=== PATIENT | female | born 1955 | race Caucasian/White ===

== ENCOUNTER 2018-12-05 06:28 | Emergency (ER) | payer OTHER, SELFPAY ==
[2018-12-05 06:34] VITALS: BP 168/97; PULSE 80; RESP 16; TEMP 36.7; O2SAT 98; BMI 29.2
--- NOTE | 2018-12-05 06:48 | ED_ITS ---
HPI - Back Pain/Injury <Andrew Patel DO - Last Filed: 12/05/18 18:06> General Chief Complaint: Urogenital-Female Stated Complaint: Thinks kidney stone back pain since yesterday Time Seen by Provider: 12/05/18 06:34 Source: patient Mode of arrival: Ambulatory Limitations: no limitations History of Present Illness HPI Narrative: 63-year-old female here for evaluation of bilateral upper and lower back pain. Patient states the symptoms started yesterday. She did heat and ice and some topical creams yesterday without much improvement. States that this morning she woke up much worse. States she has had some blood in her stool recently. This is not new. She has had GI bleeds in the past. She also stated that she was not concerned about this because she took some ibuprofen recently. Denies any blood in her urine. She has never had a kidney stone before. She thinks that may be what is going on today. No fevers. Related Data Previous Rx's Medication Instructions Recorded ketorolac 10 mg PO TID PRN #15 tab 12/05/18 Allergies Allergy/AdvReac Type Severity Reaction Status Date / Time ciprofloxacin [From Cipro] AdvReac Diarrhea Verified 12/05/18 06:52 Review of Systems <Andrew Patel DO - Last Filed: 12/05/18 18:06> Constitutional Constitutional: Denies fever(s) Cardiovascular Cardiovascular: Denies chest pain and Denies dyspnea Respiratory Respiratory: Denies dyspnea Gastrointestinal Gastrointestinal: Reports abdominal pain, Denies diarrhea, Denies loose stools, Reports nausea and Denies vomiting Comments: Blood in stool Musculoskeletal Musculoskeletal: Reports back pain, Denies myalgias and Denies arthralgias Integumentary/Breasts Skin/Breast: Denies lesions and Denies rash Hematologic/Lymphatic Hematologic/Lymphatic: Denies easy bleeding and Denies easy bruising PFSH <Andrew Patel DO - Last Filed: 12/05/18 18:06> Medical History Cervical cancer (Inactive ~1977) 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 Grandmother History of heart disease Grandfather Cancer Grandmother Stroke Social History Smoking Status: Never smoker Family History (Updated 11/07/18 @ 21:14 by Jamilah Oropeza) Father History of heart disease Hypertension Hyperlipidemia Mother Cancer Grandfather No problems noted. Grandmother History of heart disease Grandfather Cancer Grandmother Stroke Social History Smoking Status: Never smoker Exam <DO Khoa Atkins Last Filed: 12/05/18 18:06> Initial Vital Signs Initial Vital Signs: Vital Signs Temperature 98.0 F 12/05/18 06:34 Pulse Rate 80 12/05/18 06:34 Respiratory Rate 16 12/05/18 06:34 Blood Pressure 168/97 H 12/05/18 06:34 Pulse Oximetry 98 12/05/18 06:34 Const General: cooperative Orientation: alert and awake Resp Effort & Inspection: normal respiratory effort Auscultation: clear to auscultation bilaterally Cardio Rate: regular rate Rhythm: regular rhythm GI Inspection: non-distended Palpation: soft Back/Spine/Pelvis Cervical Spine: No cervical spinal tenderness Thoracic/Lumbar Spine: paraspinal tenderness, thoracic spinal tenderness and lumbar spinal tenderness Skin Lesions: no lesions Rashes: no rashes Neuro General: alert and awake Cognition: normal cognition Speech: speech normal Extrem General: normal to inspection and capillary refill normal Psych Appearance: grossly normal and well kempt <DO Khoa Stephenson Last Filed: 12/05/18 18:51> Initial Vital Signs Initial Vital Signs: Vital Signs Temperature 98.0 F 12/05/18 06:34 Pulse Rate 80 12/05/18 06:34 Respiratory Rate 16 12/05/18 06:34 Blood Pressure 168/97 H 12/05/18 06:34 Pulse Oximetry 98 12/05/18 06:34 Course <DO Khoa Atkins Last Filed: 12/05/18 18:06> Orders Ordered: Discontinued Medications Hydromorphone HCl (Dilaudid) 1 mg IV NOW ONE Stop: 12/05/18 06:48 Last Admin: 12/05/18 07:22 Dose: 1 mg Documented by: ALANNA Ketorolac Tromethamine (Toradol) 30 mg IV NOW ONE Stop: 12/05/18 06:48 Last Admin: 12/05/18 07:22 Dose: 30 mg Documented by: ALANNA Vital Signs Vital signs: Vital Signs - 8 hr 12/05/18 06:34 Temperature 98.0 F Pulse Rate 80 Respiratory Rate 16 Blood Pressure 168/97 H Pulse Oximetry 98 <Mk Humphreys DO - Last Filed: 12/05/18 18:51> Course Course Narrative: Patient received in sign-out from Dr. Patel. I performed an independent history and physical exam. Given patient's multitude of symptoms including back pain with some change in bowel habits CT with IV contrast has been ordered. She is feeling better after above-stated therapies Orders Ordered: Discontinued Medications Hydromorphone HCl (Dilaudid) 1 mg IV NOW ONE Stop: 12/05/18 06:48 Last Admin: 12/05/18 07:22 Dose: 1 mg Documented by: ALANNA Ketorolac Tromethamine (Toradol) 30 mg IV NOW ONE Stop: 12/05/18 06:48 Last Admin: 12/05/18 07:22 Dose: 30 mg Documented by: ALANNA Vital Signs Vital signs: Vital Signs - 8 hr 12/05/18 06:34 Temperature 98.0 F Pulse Rate 80 Respiratory Rate 16 Blood Pressure 168/97 H Pulse Oximetry 98 MDM - Back Pain/Injury <Andrew Patel DO - Last Filed: 12/05/18 18:06> Lab Data Result diagrams: 12/05/18 07:10 12/05/18 07:10 Labs: Lab Results 12/05/18 12/05/18 12/05/18 Range/Units 06:35 07:10 07:10 WBC 7.3 (4.5-11.0) X10^3/uL RBC 4.71 (4.0-5.2) X10^6/uL Hgb 14.4 (12.0-16.0) g/dL Hct 42.7 (36-46) % MCV 90.6 (80-100) fL MCH 30.6 (26-34) PG MCHC 33.8 (30-36) % RDW 13.5 (11.6-14.8) % Plt Count 291 (150-400) X10^3/uL Neut % (Auto) 64.8 (50-75) % Lymph % (Auto) 26.5 (25-40) % [place] % (Auto) 7.1 (3-14) % Eos % (Auto) 1.4 L (2-4) % Baso % (Auto) 0.2 (0-2) % Neut # (Auto) 4700 (4753-1515) /uL Lymph # (Auto) 1900 (3164-3192) /uL [place] # (Auto) 500 (0-900) /uL Eos # (Auto) 100 (0-450) /uL Baso # (Auto) 0 (0-100) /uL Sodium 143 (137-145) mmol/L Potassium 4.2 (3.4-5.1) mmol/L Chloride 102 (98-107) mmol/L Carbon Dioxide 30 (22-32) mmol/L BUN 15 (7-17) mg/dL Creatinine 0.60 (0.52-1.04) mg/dL Estimated GFR > 60.0 (>60) mL/min BUN/Creatinine Ratio 25.0 H (6-22) Glucose 106 (80-110) mg/dL Calcium 9.3 (8.4-10.2) mg/dL Total Bilirubin 0.7 (0.2-1.3) mg/dL AST 27 (14-36) IU/L ALT 27 (9-52) IU/L Alkaline Phosphatase 65 (38-126) U/L Total Protein 7.7 (6.3-8.2) g/dL Albumin 4.6 (3.5-5.0) g/dL Globulin 3.1 (1.7-4.1) g/dL Albumin/Globulin Ratio 1.5 (1.0-2.8) Lipase 87 (23-300) U/L Urine RBC 5-10/hpf H (0-5/HPF) Urine WBC 0-1/hpf (0-5/HPF) Urine Bacteria Occasional (0-1) (None) Ur Culture Indicated? Cult not indicated Urine Dip Bedside Urine Glucose Negative Bedside Urine Bilirubin - Negative Bedside Urine Ketone - Negative Urine Specific [place] 1.010 Bedside Urine Occult Blood + Bedside Urine pH 7.5 Bedside Urine Protein +/- 15 Bedside Urine Urobilinogen - Negative Bedside Urine Nitrite - Negative Bedside Urine Leukocytes - Negative Esterase MDM Narrative Medical decision making narrative: Patient with reproducible bilateral upper and lower back pain. This is not consistent with kidney stones. Has some abdominal tenderness however patient states this is not new. Will check labs and urine. Will provide pain control. Care turned over to day provider change of shift to follow up on labs and further disposition. <Mk Humphreys, DO - Last Filed: 12/05/18 18:51> Lab Data Labs: Lab Results 12/05/18 12/05/18 12/05/18 Range/Units 06:35 07:10 07:10 WBC 7.3 (4.5-11.0) X10^3/uL RBC 4.71 (4.0-5.2) X10^6/uL Hgb 14.4 (12.0-16.0) g/dL Hct 42.7 (36-46) % MCV 90.6 (80-100) fL MCH 30.6 (26-34) PG MCHC 33.8 (30-36) % RDW 13.5 (11.6-14.8) % Plt Count 291 (150-400) X10^3/uL Neut % (Auto) 64.8 (50-75) % Lymph % (Auto) 26.5 (25-40) % [place] % (Auto) 7.1 (3-14) % Eos % (Auto) 1.4 L (2-4) % Baso % (Auto) 0.2 (0-2) % Neut # (Auto) 4700 (8560-6383) /uL Lymph # (Auto) 1900 (3228-3046) /uL [place] # (Auto) 500 (0-900) /uL Eos # (Auto) 100 (0-450) /uL Baso # (Auto) 0 (0-100) /uL Sodium 143 (137-145) mmol/L Potassium 4.2 (3.4-5.1) mmol/L Chloride 102 (98-107) mmol/L Carbon Dioxide 30 (22-32) mmol/L BUN 15 (7-17) mg/dL Creatinine 0.60 (0.52-1.04) mg/dL Estimated GFR > 60.0 (>60) mL/min BUN/Creatinine Ratio 25.0 H (6-22) Glucose 106 (80-110) mg/dL Calcium 9.3 (8.4-10.2) mg/dL Total Bilirubin 0.7 (0.2-1.3) mg/dL AST 27 (14-36) IU/L ALT 27 (9-52) IU/L Alkaline Phosphatase 65 (38-126) U/L Total Protein 7.7 (6.3-8.2) g/dL Albumin 4.6 (3.5-5.0) g/dL Globulin 3.1 (1.7-4.1) g/dL Albumin/Globulin Ratio 1.5 (1.0-2.8) Lipase 87 (23-300) U/L Urine RBC 5-10/hpf H (0-5/HPF) Urine WBC 0-1/hpf (0-5/HPF) Urine Bacteria Occasional (0-1) (None) Ur Culture Indicated? Cult not indicated Urine Dip Bedside Urine Glucose Negative Bedside Urine Bilirubin - Negative Bedside Urine Ketone - Negative Urine Specific [place] 1.010 Bedside Urine Occult Blood + Bedside Urine pH 7.5 Bedside Urine Protein +/- 15 Bedside Urine Urobilinogen - Negative Bedside Urine Nitrite - Negative Bedside Urine Leukocytes - Negative Esterase Imaging Data CT scan - abdomen: Radiologist's impression: [address] [address] [address] Scan Report Signed Patient: Vane Olsen LMR#: [id number] : 4Acct:[id number] Age/Sex: 63 / FDate of Service: 12/05/18 Loc: ED Accession Number: [id number] Procedure: CT abdomen pelvis w con Ordering Provider: Mk Humphreys D.O. PROCEDURE: CT ABDOMEN PELVIS W CON INDICATIONS: severe left abdomen pain TECHNIQUE: After the administration of intravenous contrast, 5 mm thick sections acquired from the diaphragm to the symphysis. 5 mm coronal and sagittal reformats were acquired. For radiation dose reduction, the following was used: automated exposure control, adjustment of mA and/or kV according to patient size. COMPARISON: None. FINDINGS: Image quality: Excellent. ABDOMEN: Lung bases: There is minimal dependent atelectasis bilaterally. Heart size is normal. Solid organs: Evaluation of the liver demonstrates no focal hepatic lesions. The gallbladder appears within normal limits without calcified gallstones. Biliary system is non-dilated. There is mild dilatation of the pancreatic duct which measures up to approximately 4-5 mm. No peripancreatic fat stranding or fluid collections. There is mild soft tissue fullness in the ampulla. Otherwise no discrete pancreatic mass identified. The spleen is normal in size. No adrenal nodules. Kidneys demonstrate no hydronephrosis. There are bilateral renal cysts as well a smaller low-density foci which are too small to characterize but likely represent cysts. There is also a small exophytic lesion in the right kidney measuring up to 8 x 6 mm on series 3 image 40 which may represent a small hyperdense cyst or solid mass. Peritoneum and bowel: Bowel loops demonstrate normal wall thickness and caliber. No pericecal inflammatory changes to suggest appendicitis. There are bowel sutures in the sigmoid colon compatible with prior partial colectomy. No free fluid or air. Nodes and vessels: No retroperitoneal or mesenteric adenopathy by size criteria. Aorta and inferior vena cava are normal in size. Miscellaneous: No ventral hernias. PELVIS: Genitourinary: Bladder wall thickness is normal. The uterus is surgically absent. Miscellaneous: No inguinal hernias or adenopathy. There is a partially visualized fat density mass within the anterior compartment of the proximal right thigh along the rectus femoris muscle. Bones: No suspicious bony lesions. No vertebral body compression fractures. IMPRESSION: 1. Mild diffuse pancreatic duct dilatation with soft tissue fullness in the region of the ampulla. No biliary ductal dilatation. The findings may represent ampullary stenosis or a possible ampullary or pancreatic mass. The differential also includes a main duct IPMN. Recommend correlation clinically and with laboratory values. Further evaluation may be obtained with a pancreatic protocol MRI. 2. No CT evidence of acute pancreatitis. 3. Small lateral exophytic hyperdense cyst or solid mass demonstrated in the right kidney. Initial further evaluation may be obtained with ultrasound or on pancreatic MRI if performed. 4. Partially visualized fat density mass likely representing a lipoma within the anterior compartment of the proximal right thigh. Dictated by: Mark Urbina M.D. on 12/05/2018 at 8:39 Approved by: Mark Urbina M.D. on 12/05/2018 at 8:56 MDM Narrative Medical decision making narrative: Multiple etiologies for patient's symptoms considered including: [Musculoskeletal back pain versus kidney stone versus pyelonephritis versus other] Patient's symptoms improved or duration of stay with above-stated therapies. Findings and discharge diagnosis discussed with patient/family followed by verbalization of understanding Return precautions discussed with patient/family whom verbalize understanding. Discharge Plan Departure Patient Disposition: Home Clinical Impression: Acute flank pain Discharge Date/Time: 12/05/18 10:07 Instructions: DI for Flank Pain Activity Restrictions/Additional Instructions: *You have been diagnosed with [acute flank pain. It is unclear exactly what the cause is though it may have been a missed kidney stone, or musculoskeletal. ] *What to do: *Take medications as directed: Your presription has been sent to the [facility] in [place] at your request *Follow up with your primary care provider in 2-3 days, call for an appointment. Let them know you were seen in the Emergency Department and that we ask that you be seen in follow up. The CT today noted an abnormal appearance of a duct near your pancreas, this is almost surely unrelated to today's visit, but it will need to be followed up as an outpatient. I discussed this with radiology and they suggested a specific type of MRI as an outpatient. *Return to ER if you should have any new, worsening or concerning symptoms Prescriptions: New ketorolac 10 mg tablet 10 mg PO TID PRN (Reason: pain) Qty: 15 RF: 0 Referrals: Marleny Sosa MD [Physician] -
[2018-12-05 07:18] LABS: Bacteria Urine Occasional (0-1); Culture Indicated Urine Cult Not Indicated; RBC Urine 5-10/HPF (0-5/HPF); WBC Urine 0-1/HPF (0-5/HPF)
[2018-12-05] MEDS: HYDROMORPHONE 1 MG INJ IV (07:22)
[2018-12-05] MEDS: KETOROLAC 60 MG/2 ML VIAL 30 MG IV (07:22)
[2018-12-05 07:37] LABS: Add Manual Diff / Slide Review NO; Basophils Absolute Auto 0 /uL (0-100); Basophils Percent Auto 0.2 % (0-2); Eosinophils Absolute Auto 100 /uL (0-450); Eosinophils Percent Auto 1.4 % (2-4); Hematocrit 42.7 % (36-46); Hemoglobin 14.4 g/dL (12.0-16.0); Lymphocytes Absolute Auto 1900 /uL (1100-4500); Lymphocytes Percent Auto 26.5 % (25-40); Mean Corpuscular HGB Conc 33.8 % (30-36); Mean Corpuscular Hemoglobin 30.6 PG (26-34); Mean Corpuscular Volume 90.6 fL (80-100); Monocytes Absolute Auto 500 /uL (0-900); Monocytes Percent Auto 7.1 % (3-14); Neutrophils Absolute Auto 4700 /uL (1500-7000); Neutrophils Percent Auto 64.8 % (50-75); Platelet Count 291 X10^3/uL (150-400); Red Blood Cell Count 4.71 X10^6/uL (4.0-5.2); Red Cell Distribution Width 13.5 % (11.6-14.8); White Blood Cell Count 7.3 X10^3/uL (4.5-11.0)
[2018-12-05 07:42] LABS: Alanine Aminotransferase 27 IU/L (9-52); Albumin 4.6 g/dL (3.5-5.0); Albumin Globulin Ratio 1.5 (1.0-2.8); Alkaline Phosphatase 65 U/L (38-126); Aspartate Aminotransferase 27 IU/L (14-36); Bilirubin Total 0.7 mg/dL (0.2-1.3); Blood Urea Nitrogen 15 mg/dL (7-17); Calcium 9.3 mg/dL (8.4-10.2); Carbon Dioxide 30 mmol/L (22-32); Chloride 102 mmol/L (98-107); Estimated Glomerular Filt Rate > 60.0 mL/min (>60); Globulin 3.1 g/dL (1.7-4.1); Glucose 106 mg/dL (80-110); HEMOLYSIS < 15 (0-50); Lipase 87 U/L (23-300); Potassium 4.2 mmol/L (3.4-5.1); Sodium 143 mmol/L (137-145); Total Protein 7.7 g/dL (6.3-8.2)
--- NOTE | 2018-12-05 08:35 | DI.CT.S_ITS ---
PROCEDURE: CT ABDOMEN PELVIS W CON INDICATIONS: severe left abdomen pain TECHNIQUE: After the administration of intravenous contrast, 5 mm thick sections acquired from the diaphragm to the symphysis. 5 mm coronal and sagittal reformats were acquired. For radiation dose reduction, the following was used: automated exposure control, adjustment of mA and/or kV according to patient size. COMPARISON: None. FINDINGS: Image quality: Excellent. ABDOMEN: Lung bases: There is minimal dependent atelectasis bilaterally. Heart size is normal. Solid organs: Evaluation of the liver demonstrates no focal hepatic lesions. The gallbladder appears within normal limits without calcified gallstones. Biliary system is non-dilated. There is mild dilatation of the pancreatic duct which measures up to approximately 4-5 mm. No peripancreatic fat stranding or fluid collections. There is mild soft tissue fullness in the ampulla. Otherwise no discrete pancreatic mass identified. The spleen is normal in size. No adrenal nodules. Kidneys demonstrate no hydronephrosis. There are bilateral renal cysts as well a smaller low-density foci which are too small to characterize but likely represent cysts. There is also a small exophytic lesion in the right kidney measuring up to 8 x 6 mm on series 3 image 40 which may represent a small hyperdense cyst or solid mass. Peritoneum and bowel: Bowel loops demonstrate normal wall thickness and caliber. No pericecal inflammatory changes to suggest appendicitis. There are bowel sutures in the sigmoid colon compatible with prior partial colectomy. No free fluid or air. Nodes and vessels: No retroperitoneal or mesenteric adenopathy by size criteria. Aorta and inferior vena cava are normal in size. Miscellaneous: No ventral hernias. PELVIS: Genitourinary: Bladder wall thickness is normal. The uterus is surgically absent. Miscellaneous: No inguinal hernias or adenopathy. There is a partially visualized fat density mass within the anterior compartment of the proximal right thigh along the rectus femoris muscle. Bones: No suspicious bony lesions. No vertebral body compression fractures. IMPRESSION: 1. Mild diffuse pancreatic duct dilatation with soft tissue fullness in the region of the ampulla. No biliary ductal dilatation. The findings may represent ampullary stenosis or a possible ampullary or pancreatic mass. The differential also includes a main duct IPMN. Recommend correlation clinically and with laboratory values. Further evaluation may be obtained with a pancreatic protocol MRI. 2. No CT evidence of acute pancreatitis. 3. Small lateral exophytic hyperdense cyst or solid mass demonstrated in the right kidney. Initial further evaluation may be obtained with ultrasound or on pancreatic MRI if performed. 4. Partially visualized fat density mass likely representing a lipoma within the anterior compartment of the proximal right thigh. Dictated by: Mark Urbina M.D. on 12/05/2018 at 8:39 Approved by: Mark Urbina M.D. on 12/05/2018 at 8:56
== END 2018-12-05 10:07 | disposition home or self-care (01) ==
PROVIDERS: Emergency Medicine; Emergency Provider Emergency Medicine
DX: R10.9 Unspecified abdominal pain (principal); R11.0 Nausea
CPT/HCPCS: 36415; 74177; 80053; 81003; 81015; 83690; 85025; 96374; 96375; 99283; 99284; J1170; J1885; Q9967

== ENCOUNTER → 2018-12-25 09:03 | Outpatient (CLI) | payer OTHER, SELFPAY ==
[2018-12-25 10:07] LABS: Cholesterol 191 mg/dL (140-199); HDL Cholesterol 52 mg/dL (40-60); LDL Cholesterol Calculated 107 mg/dL (<100); Triglycerides 158 mg/dL (35-150)
[2018-12-25 10:23] LABS: Free T3, Triiodothyronine Free 3.04 pg/mL (2.77-5.27); Free T4, Direct Thyroxine 0.99 ng/dL (0.78-2.19)
[2018-12-25 10:36] LABS: Thyroid Stimulating Hormone 0.78 uIU/mL (0.47-4.68)
== END ==
PROVIDERS: PCP Nurse Practitioner; Visit Provider Nurse Practitioner
DX: Z13.6 Encounter for screening for cardiovascular disorders (principal); R53.83 Other fatigue; R63.4 Abnormal weight loss; Z87.19 Personal history of other diseases of the digestive system
CPT/HCPCS: 36415; 80061; 84439; 84443; 84481

== ENCOUNTER → 2018-12-27 11:33 | Outpatient (CLI) | payer OTHER, SELFPAY ==
[2018-12-27 15:18] LABS: Bacteria Urine None Seen; RBC Urine None Seen (0-5/HPF); WBC Urine None Seen (0-5/HPF)
[2018-12-27 15:21] LABS: Appearance Urine UA CLEAR; Bilirubin Urine UA NEGATIVE (NEGATIVE); Color Urine UA YELLOW; Glucose Urine UA NEGATIVE (Negative); Ketones Urine UA NEGATIVE (NEGATIVE); Leukocyte Esterase Urine UA NEGATIVE (NEGATIVE); Nitrite Urine UA NEGATIVE (Negative); Occult Blood Urine UA TRACE-LYSED (Negative); Protein Urine UA NEGATIVE (Negative); Specific Gravity Urine UA <=1.005 (1.000-1.035); Urobilinogen Urine UA 0.2 E.U./dL (0.2)
[2018-12-27 15:48] LABS: Culture Indicated Urine Cult Not Indicated; Urine Comments Microscopic Normal
== END ==
PROVIDERS: PCP Nurse Practitioner; Visit Provider Nurse Practitioner
DX: R31.9 Hematuria, unspecified (principal)
CPT/HCPCS: 81001

== ENCOUNTER → 2018-12-28 11:05 | Outpatient (CLI) | payer OTHER, SELFPAY ==
--- NOTE | 2018-12-28 11:06 | DI.MRI.S_ITS ---
PROCEDURE: MR ABDOMEN WO/W CON INDICATIONS: pancreatic duct dilation with soft tissue fullness TECHNIQUE: Coronal HASTE, axial 2D FLASH in- and [id number]; axial breath-hold T2 FSE with fat saturation from the hepatic dome to the iliac crests. Oblique coronal thin-slice and radial thick slab HASTE through the biliary system. Dynamic axial VIBE during administration of contrast. Post-contrast coronal VIBE or 2D FLASH with fat saturation from the hepatic dome to the iliac crests. Optional diffusion weighted imaging and ADC may be performed. COMPARISON: [facility], CT, CT ABDOMEN PELVIS W CON, 12/05/2018, 8:25. FINDINGS: Image quality: Excellent. Pancreas and biliary system: The pancreatic duct are is mildly dilated measuring 5.5 mm but is smooth throughout its course. There is prominent sidebranch draining the pancreatic uncinate process. No filling defects in the pancreatic duct. No other unusual sidebranch dilatations the pancreatic duct tapers normally to the ampulla which appears normal without enhancing mass or pancreatic head mass. Normal signal throughout the pancreas. No unusual enhancement. The intrahepatic biliary system is nondilated. The extrahepatic common duct is also normal caliber at 6 mm and tapers in the pancreatic head. Solid organs: Liver is normal in size and enhancement. Gallbladder appears normal without stones.. Spleen is normal in size and enhancement. No adrenal nodules. Kidneys are normal in size and enhancement, without hydronephrosis. Multiple cortical cysts present in each kidney. No enhancing solid masses. The previously mentioned 8mm hyperdense right renal lesion is T1 hyperintense and T2 hypointense without appreciable enhancement, consistent with a chronic hemorrhagic cyst. Nodes and vessels: No retroperitoneal or mesenteric adenopathy by size criteria. Aorta and inferior vena cava are normal in size. Bowel and peritoneum: Unenhanced bowel loops are normal in caliber throughout. No free fluid. Lung bases: No basal pleural effusions. Heart size is normal. Bones and soft tissues: No ventral hernias. Bone marrow is normal in overall signal. IMPRESSION: 1. Mild, smooth pancreatic ductal dilatation diffusely without visible/enhancing obstruction. This may be sequela of chronic pancreatitis or evidence of ampullary stenosis. There could possibly be an occult obstructing lesion at the ampulla. Correlate clinically with lab values. ERCP is recommended if there is persistent abnormality. 2. 8mm partially exophytic right renal hemorrhagic cyst. Dictated by: Ankita Rmaos M.D. on 12/28/2018 at 15:03 Approved by: Ankita Ramos M.D. on 12/28/2018 at 15:24
== END ==
PROVIDERS: PCP Nurse Practitioner; Visit Provider Nurse Practitioner
DX: K86.89 Other specified diseases of pancreas (principal); N28.1 Cyst of kidney, acquired; N28.89 Other specified disorders of kidney and ureter; R53.83 Other fatigue; R63.4 Abnormal weight loss; Z13.6 Encounter for screening for cardiovascular disorders; Z87.19 Personal history of other diseases of the digestive system
CPT/HCPCS: 74183; A9579

== ENCOUNTER → 2019-02-12 10:01 | Outpatient (CLI) | payer OTHER, SELFPAY ==
[2019-02-12 10:49] LABS: Hematocrit 41.9 % (36-46); Hemoglobin 14.3 g/dL (12.0-16.0); Mean Corpuscular HGB Conc 34.2 % (30-36); Mean Corpuscular Hemoglobin 31.1 PG (26-34); Mean Corpuscular Volume 91.1 fL (80-100); Platelet Count 293 X10^3/uL (150-400); Red Cell Distribution Width 13.4 % (11.6-14.8); White Blood Cell Count 8.4 X10^3/uL (4.5-11.0)
[2019-02-12 11:13] LABS: BUN Creatinine Ratio 21.3 (6-22); Blood Urea Nitrogen 17 mg/dL (7-17); Calcium 9.3 mg/dL (8.4-10.2); Carbon Dioxide 31 mmol/L (22-32); Chloride 99 mmol/L (98-107); Estimated Glomerular Filt Rate > 60.0 mL/min (>60); Glucose 81 mg/dL (80-110); HEMOLYSIS < 15 (0-50); Potassium 4.7 mmol/L (3.4-5.1); Sodium 140 mmol/L (137-145)
[2019-02-12 11:23] LABS: Creatinine Urine Random 106.4 mg/dL; Protein (Total) Urine Random 12 mg/dL (0-12); Protein Creatinine Ratio Urine 0.11 GRAM/24H
== END ==
PROVIDERS: Family Provider Nurse Practitioner; PCP Nurse Practitioner; Visit Provider Student in an Organized Health Care Education/Training Program
DX: N05.9 Unspecified nephritic syndrome with unspecified morphologic changes (principal); D63.1 Anemia in chronic kidney disease; D70.9 Neutropenia, unspecified; R80.9 Proteinuria, unspecified
CPT/HCPCS: 36415; 80048; 82570; 84156; 85027

== ENCOUNTER → 2019-03-26 13:50 | Outpatient (CLI) | payer OTHER, SELFPAY ==
[2019-03-26 15:50] LABS: Blood Urea Nitrogen 12 mg/dL (7-17); Carbon Dioxide 29 mmol/L (22-32); Chloride 101 mmol/L (98-107); Estimated Glomerular Filt Rate > 60.0 mL/min (>60); Glucose 78 mg/dL (80-110); HEMOLYSIS < 15 (0-50); Sodium 139 mmol/L (137-145)
== END ==
PROVIDERS: Family Provider Nurse Practitioner; PCP Nurse Practitioner; Visit Provider Student in an Organized Health Care Education/Training Program
DX: N05.9 Unspecified nephritic syndrome with unspecified morphologic changes (principal)
CPT/HCPCS: 36415; 80048

== ENCOUNTER → 2019-04-16 07:51 | Outpatient (CLI) | payer OTHER, SELFPAY ==
[2019-04-16 08:31] LABS: Cholesterol 196 mg/dL (140-199); HDL Cholesterol 55 mg/dL (40-60); LDL Cholesterol Calculated 113 mg/dL (<100); Triglycerides 138 mg/dL (35-150)
[2019-04-16 09:24] LABS: Hep C Virus Ab w/Reflex Quant NEGATIVE s/c (NEGATIVE)
== END ==
PROVIDERS: Family Provider Nurse Practitioner; PCP Nurse Practitioner; Referring Provider Nurse Practitioner; Visit Provider Nurse Practitioner
DX: Z11.59 Encounter for screening for other viral diseases (principal); E78.00 Pure hypercholesterolemia, unspecified; E78.2 Mixed hyperlipidemia; Z91.89 Other specified personal risk factors, not elsewhere classified
CPT/HCPCS: 36415; 80061; 86803

== ENCOUNTER 2019-07-18 10:08 | Emergency (ER) | payer OTHER, SELFPAY ==
--- NOTE | 2019-07-18 10:27 | ED.GENADULT ---
HPI - General Adult General Chief complaint: Extremity Problem,Nontraumatic Stated complaint: left leg behind knee pain/swelling/warm x2 days Time Seen by Provider: 07/18/19 10:12 Source: patient Mode of arrival: Ambulatory Limitations: no limitations History of Present Illness HPI narrative: Patient is a 64-year-old female here for evaluation of pain behind her left knee. She has also noticed some swelling in her left knee and warmth for the past couple days. No specific trauma. No chest pain or shortness of breath. Is able to ambulate. Has never had a blood clot before. No swelling in the left foot. Has not tried anything for symptoms prior to arrival. Related Data Home Medications Medication Instructions Recorded Confirmed losartan 100 mg tablet 100 mg PO DAILY 07/11/19 07/11/19 Previous Rx's Medication Instructions Recorded trazodone 100 mg tablet See Rx Instructions PO BEDTIME 02/22/19 #180 tab amlodipine 10 mg tablet 10 mg PO DAILY #90 tab 02/26/19 promethazine 25 mg tablet 25 mg PO Q6H PRN #120 tab MDD 4 04/24/19 tabs max daily rosuvastatin 20 mg tablet 20 mg PO DAILY #90 tab 04/24/19 voltaren 10% gel See Rx Instructions .ROUTE 04/24/19 .COMPLEX #30 gram baclofen 10 mg tablet 10 mg PO QID PRN #360 tab 07/05/19 pantoprazole 40 mg tablet,delayed 40 mg PO BID #180 tab 07/05/19 release losartan 50 mg tablet 50 mg PO DAILY #90 tab 07/11/19 venlafaxine 150 mg 150 mg PO BEDTIME #90 cap 07/11/19 capsule,extended release 24 hr lisinopril 20 mg tablet 20 mg PO BID #60 tab 07/16/19 Allergies Allergy/AdvReac Type Severity Reaction Status Date / Time amoxicillin Allergy Mild Verified 07/11/19 09:52 azithromycin [From Zithromax] Allergy Mild Verified 07/11/19 09:52 buspirone [From BuSpar] Allergy Mild dysphoria Verified 07/11/19 09:52 ceftriaxone Allergy Mild Verified 07/11/19 09:52 clarithromycin [From Biaxin] Allergy Mild Verified 07/11/19 09:52 clindamycin Allergy Mild Verified 07/11/19 09:52 doxycycline Allergy Mild Verified 07/11/19 09:52 gemfibrozil Allergy Mild Verified 07/11/19 09:52 hydrocodone [From Vicodin] Allergy Mild Verified 07/11/19 09:52 levofloxacin [From Levaquin] Allergy Mild Verified 07/11/19 09:52 memantine [From Namenda] Allergy Mild confusion Verified 07/11/19 09:52 pregabalin [From Lyrica] Allergy Mild Dizziness Verified 07/11/19 09:52 nitrofurantoin AdvReac Mild Hives on Verified 07/11/19 09:52 chest/ shoulders ciprofloxacin [From Cipro] AdvReac Diarrhea Verified 07/11/19 09:52 Review of Systems Constitutional Constitutional: Denies fever(s) Cardiovascular Cardiovascular: Denies chest pain and Denies dyspnea Respiratory Respiratory: Denies dyspnea Gastrointestinal Gastrointestinal: Denies abdominal pain Musculoskeletal Comments: Left knee swelling and pain Integumentary/Breasts Skin/Breast: Denies lesions and Denies rash Neurologic Neurologic: Denies behavioral changes Psychiatric Psychiatric: Denies behavioral changes Allergic/Immunologic Allergic/Immunologic: Denies urticaria Patient History Medical History Abnormal chest x-ray (Inactive ~2011) Abnormal Pap smear of cervix (Resolved ~1974) Allergic rash present on examination (Acute) Cannabis dependence, daily use (Acute) Cervical cancer (Inactive ~1977) Chronic pain of both shoulders (Acute) Colon polyps (Inactive ~2002) 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) Depression (Chronic ~1988) Foot pain (Inactive ~2017) Fractures (Resolved) Hemorrhoid (Inactive ~1979) History of chronic constipation (Acute) Hyperlipidemia LDL goal <100 (Acute) Liver disease (Inactive ~1972) Measles (Resolved) Mumps (Resolved) Nausea & vomiting (Acute) Painful menstrual periods (Resolved) Ruptured tympanic membrane (Resolved ~1974) Scoliosis (Inactive ~1963) Skin cancer (Inactive ~2014) Surgical History Anesthesia (Resolved) Carpal tunnel syndrome (Resolved ~1987) Cataracts, bilateral (Resolved ~2013) History of hysterectomy (Resolved ~1981) Social History Smoking Status: Former smoker Smoking Status: Former smoker (quit 02/16/17 smoked 47 years ) alcohol intake frequency: 0-2 drinks per day Substance Use Type: marijuana Exam Initial Vital Signs Initial Vital Signs: Vital Signs Temperature 97.1 F L 07/18/19 10:29 Pulse Rate 69 07/18/19 10:29 Respiratory Rate 18 07/18/19 10:29 Blood Pressure 178/84 H 07/18/19 10:29 Pulse Oximetry 97 07/18/19 10:29 Const General: cooperative and comfortable Resp Effort & Inspection: normal respiratory effort Cardio Pulses: dorsalis pedis present on the left Skin Lesions: lesions noted Rashes: rash noted Neuro General: alert, awake and oriented x3 Extrem General: capillary refill normal Other: Full range of motion left knee. Left ankle left hip unremarkable. Patient does have a swelling on the lateral aspect posterior of the left knee. Soft to the touch. Free movable. Separate from the hamstring tendon. Exam is consistent with a Sevilla cyst. Course Vital Signs Vital signs: Vital Signs - 8 hr 07/18/19 10:29 07/18/19 10:34 Temperature 97.1 F L Pulse Rate 69 Pulse Rate [Left Posterior Tibial] 70 Respiratory Rate 18 Blood Pressure 178/84 H Pulse Oximetry 97 Medical Decision Making MDM Narrative Medical decision making narrative: Low suspicion for fracture, low suspicion for DVT. Low suspicion for ligamentous injury. Low suspicion for muscular injury. Physical exam is consistent with a Sevilla cyst. She is tender over this area. We did discuss Sevilla cyst. Discussed conservative treatment at home. Discussed return precautions follow up instructions. She expressed understanding and agreement. Discharge Plan Departure Patient Disposition: Home Clinical Impression: Sevilla's cyst of knee Qualifiers: Laterality: left Qualified Code(s): M71.22 - Synovial cyst of popliteal space [Sevilla], left knee Discharge Date/Time: 07/18/19 10:38 Instructions: DI for Sevilla's Cyst Activity Restrictions/Additional Instructions: Recommend you contact your primary provider for a follow-up. Return to the emergency department for any new or worsening symptoms Prescriptions: No Action trazodone 100 mg tablet See Rx Instructions PO BEDTIME Qty: 180 RF: 3 amlodipine 10 mg tablet 10 mg PO DAILY Qty: 90 RF: 3 pantoprazole 40 mg tablet,delayed release (DR/EC) 40 mg PO BID Qty: 180 RF: 3 baclofen 10 mg tablet 10 mg PO QID PRN (Reason: pain) Qty: 360 RF: 3 lisinopril 20 mg tablet 20 mg PO BID Qty: 60 RF: 3 promethazine 25 mg tablet 25 mg PO Q6H MDD 4 tabs max daily PRN (Reason: nausea and vomiting) Qty: 120 RF: 1 rosuvastatin 20 mg tablet 20 mg PO DAILY Qty: 90 RF: 3 voltaren 10% gel See Rx Instructions .ROUTE .COMPLEX Qty: 30 RF: 2 losartan 100 mg tablet 100 mg PO DAILY RF: 0 venlafaxine 150 mg capsule,extended release 24hr 150 mg PO BEDTIME Qty: 90 RF: 3 losartan 50 mg tablet 50 mg PO DAILY Qty: 90 RF: 3 Referrals: Annette Marx ARNP [Primary Care Provider] -
[2019-07-18 10:29] VITALS: BP 178/84; PULSE 69; RESP 18; TEMP 36.2; O2SAT 97
[2019-07-18 10:34] VITALS: PULSE 70
== END 2019-07-18 10:38 | disposition home or self-care (01) ==
PROVIDERS: Emergency Provider Emergency Medicine; Family Provider Nurse Practitioner; PCP Nurse Practitioner
DX: M71.22 Synovial cyst of popliteal space [Baker], left knee (principal)
CPT/HCPCS: 99281

== ENCOUNTER → 2020-02-08 13:26 | Outpatient (CLI) | payer OTHER, SELFPAY ==
--- NOTE | 2020-02-08 13:28 | DI.MG.S_ITS ---
BILATERAL DIGITAL DIAGNOSTIC MAMMOGRAM 3D/2D: 02/08/2020 CLINICAL: Lump in the Left breast. Comparison is made to exam dated: 01/30/2016 mammogram - [facility]. The tissue of both breasts is heterogeneously dense. This may lower the sensitivity of mammography. No significant masses, calcifications, or other findings are seen in either breast. IMPRESSION: INCOMPLETE: NEEDS ADDITIONAL IMAGING EVALUATION There is no abnormality seen in the left breast to correspond with the palpable abnormality in the lower inner quadrant, however, ultrasound is recommended. This exam was interpreted at Station ID: [id number]. NOTE: For mammograms, a report in lay terms will be sent to the patient. Approximately 15% of breast malignancies will not be visualized mammographically. In the management of a palpable breast mass, a negative mammogram must not discourage biopsy of a clinically suspicious lesion. Electronically Signed By: Mark kraus/sonny:02/08/2020 14:09:25 ACR BI-RADS Category 0: Incomplete 3340F
--- NOTE | 2020-02-08 13:28 | DI.US.S_ITS ---
LIMITED ULTRASOUND OF LEFT BREAST: 02/08/2020 CLINICAL: Palpable left breast lump x 1 month. Comparison is made to exams dated: 02/08/2020 mammogram - [facility] and 01/30/2016 mammogram - [facility]. Real-time ultrasound of the left breast 7 o'clock region was performed on the area of interest. No discrete cystic or solid mass lesion identified in the area of palpable abnormality. IMPRESSION: NEGATIVE There is no sonographic evidence of malignancy. There is no abnormality seen in the left breast to correspond with the palpable abnormality at 7 o'clock, however, clinical followup is recommended. A 1 year screening mammogram is recommended. This exam was interpreted at Station ID: [id number]. Electronically Signed By: Mark kraus/:02/08/2020 14:39:02 letter sent: Clinical Evaluation Ultrasound BI-RADS: 1 Negative
== END ==
PROVIDERS: Family Provider Nurse Practitioner; PCP Nurse Practitioner; Referring Provider Nurse Practitioner; Visit Provider Nurse Practitioner
DX: R92.8 Other abnormal and inconclusive findings on diagnostic imaging of breast (principal); N63.24 Unspecified lump in the left breast, lower inner quadrant
CPT/HCPCS: 76642; 77066; G0279

== ENCOUNTER → 2020-03-25 08:01 | Outpatient (CLI) | payer OTHER, SELFPAY ==
--- NOTE | 2020-03-25 08:02 | DI.US.S_ITS ---
PROCEDURE: US ABDOMEN COMPLETE INDICATIONS: PAIN TECHNIQUE: Real-time scanning was performed of the abdominal and retroperitoneal organs, with image documentation. COMPARISON: [facility], CT, CT ABDOMEN PELVIS W CON, 12/05/2018, 8:25. FINDINGS: Liver: Liver is normal in size and homogeneous in echotexture. The main portal vein is patent, with a diameter of 1.3 cm. Gallbladder: No findings of gallstones or sludge are seen. The gallbladder wall is not thickened, measuring 3 mm or less. No specific pericholecystic fluid is seen. The sonographic Anna sign is negative. Biliary ducts: Intrahepatic bile ducts are non-dilated. Extrahepatic bile duct caliber measures 5 mm. Normal is 6-7 mm or less in diameter, or 10 mm or less post-cholecystectomy. Pancreas: Visualized portions of the pancreas are sonographically normal. The biliary duct measures up to 3.6 mm, which is minimally dilated. Spleen: Spleen is normal in size and homogeneous in echotexture. Kidneys: Kidneys are normal in size and echotexture. Right kidney measures 10.2 cm long; left kidney measures 10.9 cm long. No hydronephrosis or nephrolithiasis. No solid masses. The renal cortex measures within normal limits for thickness. Multiple simple appearing cortical cysts are seen, with the largest seen on the left superiorly measuring up 0.1 cm. Aorta: Visualized aorta is normal in caliber at less than 3 cm. Iliacs: Proximal common iliac arteries are normal in caliber at less than 2.5 cm. IVC: Intrahepatic inferior vena cava is patent. Miscellaneous: No free abdominal fluid. IMPRESSION: The gallbladder demonstrates a normal sonographic appearance. No biliary dilatation is seen. Mild prominence of biliary duct can be seen. Renal cyst incidentally noted. Dictated by: Ayo Stevens M.D. on 03/25/2020 at 8:16 Approved by: Ayo Stevens M.D. on 03/25/2020 at 8:18
[2020-03-25 10:07] LABS: Add Manual Diff / Slide Review NO; Basophils Absolute Auto 0 /uL (0-100); Basophils Percent Auto 0.3 % (0-2); Eosinophils Absolute Auto 0 /uL (0-450); Eosinophils Percent Auto 0.5 % (2-4); Hematocrit 42.7 % (36-46); Hemoglobin 13.8 g/dL (12.0-16.0); Lymphocytes Absolute Auto 2000 /uL (1100-4500); Lymphocytes Percent Auto 21.4 % (25-40); Mean Corpuscular HGB Conc 32.4 % (30-36); Mean Corpuscular Hemoglobin 29.8 PG (26-34); Mean Corpuscular Volume 92.2 fL (80-100); Monocytes Absolute Auto 600 /uL (0-900); Monocytes Percent Auto 6.1 % (3-14); Neutrophils Absolute Auto 6600 /uL (1500-7000); Neutrophils Percent Auto 71.7 % (50-75); Platelet Count 317 X10^3/uL (150-400); Red Blood Cell Count 4.64 X10^6/uL (4.0-5.2); Red Cell Distribution Width 13.5 % (11.6-14.8); White Blood Cell Count 9.2 X10^3/uL (4.5-11.0)
[2020-03-25 10:16] LABS: Alanine Aminotransferase 16 IU/L (<35); Albumin 4.3 g/dL (3.5-5.0); Albumin Globulin Ratio 1.4 (1.0-2.8); Alkaline Phosphatase 68 U/L (38-126); Aspartate Aminotransferase 23 IU/L (14-36); BUN Creatinine Ratio 18.3 (6-22); Bilirubin Total 0.3 mg/dL (0.2-1.3); Blood Urea Nitrogen 13 mg/dL (7-17); Calcium 9.1 mg/dL (8.4-10.2); Carbon Dioxide 36 mmol/L (22-32); Chloride 102 mmol/L (98-107); Cholesterol 191 mg/dL (140-199); Estimated Glomerular Filt Rate > 60.0 mL/min (>60); Glucose 87 mg/dL (80-110); HDL Cholesterol 69 mg/dL (40-60); HEMOLYSIS < 15 (0-50); LDL Cholesterol Calculated 96 mg/dL (<100); Potassium 4.7 mmol/L (3.4-5.1); Sodium 141 mmol/L (137-145); Total Protein 7.3 g/dL (6.3-8.2); Triglycerides 132 mg/dL (35-150)
[2020-03-25 10:24] LABS: Free T3, Triiodothyronine Free 2.87 pg/mL (2.77-5.27); Free T4, Direct Thyroxine 0.98 ng/dL (0.78-2.19)
[2020-03-25 10:37] LABS: Thyroid Stimulating Hormone 0.858 uIU/mL (0.47-4.68)
== END ==
PROVIDERS: Family Provider Nurse Practitioner; PCP Nurse Practitioner; Referring Provider Nurse Practitioner; Visit Provider Nurse Practitioner
DX: R10.9 Unspecified abdominal pain (principal); N28.1 Cyst of kidney, acquired; M54.9 Dorsalgia, unspecified; E78.5 Hyperlipidemia, unspecified; R11.2 Nausea with vomiting, unspecified; D64.9 Anemia, unspecified; F32.9 Major depressive disorder, single episode, unspecified; F41.9 Anxiety disorder, unspecified; I10 Essential (primary) hypertension; R53.82 Chronic fatigue, unspecified; R63.4 Abnormal weight loss; Z79.899 Other long term (current) drug therapy
CPT/HCPCS: 36415; 76700; 80053; 80061; 84439; 84443; 84481; 85025

== ENCOUNTER → 2020-05-08 15:43 | Outpatient (CLI) | payer MEDICARE, SELFPAY ==
[2020-05-08] MEDS: COVID-19 VACC, Ad26(JANSSEN)/PF 0.5 ML IM (16:00)
== END ==
PROVIDERS: Family Provider Nurse Practitioner; PCP Nurse Practitioner; Visit Provider Internal Medicine
DX: Z23 Encounter for immunization (principal)
CPT/HCPCS: 0031A; 91303

== ENCOUNTER → 2020-05-22 08:35 | Outpatient (CLI) | payer OTHER, SELFPAY ==
--- NOTE | 2020-05-22 08:38 | DI.MG.S_ITS ---
UNILATERAL LEFT DIGITAL DIAGNOSTIC MAMMOGRAM 3D/2D: 05/22/2020 CLINICAL: Left breast pain and lump. Comparison is made to exams dated: 02/08/2020 mammogram, 02/08/2020 ultrasound - [facility], and 01/30/2016 mammogram - [facility]. The tissue of left breast is heterogeneously dense. This may lower the sensitivity of mammography. No significant masses, calcifications, or other findings are seen in the breast. IMPRESSION: INCOMPLETE: NEEDS ADDITIONAL IMAGING EVALUATION No mammographic evidence of malignancy. A targeted ultrasound of the left breast site of pain is recommended and will immediately follow. This exam was interpreted at Station ID: [id number]. NOTE: For mammograms, a report in lay terms will be sent to the patient. Approximately 15% of breast malignancies will not be visualized mammographically. In the management of a palpable breast mass, a negative mammogram must not discourage biopsy of a clinically suspicious lesion. Electronically Signed By: Omer Gtz M.D. slc/:05/22/2020 09:30:56 ACR BI-RADS Category 0: Incomplete [id number]
--- NOTE | 2020-05-22 08:38 | DI.US.S_ITS ---
LIMITED ULTRASOUND OF LEFT BREAST AND AXILLA: 05/22/2020 CLINICAL: Focal left breast and axilla pain. Comparison is made to exams dated: 05/22/2020 mammogram, 02/08/2020 ultrasound, 02/08/2020 mammogram - [facility], and 01/30/2016 mammogram - [facility]. Color flow and real-time ultrasound of the left breast axilla were performed. Ramirez scale images of the real-time examination were reviewed. No significant abnormalities were seen sonographically in the left breast or the left axilla. IMPRESSION: NEGATIVE There is no sonographic evidence of malignancy in the region of pain. Return to annual mammogram screening schedule is recommended. Due around January 2021. Exam findings were conveyed to the patient. Patient is advised to monitor for significant change. Clinical follow-up as needed. This exam was interpreted at Station ID: [id number]. Electronically Signed By: Omer Gtz M.D. slc/:05/22/2020 10:14:23 letter sent: Normal Exam Ultrasound BI-RADS: 1 Negative
--- NOTE | 2020-05-22 08:38 | DI.US.S_ITS ---
PROCEDURE: US EXTREMITY NONVASC LOWER RT INDICATIONS: EVALUATING GROWING LIPOMA RIGHT UPPER THIGH TECHNIQUE: Real-time scanning was performed of the right upper thigh, with image documentation. COMPARISON: None. FINDINGS: In the area of palpable abnormality, presumed large lipoma is seen measuring 10.8 by 6.5 x 6.0 cm. This abuts the proximal superficial femoral vein and artery, and demonstrates mass effect, all of the vessels appear patent. IMPRESSION: Large heterogeneous mildly echogenic mass in the area of palpable abnormality. Findings suggest may reflect lipoma although technically nonspecific. Recommend further evaluation with contrast enhanced MRI , given clinical history of progressive growth to assess malignant potential (such as liposarcoma). Dictated by: Edy Drake M.D. on 05/22/2020 at 16:17 Approved by: Edy Drake M.D. on 05/22/2020 at 16:20
== END ==
PROVIDERS: Family Provider Nurse Practitioner; PCP Nurse Practitioner; Referring Provider Nurse Practitioner; Visit Provider Nurse Practitioner
DX: R92.8 Other abnormal and inconclusive findings on diagnostic imaging of breast (principal); N63.20 Unspecified lump in the left breast, unspecified quadrant; N64.4 Mastodynia; D17.9 Benign lipomatous neoplasm, unspecified
CPT/HCPCS: 76642; 76882; 77065; G0279

== ENCOUNTER → 2020-05-22 08:39 | Outpatient (CLI) | payer OTHER, SELFPAY ==
[2020-05-22 08:44] LABS: Bacteria Urine None Seen; WBC Urine None Seen (0-5/HPF)
[2020-05-22 09:05] LABS: Hematocrit 40.1 % (36-46); Hemoglobin 13.6 g/dL (12.0-16.0)
[2020-05-22 09:12] LABS: Appearance Urine UA CLEAR; Bilirubin Urine UA NEGATIVE (NEGATIVE); Color Urine UA YELLOW; Glucose Urine UA NEGATIVE (Negative); Ketones Urine UA NEGATIVE (NEGATIVE); Leukocyte Esterase Urine UA NEGATIVE (NEGATIVE); Nitrite Urine UA NEGATIVE (Negative); Occult Blood Urine UA 1+ (Negative); Protein Urine UA NEGATIVE (Negative); Specific Gravity Urine UA <=1.005 (1.000-1.035); Urobilinogen Urine UA 0.2 E.U./dL (0.2)
[2020-05-22 09:22] LABS: BUN Creatinine Ratio 17.1 (6-22); Blood Urea Nitrogen 13 mg/dL (7-17); Calcium 9.4 mg/dL (8.4-10.2); Carbon Dioxide 27 mmol/L (22-32); Chloride 102 mmol/L (98-107); Estimated Glomerular Filt Rate > 60.0 mL/min (>60); Glucose 88 mg/dL (80-110); HEMOLYSIS < 15 (0-50); Potassium 4.4 mmol/L (3.4-5.1); Sodium 137 mmol/L (137-145)
[2020-05-22 09:30] LABS: pH Urine UA 6.5 (4.5-8.0)
[2020-05-22 09:31] LABS: Culture Indicated Urine Cult Not Indicated; RBC Urine 0-1/HPF (0-5/HPF); Squamous Epithelial Cell Urine 0-1 /HPF (0-5/HPF)
== END ==
PROVIDERS: Family Provider Nurse Practitioner; PCP Nurse Practitioner; Referring Provider Student in an Organized Health Care Education/Training Program; Visit Provider Student in an Organized Health Care Education/Training Program
DX: N05.9 Unspecified nephritic syndrome with unspecified morphologic changes (principal); N30.00 Acute cystitis without hematuria; D64.9 Anemia, unspecified
CPT/HCPCS: 36415; 80048; 81001; 85014; 85018

== ENCOUNTER → 2020-05-30 15:41 | Outpatient (CLI) | payer OTHER, SELFPAY ==
--- NOTE | 2020-05-30 | DI.MRI.S_ITS ---
PROCEDURE: MR SHOULDER LT WO CON INDICATIONS: Impingement syndrome of left shoulder TECHNIQUE: Noncontrast oblique coronal T2 fast spin echo with fat saturation, oblique sagittal T1 spin echo and T2 fast spin echo with fat saturation, axial T1 spin echo and T2 fast spin echo with fat saturation through the shoulder. COMPARISON: None. FINDINGS: Image quality: Excellent. Rotator cuff: Mild T2 signal elevation diffusely throughout the supraspinatus and infraspinatus tendons at the humeral insertion site extending the musculotendinous junction, indicating tendinopathy. 5 mm low T2 intensity focus within the posterior infraspinatus tendon at the humeral insertion site. Superimposed low-grade partial-thickness intrasubstance tearing of the mid supraspinatus tendon at the humeral insertion site extending to the musculotendinous junction. Superimposed low-grade partial-thickness articular surface tearing of the posterior infraspinatus tendon at the humeral insertion site extending to the mid and anterior musculotendinous junction with associated intramuscular fluid anteriorly. Subscapularis and teres minor tendons are intact. Bones and bursae: No bone marrow contusions or fractures. Moderate acromioclavicular joint degeneration. The acromion demonstrates conventional anatomy, without an os acromiale. No pathologic subacromial-subdeltoid or subcoracoid bursal fluid is present. Capsule and soft tissues: Labrum grossly unremarkable on noncontrast imaging The long head of the biceps tendon demonstrates normal location and high-grade tearing rotator interval appears normal, without fibrosis. The coracohumeral ligament is normal in thickness. IMPRESSION: 1. Supraspinatus and infraspinatus tendinopathy with superimposed partial thickness tears. 2. Calcific tendinitis of the infraspinatus tendon. 3. No full-thickness rotator cuff tear. 4. Acromioclavicular joint osteoarthritis. 5. High-grade biceps tendon tear. Dictated by: Sushma Quintanilla M.D. on 05/30/2020 at 16:41 Approved by: Sushma Quintanilla M.D. on 05/30/2020 at 16:44
== END ==
PROVIDERS: Family Provider Nurse Practitioner; PCP Nurse Practitioner; Referring Provider Physical Medicine & Rehabilitation; Visit Provider Physical Medicine & Rehabilitation
DX: M75.42 Impingement syndrome of left shoulder (principal); M19.011 Primary osteoarthritis, right shoulder
CPT/HCPCS: 73221

== ENCOUNTER → 2020-06-11 08:01 | Outpatient (CLI) | payer OTHER, SELFPAY ==
--- NOTE | 2020-06-11 08:02 | DI.MRI.S_ITS ---
PROCEDURE: MR FEMUR RT WO/W CON INDICATIONS: mass increasing in size TECHNIQUE: Noncontrast coronal T1 spin echo and STIR, sagittal T1 spin echo with fat saturation and STIR, axial T1 spin echo and T2 fast spin echo with fat saturation. After the administration of contrast, axial/sagittal/coronal T1 spin echo with fat saturation through the right femur. COMPARISON: None. FINDINGS: Image quality: Excellent. Bones: The visualized bone marrow demonstrates normal signal on all sequences. The overlying cortex appears intact. No abnormal intraosseous enhancement. Soft tissues: There is a large intramuscular lipoma present in the pole right ileo psoas muscle in the groin and proximal thigh. It originates at the level of the right femoral head, anterior to the femoral head. Its signal characteristics parallel of those of fat. There is no enhancement with gadolinium. It measures 13.1 x 5.4 x 6.3 cm. No findings suspicious for malignancy. The scanned muscles demonstrate normal overall bulk and internal signal. Subcutaneous tissues appear normal as well. No abnormal soft tissue enhancement. 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 Dictated by: Brody Yin M.D. on 06/11/2020 at 9:42 Approved by: Brody Yin M.D. on 06/11/2020 at 9:46
== END ==
PROVIDERS: Family Provider Nurse Practitioner; PCP Nurse Practitioner; Referring Provider Nurse Practitioner; Visit Provider Nurse Practitioner
DX: R22.41 Localized swelling, mass and lump, right lower limb (principal); D17.23 Benign lipomatous neoplasm of skin and subcutaneous tissue of right leg
CPT/HCPCS: 73720

== ENCOUNTER → 2020-06-27 12:10 | Outpatient (CLI) | payer OTHER, SELFPAY ==
[2020-06-27 13:06] LABS: BUN Creatinine Ratio 21.4 (6-22); Blood Urea Nitrogen 18 mg/dL (7-17); Calcium 8.6 mg/dL (8.4-10.2); Carbon Dioxide 26 mmol/L (22-32); Chloride 106 mmol/L (98-107); Estimated Glomerular Filt Rate > 60.0 mL/min (>60); Glucose 136 mg/dL (80-110); HEMOLYSIS < 15 (0-50); Potassium 4.1 mmol/L (3.4-5.1); Sodium 137 mmol/L (137-145)
== END ==
PROVIDERS: Family Provider Nurse Practitioner; PCP Nurse Practitioner; Referring Provider Student in an Organized Health Care Education/Training Program; Visit Provider Student in an Organized Health Care Education/Training Program
DX: N05.9 Unspecified nephritic syndrome with unspecified morphologic changes (principal)
CPT/HCPCS: 80048

== ENCOUNTER → 2020-07-05 09:00 | Outpatient (CLI) | payer OTHER, SELFPAY ==
[2020-07-05 09:33] LABS: Bacteria Urine None Seen
[2020-07-05 10:44] LABS: Appearance Urine UA CLEAR; Bilirubin Urine UA NEGATIVE (NEGATIVE); Color Urine UA ORANGE; Glucose Urine UA NEGATIVE (Negative); Ketones Urine UA NEGATIVE (NEGATIVE); Leukocyte Esterase Urine UA NEGATIVE (NEGATIVE); Nitrite Urine UA NEGATIVE (Negative); Occult Blood Urine UA TRACE-INTACT (Negative); Protein Urine UA 1+ (Negative); Urobilinogen Urine UA 0.2 E.U./dL (0.2)
[2020-07-05 11:29] LABS: Culture Indicated Urine Cult Not Indicated; RBC Urine 1-5/HPF (0-5/HPF); WBC Urine 0-1/HPF (0-5/HPF)
== END ==
PROVIDERS: Family Provider Nurse Practitioner; PCP Nurse Practitioner; Referring Provider Student in an Organized Health Care Education/Training Program; Visit Provider Student in an Organized Health Care Education/Training Program
DX: N30.00 Acute cystitis without hematuria (principal)
CPT/HCPCS: 81001

== ENCOUNTER → 2020-08-04 09:07 | Outpatient (CLI) | payer OTHER, SELFPAY ==
--- NOTE | 2020-08-04 09:08 | DI.MRI.S_ITS ---
PROCEDURE: MR ABDOMEN WO/W CON INDICATIONS: pancreatic mass TECHNIQUE: Coronal HASTE, axial 2D FLASH in- and [id number]; axial breath-hold T2 FSE. Dynamic axial VIBE during the administration of contrast; post-contrast coronal VIBE or 2D FLASH with fat saturation from the hepatic dome to the iliac crests. Optional diffusion weighted imaging and ADC may be performed. COMPARISON: [facility], CT, CT ABDOMEN PELVIS W CON, 12/05/2018, 8:25. [facility], MR, MR ABDOMEN WO/W CON, 12/28/2018, 11:22. FINDINGS: Image quality: There is mild motion artifact. Lung bases: No basal pleural effusions. Heart size is normal. Solid organs: No hepatic mass or suspicious enhancement. Gallbladder appears within normal limits without gallstones. No biliary ductal dilatation. There is mild diffuse pancreatic duct dilatation, measuring up to approximately 5 mm which appears unchanged from the prior study. No discrete pancreatic mass identified. No filling defects within the pancreatic duct. No peripancreatic edema or fluid collections. The spleen is normal in size. No adrenal nodules. Kidneys demonstrate no hydronephrosis. Numerous bilateral renal cysts are redemonstrated. Nodes and vessels: No retroperitoneal or mesenteric adenopathy by size criteria. Aorta and inferior vena cava are normal in size. Bowel and peritoneum: Visualized bowel loops are normal in caliber. No free fluid. Bones and soft tissues: No ventral hernias. Bone marrow is normal in overall signal. IMPRESSION: 1. Diffuse mild dilatation of the pancreatic duct measuring up to 5 mm appears unchanged from the prior study. No discrete pancreatic mass or ductal filling defects are identified. The findings are again nonspecific but given relative stability over time likely reflect a mild stricture. Differential includes a main duct IPMN although this is considered less likely. 2. Multiple bilateral renal cysts redemonstrated. Dictated by: Mark Urbina M.D. on 08/04/2020 at 13:35 Approved by: Mark Urbina M.D. on 08/04/2020 at 13:54
== END ==
PROVIDERS: Family Provider Nurse Practitioner; PCP Nurse Practitioner; Referring Provider Nurse Practitioner; Visit Provider Nurse Practitioner
DX: K86.89 Other specified diseases of pancreas (principal)
CPT/HCPCS: 74183

== ENCOUNTER → 2020-08-22 08:54 | Outpatient (CLI) | payer OTHER, SELFPAY ==
--- NOTE | 2020-08-22 | DI.MRI.S_ITS ---
PROCEDURE: MR CERVICAL SPINE WO CON INDICATIONS: Cervicalgia Pain in thoracic spine TECHNIQUE: Noncontrast sagittal T1 spin echo and T2 fast spin echo, sagittal STIR, foraminal oblique sagittal T2 fast spin echo, and axial gradient echo or T2 fast spin echo through the cervical spine. COMPARISON: None. FINDINGS: Image quality: Degraded by patient motion artifact. Alignment and Curvature: There is normal bony alignment. Bone Marrow: Mild reactive endplate changes noted adjacent to the C4-C5 , C5-C6 and C6-C7 discs. Spinal Cord: Visualized spinal cord has normal size and signal. No cerebellar tonsillar herniation. Paraspinous Soft Tissues: No paravertebral masses. Prevertebral soft tissues are normal in thickness. C2-C3: Loss of disc signal. Moderate right and mild left facet hypertrophy. No central stenosis. No neural foraminal narrowing. No neural compression. C3-C4: Loss of disc signal. Minimal, diffuse disc bulge. Moderate right and mild left facet hypertrophy. Mild bilateral uncovertebral joint hypertrophy. No central stenosis. Moderate right mild left neural foraminal narrowing. No neural compression. C4-C5: Loss of disc signal and height. Moderate, diffuse disc bulge. Mild bilateral facet hypertrophy. Moderate bilateral uncovertebral joint hypertrophy. Moderate narrowing of the central canal. Severe bilateral neural foraminal narrowing with compression of the exiting C5 nerve roots. C5-C6: Loss of disc signal and height. Mild to moderate diffuse disc bulge. Mild bilateral facet hypertrophy. Moderate bilateral uncovertebral joint hypertrophy. Mild to moderate narrowing of the central canal. Severe bilateral neural foraminal narrowing with compression of the exiting C6 nerve roots. C6-C7: Loss of disc signal and height. Mild, diffuse disc bulge. Mild bilateral facet hypertrophy. Mild bilateral uncovertebral joint hypertrophy. Mild narrowing of the central canal. Mild bilateral neural foraminal narrowing. No neural compression. C7-T1: Normal appearance. IMPRESSION: 1. Multilevel degenerative disc disease. 2. Multilevel facet and uncovertebral arthropathy. 3. No severe central canal narrowing. 4. Severe bilateral C4-C5 and C5-C6 neural foraminal narrowing with compression of the exiting bilateral C5 and C6 nerve roots. Dictated by: Antonia Garsia MD, PhD on 08/22/2020 at 12:51 Approved by: Antonia Garsia MD, PhD on 08/22/2020 at 13:02
--- NOTE | 2020-08-22 | DI.MRI.S_ITS ---
PROCEDURE: MR THORACIC SPINE WO CON INDICATIONS: Cervicalgia Pain in thoracic spine TECHNIQUE: Noncontrast sagittal T1 spin echo and T2 fast spin echo, sagittal STIR through the thoracic and lumbar spines, with additional T2 fast spin echo images acquired through levels of compression fractures. COMPARISON: None. FINDINGS: Image quality: Degraded by patient motion artifact. Bones: No vertebral body compression fracture. Mild to moderate T7-T8, T8-T9, T9-T10 degenerative disc disease. Mild T10-T11 and T11-T12 degenerative disc changes. No central stenosis. No neural foraminal narrowing. No neural compression. Spinal cord: Visualized spinal cord is normal in size and signal. Conus medullaris is normal in location. Paraspinous soft tissues: No paravertebral masses. Bilateral renal cysts. IMPRESSION: 1. Multilevel degenerative disc disease. 2. No central stenosis. 3. No neural foraminal narrowing. 4. No neural compression. 5. No vertebral body compression fracture Dictated by: Antonia Garsia MD, PhD on 08/22/2020 at 13:48 Approved by: Antonia Garsia MD, PhD on 08/22/2020 at 14:38
== END ==
PROVIDERS: Family Provider Nurse Practitioner; PCP Nurse Practitioner; Referring Provider Orthopaedic Surgery Foot and Ankle Surgery; Visit Provider Orthopaedic Surgery Foot and Ankle Surgery
DX: M47.812 Spondylosis without myelopathy or radiculopathy, cervical region; M48.02 Spinal stenosis, cervical region; M50.321 Other cervical disc degeneration at C4-C5 level; M51.34 Other intervertebral disc degeneration, thoracic region; M54.5 Low back pain
CPT/HCPCS: 72141; 72146

== ENCOUNTER 2020-08-29 08:15 | Outpatient (RCR) | payer OTHER, SELFPAY ==
--- NOTE | 2020-07-21 16:57 | PT.OIE ---
Current Diagnoses Postural kyphosis, thoracic region (07/21/20) Muscle weakness (generalized) (07/21/20) Other shoulder lesions, right shoulder (07/21/20) Other shoulder lesions, left shoulder (07/21/20) Past Medical History (Last Updated 07/03/20 @ 13:59 by BUNNY Wagner) Abdominal pain Abnormal chest x-ray (~2011) Abnormal Pap smear of cervix (~1974) Allergic rash present on examination Anemia (~2016) Cannabis dependence, daily use Cat bite Cervical cancer (~1977) Change in bowel habit Chronic pain of both shoulders Colon polyps (~2002) Degenerative joint disease (DJD) of lumbar spine (~1963) Depression (~1988) Epigastric pain determined by examination Fatigue Fecal incontinence (~2017) Fibromyalgia (~1983) Foot pain (~2017) Fractures GI bleeding (~2018) Glaucoma (~2018) Granuloma annulare (~2014) Hemorrhoid (~1979) History of chronic constipation Hyperlipidemia LDL goal <100 Intermittent left-sided chest pain Kidney stones (~2018) Liver disease (~1972) Mass of right thigh Measles Migraines (~1982) Mumps Muscle spasm of back Nausea & vomiting Neoplasm of uncertain behavior Osteoarthritis (~2012) Osteoporosis (~2012) Painful menstrual periods Pancreatic mass Pancreatitis Partial blindness Right renal mass Ruptured tympanic membrane (~1974) Scoliosis (~1963) Shoulder pain (~1985) Skin cancer (~2014) Sleep apnea (~2015) Vaginitis Weight loss, non-intentional Past Surgical History (Last Reviewed 07/03/20 @ 13:51 by BUNNY Wagner) Anesthesia Carpal tunnel syndrome (~1987) Cataracts, bilateral (~2013) History of hysterectomy (~1981) Visit Care Team Role Provider Type BUNNY Wagner Family Provider Advanced Roofer Applicator Primary Care Provider Specialty: Family Practice Address: [address] [place] [address], [id number] Email: [email or web address] Bea Arriaga MD Attending Provider Physician Referring Provider Specialty: Orthopedic Surgery Address: [address] [place] [address], [id number] Email: [email or web address] Initial Evaluation PT-OP-A Visit Information Start: 07/15/20 18:24 Freq: Status: Active Protocol: Document 07/21/20 09:06 LRN (Rec: 07/21/20 10:29 LRN [id number]) Out-Patient Physical Therapy Visit Information Visit Information Visit Type Initial Evaluation Visit Start Time 09:06 Visit Stop Time 10:02 Total Visit Minutes 56 Visit Number 1 Evaluation Information Evaluation Date 07/21/20 Precautions Precautions 35 yrs opiate dependency, used marijuana to come off. Uses 5 vicodins for 3 months to come off shots. Skin CA, osteoporosis, High Blood pressure controlled, emphyzema, fibromyalgia, depression controlled by meds, heart murmur. PT-OP-B Current Condition Start: 07/15/20 18:24 Freq: Status: Active Protocol: Document 07/21/20 09:06 LRN (Rec: 07/21/20 10:29 LRN [id number]) Current Condition History of Current Condition Onset Date 02/28/2018 History of Current Condition Insidous onset. Getting coritsone injections every 3 months for the last 2 years. last one provided pain relief for 2 weeks. States she used her arms with daily activities and sleeping on arm. States an MRI done in [place] shows the same report as the L shoulder MRI performed at . Had surgery to correct overcalcification of bone in both shoulders 1 year apart at [facility] 1985 with pain relief for 20 years (2018). Can't take IBP due to stomach bleeds. 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 Prior Treatments and Tests Couple years ago with issues of the shoulders she felt it helped some and could get through the day with tolerable pain and could sleep with less pain. Future Testing and Treatments Planned MRI of neck and back within next couple weeks now that she was approved. Treatment Goals Patient/Caregiver Goals Pt reports goal is to see if exercise can help with the pain before surgery. Goal is to sleep better (sleep without rolling over 16x a night without pain) and less pain during the day. Can't sleep on back due to breathing difficulty. Prior Functional Status Baseline Function- ADL's Independent Baseline Function- Mobility Independent Current Functional Impairments (Reported) Functional Limitations- ADL's Pain first in morning after lying on it, or after heavy lifting (25#, bag of dog food) , vacuum cleaner laboratory equipment canister and if lifting arms shoulder height (stirring). Personal Factors Other Personal Factors That May Effect History of opiod dependency, Therapy/Recovery using 5 Vicodin every 3 months . PT-OP-C Subjective Start: 07/15/20 18:24 Freq: Status: Active Protocol: Document 07/21/20 09:06 LRN (Rec: 07/21/20 10:29 LRN [id number]) Patient Questionnaires Quick Dash- Upper Extremity Quick Dash UE Score 95.45 Quick Dash UE Impairment 80 to 99% Impaired (Score 80- 99) OP-PT Pain Assessment Location Mid back Pain Location Details Left Mid back and breast Intensity 8 Scale Used Numeric (0 - 10) Description Sharp Other Pain Alleviating Factors Changed med from Baclafin to methacarbonal Shoulders Pain Location Details Top of shoulders and lateral Deltoid Intensity 8 Scale Used Numeric (0 - 10) Description Aching,Sharp,With Movement Frequency Constant Variations/Patterns Variable intensity. Increases with use. Pain Aggravating Factors Position,Lifting PT-OP-E Functional Tests Start: 07/15/20 18:24 Freq: Status: Active Protocol: Document 07/21/20 09:06 LRN (Rec: 07/21/20 10:29 LRN [id number]) Functional Tests Apley's Scratch Test Action 1- Left Supraspinatus Action 1- Right Supraspinatus Action 2- Left C4 Action 2- Right Lateral neck Action 3- Left T11 Action 3- Right T10 PT-OP-H Neuro Start: 07/15/20 18:24 Freq: Status: Active Protocol: Document 07/21/20 09:06 LRN (Rec: 07/21/20 10:29 LRN [id number]) Sensation Evaluation Gross Sensation Gross Sensation WNL Comments Summary Comments Occasional tingling/numbing in hands. T9-L4 circular area: numbness in back, pt concerned related to Pancreatic CA. PT-OP-J Posture/Palpation/Skin Start: 07/15/20 18:24 Freq: Status: Active Protocol: Document 07/21/20 09:06 LRN (Rec: 07/21/20 10:29 LRN [id number]) Posture Evaluation Position Standing T-Spine Posture Increased Kyphosis Shoulder Posture (R) Rounded,(R) Forward Pelvis Posture Neutral Hip Posture (L) Neutral Knee Posture (L) Genu Valgus,(R) Genu Valgus Palpation Assessment Location Shoulders Palpation Location Bilateral shoulders Palpation Findings Tenderness Palpation Details L Anterior Scalenes, Supraspinatus, Infraspinatus R Supraspinatus, Lateral neck PT-OP-K Range of Motion Start: 07/15/20 18:24 Freq: Status: Active Protocol: Document 07/21/20 09:06 LRN (Rec: 07/21/20 10:29 LRN [id number]) Cervical Spine Range of Motion Cervical Spine Active Degrees Testing Position Sitting Flexion 35 Extension 25 Rotation Left 48 Rotation Right 58 Lateral Flexion Left 9 Lateral Flexion Right 25 Comments L rotation pain is down L shoulder. SB pain is in the neck on opposite side. Shoulder Goniometric Range of Motion Shoulder Right Passive Shoulder ROM WFL No Testing Position Supine Flexion 127 External Rotation at 90 degrees 78 Abduction Internal Rotation 63 Left Passive Shoulder ROM WFL No Testing Position Supine Flexion 115 External Rotation at 90 degrees 57 Abduction Internal Rotation 54 Right Active Shoulder ROM WFL No Testing Position Sitting Flexion 90 Extension 40 Abduction 95 Internal Rotation Behind Back (text) T12 Left Active Shoulder ROM WFL No Testing Position Sitting Flexion 95 Extension 40 Abduction 62 Internal Rotation Behind Back (text) T11 PT-OP-M Strength Start: 07/15/20 18:24 Freq: Status: Active Protocol: Document 07/21/20 09:06 LRN (Rec: 07/21/20 10:29 LRN [id number]) Cervical Spine Strength Cervical Spine Manual Muscle Testing Testing Position Sitting Comments Generally 3+/5, limited due to pain Shoulder Strength Shoulder Manual Muscle Testing Right Flexion 2+ Poor+ Extension 5 Normal Abduction (C5) 2+ Poor+ External Rotation 3+ Fair+ Internal Rotation 4 Good Comments Strength limited due to pain. Left Flexion 2+ Poor+ Extension 5 Normal Abduction (C5) 2+ Poor+ External Rotation 3+ Fair+ Internal Rotation 3+ Fair+ Comments Strength limited due to pain PT-OP-Q Treatments Start: 07/15/20 18:24 Freq: Status: Active Protocol: Document 07/21/20 09:06 LRN (Rec: 07/21/20 10:29 LRN [id number]) Self-Care/Home Management Treatment Education Other Education Discussed result of evaluation , goals, and plan of care. PT-OP-T Assessment and Plan Start: 07/15/20 18:24 Freq: Status: Active Protocol: Document 07/21/20 09:06 LRN (Rec: 07/21/20 10:29 LRN [id number]) Physical Therapy Assessment Rehab Potential Rehabilitation Potential Fair Evaluation Complexity Number of Personal Factors/Comorbidities 3 or More Number of Body Systems Impaired 4 or More Clinical Presentation at Evaluation Evolving Impairments Impairments Activity Tolerance,Pain, Posture,ROM,Soft Tissue Mobility,Strength Goals Three Impairment Decreased harsh shoulder strength (3+ to 4/5). Short Term Goal (STG) Pt will be independent on shoulder strengthening ex's for self care managment. STG Duration 08/22/20 Longterm Goal (LTG) Pt will demonstrate improved bilateral shoulder strength with pt able to do daily cooking activity of stirring with tolerable pain. LTG Duration 10/03/20 Two Impairment Pain rated 8/10 in bilateral shoulders and L mid back Short Term Goal (STG) Decrease pain with pt able to sleep better at night. STG Duration 08/22/20 Longterm Goal (LTG) Decrease pain to to improve functional tolerance with vacumming or showing improved function per UE Quick DASH ( initial is 95.45 disability score). LTG Duration 10/03/20 One Impairment Lacks appropriate self care HEP Short Term Goal (STG) Pt will be educated in self care pain management techniques (modailities) and nighttime positioning. STG Duration 08/15/20 Abrasive Worker Goal (LTG) Pt will be educated in proper body mechanics to minimize shoulder pain with activities and independent with self care HEP of strengthenining and mobility exercises to manage her bilateral shoulder pain. LTG Duration 10/03/20 Assessment Summary Assessment Pt presents with bilateral shoulder impingement symptoms with her left shoulder worse than the right today. Pt reports indicates the pain in her shoulders are variable and that sometimes her right side is worse than the left. She has much soft tissue dysfunction of her rotator cuff muscles, primarily as expected in her Supraspinatus (bilateral )and Infraspinatus (left). She is limited in ROM & strength in her shoulders due pain. Her pain was reproduced with shouler AROM & PROM movements, but also with cervical rotation. Further manual assessment of the cervical spine is needed at her next appointment to determine cervical involvement . She is planning on getting a cervical and back MRI with recent insurance approval, but an appointment has not yet been scheduled. The pt will benefit from skilled physical therapy for pt education on self care, and rehabilitation for bilateral impingement syndrome and progression onto a HEP for self care. Pt is limited in insurance limits; therefore the pt has agreed to therapy 2x/week for 3 weeks and 1x/week for 2 more weeks, for now. Physical Therapy Plan Frequency and Duration Frequency of Treatment 2x/Week Plan of Care Start Date 07/21/20 Plan of Care End Date 10/03/20 Therapeutic Interventions Therapeutic Interventions Home Exercise Program,Manual Therapy,Neuromuscular Re- education,Patient/Caregiver Education,Self-Care/Home Management,Soft Tissue Mobilization,Taping, Therapeutic Activities, Therapeutic Exercises Modalities Cold Pack/Ice Massage,Electric Stimulation,Hot Packs, Traction- Mechanical, Ultrasound Next Visit Focus/Plan Next Note Type Treatment Note Next Visit Plan Pt to schedule more PT visits for rehabilitation. Bilateral shoulder rehab for impingement due to RC partial tears and possible cervical involvement. Check cervical compression and traction and assess neck joint mobility. Progress for pain relief and HEP due to insurance limits.
--- NOTE | 2020-07-21 16:58 | PT.OPPOC ---
Physical, Occupational & Speech Therapy At [facility] Current Diagnoses Postural kyphosis, thoracic region (07/21/20) Muscle weakness (generalized) (07/21/20) Other shoulder lesions, right shoulder (07/21/20) Other shoulder lesions, left shoulder (07/21/20) Visit Care Team Role Provider Type BUNNY Wagner Family Provider Advanced Poll Watcher Primary Care Provider Specialty: Family Practice Address: [address] [place] [address], [id number] Email: [email or web address] Bea Arriaga MD Attending Provider Physician Referring Provider Specialty: Orthopedic Surgery Address: [address] [place] [address], [address] Email: [email or web address] Plan Of Care PT-OP-T Assessment and Plan Start: 07/15/20 18:24 Freq: Status: Active Protocol: Document 07/21/20 09:06 LRN (Rec: 07/21/20 10:29 LRN [id number]) Physical Therapy Assessment Rehab Potential Rehabilitation Potential Fair Evaluation Complexity Number of Personal Factors/Comorbidities 3 or More Number of Body Systems Impaired 4 or More Clinical Presentation at Evaluation Evolving Impairments Impairments Activity Tolerance,Pain, Posture,ROM,Soft Tissue Mobility,Strength Goals Three Impairment Decreased harsh shoulder strength (3+ to 4/5). Short Term Goal (STG) Pt will be independent on shoulder strengthening ex's for self care managment. STG Duration 08/22/20 Care Home Goal (LTG) Pt will demonstrate improved bilateral shoulder strength with pt able to do daily cooking activity of stirring with tolerable pain. LTG Duration 10/03/20 Two Impairment Pain rated 8/10 in bilateral shoulders and L mid back Short Term Goal (STG) Decrease pain with pt able to sleep better at night. STG Duration 08/22/20 Care Home Goal (LTG) Decrease pain to to improve functional tolerance with vacumming or showing improved function per UE Quick DASH ( initial is 95.45 disability score). LTG Duration 10/03/20 One Impairment Lacks appropriate self care HEP Short Term Goal (STG) Pt will be educated in self care pain management techniques (modailities) and nighttime positioning. STG Duration 08/15/20 Plaster Block Layer Goal (LTG) Pt will be educated in proper body mechanics to minimize shoulder pain with activities and independent with self care HEP of strengthenining and mobility exercises to manage her bilateral shoulder pain. LTG Duration 10/03/20 Assessment Summary Assessment Pt presents with bilateral shoulder impingement symptoms with her left shoulder worse than the right today. Pt reports indicates the pain in her shoulders are variable and that sometimes her right side is worse than the left. She has much soft tissue dysfunction of her rotator cuff muscles, primarily as expected in her Supraspinatus (bilateral )and Infraspinatus (left). She is limited in ROM & strength in her shoulders due pain. Her pain was reproduced with shouler AROM & PROM movements, but also with cervical rotation. Further manual assessment of the cervical spine is needed at her next appointment to determine cervical involvement . She is planning on getting a cervical and back MRI with recent insurance approval, but an appointment has not yet been scheduled. The pt will benefit from skilled physical therapy for pt education on self care, and rehabilitation for bilateral impingement syndrome and progression onto a HEP for self care. Pt is limited in insurance limits; therefore the pt has agreed to therapy 2x/week for 3 weeks and 1x/week for 2 more weeks, for now. Physical Therapy Plan Frequency and Duration Frequency of Treatment 2x/Week Plan of Care Start Date 07/21/20 Plan of Care End Date 10/03/20 Therapeutic Interventions Therapeutic Interventions Home Exercise Program,Manual Therapy,Neuromuscular Re- education,Patient/Caregiver Education,Self-Care/Home Management,Soft Tissue Mobilization,Taping, Therapeutic Activities, Therapeutic Exercises Modalities Cold Pack/Ice Massage,Electric Stimulation,Hot Packs, Traction- Mechanical, Ultrasound Next Visit Focus/Plan Next Note Type Treatment Note Next Visit Plan Pt to schedule more PT visits for rehabilitation. Bilateral shoulder rehab for impingement due to RC partial tears and possible cervical involvement. Check cervical compression and traction and assess neck joint mobility. Progress for pain relief and HEP due to insurance limits. Plan of Care Dates Plan of Care Start Date 07/21/20 Plan of Care End Date 10/03/20 Electronically Signed by: Gianna Grnaados, PT 07/21/20 0215 Please Sign and Return: I have reviewed this Plan of Care and certify that the skilled therapy services above are required to meet the patient?s needs. Physician Signature Date Printed Name and Credentials Clinical Instructor Signature Printed Name and Credentials
--- NOTE | 2020-08-04 17:13 | PT.OTN ---
Current Diagnoses Postural kyphosis, thoracic region (08/04/20) Muscle weakness (generalized) (08/04/20) Other shoulder lesions, right shoulder (08/04/20) Other shoulder lesions, left shoulder (08/04/20) Physical Therapy Treatment Note PT-OP-A Visit Information Start: 07/15/20 18:24 Freq: Status: Active Protocol: Document 08/04/20 08:17 LRN (Rec: 08/04/20 09:07 LRN [id number]) Out-Patient Physical Therapy Visit Information Visit Information Visit Type Treatment Note Visit Start Time 08:17 Visit Stop Time 08:55 Total Visit Minutes 38 Visit Number 2 Evaluation Information Evaluation Date 07/21/20 Precautions Precautions 35 yrs opiate dependency, used marijuana to come off. Uses 5 vicodins for 3 months to come off shots. Skin CA, osteoporosis, High Blood pressure controlled, emphyzema, fibromyalgia, depression controlled by meds, heart murmur. PT-OP-B Current Condition Start: 07/15/20 18:24 Freq: Status: Active Protocol: Document 07/21/20 09:06 LRN (Rec: 07/21/20 10:29 LRN [id number]) Current Condition History of Current Condition Onset Date 02/28/2018 History of Current Condition Insidous onset. Getting coritsone injections every 3 months for the last 2 years. last one provided pain relief for 2 weeks. States she used her arms with daily activities and sleeping on arm. States an MRI done in [place] shows the same report as the L shoulder MRI performed at . Had surgery to correct overcalcification of bone in both shoulders 1 year apart at [facility] 1985 with pain relief for 20 years (2018). Can't take IBP due to stomach bleeds. 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 Prior Treatments and Tests Couple years ago with issues of the shoulders she felt it helped some and could get through the day with tolerable pain and could sleep with less pain. Future Testing and Treatments Planned MRI of neck and back within next couple weeks now that she was approved. Treatment Goals Patient/Caregiver Goals Pt reports goal is to see if exercise can help with the pain before surgery. Goal is to sleep better (sleep without rolling over 16x a night without pain) and less pain during the day. Can't sleep on back due to breathing difficulty. Prior Functional Status Baseline Function- ADL's Independent Baseline Function- Mobility Independent Current Functional Impairments (Reported) Functional Limitations- ADL's Pain first in morning after lying on it, or after heavy lifting (25#, bag of dog food) , vacuum janitor cleaner canister and if lifting arms shoulder height (stirring). Personal Factors Other Personal Factors That May Effect History of opiod dependency, Therapy/Recovery using 5 Vicodin every 3 months . PT-OP-C Subjective Start: 07/15/20 18:24 Freq: Status: Active Protocol: Document 08/04/20 08:17 LRN (Rec: 08/04/20 09:07 LRN [id number]) OP-PT Subjective Patient Comments Patient Comments Shoulders have been worse. Cortisone shot in 2 days. PT-OP-E Functional Tests Start: 07/15/20 18:24 Freq: Status: Active Protocol: Document 07/21/20 09:06 LRN (Rec: 07/21/20 10:29 LRN [id number]) Functional Tests Apley's Scratch Test Action 1- Left Supraspinatus Action 1- Right Supraspinatus Action 2- Left C4 Action 2- Right Lateral neck Action 3- Left T11 Action 3- Right T10 PT-OP-H Neuro Start: 07/15/20 18:24 Freq: Status: Active Protocol: Document 07/21/20 09:06 LRN (Rec: 07/21/20 10:29 LRN [id number]) Sensation Evaluation Gross Sensation Gross Sensation WNL Comments Summary Comments Occasional tingling/numbing in hands. T9-L4 circular area: numbness in back, pt concerned related to Pancreatic CA. PT-OP-J Posture/Palpation/Skin Start: 07/15/20 18:24 Freq: Status: Active Protocol: Document 07/21/20 09:06 LRN (Rec: 07/21/20 10:29 LRN [id number]) Posture Evaluation Position Standing T-Spine Posture Increased Kyphosis Shoulder Posture (R) Rounded,(R) Forward Pelvis Posture Neutral Hip Posture (L) Neutral Knee Posture (L) Genu Valgus,(R) Genu Valgus Palpation Assessment Location Shoulders Palpation Location Bilateral shoulders Palpation Findings Tenderness Palpation Details L Anterior Scalenes, Supraspinatus, Infraspinatus R Supraspinatus, Lateral neck PT-OP-K Range of Motion Start: 07/15/20 18:24 Freq: Status: Active Protocol: Document 07/21/20 09:06 LRN (Rec: 07/21/20 10:29 LRN [id number]) Cervical Spine Range of Motion Cervical Spine Active Degrees Testing Position Sitting Flexion 35 Extension 25 Rotation Left 48 Rotation Right 58 Lateral Flexion Left 9 Lateral Flexion Right 25 Comments L rotation pain is down L shoulder. SB pain is in the neck on opposite side. Shoulder Goniometric Range of Motion Shoulder Right Passive Shoulder ROM WFL No Testing Position Supine Flexion 127 External Rotation at 90 degrees 78 Abduction Internal Rotation 63 Left Passive Shoulder ROM WFL No Testing Position Supine Flexion 115 External Rotation at 90 degrees 57 Abduction Internal Rotation 54 Right Active Shoulder ROM WFL No Testing Position Sitting Flexion 90 Extension 40 Abduction 95 Internal Rotation Behind Back (text) T12 Left Active Shoulder ROM WFL No Testing Position Sitting Flexion 95 Extension 40 Abduction 62 Internal Rotation Behind Back (text) T11 PT-OP-L Special Tests Start: 07/15/20 18:24 Freq: Status: Active Protocol: Document 08/04/20 08:17 LRN (Rec: 08/04/20 09:07 LRN [id number]) Special Tests Cervical Spine Special Tests Foraminal Compression Test Results Inc pain bilateral shoulders Comments + bilaterally Traction Test Results dec pain Comments + R PT-OP-M Strength Start: 07/15/20 18:24 Freq: Status: Active Protocol: Document 07/21/20 09:06 LRN (Rec: 07/21/20 10:29 LRN [id number]) Cervical Spine Strength Cervical Spine Manual Muscle Testing Testing Position Sitting Comments Generally 3+/5, limited due to pain Shoulder Strength Shoulder Manual Muscle Testing Right Flexion 2+ Poor+ Extension 5 Normal Abduction (C5) 2+ Poor+ External Rotation 3+ Fair+ Internal Rotation 4 Good Comments Strength limited due to pain. Left Flexion 2+ Poor+ Extension 5 Normal Abduction (C5) 2+ Poor+ External Rotation 3+ Fair+ Internal Rotation 3+ Fair+ Comments Strength limited due to pain PT-OP-Q Treatments Start: 07/15/20 18:24 Freq: Status: Active Protocol: Document 08/04/20 08:17 LRN (Rec: 08/04/20 09:07 LRN [id number]) Therapeutic Exercises Supine Exercises Shoulder ER/IR w/neck elongation Supine Exercise Name Neck elongation with shoulder ER/IR Side bilateral Reps/Minutes 5' Comments Much phys & v cuing needed Deep Cervical flexor ex Supine Exercise Name Deep C. flex/neck elongation training Reps/Minutes 3' Comments Phys & v. cuing needed Shoulder ER/IR Supine Exercise Name Active windshield wipe with manual C.tx Side bilateral Reps/Minutes 4' Manual Therapy Treatment Soft Tissue Mobilization Pec Minor Body Location Pec Minor Mobilization Type Myofascial Release,Strumming Intensity/Depth Superficial Body Position Supine Anterior scalenes Body Location Anterior Scalenes Mobilization Type Sustained Pressure,Trigger Point Release Intensity/Depth Superficial Body Position Supine UT Body Location Glenn UT Mobilization Type Sustained Pressure,Trigger Point Release Intensity/Depth Superficial Body Position Supine Comments 15' Self-Care/Home Management Treatment Education Patient Education Home Exercise Program Activities Self-Care/Home Management Activities I/S pt in HEP: Use of Theracane in UT's, PEc stretch on minimal towel roll, neck elongation and shoulder ER/IR painfree range w/neck elongation. PT-OP-T Assessment and Plan Start: 07/15/20 18:24 Freq: Status: Active Protocol: Document 08/04/20 08:17 LRN (Rec: 08/04/20 09:07 LRN [id number]) Physical Therapy Assessment Goals Three Impairment Decreased glenn shoulder strength (3+ to 4/5). Short Term Goal (STG) Pt will be independent on shoulder strengthening ex's for self care managment. (08/04/20: Initiated active shoulder IR/ER of windshield wipe exercise and scapular pinches with pec stretch with verbal I/S given). STG Duration 08/22/20 (08/04/20: Progressing ) Custodial Goal (LTG) Pt will demonstrate improved bilateral shoulder strength with pt able to do daily cooking activity of stirring with tolerable pain. LTG Duration 10/03/20 Two Impairment Pain rated 8/10 in bilateral shoulders and L mid back Short Term Goal (STG) Decrease pain with pt able to sleep better at night. STG Duration 08/22/20 Adjunct Psychology Instructor Goal (LTG) Decrease pain to to improve functional tolerance with vacumming or showing improved function per UE Quick DASH ( initial is 95.45 disability score). LTG Duration 10/03/20 One Impairment Lacks appropriate self care HEP Short Term Goal (STG) Pt will be educated in self care pain management techniques (modailities) and nighttime positioning. STG Duration 08/15/20 Custodial Goal (LTG) Pt will be educated in proper body mechanics to minimize shoulder pain with activities and independent with self care HEP of strengthenining and mobility exercises to manage her bilateral shoulder pain. LTG Duration 10/03/20 Progress Towards Goals Progress Towards Goals Progressing Toward Goals Progress Comments Progressed HEP. Pain decreased from 4/10 to start bilaterally to 2/10 on right, 1/10 on left after therapy. Assessment Summary Assessment Pt presents with bilateral shoulder impingement symptoms with her left shoulder worse than the right and signs of possible cervical involvment with increased shoulder pain with cervical compression and decreased pain (R>L) with traction. Pt showed good pain relief after STM & manual traction, even with active shoulder ER/IR in supine. She has soft tissue dysfunction of her rotator cuff muscles, primarily as expected in her Supraspinatus (bilateral ), Infraspinatus (left), and bilateral Pec minor & anterior middle/posterior scalenes. Physical Therapy Plan Frequency and Duration Frequency of Treatment 2x/Week Plan of Care Start Date 07/21/20 Plan of Care End Date 10/03/20 Next Visit Focus/Plan Next Note Type Treatment Note Next Visit Plan Caution on return from cortisone injectioni. Bilateral shoulder rehab for impingement due to RC partial tears and cervical involvement . Assess neck joint mobility. STM/TrP treatement to shoulders and scapular stabilization ex's. Progress for pain relief and HEP due to insurance limits.
--- NOTE | 2020-08-29 17:19 | PT.OTN ---
Current Diagnoses Postural kyphosis, thoracic region (08/29/20) Muscle weakness (generalized) (08/29/20) Other shoulder lesions, right shoulder (08/29/20) Other shoulder lesions, left shoulder (08/29/20) Physical Therapy Treatment Note PT-OP-A Visit Information Start: 07/15/20 18:24 Freq: Status: Active Protocol: Document 08/29/20 08:18 LRN (Rec: 08/29/20 09:02 LRN [id number]) Out-Patient Physical Therapy Visit Information Visit Information Visit Type Treatment Note Visit Start Time 08:18 Visit Stop Time 08:56 Total Visit Minutes 38 Visit Number 3 Evaluation Information Evaluation Date 07/21/20 Precautions Precautions New MRI 08/22/20 shows: Severe bilateral C4-C5 and C5-C6 neural foraminal narrowing with compression of the exiting bilateral C5 and C6 nerve roots and multi-level DDD. 35 yrs opiate dependency, used marijuana to come off. Uses 5 vicodins for 3 months to come off shots. Skin CA, osteoporosis, Hepatitis age 17, High Blood pressure controlled, emphyzema , fibromyalgia, depression controlled by meds, heart murmur. PT-OP-B Current Condition Start: 07/15/20 18:24 Freq: Status: Active Protocol: Document 07/21/20 09:06 LRN (Rec: 07/21/20 10:29 LRN [id number]) Current Condition History of Current Condition Onset Date 02/28/2018 History of Current Condition Insidous onset. Getting coritsone injections every 3 months for the last 2 years. last one provided pain relief for 2 weeks. States she used her arms with daily activities and sleeping on arm. States an MRI done in [place] shows the same report as the L shoulder MRI performed at . Had surgery to correct overcalcification of bone in both shoulders 1 year apart at [facility] 1985 with pain relief for 20 years (2018). Can't take IBP due to stomach bleeds. 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 Prior Treatments and Tests Couple years ago with issues of the shoulders she felt it helped some and could get through the day with tolerable pain and could sleep with less pain. Future Testing and Treatments Planned MRI of neck and back within next couple weeks now that she was approved. Treatment Goals Patient/Caregiver Goals Pt reports goal is to see if exercise can help with the pain before surgery. Goal is to sleep better (sleep without rolling over 16x a night without pain) and less pain during the day. Can't sleep on back due to breathing difficulty. Prior Functional Status Baseline Function- ADL's Independent Baseline Function- Mobility Independent Current Functional Impairments (Reported) Functional Limitations- ADL's Pain first in morning after lying on it, or after heavy lifting (25#, bag of dog food) , vacuum curtain cleaner canister and if lifting arms shoulder height (stirring). Personal Factors Other Personal Factors That May Effect History of opiod dependency, Therapy/Recovery using 5 Vicodin every 3 months . PT-OP-C Subjective Start: 07/15/20 18:24 Freq: Status: Active Protocol: Document 08/29/20 08:18 LRN (Rec: 08/29/20 09:02 LRN [id number]) OP-PT Subjective Patient Comments Patient Comments Per pt: 4 bulging discs in the neck, via MRI. 3 of 4 are severe, most C5-C6, then at C4 -C5 & C6-C7. Rest of back has DDD. Waiting for insurance approval for injection in the neck. Received cortisone injection in shoulders, except L one she is having shooting pain . More pain on L shoulder than R, although problem is bilateral. Lipoma surger in thigh is 09/23/20. PT-OP-E Functional Tests Start: 07/15/20 18:24 Freq: Status: Active Protocol: Document 07/21/20 09:06 LRN (Rec: 07/21/20 10:29 LRN [id number]) Functional Tests Apley's Scratch Test Action 1- Left Supraspinatus Action 1- Right Supraspinatus Action 2- Left C4 Action 2- Right Lateral neck Action 3- Left T11 Action 3- Right T10 PT-OP-H Neuro Start: 07/15/20 18:24 Freq: Status: Active Protocol: Document 07/21/20 09:06 LRN (Rec: 07/21/20 10:29 LRN [id number]) Sensation Evaluation Gross Sensation Gross Sensation WNL Comments Summary Comments Occasional tingling/numbing in hands. T9-L4 circular area: numbness in back, pt concerned related to Pancreatic CA. PT-OP-J Posture/Palpation/Skin Start: 07/15/20 18:24 Freq: Status: Active Protocol: Document 07/21/20 09:06 LRN (Rec: 07/21/20 10:29 LRN [id number]) Posture Evaluation Position Standing T-Spine Posture Increased Kyphosis Shoulder Posture (R) Rounded,(R) Forward Pelvis Posture Neutral Hip Posture (L) Neutral Knee Posture (L) Genu Valgus,(R) Genu Valgus Palpation Assessment Location Shoulders Palpation Location Bilateral shoulders Palpation Findings Tenderness Palpation Details L Anterior Scalenes, Supraspinatus, Infraspinatus R Supraspinatus, Lateral neck PT-OP-K Range of Motion Start: 07/15/20 18:24 Freq: Status: Active Protocol: Document 07/21/20 09:06 LRN (Rec: 07/21/20 10:29 LRN [id number]) Cervical Spine Range of Motion Cervical Spine Active Degrees Testing Position Sitting Flexion 35 Extension 25 Rotation Left 48 Rotation Right 58 Lateral Flexion Left 9 Lateral Flexion Right 25 Comments L rotation pain is down L shoulder. SB pain is in the neck on opposite side. Shoulder Goniometric Range of Motion Shoulder Right Passive Shoulder ROM WFL No Testing Position Supine Flexion 127 External Rotation at 90 degrees 78 Abduction Internal Rotation 63 Left Passive Shoulder ROM WFL No Testing Position Supine Flexion 115 External Rotation at 90 degrees 57 Abduction Internal Rotation 54 Right Active Shoulder ROM WFL No Testing Position Sitting Flexion 90 Extension 40 Abduction 95 Internal Rotation Behind Back (text) T12 Left Active Shoulder ROM WFL No Testing Position Sitting Flexion 95 Extension 40 Abduction 62 Internal Rotation Behind Back (text) T11 PT-OP-L Special Tests Start: 07/15/20 18:24 Freq: Status: Active Protocol: Document 08/04/20 08:17 LRN (Rec: 08/04/20 09:07 LRN [id number]) Special Tests Cervical Spine Special Tests Foraminal Compression Test Results Inc pain bilateral shoulders Comments + bilaterally Traction Test Results dec pain Comments + R PT-OP-M Strength Start: 07/15/20 18:24 Freq: Status: Active Protocol: Document 07/21/20 09:06 LRN (Rec: 07/21/20 10:29 LRN [id number]) Cervical Spine Strength Cervical Spine Manual Muscle Testing Testing Position Sitting Comments Generally 3+/5, limited due to pain Shoulder Strength Shoulder Manual Muscle Testing Right Flexion 2+ Poor+ Extension 5 Normal Abduction (C5) 2+ Poor+ External Rotation 3+ Fair+ Internal Rotation 4 Good Comments Strength limited due to pain. Left Flexion 2+ Poor+ Extension 5 Normal Abduction (C5) 2+ Poor+ External Rotation 3+ Fair+ Internal Rotation 3+ Fair+ Comments Strength limited due to pain PT-OP-Q Treatments Start: 07/15/20 18:24 Freq: Status: Active Protocol: Document 08/29/20 08:18 LRN (Rec: 08/29/20 09:02 LRN [id number]) Manual Therapy Treatment Soft Tissue Mobilization Anterior thoracic region Body Location Anterior thoracic Mobilization Type Myofascial Release,Sustained Pressure Intensity/Depth Superficial Body Position Supine Comments Treat for fascial restriction of flex, L& R SB, & L rot of anterior thoracic region, progressing through 3 positions of gradual (minimal) thoracic extension. Added active cervical rotation for neural input. Self-Care/Home Management Treatment Education Patient Education Joint Protection,Pain Management,Posture Other Education Educated and discussed extensively: proper posturing in sitting, lying (supine & sidelie), standing (also using wall). Proper posturing with activities of daily living and other daily activities. PT-OP-T Assessment and Plan Start: 07/15/20 18:24 Freq: Status: Active Protocol: Document 08/29/20 08:18 LRN (Rec: 08/29/20 09:02 LRN [id number]) Physical Therapy Assessment Goals Three Impairment Decreased harsh shoulder strength (3+ to 4/5). Short Term Goal (STG) Pt will be independent on shoulder strengthening ex's for self care managment. (08/04/20: Initiated active shoulder IR/ER of windshield wipe exercise and scapular pinches with pec stretch with verbal I/S given). STG Duration 08/22/20 (08/04/20: Progressing ) Product Tester Goal (LTG) Pt will demonstrate improved bilateral shoulder strength with pt able to do daily cooking activity of stirring with tolerable pain. LTG Duration 10/03/20 Two Impairment Pain rated 8/10 in bilateral shoulders and L mid back Short Term Goal (STG) Decrease pain with pt able to sleep better at night. STG Duration 08/22/20 Shelter Goal (LTG) Decrease pain to to improve functional tolerance with vacumming or showing improved function per UE Quick DASH ( initial is 95.45 disability score). LTG Duration 10/03/20 One Impairment Lacks appropriate self care HEP Short Term Goal (STG) Pt will be educated in self care pain management techniques (modailities) and nighttime positioning. STG Duration 08/15/20 Product Tester Goal (LTG) Pt will be educated in proper body mechanics to minimize shoulder pain with activities and independent with self care HEP of strengthening and mobility exercises to manage her bilateral shoulder pain. LTG Duration 10/03/20 Assessment Summary Assessment Pt attends today with reports of MRI showing Severe bilateral C4-C5 and C5-C6 neural foraminal narrowing with compression of the exiting bilateral C5 and C6 nerve roots and multi-level DDD; therefore cervical treatment needed with shoulder therapy. Pt needed much education for proper neck care following new MRI report. Pt very receptive to information . She responded positively to fascial mobilization with improved ease of head/neck mobility and no complaints of L neck/shoulder/arm pain Physical Therapy Plan Frequency and Duration Frequency of Treatment 2x/Week Plan of Care Start Date 07/21/20 Plan of Care End Date 10/03/20 Next Visit Focus/Plan Next Note Type Treatment Note Next Visit Plan Educate pt in proper body mechanics to minimize shoulder pain with activities. Caution on return from cortisone injection. Bilateral shoulder rehab for impingement due to RC partial tears and cervical disc bulging rehabilitation. Assess neck joint mobility. STM/TrP treatment to shoulders and scapular stabilization ex 's. Progress for HEP & pain relief due to insurance limits .
--- NOTE | 2020-11-11 08:14 | PT.OPDS ---
Current Diagnoses Postural kyphosis, thoracic region (08/29/20) Muscle weakness (generalized) (08/29/20) Other shoulder lesions, right shoulder (08/29/20) Other shoulder lesions, left shoulder (08/29/20) Visit Care Team Role Provider Type BUNNY Wagner Family Provider Advanced Solar Development Engineer Primary Care Provider Specialty: Family Practice Address: [address] [place] [address], [id number] Email: [email or web address] Bea Arriaga MD Attending Provider Physician Referring Provider Specialty: Orthopedic Surgery Address: [address] [place] [address], [id number] Email: [email or web address] Visit Number Visit Number 3 Discharge Summary PT-OP-B Current Condition Start: 07/15/20 18:24 Freq: Status: Active Protocol: Document 07/21/20 09:06 LRN (Rec: 07/21/20 10:29 LRN [id number]) Current Condition History of Current Condition Onset Date 02/28/2018 History of Current Condition Insidous onset. Getting coritsone injections every 3 months for the last 2 years. last one provided pain relief for 2 weeks. States she used her arms with daily activities and sleeping on arm. States an MRI done in [place] shows the same report as the L shoulder MRI performed at . Had surgery to correct overcalcification of bone in both shoulders 1 year apart at [facility] 1985 with pain relief for 20 years (2018). Can't take IBP due to stomach bleeds. 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 Prior Treatments and Tests Couple years ago with issues of the shoulders she felt it helped some and could get through the day with tolerable pain and could sleep with less pain. Future Testing and Treatments Planned MRI of neck and back within next couple weeks now that she was approved. Treatment Goals Patient/Caregiver Goals Pt reports goal is to see if exercise can help with the pain before surgery. Goal is to sleep better (sleep without rolling over 16x a night without pain) and less pain during the day. Can't sleep on back due to breathing difficulty. Prior Functional Status Baseline Function- ADL's Independent Baseline Function- Mobility Independent Current Functional Impairments (Reported) Functional Limitations- ADL's Pain first in morning after lying on it, or after heavy lifting (25#, bag of dog food) , vacuum block cleaner canister and if lifting arms shoulder height (stirring). Personal Factors Other Personal Factors That May Effect History of opiod dependency, Therapy/Recovery using 5 Vicodin every 3 months . PT-OP-C Subjective Start: 07/15/20 18:24 Freq: Status: Active Protocol: Document 08/29/20 08:18 LRN (Rec: 08/29/20 09:02 LRN [id number]) OP-PT Subjective Patient Comments Patient Comments Per pt: 4 bulging discs in the neck, via MRI. 3 of 4 are severe, most C5-C6, then at C4 -C5 & C6-C7. Rest of back has DDD. Waiting for insurance approval for injection in the neck. Received cortisone injection in shoulders, except L one she is having shooting pain . More pain on L shoulder than R, although problem is bilateral. Lipoma surger in thigh is 09/23/20. PT-OP-E Functional Tests Start: 07/15/20 18:24 Freq: Status: Active Protocol: Document 07/21/20 09:06 LRN (Rec: 07/21/20 10:29 LRN [id number]) Functional Tests Apley's Scratch Test Action 1- Left Supraspinatus Action 1- Right Supraspinatus Action 2- Left C4 Action 2- Right Lateral neck Action 3- Left T11 Action 3- Right T10 PT-OP-H Neuro Start: 07/15/20 18:24 Freq: Status: Active Protocol: Document 07/21/20 09:06 LRN (Rec: 07/21/20 10:29 LRN [id number]) Sensation Evaluation Gross Sensation Gross Sensation WNL Comments Summary Comments Occasional tingling/numbing in hands. T9-L4 circular area: numbness in back, pt concerned related to Pancreatic CA. PT-OP-J Posture/Palpation/Skin Start: 07/15/20 18:24 Freq: Status: Active Protocol: Document 07/21/20 09:06 LRN (Rec: 07/21/20 10:29 LRN [id number]) Posture Evaluation Position Standing T-Spine Posture Increased Kyphosis Shoulder Posture (R) Rounded,(R) Forward Pelvis Posture Neutral Hip Posture (L) Neutral Knee Posture (L) Genu Valgus,(R) Genu Valgus Palpation Assessment Location Shoulders Palpation Location Bilateral shoulders Palpation Findings Tenderness Palpation Details L Anterior Scalenes, Supraspinatus, Infraspinatus R Supraspinatus, Lateral neck PT-OP-K Range of Motion Start: 07/15/20 18:24 Freq: Status: Active Protocol: Document 07/21/20 09:06 LRN (Rec: 07/21/20 10:29 LRN [id number]) Cervical Spine Range of Motion Cervical Spine Active Degrees Testing Position Sitting Flexion 35 Extension 25 Rotation Left 48 Rotation Right 58 Lateral Flexion Left 9 Lateral Flexion Right 25 Comments L rotation pain is down L shoulder. SB pain is in the neck on opposite side. Shoulder Goniometric Range of Motion Shoulder Right Passive Shoulder ROM WFL No Testing Position Supine Flexion 127 External Rotation at 90 degrees 78 Abduction Internal Rotation 63 Left Passive Shoulder ROM WFL No Testing Position Supine Flexion 115 External Rotation at 90 degrees 57 Abduction Internal Rotation 54 Right Active Shoulder ROM WFL No Testing Position Sitting Flexion 90 Extension 40 Abduction 95 Internal Rotation Behind Back (text) T12 Left Active Shoulder ROM WFL No Testing Position Sitting Flexion 95 Extension 40 Abduction 62 Internal Rotation Behind Back (text) T11 PT-OP-L Special Tests Start: 07/15/20 18:24 Freq: Status: Active Protocol: Document 08/04/20 08:17 LRN (Rec: 08/04/20 09:07 LRN [id number]) Special Tests Cervical Spine Special Tests Foraminal Compression Test Results Inc pain bilateral shoulders Comments + bilaterally Traction Test Results dec pain Comments + R PT-OP-M Strength Start: 07/15/20 18:24 Freq: Status: Active Protocol: Document 07/21/20 09:06 LRN (Rec: 07/21/20 10:29 LRN [id number]) Cervical Spine Strength Cervical Spine Manual Muscle Testing Testing Position Sitting Comments Generally 3+/5, limited due to pain Shoulder Strength Shoulder Manual Muscle Testing Right Flexion 2+ Poor+ Extension 5 Normal Abduction (C5) 2+ Poor+ External Rotation 3+ Fair+ Internal Rotation 4 Good Comments Strength limited due to pain. Left Flexion 2+ Poor+ Extension 5 Normal Abduction (C5) 2+ Poor+ External Rotation 3+ Fair+ Internal Rotation 3+ Fair+ Comments Strength limited due to pain PT-OP-T Assessment and Plan Start: 07/15/20 18:24 Freq: Status: Active Protocol: Document 11/11/20 08:12 LRN (Rec: 11/11/20 08:14 LRN [id number]) Physical Therapy Assessment Goals Three Impairment Decreased harsh shoulder strength (3+ to 4/5). Short Term Goal (STG) Pt will be independent on shoulder strengthening ex's for self care managment. (08/04/20: Initiated active shoulder IR/ER of windshield wipe exercise and scapular pinches with pec stretch with verbal I/S given). STG Duration 08/22/20 (08/04/20: Progressing ) Extrusion Press Supervisor Goal (LTG) Pt will demonstrate improved bilateral shoulder strength with pt able to do daily cooking activity of stirring with tolerable pain. LTG Duration 10/03/20 Two Impairment Pain rated 8/10 in bilateral shoulders and L mid back Short Term Goal (STG) Decrease pain with pt able to sleep better at night. STG Duration 08/22/20 Extrusion Press Supervisor Goal (LTG) Decrease pain to to improve functional tolerance with vacumming or showing improved function per UE Quick DASH ( initial is 95.45 disability score). LTG Duration 10/03/20 One Impairment Lacks appropriate self care HEP Short Term Goal (STG) Pt will be educated in self care pain management techniques (modailities) and nighttime positioning. STG Duration 08/15/20 Extrusion Press Supervisor Goal (LTG) Pt will be educated in proper body mechanics to minimize shoulder pain with activities and independent with self care HEP of strengthening and mobility exercises to manage her bilateral shoulder pain. LTG Duration 10/03/20 Assessment Summary Assessment Pt was last seen 08/29/20 and was on hold for planned surgery 09/23/20 and will return after surgery with new referral. Pt goals not met due to early discharge. Physical Therapy Plan Discharge Physical Therapy Discharge Reasons Change in Medical Status
== END 2020-11-11 11:03 | disposition home or self-care (01) ==
LOC: PHYS 08:15
PROVIDERS: Family Provider Nurse Practitioner; PCP Nurse Practitioner; Referring Provider Orthopaedic Surgery; Visit Provider Orthopaedic Surgery
DX: M75.81 Other shoulder lesions, right shoulder (principal); M75.82 Other shoulder lesions, left shoulder; M62.81 Muscle weakness (generalized); M40.04 Postural kyphosis, thoracic region
CPT/HCPCS: 97110; 97140; 97162; 97535

== ENCOUNTER → 2020-09-10 09:03 | Outpatient (CLI) | payer OTHER, SELFPAY ==
[2020-09-10 10:17] LABS: Add Manual Diff / Slide Review NO; Basophils Absolute Auto 0 /uL (0-100); Basophils Percent Auto 0.6 % (0-2); Eosinophils Absolute Auto 100 /uL (0-450); Eosinophils Percent Auto 1.9 % (2-4); Hematocrit 40.3 % (36-46); Hemoglobin 13.5 g/dL (12.0-16.0); Lymphocytes Absolute Auto 2100 /uL (1100-4500); Lymphocytes Percent Auto 35.7 % (25-40); Mean Corpuscular HGB Conc 33.5 % (30-36); Mean Corpuscular Hemoglobin 30.6 PG (26-34); Mean Corpuscular Volume 91.3 fL (80-100); Monocytes Absolute Auto 400 /uL (0-900); Neutrophils Absolute Auto 3300 /uL (1500-7000); Neutrophils Percent Auto 55.8 % (50-75); Platelet Count 246 X10^3/uL (150-400); Red Blood Cell Count 4.41 X10^6/uL (4.0-5.2); Red Cell Distribution Width 13.9 % (11.6-14.8); White Blood Cell Count 5.9 X10^3/uL (4.5-11.0)
== END ==
PROVIDERS: Family Provider Nurse Practitioner; PCP Nurse Practitioner; Referring Provider Orthopaedic Surgery; Visit Provider Orthopaedic Surgery
DX: Z01.812 Encounter for preprocedural laboratory examination (principal); I10 Essential (primary) hypertension
CPT/HCPCS: 36415; 85025

== ENCOUNTER → 2020-09-15 14:17 | Outpatient (CLI) | payer OTHER, SELFPAY | PROVIDERS: Family Provider Nurse Practitioner; PCP Nurse Practitioner; Referring Provider Nurse Practitioner; Visit Provider Nurse Practitioner | DX: S91.302A Unspecified open wound, left foot, initial encounter (principal) | CPT/HCPCS: 87070; 87075; 87077; 87147; 87186; 87205 ==

== ENCOUNTER → 2020-09-17 14:52 | Outpatient (CLI) | payer OTHER, SELFPAY | PROVIDERS: Family Provider Nurse Practitioner; PCP Nurse Practitioner; Referring Provider Orthopaedic Surgery; Visit Provider Orthopaedic Surgery | DX: Z01.818 Encounter for other preprocedural examination (principal) | CPT/HCPCS: 93005; 93010 ==

== ENCOUNTER → 2020-09-22 09:22 | Outpatient (CLI) | payer OTHER, SELFPAY ==
[2020-09-22 11:22] LABS: COVID19 -Nasal RAPID Negative (Negative)
== END ==
PROVIDERS: Family Provider Nurse Practitioner; PCP Nurse Practitioner; Visit Provider Physician Assistant
DX: Z01.812 Encounter for preprocedural laboratory examination (principal); Z20.822 Contact with and (suspected) exposure to COVID-19
CPT/HCPCS: 87635; C9803

== ENCOUNTER 2020-09-23 06:19 | Day surgery (SDC) | payer OTHER, SELFPAY ==
[2020-09-16 13:29] VITALS: BMI 28.5
--- NOTE | 2020-09-23 | PATH_ITS ---
[facility] Accession Number: [id number] . 01 Material submitted: . thigh - RIGHT THIGH MASS . 01 Diagnosis: Right Thigh, Excision: Mature adipose tissue, consistent with lipoma. MRV 09/26/2020 1121 Local . 01 Electronically signed: . Daniel Ocampo MD, Dermatopathologist NPI- [id number] . 01 Gross description: . The specimen is received in formalin, labeled right thigh mass and consists of three irregular jo-yellow fragments of adipose tissue measuring 13.0 x 9.0 x 5.0 cm in aggregate. The fragments are inked blue and sectioned to reveal jo-yellow, lobulated and homogeneous cut surfaces. Pot Runner sections are submitted in cassettes A1-A13. ([id number]) /MRV 09/24/2020 1019 Local . 01 Pathologist provided ICD-10: D17.9 . 01 CPT . 614392 Performed at: 01 [facility] [address] [place] [address] [address], [place], [place] [id number] MD Mark Pfeiffer MD Phone: [phone]
[2020-09-23 07:12] VITALS: BP 135/75; PULSE 68; RESP 14; TEMP 36.3; O2SAT 98; BMI 28.5
[2020-09-23] MEDS: LACTATED RINGERS 1,000 ML 42 ML IV ×2 (07:29→08:41)
--- NOTE | 2020-09-23 07:35 | PM.PREOP ---
Pre-operative Note COVID-19 COVID-19 status: Negative Interval Note History & Physical reviewed/Exam performed by Physician: Yes Changes to H&P: No
[2020-09-23] MEDS: CLINDAMYCIN 900 MG/50 ML PIGGYBACK 50 MG IV (07:55)
[2020-09-23] MEDS: BUPIVACAINE 0.25% W/ EPI 30 ML VIAL INJ (08:15)
--- NOTE | 2020-09-23 08:21 | SUR.OPER ---
Supine on padded OR bed, head on pillow, arms secured on padded arm boards at <90 degrees abduction, legs uncrossed, safety belt at thigh, tape over blanket over lower legs.
--- NOTE | 2020-09-23 08:24 | SUR.OPER ---
Supine on padded OR bed, head on pillow, arms secured on padded arm boards at <90 degrees abduction, legs uncrossed, safety belt at waist, tape over blanket over lower left leg, right leg draped free
[2020-09-23 10:10] VITALS: BP 125/80; PULSE 61; RESP 12; TEMP 36.4; O2SAT 95
--- NOTE | 2020-09-23 10:14 | PM.OP.1 ---
Operative Date/Time/Diagnoses Date of procedure: 09/23/20 Time of procedure: 07:45 Pre-op diagnosis: Large right thigh mass Post-op diagnosis: same Procedure & Clinicians Procedure: Surgical excision large right thigh mass Same procedure as scheduled: Yes Indications: Is a 65-year-old female with an enlarging right thigh mass. She had workup with an MRI scan which showed a large soft tissue tumor which appeared to likely be benign. She is brought the operating room for surgical excision. Surgeon: Bea Arriaga Supervising Airplane Pilot: Sherman Curtis Anesthesia Type: General Operative Notes Findings: Large 13 by 5-6 cm mass with fatty appearing consistency removed from the proximal thigh, Closure Type: primary Specimen(s): other (Thigh mass sent to pathology) Estimated Blood Loss (mL): 200 Procedure in detail: Patient is brought to the operating room. She underwent general anesthesia. Time-out was performed and she was given IV antibiotics. Longitudinal incision was made along the right proximal thigh on the medial aspect of the thigh. Dissection was carried out through skin and subcutaneous tissues. Meticulous dissection was performed. I dissected down to the fascial level. The mass was deep to the subcutaneous tissue into the fascia. I meticulously dissected searching for the least invasive approach to the mass. It was deep to the fascia and surprisingly not as obvious as 1 would anticipate based on preoperative imaging. MRI scan was evaluated and specifically I then dissected down along the most medial border of the muscle. Fascia was carefully mobilized. Hemostasis was achieved with Bovie cautery. The mass was relatively close to some branches of the femoral nerve as well as femoral artery. Meticulous dissection was used to dissect down to the fascia overlying the mass and in order to develop the least invasive plane to remove the mass. After careful dissection the fascia around the mass was carefully opened. It was very large. I meticulously dissected along the fascia and then gently worked to mobilize the mass. There was a crossing vessel more inferiorly which was carefully protected. It was slowly mobilized and grasped with several Allis clamps and then further mobilized into the wound. It was fatty and approximately 60% of the mass was removed as a single piece and then a secondary deeper piece was carefully mobilized. I specifically used Bovie cautery looking for a feeder vessel to the lipoma. There was a moderate amount of bleeding from the most distal and inferior aspect of the wound. Compression was held on the wound after the remainder of the mass been removed. The wound was then carefully irrigated. Bovie cautery was used to carefully cauterize small bleeding vessels. Branches of the femoral nerve were carefully protected and small arterial branch was cauterized. The wound was meticulously irrigated with normal saline. Vascular clips were available but not used as there was no specific major arterial or venous bleeding. There was a minimal amount of residual oozing and FloSeal was mixed and placed in the wound. The wound was dry at the completion of the procedure. A drain was placed in the cavity a TLS drain. The overlying fascia was closed with interrupted Vicryl. Skin was closed with interrupted Vicryl Monocryl and skin keturah. The wound was dressed sterilely with a Aquacel and wrapped with a 6 in Wilmar wrap. Complications: none Post-operative Condition: stable Disposition: observation Plan for aftercare: Weight-bearing as tolerated on the right lower extremity. Wilmar wrap to proximal thigh for light compression. Remove drain with nurse visit likely tomorrow.
[2020-09-23 10:15] VITALS: BP 129/77; PULSE 62; RESP 12; O2SAT 95
[2020-09-23 10:20] VITALS: BP 132/77; PULSE 63; RESP 14; O2SAT 96
[2020-09-23] MEDS: OXYCODONE IR 5 MG TABLET PO (10:25)
[2020-09-23] MEDS: ACETAMINOPHEN 325 MG TABLET 650 MG PO (10:26)
[2020-09-23 10:30] VITALS: BP 134/88; PULSE 62; RESP 14; TEMP 36.6; O2SAT 95
[2020-09-23 12:08] VITALS: BP 130/74; PULSE 64; RESP 18; TEMP 36.6; O2SAT 99
== END 2020-09-23 12:20 | disposition home or self-care (01) ==
PROVIDERS: Family Provider Nurse Practitioner; PCP Nurse Practitioner; Referring Provider Orthopaedic Surgery; Visit Provider Orthopaedic Surgery
PROC: (CPT 27339; principal; 2020-09-23 07:45)
DX: D17.23 Benign lipomatous neoplasm of skin and subcutaneous tissue of right leg (principal); I10 Essential (primary) hypertension; E78.5 Hyperlipidemia, unspecified; M79.7 Fibromyalgia; J44.9 Chronic obstructive pulmonary disease, unspecified; G47.30 Sleep apnea, unspecified; I25.10 Atherosclerotic heart disease of native coronary artery without angina pectoris
CPT/HCPCS: 27339; J1100; J2405; J2704; J3010

== ENCOUNTER 2020-10-13 15:27 | Emergency (ER) | payer OTHER, SELFPAY ==
[2020-10-13 15:49] VITALS: BP 134/73; PULSE 64; RESP 16; TEMP 36.6; O2SAT 99; BMI 27.4
--- NOTE | 2020-10-13 18:51 | ED_ITS ---
HPI - Wound/Laceration General Chief Complaint: Wound/Laceration Stated Complaint: LEFT HAND CAT BITE Time Seen by Provider: 10/13/20 17:23 Source: patient Mode of arrival: Ambulatory History of Present Illness HPI narrative: 65-year-old female former smoker with history of hypertension presents with a chief complaint of a cat bite on her left thenar eminence a few hours prior to arrival. She states the bite was from her cat who is normally quite well behaved and is up-to-date on shots. She states that she was using a new detangler and seem to cause some pain Related Data Home Medications Medication Instructions Recorded Confirmed carvedilol 25 mg tablet 25 mg PO BID 05/30/20 09/23/20 Previous Rx's Medication Instructions Recorded voltaren 10% gel See Rx Instructions .ROUTE 04/24/19 .COMPLEX #30 gram latanoprost 0.005 % eye drops 1 drp EYE-RIGHT .HS #2.5 ml 02/13/20 pantoprazole 40 mg tablet,delayed 40 mg PO BID #180 tab 04/07/20 release amlodipine 10 mg tablet 10 mg PO DAILY #90 tab 06/16/20 promethazine 25 mg tablet See Rx Instructions .ROUTE 06/16/20 .COMPLEX #120 tablet rosuvastatin 20 mg tablet 20 mg PO DAILY #90 tab 06/16/20 methocarbamol 500 mg tablet 500 mg PO BID PRN #180 tab 07/25/20 clonazepam 0.5 mg tablet 0.5 mg PO BID PRN #60 tab 08/25/20 ketoconazole 2 % topical cream 1 applic TOPICAL BID #30 g 09/11/20 amoxicillin 500 mg capsule 500 mg PO Q12H #20 cap 09/16/20 oxycodone 5 mg tablet 5 mg PO Q6-12H PRN #20 tab 09/23/20 lisinopril 20 mg tablet See Rx Instructions .ROUTE 10/03/20 .COMPLEX #360 tab trazodone 100 mg tablet See Rx Instructions .ROUTE 10/03/20 .COMPLEX #180 tab venlafaxine 75 mg capsule,extended See Rx Instructions .ROUTE 10/03/20 release 24 hr .COMPLEX #270 cap amoxicillin 875 mg-potassium 1 tab PO BID #20 tab 10/13/20 clavulanate 125 mg tablet (Augmentin) Allergies Allergy/AdvReac Type Severity Reaction Status Date / Time azithromycin [From Zithromax] Allergy Mild Verified 10/13/20 15:52 ceftriaxone Allergy Mild Verified 10/13/20 15:52 clarithromycin [From Biaxin] Allergy Mild Verified 10/13/20 15:52 gemfibrozil Allergy Mild Verified 10/13/20 15:52 hydrocodone [From Vicodin] Allergy Mild Verified 10/13/20 15:52 nitrofurantoin Allergy Mild Hives on Verified 10/13/20 15:52 chest/ shoulders buspirone [From BuSpar] AdvReac Mild dysphoria Verified 10/13/20 15:52 memantine [From Namenda] AdvReac Mild confusion Verified 10/13/20 15:52 pregabalin [From Lyrica] AdvReac Mild Dizziness Verified 10/13/20 15:52 Patient History Medical History Abdominal pain Abnormal chest x-ray (~2011) Abnormal Pap smear of cervix (~1974) Allergic rash present on examination Anemia (~2016) Cannabis dependence, daily use Cat bite Cervical cancer (~1977) Change in bowel habit Chronic pain of both shoulders Colon polyps (~2002) Degenerative joint disease (DJD) of lumbar spine (~1963) Depression (~1988) Epigastric pain determined by examination Fatigue Fecal incontinence (~2017) Fibromyalgia (~1983) Foot pain (~2017) Fractures GI bleeding (~2018) Glaucoma (~2018) Granuloma annulare (~2014) Hemorrhoid (~1979) History of chronic constipation Hyperlipidemia LDL goal <100 Intermittent left-sided chest pain Kidney stones (~2018) Liver disease (~1972) Mass of right thigh Measles Migraines (~1982) Mumps Muscle spasm of back Nausea & vomiting Neoplasm of uncertain behavior Osteoarthritis (~2012) Osteoporosis (~2012) Painful menstrual periods Pancreatic mass Pancreatitis Partial blindness Right renal mass Ruptured tympanic membrane (~1974) Scoliosis (~1963) Shoulder pain (~1985) Skin cancer (~2014) Sleep apnea (~2015) Vaginitis Weight loss, non-intentional Surgical History Anesthesia Carpal tunnel syndrome (~1987) Cataracts, bilateral (~2013) History of hysterectomy (~1981) Family History Father History of heart disease Hypertension Hyperlipidemia Mother Cancer Hypertension Grandfather No problems noted. Grandmother History of heart disease Hyperlipidemia Hypertension Grandfather Cancer Grandmother Stroke Social History marital status: unmarried,living together household members: significant other occupational status: previously employed Smoking Status: Former smoker alcohol intake: never substance use type: marijuana Smoking Status: Former smoker alcohol intake frequency: 0-2 drinks per day Substance Use Type: marijuana Exam Narrative Exam Narrative: GEN: AOx3 and in mild distress EYES: Pupils are equal, round, and reactive to light and accommodation. Extraoccular muscles are intact bilaterally. There is no subconjunctival hemorrhage or exudate. CHEST: Lungs are clear to auscultation bilaterally and free of wheezes, rales, or rhonchi. Heart rate is regular rhythm, there are no murmurs, clicks, rubs, or gallops. There is no chest wall tenderness. ABD: Abdomen is soft and nontender. There is no guarding or rebound. Bowel sounds are normal in all 4 quadrants. There is no mass or organomegaly. EXT: Full painless ROM of all extremities with no loss of sensation or strength. SKIN: Puncture wounds noted left thenar eminence with minimal surrounding erythema and no lymphangitis. Palpated, no foreign body noted, no drainage or bleeding. Otherwise, Warm, pink, and dry. No erythema or rash Initial Vital Signs Initial Vital Signs: Vital Signs Temperature 97.9 F 10/13/20 15:49 Pulse Rate 64 10/13/20 15:49 Respiratory Rate 16 10/13/20 15:49 Blood Pressure 134/73 10/13/20 15:49 Pulse Oximetry 99 10/13/20 15:49 Course Orders Ordered: ED Orders 10/13/20 19:40 Wound Culture and Gram Stain Stat Discontinued Medications Amoxicillin/Clavulanate Potassium (Amoxicillin/Clav 875/125 Mg) 1 tab PO NOW ONE Stop: 10/13/20 19:15 Last Admin: 10/13/20 19:20 Dose: 1 tab Documented by: GARETH Reevaluation(s) Reevaluation #1: Discussed with patient, she states she checked the cat's mouth, no teeth were missing. Currently refusing imaging. Did discuss the possibility of retained foreign body, return precautions given and questions answered to her apparent satisfaction Vital Signs Vital signs: Vital Signs - 8 hr 10/13/20 15:49 Temperature 97.9 F Pulse Rate 64 Respiratory Rate 16 Blood Pressure 134/73 Pulse Oximetry 99 Discharge Plan Departure Patient Disposition: Home Clinical Impression: Cat bite involving extremity Instructions: Animal Bites Activity Restrictions/Additional Instructions: *You have been diagnosed with [cat bite left hand, wound check right groin] *What to do: *Please continue to take your regular medications as directed. [ x] New medication prescriptions sent to your pharmacy: [[facility] in [place]] [ ] New medication written as a paper prescription [ ] No new medications given *Please follow up with your primary care provider in 2-3 days, call for an appointment. Let them know you were seen in the Emergency Department and that we ask that you be seen in follow up. We will electronically transmit a record of today's note if your PCP is in our system *If you do not have a primary care provider please contact the [facility] Resource line at [phone]. They will ask some questions about your medical history and help get you set up with a doctor in the community. *Return to Emergency Department if you should have any new, worsening or concerning symptoms, such as [fever greater than 101 F, shaking chills, worsening pain, persistent vomiting or other bothersome symptoms] Prescriptions: New amoxicillin-pot clavulanate [Augmentin] 875-125 mg tablet 1 tab PO BID Qty: 20 RF: 0 No Action latanoprost 0.005 % drops 1 drp EYE-RIGHT .HS Qty: 2.5 RF: 0 pantoprazole 40 mg tablet,delayed release (DR/EC) 40 mg PO BID Qty: 180 RF: 3 carvedilol 25 mg tablet 25 mg PO BID RF: 0 rosuvastatin 20 mg tablet 20 mg PO DAILY Qty: 90 RF: 3 promethazine 25 mg tablet See Rx Instructions .ROUTE .COMPLEX Qty: 120 RF: 1 amlodipine 10 mg tablet 10 mg PO DAILY Qty: 90 RF: 2 amoxicillin 500 mg capsule 500 mg PO Q12H Qty: 20 RF: 0 venlafaxine 75 mg capsule,extended release 24hr See Rx Instructions .ROUTE .COMPLEX Qty: 270 RF: 3 lisinopril 20 mg tablet See Rx Instructions .ROUTE .COMPLEX Qty: 360 RF: 3 trazodone 100 mg tablet See Rx Instructions .ROUTE .COMPLEX Qty: 180 RF: 3 voltaren 10% gel See Rx Instructions .ROUTE .COMPLEX Qty: 30 RF: 2 clonazepam 0.5 mg tablet 0.5 mg PO BID PRN (Reason: muscle spasticity) Qty: 60 RF: 1 methocarbamol 500 mg tablet 500 mg PO BID PRN (Reason: muscle spasms) Qty: 180 RF: 3 ketoconazole 2 % cream 1 applic topical BID Qty: 30 RF: 1 oxycodone 5 mg Tablet 5 mg PO Q6-12H PRN (Reason: Pain, Moderate (4-6)) Qty: 20 RF: 0 Referrals: Annette Marx ARNP [Primary Care Provider] -
[2020-10-13] MEDS: AMOXICILLIN/CLAV 875/125 MG 1 TAB PO (19:20)
== END 2020-10-13 19:44 | disposition home or self-care (01) ==
PROVIDERS: Emergency Provider Emergency Medicine; Family Provider Nurse Practitioner; PCP Nurse Practitioner
DX: S61.452A Open bite of left hand, initial encounter (principal); W55.01XA Bitten by cat, initial encounter
CPT/HCPCS: 87070; 87075; 87077; 87186; 87205; 99283

== ENCOUNTER → 2020-10-29 08:28 | Outpatient (CLI) | payer OTHER, SELFPAY ==
[2020-10-29 09:07] LABS: Alanine Aminotransferase 22 IU/L (<35); Albumin 4.4 g/dL (3.5-5.0); Albumin Globulin Ratio 1.6 (1.0-2.8); Alkaline Phosphatase 59 U/L (38-126); Aspartate Aminotransferase 30 IU/L (14-36); BUN Creatinine Ratio 19.3 (6-22); Bilirubin Total 0.4 mg/dL (0.2-1.3); Blood Urea Nitrogen 16 mg/dL (7-17); Calcium 8.9 mg/dL (8.4-10.2); Carbon Dioxide 29 mmol/L (22-32); Chloride 105 mmol/L (98-107); Cholesterol 193 mg/dL (140-199); Estimated Glomerular Filt Rate > 60.0 mL/min (>60); Globulin 2.7 g/dL (1.7-4.1); Glucose 105 mg/dL (80-110); HDL Cholesterol 57 mg/dL (40-60); HEMOLYSIS < 15 (0-50); LDL Cholesterol Calculated 107 mg/dL (<100); Potassium 4.9 mmol/L (3.4-5.1); Sodium 140 mmol/L (137-145); Total Protein 7.1 g/dL (6.3-8.2); Triglycerides 146 mg/dL (35-150)
[2020-10-29 10:10] LABS: Thyroid Stimulating Hormone 2.04 uIU/mL (0.47-4.68)
== END ==
PROVIDERS: Family Provider Nurse Practitioner; PCP Nurse Practitioner; Referring Provider Internal Medicine Cardiovascular Disease; Visit Provider Internal Medicine Cardiovascular Disease
DX: E78.5 Hyperlipidemia, unspecified (principal); I10 Essential (primary) hypertension; R00.2 Palpitations
CPT/HCPCS: 36415; 80053; 80061; 83735; 84443

== ENCOUNTER → 2020-12-01 09:07 | Outpatient (CLI) | payer OTHER, SELFPAY ==
[2020-12-01 10:09] LABS: Add Manual Diff / Slide Review NO; Basophils Absolute Auto 0 /uL (0-100); Basophils Percent Auto 0.5 % (0-2); Eosinophils Absolute Auto 200 /uL (0-450); Eosinophils Percent Auto 3.5 % (2-4); Hemoglobin 13.6 g/dL (12.0-16.0); Lymphocytes Absolute Auto 2000 /uL (1100-4500); Lymphocytes Percent Auto 32.5 % (25-40); Mean Corpuscular HGB Conc 33.1 % (30-36); Mean Corpuscular Hemoglobin 30.5 PG (26-34); Mean Corpuscular Volume 92.2 fL (80-100); Monocytes Absolute Auto 400 /uL (0-900); Monocytes Percent Auto 5.8 % (3-14); Neutrophils Absolute Auto 3500 /uL (1500-7000); Neutrophils Percent Auto 57.7 % (50-75); Platelet Count 268 X10^3/uL (150-400); Red Blood Cell Count 4.45 X10^6/uL (4.0-5.2); Red Cell Distribution Width 13.7 % (11.6-14.8); White Blood Cell Count 6.1 X10^3/uL (4.5-11.0)
[2020-12-01 11:07] LABS: Alanine Aminotransferase 20 IU/L (<35); Albumin 4.2 g/dL (3.5-5.0); Albumin Globulin Ratio 1.7 (1.0-2.8); Alkaline Phosphatase 56 U/L (38-126); Amylase 71 U/L (30-110); Aspartate Aminotransferase 24 IU/L (14-36); BUN Creatinine Ratio 25.4 (6-22); Bilirubin Total 0.4 mg/dL (0.2-1.3); Blood Urea Nitrogen 17 mg/dL (7-17); Calcium 9.4 mg/dL (8.4-10.2); Carbon Dioxide 35 mmol/L (22-32); Chloride 102 mmol/L (98-107); Estimated Glomerular Filt Rate > 60.0 mL/min (>60); Globulin 2.5 g/dL (1.7-4.1); Glucose 99 mg/dL (80-110); HEMOLYSIS < 15 (0-50); Lipase 126 U/L (23-300); Potassium 5.1 mmol/L (3.4-5.1); Sodium 140 mmol/L (137-145); Total Protein 6.7 g/dL (6.3-8.2)
== END ==
PROVIDERS: Family Provider Nurse Practitioner; PCP Nurse Practitioner; Referring Provider Nurse Practitioner; Visit Provider Nurse Practitioner
DX: R10.9 Unspecified abdominal pain (principal); R19.5 Other fecal abnormalities; R19.7 Diarrhea, unspecified; Z87.19 Personal history of other diseases of the digestive system
CPT/HCPCS: 36415; 80053; 82150; 83690; 85025

== ENCOUNTER → 2020-12-02 08:01 | Outpatient (CLI) | payer OTHER, SELFPAY ==
--- NOTE | 2020-12-02 08:01 | DI.US.S_ITS ---
PROCEDURE: US ABDOMEN LIMITED INDICATIONS: ABDOMINAL PAIN ?PANCREATIC MASS TECHNIQUE: Real-time focused scanning was performed of the abdomen, with image documentation. COMPARISON: [facility], MR, MR ABDOMEN WO/W CON, 08/04/2020, 9:30. [facility], US, US ABDOMEN COMPLETE, 03/25/2020, 8:36. FINDINGS: The liver is prominent in size. The right liver lobe is prominent. The liver demonstrates overall normal echogenicity. No focal liver lesions are seen. No findings of gallstones or sludge are seen. The gallbladder wall is not thickened, measuring 3 mm or less. No specific pericholecystic fluid is seen. The sonographic Anna sign is negative. There is no biliary dilatation, the common bile duct measures 5-6 mm. In this patient with this given history, scrutiny is given to the pancreas. The on these images, no pancreatic masses are seen. The pancreatic duct is prominent, measuring up to 4.1 mm. IMPRESSION: Prominent pancreatic duct, yet without pancreatic masses seen on these ultrasound images. Prominent liver noted. Dictated by: Ayo Stevens M.D. on 12/02/2020 at 8:47 Approved by: Ayo Stevens M.D. on 12/02/2020 at 8:48
== END ==
PROVIDERS: Family Provider Nurse Practitioner; PCP Nurse Practitioner; Referring Provider Nurse Practitioner; Visit Provider Nurse Practitioner
DX: K86.89 Other specified diseases of pancreas (principal); R10.9 Unspecified abdominal pain; R19.7 Diarrhea, unspecified
CPT/HCPCS: 76705

== ENCOUNTER → 2020-12-05 08:54 | Outpatient (CLI) | payer OTHER, SELFPAY ==
[2020-12-05 13:01] LABS: COVID19 -Nasal RAPID Negative (Negative)
== END ==
PROVIDERS: Family Provider Nurse Practitioner; PCP Nurse Practitioner; Visit Provider Nurse Practitioner
DX: Z20.822 Contact with and (suspected) exposure to COVID-19 (principal); Z01.812 Encounter for preprocedural laboratory examination
CPT/HCPCS: 87635; C9803

== ENCOUNTER → 2020-12-08 07:28 | Outpatient (CLI) | payer OTHER, SELFPAY ==
--- NOTE | 2020-12-08 | DI.ECHO.S_ITS ---
[facility]---------+ [facility] +---------+ : : [address] [place] [address] : : : : [id number] : : : : Phone: [phone]+ Echocardiogram Report + + :Name: CHENG SWENSON Study Date: 12/08/2020 Height: 62 in : :[facility] ReadingLocation: Weight: 155 lb : : Gender: Female BSA: 1.7 m2 : :: 1955 Age: 65 yrs BP: 137/83 mmHg: :Reason For Study: SOB, murmur : : Performed By: DOMINGUEZ PITTS : :Referring: SHABNAM PALMER : + + Interpretation Summary The left ventricle is normal in size. The ejection fraction is estimated to be 55-60%. The right ventricle is normal in size and function. There is mild aortic regurgitation. There is mild tricuspid regurgitation. The right ventricular systolic pressure is estimated to be at least 28 mmHg based on an estimated right atrial pressure of 15 mm Hg. Doppler profile across pulmonary valve do not suggest significant pulmonary hypertension. The ascending aorta is mildly enlarged. 3.9 cm in diameter. Procedure: A two-dimensional transthoracic echocardiogram with color flow and Doppler was performed. The study quality was technically adequate. There is no prior echocardiogram noted for this patient. The patient was in normal sinus rhythm during the exam. The patient had occasional PVCs during the exam. Left Ventricle: The left ventricle is normal in size. Proximal septal thickening is noted. There is no echo evidence for significant left ventricular outflow tract obstruction. There is no thrombus. The ejection fraction is estimated to be 55-60%. Septal motion is consistent with conduction abnormality. There is basal inferior wall hypokinesis. There is posterolateral wall hypokinesis. MV E/A: 0.62 Med Peak E' Joaquin: 3.7 cm/sec E/E' med: 16.9. Right Ventricle: The right ventricle is normal in size and function. Atria: The left atrium is mildly dilated. The right atrium is mildly dilated. A prominent eustachian valve is noted. There is no Doppler evidence for an interatrial shunt. The thickening of interatrial septum suggests lipomatous hypertrophy. The atrial septum is aneurysmal. Mitral Valve: There is mild mitral annular calcification. There is trace mitral regurgitation. Aortic Valve: The aortic valve is trileaflet. The aortic valve opens well. The aortic valve is slightly calcified. There is no aortic valve stenosis. There is mild aortic regurgitation. Tricuspid Valve: The tricuspid valve is normal. There is mild tricuspid regurgitation. The right ventricular systolic pressure is estimated to be at least 28 mmHg based on an estimated right atrial pressure of 15 mm Hg. Pulmonic Valve: The pulmonic valve leaflets are thin and pliable; valve motion is normal. There is a trace or physiologic amount of pulmonic regurgitation. Great Vessels: The aortic root is normal size. The ascending aorta is mildly enlarged. The aortic arch is normal in size. The IVC is dilated (diameter is greater than 2.1 cm) and it collapses less than 50% with a sniff. This suggests a high right atrial pressure of 15 mm Hg. Pericardium/ Pleura There is no pericardial effusion. There is an anterior echo-free space consistent with a fat pad. There is no pleural effusion. MMode/2D Measurements & Calculations LVIDd: 4.4 cm LVOT diam: 1.9 cm LVIDs: 3.0 cm Ao root diam: 3.3 cm FS: 31.6 % asc Aorta Diam: 3.9 cm IVSd: 1.1 cm Ao Arch Diam (Prox Trans): 2.6 cm LVPWd: 0.96 cm LV galdamez. diameter/BSA (cm/m^2): 2.6 LV sys. diameter/BSA (cm/m^2): 1.8 LA A2 area: 20.1 cm2 RA long axis: 4.7 cm LA A4 area: 17.9 cm2 RA area: 14.8 cm2 LA length (vol): 5.1 cm RA vol: 39.6 ml LA vol: 60.3 ml RA : 23.1 ml/m2 LA vol index: 35.1 ml/m2 IVC diam: 2.3 cm RVD1 (basal): 3.7 cm TAPSE: 2.2 cm Doppler Measurements & Calculations Ao V2 max: 194.9 cm/sec LVOT Max Joaquin: 116.8 cm/sec Ao V2 mean: 127.5 cm/sec LV V1 max P.5 mmHg Ao max P.2 mmHg LV V1 VTI: 28.5 cm Ao mean P.1 mmHg RUTH(I,D): 2.0 cm2 Ao V2 VTI: 40.3 cm RUTH(V,D): 1.7 cm2 sev ratio: 0.71 RUTH indexed to BSA (cm^2/m^2): 1.2 MV E max joaquin: 62.5 cm/sec TR max joaquin: 180.9 cm/sec MV A max joaquin: 101.2 cm/sec TR max P.1 mmHg MV E/A: 0.62 PA V2 max: 75.2 cm/sec Med Peak E' Joaquin: 3.7 cm/sec PA V2 mean: 55.5 cm/sec E/E' med: 16.9 PA mean P.3 mmHg Lat Peak E' Joaquin: 5.2 cm/sec PA pr(Accel): 15.6 mmHg E/E' lat: 12.1 E/e' average: 14.5 MV dec time: 0.29 sec SV(LVOT): 79.7 ml Reading Physician:01:26 PM
--- NOTE | 2020-12-10 11:00 | DI.NM.S_ITS ---
DATE OF SERVICE: 12/08/2020 PROCEDURE PERFORMED: Exercise treadmill converted to pharmacologic vasodilator stress and rest myocardial perfusion imaging with gating to assess ejection fraction and regional wall motion. ORDERING PROVIDER: Dr. Lourdes Tee. INDICATIONS: The patient is a 65-year-old female with lung disease and exertional dyspnea with atypical chest discomfort. CARDIAC STRESS: The patient was initially stressed on the treadmill but was able to exercise for only 2 minutes 47 seconds on a standard Ancelmo protocol with an inadequate heart rate response, achieving a maximum heart rate of only 95 BPM (69% of her predicted maximum) and therefore was converted to a pharmacologic vasodilator stress test using administration of 0.4 mg of regadenoson, augmented with low-level walking. With this, she had no chest discomfort or other anginal symptoms. She had significant dyspnea but her oxygen saturation remained < 93% throughout exercise. Her resting ECG shows sinus rhythm with normal ST segments. With stress, there were no significant ST- segment shifts. She had occasional PVCs at rest that resolved with exercise. Per protocol, 26.3 millicuries of technetium-99m Myoview was injected and she was imaged 15 minutes later using a gated SPECT acquisition protocol. Earlier in the day while at rest, she had been injected with 11.2 millicuries of technetium- 99m Myoview and was imaged 30 minutes later, again using a gated SPECT acquisition protocol. FINDINGS: 1. Raw Data: There is fairly good myocardial tracer uptake with only mild breast shadows noted. Lung/heart ratio was at the upper limits of normal at 0.40 with a normal TID ratio of 0.83. 2. Quantitated gated SPECT: Post-stress ejection fraction is estimated at 75% without any focal wall motion abnormality. Resting ejection fraction is 71% with a normal resting end-diastolic volume of 104 mL. 3. Myocardial perfusion imaging: Post-stress supine images show a normal perfusion pattern without any perfusion defects, supported by normal perfusion imaging in the prone position. The resting images show an identical perfusion pattern without any areas of improvement. IMPRESSION: 1. Normal myocardial perfusion study. 2. No evidence of myocardial ischemia or previous myocardial infarction. 3. Normal left ventricular systolic function without any focal wall motion abnormality. 4. Markedly reduced exercise capacity with limiting dyspnea but no chest discomfort or ECG evidence of ischemia. Oxygen saturation levels remained < 93%. She had occasional PVCs at rest that resolved with stress but no other arrhythmias. Vane Olsen - Ruben/tor doc#: [id number]/job#: [id number] dd: 12/08/2020 16:19:00 dt: 12/08/2020 17:20:00 DICTATING MD/COPIES TO: Ayo Ham MD; Lourdes Tee MD COPIES MNE: [id number];
== END ==
PROVIDERS: Family Provider Nurse Practitioner; PCP Nurse Practitioner; Referring Provider Internal Medicine Cardiovascular Disease; Visit Provider Internal Medicine Cardiovascular Disease
DX: I08.2 Rheumatic disorders of both aortic and tricuspid valves (principal); I77.89 Other specified disorders of arteries and arterioles; R06.02 Shortness of breath; R07.89 Other chest pain; R00.2 Palpitations; R01.1 Cardiac murmur, unspecified; R06.09 Other forms of dyspnea; J98.4 Other disorders of lung
CPT/HCPCS: 78452; 93017; 93306; A9502; J2785

== ENCOUNTER 2021-01-05 09:00 | Outpatient (RCR) | payer OTHER, SELFPAY ==
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
--- NOTE | 2020-11-11 17:04 | PT.OPPOC ---
Physical, Occupational & Speech Therapy At [facility] Current Diagnoses Cervicalgia (11/11/20) Localized swelling, mass and lump, right lower limb (11/11/20) Visit Care Team Role Provider Type BUNNY Wagner Attending Provider Advanced Stabilizing Machine Operator Family Provider Primary Care Provider Referring Provider Specialty: Family Practice Address: [address] [place] [address], [facility] Email: [email or web address] Plan Of Care PT-OP-T Assessment and Plan Start: 10/31/20 17:36 Freq: Status: Active Protocol: Document 11/11/20 09:02 LRN (Rec: 11/11/20 16:53 LRN [id number]) Physical Therapy Assessment Rehab Potential Rehabilitation Potential Excellent Evaluation Complexity Number of Personal Factors/Comorbidities 3 or More Number of Body Systems Impaired 4 or More Clinical Presentation at Evaluation Evolving Impairments Impairments Activity Tolerance,Pain,ROM, Strength Goals Three Impairment Decreased shoulder and R hip strength Short Term Goal (STG) Pt will be educated in appropriate harsh shoulder strengthening ex's to improve ability to vacuum 2x/day. STG Duration 12/09/20 Medical Engineer Goal (LTG) Improve R hip strength to no less than 4/5 with pt able to get up/down off floor to clean her cabinets. LTG Duration 01/24/21 Two Impairment Neck pain and R anterior hip scar pain. Short Term Goal (STG) Alleviate R anterior hip scar pain with pt able to bend and position hands/knees for floor cleaning. STG Duration 12/09/20 Longterm Goal (LTG) Alleviate some of the constant neck pain (to intermittent 3/ 10) through exercise with pt able to vaccum LTG Duration 01/24/21 One Impairment Lacks appropriate self care HEP Short Term Goal (STG) Pt will be independent with a self care HEP for her neck/L sciatic pain. STG Duration 11/25/20 Medical Engineer Goal (LTG) Pt will be independent with a self detention program of soft tissue and therapeutic exercise (ROM/strength) for her R hip/anterior thigh. LTG Duration 01/24/21 Assessment Summary Assessment Pt presents with pain in the R anterior thigh along the scar , neck/bilateral shoulder pain . She demonstrates weakness of her R hip and neck/ shoulders. The pt will benefit from skilled physical therapy to achieve the above stated goals. Physical Therapy Plan Frequency and Duration Frequency of Treatment 2x/Week Plan of Care Start Date 11/11/20 Plan of Care End Date 01/24/21 Therapeutic Interventions Therapeutic Interventions Home Exercise Program,Manual Therapy,Neuromuscular Re- education,Patient/Caregiver Education,Self-Care/Home Management,Soft Tissue Mobilization,Therapeutic Exercises Modalities Cold Pack/Ice Massage,Hot Packs Next Visit Focus/Plan Next Note Type Treatment Note Next Visit Plan R hip scar mobilization; R hip ROM/HEP, L hip careful ROM due to sciatic pain; R hip strengthening/HEP. Neck/ shoulders AROM stretches and extension program. Modalities limited due to skin CA history. Plan of Care Dates Plan of Care Start Date 11/11/20 Plan of Care End Date 01/24/21 Electronically Signed by: Gianna Granados, PT 11/11/20 [id number] Please Sign and Return: I have reviewed this Plan of Care and certify that the skilled therapy services above are required to meet the patient?s needs. Physician Signature Date Printed Name and Credentials Clinical Instructor Signature Printed Name and Credentials
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
== END 2021-01-07 13:51 ==
LOC: PHYS 09:00
PROVIDERS: Family Provider Nurse Practitioner; PCP Nurse Practitioner; Referring Provider Nurse Practitioner; Visit Provider Nurse Practitioner
DX: R22.41 Localized swelling, mass and lump, right lower limb (principal); M54.2 Cervicalgia
CPT/HCPCS: 97110; 97140; 97162; 97535

== ENCOUNTER → 2021-03-02 07:11 | Outpatient (CLI) | payer MEDICARE, SELFPAY ==
[2021-03-02 09:23] LABS: Blood Urea Nitrogen 18 mg/dL (7-17); Carbon Dioxide 30 mmol/L (22-32); Chloride 104 mmol/L (98-107); Estimated Glomerular Filt Rate > 60.0 mL/min (>60); Glucose 104 mg/dL (80-110); HEMOLYSIS < 15 (0-50); Potassium 4.8 mmol/L (3.4-5.1); Sodium 140 mmol/L (137-145)
[2021-03-02 09:24] LABS: Creatinine Urine Random 107.6 mg/dL; Protein (Total) Urine Random 14 mg/dL (0-12); Protein Creatinine Ratio Urine 0.13 GRAM/24H
[2021-03-02 09:27] LABS: Hemoglobin 13.3 g/dL (12.0-16.0)
[2021-03-03 07:19] LABS: Parathyroid Hormone Int 45 pg/mL (15-65)
== END ==
PROVIDERS: Family Provider Nurse Practitioner; PCP Nurse Practitioner; Referring Provider Student in an Organized Health Care Education/Training Program; Visit Provider Student in an Organized Health Care Education/Training Program
DX: D64.9 Anemia, unspecified (principal); N25.81 Secondary hyperparathyroidism of renal origin; N05.9 Unspecified nephritic syndrome with unspecified morphologic changes; F80.9 Developmental disorder of speech and language, unspecified
CPT/HCPCS: 36415; 80048; 82570; 83970; 84156; 85014; 85018

== ENCOUNTER → 2021-04-20 10:00 | Outpatient (CLI) | payer MEDICARE, SELFPAY ==
[2021-04-20 12:24] LABS: COVID19 -Nasal RAPID Negative (Negative)
== END ==
PROVIDERS: Family Provider Nurse Practitioner; PCP Nurse Practitioner; Visit Provider Family Medicine Sleep Medicine
DX: Z20.822 Contact with and (suspected) exposure to COVID-19 (principal)
CPT/HCPCS: 87635; C9803

== ENCOUNTER 2021-04-22 07:24 | Day surgery (SDC) | payer MEDICARE, SELFPAY ==
[2021-04-22] VITALS (7 sets, daily range): BP systolic 105–157; BP diastolic 74–89; PULSE 59–66; RESP 12–20; TEMP 36.4–36.8; O2SAT 97–100; BMI 27.4
--- NOTE | 2021-04-22 | PATH_ITS ---
[facility] Accession Number: [id number] . 01 Material submitted: . PART A: small bowel - SMALL BOWEL PART B: gastrointestinal site - GASTRIC PART C: rectum - TERRY RECTAL NODULES . 01 Diagnosis: A. Small Bowel, Biopsy: Duodenal mucosa with no diagnostic abnormality. Negative for active inflammation, features of sprue, dysplasia, or malignancy. . B. Stomach, Biopsies: Gastric body mucosa with minimal chronic inflammation Negative for Helicobacter organisms by immunohistochemistry. Negative for intestinal metaplasia. Negative for dysplasia or malignancy. . C. Rectal Nodules, Biopsies: Squamous mucosa with reactive features, suggestive of hypertrophic anal papilla. Colorectal mucosa with focal mucosal hyperplasia. Negative for dysplasia or malignancy. Additional step sections examined. [facility] 04/27/2021 1631 Local . 01 Electronically signed: . Govind Allison MD, PhD, Pathologist NPI- [id number] . 01 Gross description: . Part A: SMALL BOWEL: Received in formalin is 1 fragment(s) of jo, soft tissue measuring 0.3 x 0.2 x 0.1 cm submitted entirely in 1 cassette(s) Part B: GASTRIC: Received in formalin are 2 fragment(s) of oj, soft tissue measuring 0.4 x 0.1 x 0.1 cm to 0.2 x 0.1 x 0.1 cm submitted entirely in 1 cassette(s) Part C: TERRY RECTAL NODULES: Received in formalin are 3 fragment(s) of jo, soft tissue measuring 0.3 x 0.1 x 0.1 cm to 0.2 x 0.1 x 0.1 cm submitted entirely in 1 cassette(s) /CPE 04/23/2021 1111 Local . 01 Microscopic: . B. An immunohistochemical stain was performed to evaluate for Helicobacter organisms and is negative. The control stain showed appropriate reactivity. . * This test was developed and its performance characteristics determined by [facility]. It has not been cleared or approved by the U.S. Food and Drug Administration. The FDA has determined that such clearance or approval is not necessary. This test is used for clinical purposes. It should not be regarded as investigational or for research. . 01 Pathologist provided ICD-10: K29.70, K62.1 . 01 CPT . 793024, 908879, 875203, E33124 Specimen Comment: A courtesy copy of this report has been sent to [phone] Performed at: 01 LabPending sale to [facility] [address] [place] [address], [place], [place] [id number] MD Mark Pfeiffer MD Phone: [phone]
[2021-04-22] MEDS: SODIUM CHLORIDE 0.9% 1,000 ML 84 ML IV (08:30)
--- NOTE | 2021-04-22 08:33 | P.HP_ITS ---
History of Present Illness History of Present Illness Date Patient Seen: 04/22/21 Chief complaint: [facility] Narrative: Chronic nausea vomiting and upper abdominal pain and personal history of colon polyps Patient History Medical History (Updated 04/09/21 @ 09:52 by BUNNY Wagner) Abdominal pain Abnormal chest x-ray (~2011) Abnormal Pap smear of cervix (~1974) Allergic rash present on examination Anemia (~2016) Cannabis dependence, daily use Cat bite Cervical cancer (~1977) Change in bowel habit Chronic pain of both shoulders Colon polyps (~2002) COPD (chronic obstructive pulmonary disease) (~2011) Degenerative joint disease (DJD) of lumbar spine (~1963) Depression (~1988) Epigastric pain determined by examination Fatigue Fecal incontinence (~2017) Fibromyalgia (~1983) Foot pain (~2017) Fractures GERD (gastroesophageal reflux disease) GI bleeding (~2018) Glaucoma (~2018) Granuloma annulare (~2014) Hemorrhoid (~1979) Hepatic steatosis History of chronic constipation Hyperlipidemia LDL goal <100 Intermittent left-sided chest pain Kidney stones (~2018) Liver disease (~1972) Mass of right thigh Measles Migraines (~1982) Mumps Muscle spasm of back Nausea & vomiting Neoplasm of uncertain behavior Osteoarthritis (~2012) Osteoporosis (~2012) Painful menstrual periods Pancreatic mass Pancreatitis Paresthesia of right lower extremity Partial blindness Right renal mass Ruptured tympanic membrane (~1974) Scoliosis (~1963) Shoulder pain (~1985) Skin cancer (~2014) Sleep apnea (~2015) Vaginitis Weight loss, non-intentional Wound of left foot Surgical History Anesthesia Carpal tunnel syndrome (~1987) Cataracts, bilateral (~2013) History of hysterectomy (~1981) Family & Social History Family History Father History of heart disease Hypertension Hyperlipidemia Mother Cancer Hypertension Grandfather No problems noted. Grandmother History of heart disease Hyperlipidemia Hypertension Grandfather Cancer Grandmother Stroke Social History: household members significant other Tobacco & Substance use: Smoking Status Former smoker alcohol intake never alcohol intake frequency 0-2 drinks per day Substance Use Type marijuana Meds Home Medications and Allergies Home Medications Medication Instructions Recorded Confirmed Type voltaren 10% gel See Rx Instructions .ROUTE 04/24/19 04/22/21 Rx .COMPLEX #30 gram oxycodone 5 mg tablet 5 mg PO Q6-12H PRN #20 tab 09/23/20 04/22/21 Rx clonazepam 0.5 mg tablet 0.5 mg PO BID PRN #60 tab 01/28/21 04/22/21 Rx tramadol 50 mg tablet 50 mg PO DAILY PRN 30 Days #15 tab 02/24/21 04/22/21 Rx carvedilol 25 mg tablet 25 mg PO BID #180 tab 04/02/21 04/22/21 Rx dicyclomine 10 mg capsule 10 mg PO BID PRN #30 cap 04/02/21 04/22/21 Rx ketoconazole 2 % topical cream 1 applic TOPICAL BID #30 g 04/02/21 04/22/21 Rx latanoprost 0.005 % eye drops 1 drp EYE-RIGHT .HS #2.5 ml 04/02/21 04/22/21 Rx lisinopril 20 mg tablet See Rx Instructions .ROUTE 04/02/21 04/22/21 Rx .COMPLEX #360 tab methocarbamol 500 mg tablet 500 mg PO BID PRN #180 tab 04/02/21 04/22/21 Rx pantoprazole 40 mg tablet,delayed See Rx Instructions .ROUTE 04/02/21 04/22/21 Rx release .COMPLEX #180 tab promethazine 25 mg tablet See Rx Instructions .ROUTE 04/02/21 04/22/21 Rx .COMPLEX #120 tab rosuvastatin 20 mg tablet 20 mg PO DAILY #90 tab 04/02/21 04/22/21 Rx trazodone 100 mg tablet See Rx Instructions .ROUTE 04/02/21 04/22/21 Rx .COMPLEX #180 tab venlafaxine 75 mg capsule,extended See Rx Instructions .ROUTE 04/02/21 04/22/21 Rx release 24 hr .COMPLEX #270 cap Allergies Allergy/AdvReac Type Severity Reaction Status Date / Time azithromycin [From Zithromax] Allergy Mild Verified 10/13/20 15:52 ceftriaxone Allergy Mild Verified 10/13/20 15:52 clarithromycin [From Biaxin] Allergy Mild Verified 10/13/20 15:52 gemfibrozil Allergy Mild Verified 10/13/20 15:52 hydrocodone [From Vicodin] Allergy Mild Verified 10/13/20 15:52 nitrofurantoin Allergy Mild Hives on Verified 10/13/20 15:52 chest/ shoulders isosorbide AdvReac Intermediate Verified 03/09/21 10:33 aspirin AdvReac Mild Dizziness Verified 04/22/21 07:48 buspirone [From BuSpar] AdvReac Mild dysphoria Verified 10/13/20 15:52 memantine [From Namenda] AdvReac Mild confusion Verified 10/13/20 15:52 pregabalin [From Lyrica] AdvReac Mild Dizziness Verified 10/13/20 15:52 Exam Vital Signs (past 8 hours): - 04/22/21 07:40 Temperature 98.3 F Pulse Rate 65 Respiratory Rate 18 Blood Pressure 149/86 H Pulse Oximetry 97 Oxygen Delivery Method Room Air Narrative Exam Narrative: Oropharynx free of lesions Chest clear to auscultation percussion Cardiac exam reveals no S3 or murmur Objective ECG Impression: Personal history of colon polyps need for follow-up colonoscopy. Nausea vomiting and epigastric pain unrelieved by medications rule out peptic disease. By not performing these procedures side diseases could advance and symptomatically worsen. Risks, benefits, alternatives have been explained. Assessment & Plan Time Spent With Patient Critical Care time: I spent a total of [] minutes of critical care time on this patient's care today; this time is exclusive of procedural time.
--- NOTE | 2021-04-22 08:35 | PM.OP.EC ---
Operative Date/Time/Diagnoses Date of procedure: 04/22/21 Pre-op diagnosis: See indication and findings Procedure & Clinicians Study performed: EGD and colonoscopy Indications: Chronic nausea vomiting and abdominal pain unresponsive to medications. Also personal history of colon polyps. Procedure Notes Procedure in detail: After informed consent was obtained the patient was placed in left lateral decubitus position. Video upper scope was placed into the oropharynx and with the patient's help swelled into the esophagus. The esophagus stomach and duodenum were carefully examined. On withdrawal retroflexed view the GE junction was performed. The scope was removed. The patient tolerated procedure well. The patient was then turned and the colonoscope substituted. This was introduced through the rectum and eventually passed the cecum. Preparation was good. On slow withdrawal mucosa was carefully examined. The scope was removed. The patient tolerated procedure well. Blood loss none Complications none Sedation mac Findings EGD 1. Normal esophagus 2. No hiatal hernia 3. Patchy and streaky gastric erythema with some blood flecks present biopsies taken to rule out Helicobacter 4. Normal duodenal bulb and sweep biopsies taken to rule out celiac Colonoscopy 1. End to side colonic anastomosis at the rectosigmoid junction. This otherwise appeared quite normal. 2. Negative colonoscopy to cecum without any evidence of polyps. 3. Extensive changes around the anorectal junction. First of all sphincter pressure was quite low. Visually there was evidence of previous surgery in a circumferential fashion with what appeared to be inflammatory pseudopolyps and neovascularization. Biopsies were taken of both. I do not think Vane needs follow-up colonoscopy for another 10 years. We will await biopsies and be in touch with her regarding next steps.
== END 2021-04-22 10:35 | disposition home or self-care (01) ==
PROVIDERS: Family Provider Nurse Practitioner; PCP Nurse Practitioner; Referring Provider Internal Medicine Gastroenterology; Visit Provider Internal Medicine Gastroenterology
PROC: 0DJ08ZZ Inspection of Upper Intestinal Tract, Via Natural or Artificial Opening Endoscopic (ICD-10-PCS; CPT 43235; principal; 2021-04-22 09:00)
PROC: 0DJD8ZZ Inspection of Lower Intestinal Tract, Via Natural or Artificial Opening Endoscopic (ICD-10-PCS; CPT 45378; 2021-04-22 09:00)
DX: K29.50 Unspecified chronic gastritis without bleeding (principal); Z86.010 Personal history of colon polyps; I10 Essential (primary) hypertension; E78.00 Pure hypercholesterolemia, unspecified; J44.9 Chronic obstructive pulmonary disease, unspecified; F32.9 Major depressive disorder, single episode, unspecified; K62.1 Rectal polyp
CPT/HCPCS: 45380; 43239

== ENCOUNTER 2021-05-05 13:38 | Emergency (ER) | payer MEDICARE, SELFPAY ==
[2021-05-05] VITALS (9 sets, daily range): BP systolic 158–201; BP diastolic 70–96; PULSE 60–64; RESP 15–25; TEMP 36.6; O2SAT 96–98; BMI 28.1
--- NOTE | 2021-05-05 13:58 | DI.RAD.S_ITS ---
PROCEDURE: XR CHEST 1V INDICATIONS: Possible stroke TECHNIQUE: One view of the chest was acquired. COMPARISON: [facility], CT, CT LOW DOSE LUNG CA SCREENING, 09/10/2019, 12:24. FINDINGS: Surgical changes and devices: None. Lungs and pleura: Lungs are clear. No pleural effusions or pneumothorax. Mediastinum: Mediastinal contours appear normal. Heart size is normal. Bones and chest wall: No suspicious bony lesions. Overlying soft tissues appear unremarkable. Chondral calcifications of the anterior lower ribs project over the lower chest bilaterally. IMPRESSION: No acute cardiopulmonary abnormalities or focal airspace disease. Dictated by: Henry Roberts M.D. on 05/05/2021 at 15:05 Approved by: Henry Roberts M.D. on 05/05/2021 at 15:06
--- NOTE | 2021-05-05 13:58 | DI.CT.S_ITS ---
PROCEDURE: CT STROKE INDICATIONS: vision problems and off balance t-2 days ago TECHNIQUE: Noncontrast 4.5 mm thick angled axial sections acquired from the foramen magnum to the vertex, with coronal reformats. For radiation dose reduction, the following was used: automated exposure control, adjustment of mA and/or kV according to patient size. COMPARISON: None. FINDINGS: Image quality: Excellent. CSF spaces: Basal cisterns are patent. No extra-axial fluid collections. The ventricles are symmetric in size and shape. Brain: No intracranial bleeds or masses. There is cerebral volume loss for age, with resultant ventricular and sulcal prominence. There are periventricular and deep white matter chronic small vessel ischemic changes. There is intracranial internal carotid artery atherosclerosis. Skull and face: Calvarium and visualized facial bones appear intact, without suspicious lesions. Sinuses: Visualized sinuses and mastoids are clear. IMPRESSION: 1. CT head without acute intracranial abnormalities or acute calvarial fractures. 2. Age-related senescent changes and sequela of chronic small vessel ischemic disease. Findings were discussed telephonically with Dr Shannon at 1500 hrs. This study fulfills neurological imaging criteria for inclusion or exclusion of acute stroke therapies based on available published neurological guidelines. Dictated by: Henry Roberts M.D. on 05/05/2021 at 15:02 Approved by: Henry Roberts M.D. on 05/05/2021 at 15:05
--- NOTE | 2021-05-05 14:18 | ED_ITS ---
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 She said she started seeing Kolidscope floaters and flashing in the left eye. It has been going on for 2 days. She feels like she has been off balance secondary to her visual abnormality. She Has had no loss or blackening of the vision. She denies any pain. She has no numbness tingling or weakness. She has no chest pain palpitations or shortness of breath. She does have glaucoma in her right eye as well. On Anticoagulants: No Related Data Previous Rx's Medication Instructions Recorded voltaren 10% gel See Rx Instructions .ROUTE 04/24/19 .COMPLEX #30 gram oxycodone 5 mg tablet 5 mg PO Q6-12H PRN #20 tab 09/23/20 clonazepam 0.5 mg tablet 0.5 mg PO BID PRN #60 tab 01/28/21 tramadol 50 mg tablet 50 mg PO DAILY PRN 30 Days #15 tab 02/24/21 carvedilol 25 mg tablet 25 mg PO BID #180 tab 04/02/21 dicyclomine 10 mg capsule 10 mg PO BID PRN #30 cap 04/02/21 ketoconazole 2 % topical cream 1 applic TOPICAL BID #30 g 04/02/21 latanoprost 0.005 % eye drops 1 drp EYE-RIGHT .HS #2.5 ml 04/02/21 lisinopril 20 mg tablet See Rx Instructions .ROUTE 04/02/21 .COMPLEX #360 tab methocarbamol 500 mg tablet 500 mg PO BID PRN #180 tab 04/02/21 pantoprazole 40 mg tablet,delayed See Rx Instructions .ROUTE 04/02/21 release .COMPLEX #180 tab promethazine 25 mg tablet See Rx Instructions .ROUTE 04/02/21 .COMPLEX #120 tab rosuvastatin 20 mg tablet 20 mg PO DAILY #90 tab 04/02/21 trazodone 100 mg tablet See Rx Instructions .ROUTE 04/02/21 .COMPLEX #180 tab venlafaxine 75 mg capsule,extended See Rx Instructions .ROUTE 04/02/21 release 24 hr .COMPLEX #270 cap Allergies Allergy/AdvReac Type Severity Reaction Status Date / Time azithromycin [From Zithromax] Allergy Mild Verified 05/05/21 13:43 ceftriaxone Allergy Mild Verified 05/05/21 13:43 clarithromycin [From Biaxin] Allergy Mild Verified 05/05/21 13:43 gemfibrozil Allergy Mild Verified 05/05/21 13:43 hydrocodone [From Vicodin] Allergy Mild Verified 05/05/21 13:43 nitrofurantoin Allergy Mild Hives on Verified 05/05/21 13:43 chest/ shoulders isosorbide AdvReac Intermediate Verified 05/05/21 13:43 aspirin AdvReac Mild Dizziness Verified 05/05/21 13:43 buspirone [From BuSpar] AdvReac Mild dysphoria Verified 05/05/21 13:43 memantine [From Namenda] AdvReac Mild confusion Verified 05/05/21 13:43 pregabalin [From Lyrica] AdvReac Mild Dizziness Verified 05/05/21 13:43 Review of Systems Review of Systems Narrative: GENERAL: Denies chills, fatigue, malaise, fever, sweats, travel HEENT: See HPI RESPIRATORY: Denies dyspnea, cough, wheezing, hemoptysis, sputum. CARDIOVASCULAR: Denies chest pain, palpitations, orthopnea, edema GASTROINTESTINAL: Denies nausea, vomiting, abdominal pain, diarrhea, constipation, melena. : Denies dysuria, frequency, incontinence, hematuria, urinary retention, flank pain. MUSCULOSKELETAL: Denies weakness, joint pain, or bony pain SKIN: No rash, no erythema, no pruritus NEUROLOGIC: Denies weakness, dizziness, headache, numbness, change in speech, confusion PSYCHIATRIC: No concerning psychosocial issues. 12 point review of systems is negative except for those stated above and HPI Hematologic/Lymphatic On Anticoagulants: No Patient History Medical History (Updated 05/05/21 @ 15:37 by Rosalva Shannon DO) Abdominal pain Abnormal chest x-ray (~2011) Abnormal Pap smear of cervix (~1974) Allergic rash present on examination Anemia (~2016) Cannabis dependence, daily use Cat bite Cervical cancer (~1977) Change in bowel habit Chronic pain of both shoulders Colon polyps (~2002) COPD (chronic obstructive pulmonary disease) (~2011) Degenerative joint disease (DJD) of lumbar spine (~1963) Depression (~1988) Epigastric pain determined by examination Fatigue Fecal incontinence (~2017) Fibromyalgia (~1983) Foot pain (~2017) Fractures GERD (gastroesophageal reflux disease) GI bleeding (~2018) Glaucoma (~2018) Granuloma annulare (~2014) Hemorrhoid (~1979) Hepatic steatosis History of chronic constipation Hyperlipidemia LDL goal <100 Intermittent left-sided chest pain Kidney stones (~2018) Liver disease (~1972) Mass of right thigh Measles Migraines (~1982) Mumps Muscle spasm of back Nausea & vomiting Neoplasm of uncertain behavior Osteoarthritis (~2012) Osteoporosis (~2012) Painful menstrual periods Pancreatic mass Pancreatitis Paresthesia of right lower extremity Partial blindness Right renal mass Ruptured tympanic membrane (~1974) Scoliosis (~1963) Shoulder pain (~1985) Skin cancer (~2014) Sleep apnea (~2015) Vaginitis Weight loss, non-intentional Wound of left foot Surgical History Anesthesia Carpal tunnel syndrome (~1987) Cataracts, bilateral (~2013) History of hysterectomy (~1981) Family History Father History of heart disease Hypertension Hyperlipidemia Mother Cancer Hypertension Grandfather No problems noted. Grandmother History of heart disease Hyperlipidemia Hypertension Grandfather Cancer Grandmother Stroke Social History marital status: unmarried,living together household members: significant other occupational status: previously employed Smoking Status: Former smoker alcohol intake: never substance use type: marijuana Smoking Status: Former smoker alcohol intake frequency: holidays/special occasions only Substance Use Type: marijuana Exam Initial Vital Signs Initial Vital Signs: Vital Signs Temperature 97.8 F 05/05/21 13:41 Pulse Rate 63 05/05/21 13:41 Respiratory Rate 15 05/05/21 13:41 Blood Pressure 179/96 H 05/05/21 13:41 Pulse Oximetry 97 05/05/21 13:41 GENERAL: Well-appearing, well-nourished and in no acute distress. HEENT: Head atraumatic,EOMI, pupils reactive, face symmetric, moist mucous membranes EYES: Extraocular muscles in tact. Fluorescein dye in left eye no dye uptake. Pressure in right eye 24, pressure in left eye is 21 and then 25 Bedside ultrasound of left eye does not show any retinal detachment or vitreous humor detachment CARDIOVASCULAR: Regular rate and rhythm without murmurs, rubs or gallops. RESPIRATORY: Breath sounds equal bilaterally, no wheezes rales or rhonchi. ABDOMEN: Soft, nontender. Normoactive bowel sounds all 4 quadrants. No guarding or rebound. EXTREMITIES: Normal range of motion, no clubbing or edema. Neurovascularly intact NEUROLOGICAL: Alert and oriented x4.Normal gait and speech. Cranial nerves II through XII grossly intact. Good [id number], good [id number], strength equal bilaterally, no dysarthria or aphasia, sensation in tact to soft touch bilaterally, no visual changes, no facial droop SKIN: Warm, dry, no laceration, no petechiae, no rashes or lesions. Scores NIH Stroke Scale Level of Conciousness: Alert, keenly responsive Ask month/age: Answers both questions correctly. Open/close eyes, close hand: Performs both tasks correctly Best gaze horizontal: Normal Visual joiner: No visual loss Facial palsy: Normal symetrical movement Left arm drift: No drift for full 10 sec Right arm drift: No drift for full 10 sec Left leg drift: No drift for full 5 sec Right leg drift: No drift for full 5 sec Limb ataxia: Absent Sensory on face/arms/legs: Normal, no sensory loss Best language: No aphasia, normal Dysarthria: Normal Extinction or inattention: No abnormality Total NIH Stroke scale score: 0 Course Orders Ordered: ED Orders 05/05/21 13:58 CT Stroke Stat XR chest 1V Stat 05/05/21 14:03 EKG-12 Lead Stat 05/05/21 14:21 Complete Blood Count AUTO DIFF Stat Comprehensive Metabolic Panel Stat Partial Thromboplastin Time Stat Prothrombin Time INR Stat Troponin & CK Cardiac Panel Stat 05/05/21 15:55 Urine Drug Screen, Rapid Stat 05/05/21 15:56 Urine Microscopic Stat Discontinued Medications Fluorescein Sodium (Fluorescein 1 Mg Strip) 1 mg EYE-LEFT NOW ONE Stop: 05/05/21 14:27 Last Admin: 05/05/21 14:38 Dose: 1 mg Documented by: KBROWNE Proparacaine HCl (Proparacaine 0.5% Ophth Kayli) 1 drops EYE-LEFT NOW ONE Stop: 05/05/21 14:25 Last Admin: 05/05/21 14:38 Dose: 1 drop Documented by: BANDAR Vital Signs Vital signs: Vital Signs - 8 hr 05/05/21 13:41 05/05/21 13:57 05/05/21 13:58 Temperature 97.8 F Pulse Rate 63 61 Respiratory Rate 15 Blood Pressure 179/96 H 201/93 H Pulse Oximetry 97 98 97 05/05/21 14:00 05/05/21 14:22 05/05/21 14:30 Temperature Pulse Rate 64 64 60 Respiratory Rate 20 19 18 Blood Pressure 190/80 H 166/90 H Pulse Oximetry 97 98 96 05/05/21 14:31 05/05/21 15:00 05/05/21 15:01 Temperature Pulse Rate 60 61 60 Respiratory Rate 20 21 25 H Blood Pressure 158/70 H 163/76 H Pulse Oximetry 96 97 97 MDM - Neuro Symptoms/Deficit Lab Data Result diagrams: 05/05/21 14:21 05/05/21 14:21 Labs: Lab Results 05/05/21 05/05/21 05/05/21 Range/Units 14:21 14:21 14:21 WBC 12.3 H (4.5-11.0) X10^3/uL RBC 4.60 (4.0-5.2) X10^6/uL Hgb 14.1 (12.0-16.0) g/dL Hct 42.2 (36-46) % MCV 91.8 (80-100) fL MCH 30.6 (26-34) PG MCHC 33.3 (30-36) % RDW 13.5 (11.6-14.8) % Plt Count 305 (150-400) X10^3/uL Neut % (Auto) 72.7 (50-75) % Lymph % (Auto) 18.8 L (25-40) % Wise % (Auto) 7.3 (3-14) % Eos % (Auto) 0.9 L (2-4) % Baso % (Auto) 0.3 (0-2) % Neut # (Auto) 8900 H (7587-6362) /uL Lymph # (Auto) 2300 (0618-1999) /uL Wise # (Auto) 900 (0-900) /uL Eos # (Auto) 100 (0-450) /uL Baso # (Auto) 0 (0-100) /uL PT 11.8 (10.1-12.7) SECONDS INR 1.1 (0.9-1.3) APTT 28 (26.4-36.2) SECONDS Sodium 137 (137-145) mmol/L Potassium 3.9 (3.4-5.1) mmol/L Chloride 101 (98-107) mmol/L Carbon Dioxide 31 (22-32) mmol/L BUN 18 H (7-17) mg/dL Creatinine 0.75 (0.52-1.04) mg/dL Estimated GFR > 60.0 (>60) mL/min BUN/Creatinine Ratio 24.0 H (6-22) Glucose 132 H (80-110) mg/dL Calcium 8.7 (8.4-10.2) mg/dL Total Bilirubin 0.4 (0.2-1.3) mg/dL AST 26 (14-36) IU/L ALT 37 H (<35) IU/L Alkaline Phosphatase 50 (38-126) U/L Total Creatine Kinase 37 (30-135) U/L CK-MB (CK-2) TNP CK-MB (CK-2) Rel Index TNP Troponin I < 0.012 (0.01-0.034) ng/mL Total Protein 7.3 (6.3-8.2) g/dL Albumin 4.3 (3.5-5.0) g/dL Globulin 3.0 (1.7-4.1) g/dL Albumin/Globulin Ratio 1.4 (1.0-2.8) Urine RBC (0-5/HPF) Urine WBC (0-5/HPF) Ur Squamous Epith Cells (0-5/HPF) Urine Bacteria (None) Ur Culture Indicated? U Opiates 300ng/mL cut (Negative) Ur Oxycodone Screen (Negative) Urine Methadone Screen (Negative) Ur Barbiturates Screen (Negative) U Tricyclic Antidepress (Negative) Ur Phencyclidine Scrn (Negative) Ur Amphetamines Screen (Negative) U Methamphetamines Scrn (Negative) Ur MDMA Scrn (Ecstasy) (Negative) U Benzodiazepines Scrn (Negative) Urine Cocaine Screen (Negative) U Marijuana (THC) Screen (Negative) 05/05/21 05/05/21 Range/Units 15:55 15:56 WBC (4.5-11.0) X10^3/uL RBC (4.0-5.2) X10^6/uL Hgb (12.0-16.0) g/dL Hct (36-46) % MCV (80-100) fL MCH (26-34) PG MCHC (30-36) % RDW (11.6-14.8) % Plt Count (150-400) X10^3/uL Neut % (Auto) (50-75) % Lymph % (Auto) (25-40) % Wise % (Auto) (3-14) % Eos % (Auto) (2-4) % Baso % (Auto) (0-2) % Neut # (Auto) (8911-5982) /uL Lymph # (Auto) (3210-0457) /uL Wise # (Auto) (0-900) /uL Eos # (Auto) (0-450) /uL Baso # (Auto) (0-100) /uL PT (10.1-12.7) SECONDS INR (0.9-1.3) APTT (26.4-36.2) SECONDS Sodium (137-145) mmol/L Potassium (3.4-5.1) mmol/L Chloride (98-107) mmol/L Carbon Dioxide (22-32) mmol/L BUN (7-17) mg/dL Creatinine (0.52-1.04) mg/dL Estimated GFR (>60) mL/min BUN/Creatinine Ratio (6-22) Glucose (80-110) mg/dL Calcium (8.4-10.2) mg/dL Total Bilirubin (0.2-1.3) mg/dL AST (14-36) IU/L ALT (<35) IU/L Alkaline Phosphatase (38-126) U/L Total Creatine Kinase (30-135) U/L CK-MB (CK-2) CK-MB (CK-2) Rel Index Troponin I (0.01-0.034) ng/mL Total Protein (6.3-8.2) g/dL Albumin (3.5-5.0) g/dL Globulin (1.7-4.1) g/dL Albumin/Globulin Ratio (1.0-2.8) Urine RBC None seen (0-5/HPF) Urine WBC None seen (0-5/HPF) Ur Squamous Epith Cells None seen (0-5/HPF) Urine Bacteria None seen (None) Ur Culture Indicated? Cult not indicated U Opiates 300ng/mL cut Negative (Negative) Ur Oxycodone Screen Negative (Negative) Urine Methadone Screen Negative (Negative) Ur Barbiturates Screen Negative (Negative) U Tricyclic Antidepress Negative (Negative) Ur Phencyclidine Scrn Negative (Negative) Ur Amphetamines Screen Negative (Negative) U Methamphetamines Scrn Negative (Negative) Ur MDMA Scrn (Ecstasy) Negative (Negative) U Benzodiazepines Scrn Negative (Negative) Urine Cocaine Screen Negative (Negative) U Marijuana (THC) Screen Positive H (Negative) Point of Care Testing Glucose POC 125 Urine Dip Bedside Urine Glucose Negative Bedside Urine Bilirubin - Negative Bedside Urine Ketone - Negative Urine Specific [place] 1.015 Bedside Urine Occult Blood +/- Bedside Urine pH 60 Bedside Urine Protein - Negative Bedside Urine Urobilinogen - Negative Bedside Urine Nitrite - Negative Bedside Urine Leukocytes - Negative Esterase Imaging Data CT scan - head: Radiologist's Impression: PROCEDURE:? CT STROKE ? INDICATIONS:? vision problems and off balance t-2 days ago ? TECHNIQUE:? Noncontrast 4.5 mm thick angled axial sections acquired from the foramen magnum to the vertex, with coronal reformats.? For radiation dose reduction, the following was used:? automated exposure control, adjustment of mA and/or kV according to patient size.? ? COMPARISON:? None. ? FINDINGS:? Image quality:? Excellent.? ? CSF spaces:? Basal cisterns are patent.? No extra-axial fluid collections.? The ventricles are symmetric in size and shape.? ? Brain:? No intracranial bleeds or masses.? There is cerebral volume loss for age, with resultant ventricular and sulcal prominence.? There are periventricular and deep white matter chronic small vessel ischemic changes.? There is intracranial internal carotid artery atherosclerosis.? ? Skull and face:? Calvarium and visualized facial bones appear intact, without suspicious lesions.? ? Sinuses:? Visualized sinuses and mastoids are clear.? ? IMPRESSION:? ? 1. CT head without acute intracranial abnormalities or acute calvarial fractures. ? 2. Age-related senescent changes and sequela of chronic small vessel ischemic disease. ? Findings were discussed telephonically with Dr Shannon at 1500 hrs. ? This study fulfills neurological imaging criteria for inclusion or exclusion of acute stroke therapies based on available published neurological guidelines.? ? ? Dictated by: Henry Roberts M.D. on 05/05/2021 at 15:02 ? ? Chest x-ray: Radiologist's Impression: PROCEDURE:? XR CHEST 1V ? INDICATIONS:? Possible stroke ? TECHNIQUE:? One view of the chest was acquired.? ? COMPARISON:? [facility], CT, CT LOW DOSE LUNG CA SCREENING, 09/10/2019, 12:24. ? FINDINGS:? ? Surgical changes and devices:? None.? ? Lungs and pleura:? Lungs are clear.? No pleural effusions or pneumothorax.? ? Mediastinum:? Mediastinal contours appear normal.? Heart size is normal.? ? Bones and chest wall:? No suspicious bony lesions.? Overlying soft tissues appear unremarkable.? Chondral calcifications of the anterior lower ribs project over the lower chest bilaterally.? ? IMPRESSION:? No acute cardiopulmonary abnormalities or focal airspace disease. ? Dictated by: Henry Roberts M.D. on 05/05/2021 at 15:05 ? ? Approved by: Henry Roberts M.D. on 05/05/2021 at 15:06 ? ECG Data Interpretation: Normal sinus rhythm rate 64 VA interval 130 QRS 84 QTC 431 with PVC T-wave inversion noted in lead 2 only to previous EKG in 2020 MDM Narrative Medical decision making narrative: Patient's signs and symptoms are actually concerning with ocular problem. She has no other signs or symptoms of stroke with an NIH of 0. 1532 Dr. Marx ophthalmology has been updated on patient's symptoms and test results. She is happy to see patient today rather than tomorrow. Discharge Plan Departure Patient Disposition: Home Clinical Impression: Changes in vision Instructions: DI for Visual Field Disturbances Activity Restrictions/Additional Instructions: Go directly to Ophthalmology for evaluation At this time workup in the emergency department is negative. This seems to be more of a visual problem rather than a stroke. Please take your medication as directed Follow-up with your PCP in 2-3 days Return to the emergency department if you should have any worsening or loss of vision weakness numbness tingling balance issues or any new or worsening symptoms Prescriptions: No Action clonazepam 0.5 mg tablet 0.5 mg PO BID PRN (Reason: muscle spasm) Qty: 60 3RF tramadol 50 mg tablet 50 mg PO DAILY PRN (Reason: pain) 30 Days Qty: 15 3RF carvedilol 25 mg tablet 25 mg PO BID Qty: 180 3RF Rx Instructions: must administer with a meal/food dicyclomine 10 mg capsule 10 mg PO BID PRN (Reason: diarrhea) Qty: 30 2RF ketoconazole 2 % cream 1 applic topical BID Qty: 30 1RF Rx Instructions: Apply topically to affected area twice per day. latanoprost 0.005 % drops 1 drp EYE-RIGHT .HS Qty: 2.5 0RF lisinopril 20 mg tablet See Rx Instructions .ROUTE .COMPLEX Qty: 360 3RF Dose Instruction: TAKE 2 TABLETS TWICE DAILY Rx Instructions: TAKE 2 TABLETS TWICE DAILY methocarbamol 500 mg tablet 500 mg PO BID PRN (Reason: muscle spasms) Qty: 180 3RF Rx Instructions: Take 1 tab up to 2x/day as needed for muscle spasms pantoprazole 40 mg tablet,delayed release (DR/EC) See Rx Instructions .ROUTE .COMPLEX Qty: 180 3RF Dose Instruction: TAKE 1 TABLET TWICE DAILY FOR GERD Rx Instructions: TAKE 1 TABLET TWICE DAILY FOR GERD promethazine 25 mg tablet See Rx Instructions .ROUTE .COMPLEX Qty: 120 3RF Dose Instruction: TAKE 1 TABLET EVERY 6 HOURS NEEDED FOR NAUSEA AND VOMITING. MAXIMUM DAILY DOSE IS 4 TABLETS. Rx Instructions: TAKE 1 TABLET EVERY 6 HOURS NEEDED FOR NAUSEA AND VOMITING. MAXIMUM DAILY DOSE IS 4 TABLETS. rosuvastatin 20 mg tablet 20 mg PO DAILY Qty: 90 3RF Rx Instructions: Take 20mg (1 tab) at bedtime each evening for high cholesterol trazodone 100 mg tablet See Rx Instructions .ROUTE .COMPLEX Qty: 180 3RF Dose Instruction: TAKE 1 AND 1/2 TO 2 TABLETS AT BEDTIME Rx Instructions: TAKE 1 AND 1/2 TO 2 TABLETS AT BEDTIME venlafaxine 75 mg capsule,extended release 24hr See Rx Instructions .ROUTE .COMPLEX Qty: 270 3RF Dose Instruction: TAKE 3 CAPSULES (225MG) AT BEDTIME Rx Instructions: TAKE 3 CAPSULES (225MG) AT BEDTIME voltaren 10% gel See Rx Instructions .ROUTE .COMPLEX Qty: 30 2RF Rx Instructions: apply small amount to affected area twice daily as needed for pain oxycodone 5 mg Tablet 5 mg PO Q6-12H PRN (Reason: Pain, Moderate (4-6)) Qty: 20 0RF Referrals: Annette Marx ARNP [Primary Care Provider] -
[2021-05-05 14:38] LABS: Add Manual Diff / Slide Review NO; Basophils Absolute Auto 0 /uL (0-100); Basophils Percent Auto 0.3 % (0-2); Eosinophils Absolute Auto 100 /uL (0-450); Eosinophils Percent Auto 0.9 % (2-4); Hematocrit 42.2 % (36-46); Hemoglobin 14.1 g/dL (12.0-16.0); Lymphocytes Absolute Auto 2300 /uL (1100-4500); Lymphocytes Percent Auto 18.8 % (25-40); Mean Corpuscular HGB Conc 33.3 % (30-36); Mean Corpuscular Hemoglobin 30.6 PG (26-34); Mean Corpuscular Volume 91.8 fL (80-100); Monocytes Absolute Auto 900 /uL (0-900); Monocytes Percent Auto 7.3 % (3-14); Neutrophils Absolute Auto 8900 /uL (1500-7000); Neutrophils Percent Auto 72.7 % (50-75); Platelet Count 305 X10^3/uL (150-400); Red Cell Distribution Width 13.5 % (11.6-14.8); White Blood Cell Count 12.3 X10^3/uL (4.5-11.0)
[2021-05-05] MEDS: FLUORESCEIN 1 MG STRIP EYE-LEFT (14:38)
[2021-05-05] MEDS: PROPARACAINE 0.5% OPHTH SOL 1 DROPS EYE-LEFT (14:38)
[2021-05-05 14:42] LABS: INR 1.1 (0.9-1.3); Prothrombin Time 11.8 SECONDS (10.1-12.7)
[2021-05-05 14:45] LABS: PTT Partial Thromboplastin Tim 28 SECONDS (26.4-36.2)
[2021-05-05 14:48] LABS: Alanine Aminotransferase 37 IU/L (<35); Albumin 4.3 g/dL (3.5-5.0); Albumin Globulin Ratio 1.4 (1.0-2.8); Alkaline Phosphatase 50 U/L (38-126); Aspartate Aminotransferase 26 IU/L (14-36); Bilirubin Total 0.4 mg/dL (0.2-1.3); Blood Urea Nitrogen 18 mg/dL (7-17); Calcium 8.7 mg/dL (8.4-10.2); Carbon Dioxide 31 mmol/L (22-32); Chloride 101 mmol/L (98-107); Creatine Kinase 37 U/L (30-135); Estimated Glomerular Filt Rate > 60.0 mL/min (>60); Glucose 132 mg/dL (80-110); HEMOLYSIS < 15 (0-50); Potassium 3.9 mmol/L (3.4-5.1); Sodium 137 mmol/L (137-145); Total Protein 7.3 g/dL (6.3-8.2)
[2021-05-05 14:59] LABS: Troponin I < 0.012 ng/mL (0.01-0.034)
[2021-05-05 15:56] LABS: UR Morphine/Opiate cutoff 300 Negative (Negative); Ur Creatinine Normal (Normal); Ur Specific Gravity Normal (Normal); Urine Amphetamines Negative (Negative); Urine Barbiturates Negative (Negative); Urine Benzodiazepines Negative (Negative); Urine Cocaine Negative (Negative); Urine MDMA Negative (Negative); Urine Methadone Negative (Negative); Urine Methamphetamines Negative (Negative); Urine Oxycodone Negative (Negative); Urine Phencyclidine Negative (Negative); Urine Tetrahydrocannabinol Positive (Negative); Urine Tricyclic Antidepressant Negative (Negative); Urine pH Normal (Normal)
[2021-05-05 16:00] LABS: Bacteria Urine None Seen; Culture Indicated Urine Cult Not Indicated; RBC Urine None Seen (0-5/HPF); Squamous Epithelial Cell Urine None Seen (0-5/HPF); WBC Urine None Seen (0-5/HPF)
== END 2021-05-05 15:50 | disposition home or self-care (01) ==
PROVIDERS: Emergency Provider Emergency Medicine; Family Provider Nurse Practitioner; PCP Nurse Practitioner
DX: H53.8 Other visual disturbances (principal); H40.9 Unspecified glaucoma; R94.31 Abnormal electrocardiogram [ECG] [EKG]
CPT/HCPCS: 36415; 70450; 71045; 80053; 80305; 81003; 81015; 82550; 82962; 84484; 85025; 85610; 85730; 93005; 93010; 99284

== ENCOUNTER → 2021-05-11 08:33 | Outpatient (CLI) | payer MEDICARE, SELFPAY ==
[2021-05-11 10:45] LABS: Add Manual Diff / Slide Review NO; Basophils Absolute Auto 0 /uL (0-100); Basophils Percent Auto 0.5 % (0-2); Eosinophils Absolute Auto 100 /uL (0-450); Eosinophils Percent Auto 1.1 % (2-4); Hematocrit 41.7 % (36-46); Hemoglobin 14.1 g/dL (12.0-16.0); Lymphocytes Absolute Auto 2800 /uL (1100-4500); Lymphocytes Percent Auto 31.5 % (25-40); Mean Corpuscular HGB Conc 33.8 % (30-36); Mean Corpuscular Hemoglobin 30.9 PG (26-34); Mean Corpuscular Volume 91.4 fL (80-100); Monocytes Absolute Auto 700 /uL (0-900); Monocytes Percent Auto 7.7 % (3-14); Neutrophils Absolute Auto 5200 /uL (1500-7000); Neutrophils Percent Auto 59.2 % (50-75); Platelet Count 234 X10^3/uL (150-400); Red Blood Cell Count 4.56 X10^6/uL (4.0-5.2); Red Cell Distribution Width 13.4 % (11.6-14.8); White Blood Cell Count 8.8 X10^3/uL (4.5-11.0)
[2021-05-11 11:01] LABS: C-Reactive Protein Quant < 0.5 mg/dL (<1.0)
[2021-05-11 11:06] LABS: Erythrocyte Sedimentation Rate 4 MM/HR (0-20)
== END ==
PROVIDERS: Family Provider Nurse Practitioner; PCP Nurse Practitioner; Referring Provider Nurse Practitioner; Visit Provider Nurse Practitioner
DX: D72.829 Elevated white blood cell count, unspecified (principal); R53.83 Other fatigue
CPT/HCPCS: 36415; 85025; 85651; 86140

== ENCOUNTER → 2021-08-11 08:36 | Outpatient (CLI) | payer MEDICARE, SELFPAY ==
[2021-08-11 10:08] LABS: Uric Acid 4.3 mg/dL (2.5-6.2)
== END ==
PROVIDERS: Family Provider Nurse Practitioner; PCP Nurse Practitioner; Referring Provider Nurse Practitioner; Visit Provider Nurse Practitioner
DX: M10.9 Gout, unspecified (principal)
CPT/HCPCS: 36415; 84550

== ENCOUNTER → 2021-09-14 09:22 | Outpatient (CLI) | payer MEDICARE, SELFPAY ==
[2021-09-14 10:32] LABS: Hematocrit 39.8 % (36-46); Hemoglobin 13.7 g/dL (12.0-16.0)
[2021-09-14 10:57] LABS: BUN Creatinine Ratio 19.4 (6-22); Blood Urea Nitrogen 14 mg/dL (7-17); Calcium 8.5 mg/dL (8.4-10.2); Carbon Dioxide 28 mmol/L (22-32); Chloride 104 mmol/L (98-107); Estimated Glomerular Filt Rate > 60 mL/min (>60); Glucose 87 mg/dL (80-110); HEMOLYSIS < 15 (0-50); Potassium 4.4 mmol/L (3.4-5.1); Sodium 139 mmol/L (137-145)
[2021-09-14 12:28] LABS: Creatinine Urine Random 137.3 mg/dL; Protein (Total) Urine Random 8 mg/dL (0-12); Protein Creatinine Ratio Urine 0.05 GRAM/24H
[2021-09-15 06:01] LABS: Parathyroid Hormone Int 38 pg/mL (15-65)
== END ==
PROVIDERS: Family Provider Nurse Practitioner; PCP Nurse Practitioner; Referring Provider Student in an Organized Health Care Education/Training Program; Visit Provider Student in an Organized Health Care Education/Training Program
DX: N05.9 Unspecified nephritic syndrome with unspecified morphologic changes (principal); D64.9 Anemia, unspecified; N25.81 Secondary hyperparathyroidism of renal origin; R80.9 Proteinuria, unspecified
CPT/HCPCS: 36415; 80048; 82570; 83970; 84156; 85014; 85018

== ENCOUNTER 2021-09-19 08:48 | Emergency (ER) | payer MEDICARE, SELFPAY ==
[2021-09-19] VITALS (10 sets, daily range): BP systolic 120–192; BP diastolic 69–91; PULSE 64–88; RESP 15–24; TEMP 37; O2SAT 93–98; BMI 28.3
--- NOTE | 2021-09-19 09:05 | DI.RAD.S_ITS ---
PROCEDURE: XR CHEST 1V INDICATIONS: Palpitations TECHNIQUE: One view of the chest was acquired. COMPARISON: [facility], CR, XR CHEST 1V, 05/05/2021, 14:03. FINDINGS: Surgical changes and devices: None. Lungs and pleura: Lungs are clear. No pleural effusions or pneumothorax. Mediastinum: Mediastinal contours appear normal. Heart size is normal. Bones and chest wall: No suspicious bony lesions. Overlying soft tissues appear unremarkable. IMPRESSION: No acute cardiopulmonary abnormality. Dictated by: Chris Valera M.D. on 09/19/2021 at 9:35 Approved by: Chris Valera M.D. on 09/19/2021 at 9:35
--- NOTE | 2021-09-19 09:07 | ED.SOB ---
HPI - SOB/Dyspnea General Chief Complaint: Shortness of Breath/Dyspnea Stated Complaint: Coughing up thick Yellow Phlem, COPD Time Seen by Provider: 09/19/21 08:50 History of Present Illness HPI Narrative: 66-year-old woman comes to the ER with a history of COPD, recent antibiotic treatment for pneumonia, asthma, GERD, hypertension. She comes to the ER this morning with worsening cough. She says that since yesterday her productive cough has changed in its character. She says she commonly has some degree of productivity to her cough but this morning and yesterday it has a taste to it that she associates with acute infection. She also reports fever to 100.9 F this morning prior to taking Tylenol. She has some mild shortness of breath and some mild chest pain that she says are chronic and not terribly severe today. She says she also is struggling with some right-sided abdominal pain that has been bothering her for some time now and from her perspective is not completely ?worked up?. Some vomiting but she says that she vomits nearly every morning. She also has some nausea. She has no diarrhea but does endorse some constipation. She says she has done multiple negative COVID test at home. She does not smoke cigarettes but occasionally smokes marijuana Related Data Home Medications Medication Instructions Recorded Confirmed albuterol sulfate 90 mcg/actuation See Rx Instructions inhalation ONCE 07/01/21 07/01/21 aerosol inhaler fluticasone 250 mcg-salmeterol 50 See Rx Instructions inhalation .QD 07/01/21 07/01/21 mcg/dose blistr powdr for inhalation hydralazine 25 mg tablet 25 mg PO BID 07/01/21 07/01/21 Previous Rx's Medication Instructions Recorded voltaren 10% gel See Rx Instructions .Route 04/24/19 .COMPLEX LBP #30 grams oxycodone 5 mg tablet 5 mg PO Q6-12H PRN Pain, Moderate 09/23/20 (4-6) #20 tabs carvedilol 25 mg tablet 25 mg PO BID #180 tabs 04/02/21 ketoconazole 2 % topical cream 1 applic topical BID #30 grams 04/02/21 latanoprost 0.005 % eye drops 1 drp EYE-RIGHT .HS #2.5 mL 04/02/21 lisinopril 20 mg tablet See Rx Instructions .Route 04/02/21 .COMPLEX #360 tabs methocarbamol 500 mg tablet 500 mg PO BID PRN muscle spasms 04/02/21 #180 tabs pantoprazole 40 mg tablet,delayed See Rx Instructions .Route 04/02/21 release .COMPLEX #180 tabs promethazine 25 mg tablet See Rx Instructions .Route 04/02/21 .COMPLEX #120 tabs rosuvastatin 20 mg tablet 20 mg PO DAILY #90 tabs 04/02/21 trazodone 100 mg tablet See Rx Instructions .Route 04/02/21 .COMPLEX #180 tabs venlafaxine 75 mg capsule,extended See Rx Instructions .Route 04/02/21 release 24 hr .COMPLEX #270 caps sumatriptan succinate 50 mg tablet See Rx Instructions PO .COMPLEX 05/11/21 #20 tabs clonazepam 0.5 mg tablet 0.5 mg PO BID PRN muscle spasm #60 06/09/21 tabs dicyclomine 10 mg capsule See Rx Instructions .Route 06/25/21 .COMPLEX #90 caps fluticasone propionate 50 1 spray intranasal BID #16 grams 07/01/21 mcg/actuation nasal spray,suspension (Flonase Allergy Relief) loratadine 10 mg tablet (Claritin) 10 mg PO DAILY #90 tabs 07/01/21 prednisone 50 mg tablet 50 mg PO DAILY #5 tabs 07/01/21 tramadol 50 mg tablet 50 mg PO DAILY PRN pain #30 tabs 07/09/21 Allergies Allergy/AdvReac Type Severity Reaction Status Date / Time azithromycin [From Zithromax] Allergy Mild Verified 07/01/21 11:42 ceftriaxone Allergy Mild Verified 07/01/21 11:42 clarithromycin [From Biaxin] Allergy Mild Verified 07/01/21 11:42 gemfibrozil Allergy Mild Verified 07/01/21 11:42 hydrocodone [From Vicodin] Allergy Mild Verified 07/01/21 11:42 nitrofurantoin Allergy Mild Hives on Verified 07/01/21 11:42 chest/ shoulders isosorbide AdvReac Intermediate Verified 07/01/21 11:42 aspirin AdvReac Mild Dizziness Verified 07/01/21 11:42 buspirone [From BuSpar] AdvReac Mild dysphoria Verified 07/01/21 11:42 memantine [From Namenda] AdvReac Mild confusion Verified 07/01/21 11:42 pregabalin [From Lyrica] AdvReac Mild Dizziness Verified 07/01/21 11:42 Review of Systems Review of Systems Narrative: Complete review of systems is negative other than as noted above. Patient History Medical History (Updated 09/19/21 @ 10:54 by Derrek Ace MD) Abdominal pain Abnormal chest x-ray (~2011) Abnormal Pap smear of cervix (~1974) Allergic rash present on examination Anemia (~2016) Cannabis dependence, daily use Cat bite Cervical cancer (~1977) Change in bowel habit Chronic pain of both shoulders Colon polyps (~2002) COPD (chronic obstructive pulmonary disease) (~2011) Degenerative joint disease (DJD) of lumbar spine (~1963) Depression (~1988) Epigastric pain determined by examination Fatigue Fecal incontinence (~2017) Fibromyalgia (~1983) Foot pain (~2017) Fractures GERD (gastroesophageal reflux disease) GI bleeding (~2018) Glaucoma (~2018) Granuloma annulare (~2014) Hemorrhoid (~1979) Hepatic steatosis History of chronic constipation Hyperlipidemia LDL goal <100 Intermittent left-sided chest pain Kidney stones (~2018) Liver disease (~1972) Mass of right thigh Measles Migraines (~1982) Mumps Muscle spasm of back Nausea & vomiting Neoplasm of uncertain behavior Ocular migraine Osteoarthritis (~2012) Osteoporosis (~2012) Painful menstrual periods Pancreatic mass Pancreatitis Paresthesia of right lower extremity Partial blindness Right renal mass Ruptured tympanic membrane (~1974) Scoliosis (~1963) Shoulder pain (~1985) Skin cancer (~2014) Sleep apnea (~2015) Vaginitis Weight loss, non-intentional Wound of left foot Surgical History Anesthesia Carpal tunnel syndrome (~1987) Cataracts, bilateral (~2013) History of hysterectomy (~1981) Family History Father History of heart disease Hypertension Hyperlipidemia Mother Cancer Hypertension Grandfather No problems noted. Grandmother History of heart disease Hyperlipidemia Hypertension Grandfather Cancer Grandmother Stroke Social History marital status: unmarried,living together household members: significant other occupational status: previously employed Smoking Status: Former smoker alcohol intake: never substance use type: marijuana Smoking Status: Former smoker alcohol intake frequency: holidays/special occasions only Substance Use Type: marijuana Exam Narrative Exam Narrative: GENERAL: Alert, cooperative and in no distress. HEAD: Atraumatic. Normocephalic. EYES: Sclera are clear without icterus. Extraocular movements are full. ENT: No rhinorrhea. Oropharynx is moist. Mouth exam is benign. NECK: Supple. Full range of motion. CARDIOVASCULAR: Normal rate and rhythm without murmur gallop or rub. RESPIRATORY: Clear to auscultation. Breath sounds equal bilaterally. No wheezes, rales, or rhonchi. GASTROINTESTINAL: Abdomen soft, non-tender, nondistended. EXTREMITIES: No edema, full range of motion. No obvious trauma. BACK: Normal inspection, no CVA tenderness. NEURO: Nonfocal examination, normal speech, normal gait. SKIN: No rash or erythema of visible areas PSYCH: Normally oriented. Normal range of affect. Appropriate behavior Initial Vital Signs Initial Vital Signs: Vital Signs Pulse Rate 88 09/19/21 08:53 Blood Pressure 192/91 H 09/19/21 08:53 Pulse Oximetry 97 09/19/21 08:53 Course Orders Ordered: ED Orders 09/19/21 08:54 CBC Auto Diff [Complete Blood Count AUTO DIFF] Stat CMP [Comprehensive Metabolic Panel] Stat COVID19 -Nasal RAPID/Pre-Proc Stat Procalcitonin Stat Troponin I Stat 09/19/21 09:05 XR chest 1V Stat EKG-12 Lead Stat Vital Signs Vital signs: Vital Signs - 8 hr 09/19/21 09:05 09/19/21 09:27 09/19/21 08:53 Temperature 98.6 F Pulse Rate 81 64 Respiratory Rate 19 19 Blood Pressure 192/91 H 131/69 192/91 H Pulse Oximetry 97 93 Oxygen Delivery Method Room Air Room Air 09/19/21 08:53 09/19/21 09:00 09/19/21 09:09 Temperature Pulse Rate 88 75 74 Respiratory Rate 20 Blood Pressure Pulse Oximetry 97 96 94 Oxygen Delivery Method 09/19/21 09:09 09/19/21 09:30 09/19/21 09:31 Temperature Pulse Rate 74 Respiratory Rate 19 Blood Pressure 120/87 152/79 H Pulse Oximetry 95 Oxygen Delivery Method 09/19/21 09:31 Temperature Pulse Rate 75 Respiratory Rate 22 Blood Pressure Pulse Oximetry 96 Oxygen Delivery Method MDM - SOB/Dyspnea Lab Data Result diagrams: 09/19/21 08:54 09/19/21 08:54 Labs: Lab Results 09/19/21 09/19/21 09/19/21 Range/Units 08:54 08:54 08:54 WBC 7.7 (4.5-11.0) X10^3/uL RBC 4.42 (4.0-5.2) X10^6/uL Hgb 13.8 (12.0-16.0) g/dL Hct 40.4 (36-46) % MCV 91.3 (80-100) fL MCH 31.1 (26-34) PG MCHC 34.1 (30-36) % RDW 13.9 (11.6-14.8) % Plt Count 224 (150-400) X10^3/uL Neut % (Auto) 75.9 H (50-75) % Lymph % (Auto) 14.3 L (25-40) % [place] % (Auto) 8.6 (3-14) % Eos % (Auto) 0.9 L (2-4) % Baso % (Auto) 0.3 (0-2) % Neut # (Auto) 5800 (4591-7177) /uL Lymph # (Auto) 1100 (9192-6004) /uL [place] # (Auto) 700 (0-900) /uL Eos # (Auto) 100 (0-450) /uL Baso # (Auto) 0 (0-100) /uL Sodium 135 L (137-145) mmol/L Potassium 3.9 (3.4-5.1) mmol/L Chloride 101 (98-107) mmol/L Carbon Dioxide 30 (22-32) mmol/L BUN 10 (7-17) mg/dL Creatinine 0.76 (0.52-1.04) mg/dL Estimated GFR > 60 (>60) mL/min BUN/Creatinine Ratio 13.2 (6-22) Glucose 104 (80-110) mg/dL Calcium 8.6 (8.4-10.2) mg/dL Total Bilirubin 0.6 (0.2-1.3) mg/dL AST 21 (14-36) IU/L ALT 19 (<35) IU/L Alkaline Phosphatase 74 (38-126) U/L Troponin I < 0.012 (0.01-0.034) ng/mL Total Protein 7.0 (6.3-8.2) g/dL Albumin 4.2 (3.5-5.0) g/dL Globulin 2.8 (1.7-4.1) g/dL Albumin/Globulin Ratio 1.5 (1.0-2.8) Procalcitonin 0.06 (<0.5) ng/mL SARS-CoV-2 (PCR) (Negative) 09/19/21 Range/Units 08:54 WBC (4.5-11.0) X10^3/uL RBC (4.0-5.2) X10^6/uL Hgb (12.0-16.0) g/dL Hct (36-46) % MCV (80-100) fL MCH (26-34) PG MCHC (30-36) % RDW (11.6-14.8) % Plt Count (150-400) X10^3/uL Neut % (Auto) (50-75) % Lymph % (Auto) (25-40) % [place] % (Auto) (3-14) % Eos % (Auto) (2-4) % Baso % (Auto) (0-2) % Neut # (Auto) (7560-7492) /uL Lymph # (Auto) (1333-4853) /uL [place] # (Auto) (0-900) /uL Eos # (Auto) (0-450) /uL Baso # (Auto) (0-100) /uL Sodium (137-145) mmol/L Potassium (3.4-5.1) mmol/L Chloride (98-107) mmol/L Carbon Dioxide (22-32) mmol/L BUN (7-17) mg/dL Creatinine (0.52-1.04) mg/dL Estimated GFR (>60) mL/min BUN/Creatinine Ratio (6-22) Glucose (80-110) mg/dL Calcium (8.4-10.2) mg/dL Total Bilirubin (0.2-1.3) mg/dL AST (14-36) IU/L ALT (<35) IU/L Alkaline Phosphatase (38-126) U/L Troponin I (0.01-0.034) ng/mL Total Protein (6.3-8.2) g/dL Albumin (3.5-5.0) g/dL Globulin (1.7-4.1) g/dL Albumin/Globulin Ratio (1.0-2.8) Procalcitonin (<0.5) ng/mL SARS-CoV-2 (PCR) Negative (Negative) Imaging Data Chest x-ray: Radiologist's Impression: IMPRESSION:? No acute cardiopulmonary abnormality. ? ? ? Dictated by: Chris Valera M.D. on 09/19/2021 at 9:35 ? ? Approved by: Chris Valera M.D. on 09/19/2021 at 9:35 ? ECG Data Interpretation: EKG obtained at 9:07 a.m. reveals a sinus rhythm with a rate of 71. QTC is 439. rightward axis. No acute ST or T-wave change MDM Narrative Medical decision making narrative: This woman appears well. Laboratory data is all reassuring. Vital signs are reassuring. I do not suspect bacterial condition here. I think she has COPD with viral bronchitis. Careful return precautions given. Discharge Plan Departure Patient Disposition: Home Clinical Impression: Bronchitis Instructions: DI for Acute Bronchitis Activity Restrictions/Additional Instructions: Thank you for entrusting us with your care today. Fortunately, no dangerous condition is identified. No bacterial pneumonia is suspected based on the workup done. Her x-ray looks normal. Blood tests are also completely reassuring. I do not think specific antibiotic therapy or any other specific testing or hospital level care is required at this time. I recommend symptomatic therapies such as Tylenol and ibuprofen. I recommend lots of water every day such as 50 oz or more. I recommend extra rest. Follow-up with your doctor next week if things are not improving. Please return to the emergency department for worsening shortness of breath, inability to take food or fluid, bloody cough or severe chest pain. Prescriptions: No Action carvedilol 25 mg tablet 25 mg PO BID Qty: 180 3RF Rx Instructions: must administer with a meal/food ketoconazole 2 % cream 1 applic topical BID Qty: 30 1RF Rx Instructions: Apply topically to affected area twice per day. latanoprost 0.005 % drops 1 drp EYE-RIGHT .HS Qty: 2.5 0RF lisinopril 20 mg tablet See Rx Instructions .ROUTE .COMPLEX Qty: 360 3RF Dose Instruction: TAKE 2 TABLETS TWICE DAILY Rx Instructions: TAKE 2 TABLETS TWICE DAILY methocarbamol 500 mg tablet 500 mg PO BID PRN (Reason: muscle spasms) Qty: 180 3RF Rx Instructions: Take 1 tab up to 2x/day as needed for muscle spasms pantoprazole 40 mg tablet,delayed release (DR/EC) See Rx Instructions .ROUTE .COMPLEX Qty: 180 3RF Dose Instruction: TAKE 1 TABLET TWICE DAILY FOR GERD Rx Instructions: TAKE 1 TABLET TWICE DAILY FOR GERD promethazine 25 mg tablet See Rx Instructions .ROUTE .COMPLEX Qty: 120 3RF Dose Instruction: TAKE 1 TABLET EVERY 6 HOURS NEEDED FOR NAUSEA AND VOMITING. MAXIMUM DAILY DOSE IS 4 TABLETS. Rx Instructions: TAKE 1 TABLET EVERY 6 HOURS NEEDED FOR NAUSEA AND VOMITING. MAXIMUM DAILY DOSE IS 4 TABLETS. rosuvastatin 20 mg tablet 20 mg PO DAILY Qty: 90 3RF Rx Instructions: Take 20mg (1 tab) at bedtime each evening for high cholesterol trazodone 100 mg tablet See Rx Instructions .ROUTE .COMPLEX Qty: 180 3RF Dose Instruction: TAKE 1 AND 1/2 TO 2 TABLETS AT BEDTIME Rx Instructions: TAKE 1 AND 1/2 TO 2 TABLETS AT BEDTIME venlafaxine 75 mg capsule,extended release 24hr See Rx Instructions .ROUTE .COMPLEX Qty: 270 3RF Dose Instruction: TAKE 3 CAPSULES (225MG) AT BEDTIME Rx Instructions: TAKE 3 CAPSULES (225MG) AT BEDTIME sumatriptan succinate 50 mg tablet See Rx Instructions PO .COMPLEX Qty: 20 3RF Rx Instructions: take 1 tab at onset of headache; if no relief may repeat 1 tab after at least 2 hrs; max = 4 tabs/24 hr PO clonazepam 0.5 mg tablet 0.5 mg PO BID PRN (Reason: muscle spasm) Qty: 60 3RF dicyclomine 10 mg capsule See Rx Instructions .ROUTE .COMPLEX Qty: 90 3RF Dose Instruction: TAKE 1 CAPSULE BY MOUTH TWICE DAILY NEEDED FOR DIARRHEA Rx Instructions: TAKE 1 CAPSULE BY MOUTH TWICE DAILY NEEDED FOR DIARRHEA tramadol 50 mg tablet 50 mg PO DAILY PRN (Reason: pain) Qty: 30 5RF voltaren 10% gel See Rx Instructions .ROUTE .COMPLEX Qty: 30 2RF Rx Instructions: apply small amount to affected area twice daily as needed for pain fluticasone propion-salmeterol 250-50 mcg/dose blister with device See Rx Instructions inhalation .QD Rx Instructions: inhalation .QD; 1-2 puffs inhalation daily as needed hydralazine 25 mg tablet 25 mg PO BID albuterol sulfate 90 mcg/actuation HFA aerosol inhaler See Rx Instructions inhalation ONCE Rx Instructions: 1-2 puff inhalation once daily as needed prednisone 50 mg tablet 50 mg PO DAILY Qty: 5 0RF Rx Instructions: Take 1 tab with food daily x5 days loratadine [Claritin] 10 mg tablet 10 mg PO DAILY Qty: 90 3RF fluticasone propionate [Flonase Allergy Relief] 50 mcg/actuation spray,suspension 1 spray intranasal BID Qty: 16 3RF Rx Instructions: administer into each nostril oxycodone 5 mg Tablet 5 mg PO Q6-12H PRN (Reason: Pain, Moderate (4-6)) Qty: 20 0RF Referrals: Annette Marx ARNP [Primary Care Provider] -
[2021-09-19 09:21] LABS: Add Manual Diff / Slide Review NO; Basophils Absolute Auto 0 /uL (0-100); Basophils Percent Auto 0.3 % (0-2); Eosinophils Absolute Auto 100 /uL (0-450); Eosinophils Percent Auto 0.9 % (2-4); Hematocrit 40.4 % (36-46); Hemoglobin 13.8 g/dL (12.0-16.0); Lymphocytes Absolute Auto 1100 /uL (1100-4500); Lymphocytes Percent Auto 14.3 % (25-40); Mean Corpuscular HGB Conc 34.1 % (30-36); Mean Corpuscular Hemoglobin 31.1 PG (26-34); Mean Corpuscular Volume 91.3 fL (80-100); Monocytes Absolute Auto 700 /uL (0-900); Monocytes Percent Auto 8.6 % (3-14); Neutrophils Absolute Auto 5800 /uL (1500-7000); Neutrophils Percent Auto 75.9 % (50-75); Platelet Count 224 X10^3/uL (150-400); Red Blood Cell Count 4.42 X10^6/uL (4.0-5.2); Red Cell Distribution Width 13.9 % (11.6-14.8); White Blood Cell Count 7.7 X10^3/uL (4.5-11.0)
[2021-09-19 09:27] LABS: Alanine Aminotransferase 19 IU/L (<35); Albumin 4.2 g/dL (3.5-5.0); Albumin Globulin Ratio 1.5 (1.0-2.8); Alkaline Phosphatase 74 U/L (38-126); Aspartate Aminotransferase 21 IU/L (14-36); BUN Creatinine Ratio 13.2 (6-22); Bilirubin Total 0.6 mg/dL (0.2-1.3); Blood Urea Nitrogen 10 mg/dL (7-17); Calcium 8.6 mg/dL (8.4-10.2); Carbon Dioxide 30 mmol/L (22-32); Chloride 101 mmol/L (98-107); Estimated Glomerular Filt Rate > 60 mL/min (>60); Globulin 2.8 g/dL (1.7-4.1); Glucose 104 mg/dL (80-110); HEMOLYSIS < 15 (0-50); Potassium 3.9 mmol/L (3.4-5.1); Sodium 135 mmol/L (137-145)
--- NOTE | 2021-09-19 09:28 | PC.NURSE ---
Ambulated pt, 93% with exertion on RA. Sat dropped to 88% when pt was talking during ambulation trial. Physician aware. Post ambulation sat 93% RA. Physician at bedside for consult.
[2021-09-19 09:36] LABS: COVID19 -Nasal RAPID Negative (Negative)
[2021-09-19 09:39] LABS: Troponin I < 0.012 ng/mL (0.01-0.034)
[2021-09-19 09:43] LABS: Procalcitonin 0.06 ng/mL (<0.5)
== END 2021-09-19 11:00 | disposition home or self-care (01) ==
PROVIDERS: Emergency Provider Family Medicine Addiction Medicine; Family Provider Nurse Practitioner; PCP Nurse Practitioner
DX: J40 Bronchitis, not specified as acute or chronic (principal); R50.9 Fever, unspecified; R07.9 Chest pain, unspecified; Z20.822 Contact with and (suspected) exposure to COVID-19
CPT/HCPCS: 36415; 71045; 80053; 84145; 84484; 85025; 87635; 93005; 93010; 99284; C9803

== ENCOUNTER 2021-09-21 15:20 | Emergency (ER) | payer MEDICARE, SELFPAY ==
[2021-09-21] VITALS (8 sets, daily range): BP systolic 116–147; BP diastolic 69–89; PULSE 63–76; RESP 19–24; TEMP 36.3; O2SAT 94–96
--- NOTE | 2021-09-21 15:28 | DI.RAD.S_ITS ---
PROCEDURE: XR CHEST 1V INDICATIONS: shortness of breath TECHNIQUE: One view of the chest was acquired. COMPARISON: [facility], CR, XR CHEST 1V, 09/19/2021, 9:19. FINDINGS: Surgical changes and devices: None. Lungs and pleura: Lungs are clear. No pleural effusions or pneumothorax. Mediastinum: Mediastinal contours appear normal. Heart size is normal. Bones and chest wall: No suspicious bony lesions. Overlying soft tissues appear unremarkable. IMPRESSION: No acute cardiopulmonary abnormality. Dictated by: Levi Altamirano M.D. on 09/21/2021 at 15:57 Approved by: Levi Altamirano M.D. on 09/21/2021 at 16:01
[2021-09-21 15:54] LABS: Add Manual Diff / Slide Review NO; Basophils Absolute Auto 0 /uL (0-100); Basophils Percent Auto 0.2 % (0-2); Eosinophils Absolute Auto 100 /uL (0-450); Hematocrit 39.8 % (36-46); Hemoglobin 13.8 g/dL (12.0-16.0); Lymphocytes Absolute Auto 2000 /uL (1100-4500); Mean Corpuscular HGB Conc 34.6 % (30-36); Mean Corpuscular Hemoglobin 31.3 PG (26-34); Mean Corpuscular Volume 90.6 fL (80-100); Monocytes Absolute Auto 1100 /uL (0-900); Monocytes Percent Auto 12.6 % (3-14); Neutrophils Absolute Auto 5300 /uL (1500-7000); Neutrophils Percent Auto 62.2 % (50-75); Platelet Count 235 X10^3/uL (150-400); Red Blood Cell Count 4.39 X10^6/uL (4.0-5.2); Red Cell Distribution Width 13.5 % (11.6-14.8); White Blood Cell Count 8.5 X10^3/uL (4.5-11.0)
[2021-09-21 16:08] LABS: Lactate (Lactic Acid) 0.8 mmol/L (0.7-2.1)
[2021-09-21 16:09] LABS: Alanine Aminotransferase 18 IU/L (<35); Albumin 4.1 g/dL (3.5-5.0); Albumin Globulin Ratio 1.3 (1.0-2.8); Alkaline Phosphatase 79 U/L (38-126); Aspartate Aminotransferase 23 IU/L (14-36); BUN Creatinine Ratio 11.4 (6-22); Bilirubin Total 0.5 mg/dL (0.2-1.3); Blood Urea Nitrogen 10 mg/dL (7-17); Calcium 8.7 mg/dL (8.4-10.2); Carbon Dioxide 30 mmol/L (22-32); Chloride 100 mmol/L (98-107); Estimated Glomerular Filt Rate > 60 mL/min (>60); Globulin 3.1 g/dL (1.7-4.1); Glucose 112 mg/dL (80-110); HEMOLYSIS < 15 (0-50); Sodium 137 mmol/L (137-145); Total Protein 7.2 g/dL (6.3-8.2)
--- NOTE | 2021-09-21 17:01 | DI.CT.S_ITS ---
PROCEDURE: CT ANGIO CHEST PE PROTOCOL INDICATIONS: SHORTNESS OF BREATH TECHNIQUE: After the administration of intravenous contrast, 2 mm thick sections acquired from the pulmonary apices to the posterior costophrenic angles. 3-dimensional maximum intensity projection (MIP) coronal and sagittal reformats were then acquired through the thorax. For radiation dose reduction, the following was used: automated exposure control, adjustment of mA and/or kV according to patient size. COMPARISON: [facility], CR, XR CHEST 1V, 09/21/2021, 15:35. [facility], CR, XR CHEST 1V, 09/19/2021, 9:19. FINDINGS: Image quality: Excellent. Pulmonary arteries: Pulmonary arteries are normal in size, and demonstrate no intraluminal filling defects to suggest central pulmonary embolism. Lungs and pleura: No acute airspace opacity. No pleural effusions or pneumothorax. Central and peripheral airways are patent. Suspect small distal mucus airway plug at the left lower lobe. Alternately, this could represent a punctate pulmonary nodule. Mediastinum: Heart size is normal, without pericardial effusion. No mediastinal or hilar adenopathy. Thoracic aorta is normal in caliber and enhancement. Esophagus is normal in caliber, without hiatal hernia. Bones and chest wall: No suspicious bony lesions. Ribs and thoracic spine appear intact throughout. Thyroid gland is unremarkable. No axillary or supraclavicular adenopathy. Abdomen: Visualized upper abdominal solid organs appear normal in the early arterial phase of enhancement. Low-density renal cysts partially visualized. There is a small amount of reflux of contrast into the hepatic veins. IMPRESSION: 1. No pulmonary embolism. 2. No acute airspace opacity. 3. Reflux of contrast into the hepatic veins. This could be seen in diastolic dysfunction. Dictated by: Omer Gtz M.D. on 09/21/2021 at 17:54 Approved by: Omer Gtz M.D. on 09/21/2021 at 18:00
--- NOTE | 2021-09-21 17:01 | ED_ITS ---
HPI - SOB/Dyspnea General Chief Complaint: Shortness of Breath/Dyspnea Stated Complaint: Dr. MARX refered for pulmonary embolism Time Seen by Provider: 09/21/21 16:29 Source: patient Mode of arrival: Ambulatory History of Present Illness HPI Narrative: Patient is a 66-year-old female history of COPD, emphysema, hypertension, presenting today with 3 weeks of cough and fevers. She said she had a fever this morning of a 100.9. She denies any shortness of breath she has no chest pain. She has a nonproductive cough. She says a couple weeks ago overall supervisor filling and packing put her on prednisone and antibiotics she is not sure that she got much better. She also has chronic ongoing sciatica today she has increasing left-sided pain. It hurts her calf when she crosses her left leg over her right leg. She called her primary care provider was worried about this he tender in to the ED for evaluation for pulmonary embolism. Patient also states she has an ascending aortic aneurysm which is monitored by Cardiology. She overall does not feel significantly worse today than she has for the last few weeks. Related Data Home Medications Medication Instructions Recorded Confirmed albuterol sulfate 90 mcg/actuation See Rx Instructions inhalation ONCE 07/01/21 07/01/21 aerosol inhaler fluticasone 250 mcg-salmeterol 50 See Rx Instructions inhalation .QD 07/01/21 07/01/21 mcg/dose blistr powdr for inhalation hydralazine 25 mg tablet 25 mg PO BID 07/01/21 07/01/21 Previous Rx's Medication Instructions Recorded voltaren 10% gel See Rx Instructions .Route 04/24/19 .COMPLEX LBP #30 grams oxycodone 5 mg tablet 5 mg PO Q6-12H PRN Pain, Moderate 09/23/20 (4-6) #20 tabs carvedilol 25 mg tablet 25 mg PO BID #180 tabs 04/02/21 ketoconazole 2 % topical cream 1 applic topical BID #30 grams 04/02/21 latanoprost 0.005 % eye drops 1 drp EYE-RIGHT .HS #2.5 mL 04/02/21 lisinopril 20 mg tablet See Rx Instructions .Route 04/02/21 .COMPLEX #360 tabs methocarbamol 500 mg tablet 500 mg PO BID PRN muscle spasms 04/02/21 #180 tabs pantoprazole 40 mg tablet,delayed See Rx Instructions .Route 04/02/21 release .COMPLEX #180 tabs promethazine 25 mg tablet See Rx Instructions .Route 04/02/21 .COMPLEX #120 tabs rosuvastatin 20 mg tablet 20 mg PO DAILY #90 tabs 04/02/21 trazodone 100 mg tablet See Rx Instructions .Route 04/02/21 .COMPLEX #180 tabs venlafaxine 75 mg capsule,extended See Rx Instructions .Route 04/02/21 release 24 hr .COMPLEX #270 caps sumatriptan succinate 50 mg tablet See Rx Instructions PO .COMPLEX 05/11/21 #20 tabs clonazepam 0.5 mg tablet 0.5 mg PO BID PRN muscle spasm #60 06/09/21 tabs dicyclomine 10 mg capsule See Rx Instructions .Route 06/25/21 .COMPLEX #90 caps fluticasone propionate 50 1 spray intranasal BID #16 grams 07/01/21 mcg/actuation nasal spray,suspension (Flonase Allergy Relief) loratadine 10 mg tablet (Claritin) 10 mg PO DAILY #90 tabs 07/01/21 prednisone 50 mg tablet 50 mg PO DAILY #5 tabs 07/01/21 tramadol 50 mg tablet 50 mg PO DAILY PRN pain #30 tabs 07/09/21 Allergies Allergy/AdvReac Type Severity Reaction Status Date / Time azithromycin [From Zithromax] Allergy Mild Verified 07/01/21 11:42 ceftriaxone Allergy Mild Verified 07/01/21 11:42 clarithromycin [From Biaxin] Allergy Mild Verified 07/01/21 11:42 gemfibrozil Allergy Mild Verified 07/01/21 11:42 hydrocodone [From Vicodin] Allergy Mild Verified 07/01/21 11:42 nitrofurantoin Allergy Mild Hives on Verified 07/01/21 11:42 chest/ shoulders isosorbide AdvReac Intermediate Verified 07/01/21 11:42 aspirin AdvReac Mild Dizziness Verified 07/01/21 11:42 buspirone [From BuSpar] AdvReac Mild dysphoria Verified 07/01/21 11:42 memantine [From Namenda] AdvReac Mild confusion Verified 07/01/21 11:42 pregabalin [From Lyrica] AdvReac Mild Dizziness Verified 07/01/21 11:42 Review of Systems Review of Systems Narrative: GENERAL: Denies chills, fatigue, malaise, fever, sweats, travel HEENT: Denies sinus pain, ear pain, sore throat, difficulty swallowing, neck pain RESPIRATORY: Denies dyspnea, cough, wheezing, hemoptysis, sputum. CARDIOVASCULAR: Denies chest pain, palpitations, orthopnea, edema GASTROINTESTINAL: Denies nausea, vomiting, abdominal pain, diarrhea, constipation, melena. : Denies dysuria, frequency, incontinence, hematuria, urinary retention, flank pain. MUSCULOSKELETAL: Denies weakness, joint pain, or bony pain SKIN: No rash, no erythema, no pruritus NEUROLOGIC: Denies weakness, dizziness, headache, numbness, change in speech, confusion PSYCHIATRIC: No concerning psychosocial issues. 12 point review of systems is negative except for those stated above and HPI Patient History Medical History (Updated 09/21/21 @ 19:21 by Rosalva Shannon DO) Abdominal pain Abnormal chest x-ray (~2011) Abnormal Pap smear of cervix (~1974) Allergic rash present on examination Anemia (~2016) Cannabis dependence, daily use Cat bite Cervical cancer (~1977) Change in bowel habit Chronic pain of both shoulders Colon polyps (~2002) COPD (chronic obstructive pulmonary disease) (~2011) Degenerative joint disease (DJD) of lumbar spine (~1963) Depression (~1988) Epigastric pain determined by examination Fatigue Fecal incontinence (~2017) Fibromyalgia (~1983) Foot pain (~2017) Fractures GERD (gastroesophageal reflux disease) GI bleeding (~2018) Glaucoma (~2018) Granuloma annulare (~2014) Hemorrhoid (~1979) Hepatic steatosis History of chronic constipation Hyperlipidemia LDL goal <100 Intermittent left-sided chest pain Kidney stones (~2018) Liver disease (~1972) Mass of right thigh Measles Migraines (~1982) Mumps Muscle spasm of back Nausea & vomiting Neoplasm of uncertain behavior Ocular migraine Osteoarthritis (~2012) Osteoporosis (~2012) Painful menstrual periods Pancreatic mass Pancreatitis Paresthesia of right lower extremity Partial blindness Right renal mass Ruptured tympanic membrane (~1974) Scoliosis (~1963) Shoulder pain (~1985) Skin cancer (~2014) Sleep apnea (~2015) Vaginitis Weight loss, non-intentional Wound of left foot Surgical History Anesthesia Carpal tunnel syndrome (~1987) Cataracts, bilateral (~2013) History of hysterectomy (~1981) Family History Father History of heart disease Hypertension Hyperlipidemia Mother Cancer Hypertension Grandfather No problems noted. Grandmother History of heart disease Hyperlipidemia Hypertension Grandfather Cancer Grandmother Stroke Social History marital status: unmarried,living together household members: significant other occupational status: previously employed Smoking Status: Former smoker alcohol intake: never substance use type: marijuana Smoking Status: Former smoker alcohol intake frequency: holidays/special occasions only Substance Use Type: marijuana Exam Initial Vital Signs Initial Vital Signs: Vital Signs Temperature 97.4 F L 09/21/21 15:24 Pulse Rate 63 09/21/21 15:24 Respiratory Rate 22 09/21/21 15:24 Blood Pressure 116/69 09/21/21 15:24 Pulse Oximetry 96 09/21/21 15:24 Oxygen Delivery Method 09/21/21 15:24 GENERAL: Alert pleasant 66-year-old female no acute distress HEENT: Head atraumatic,EOMI, pupils reactive, face symmetric, [moist] mucous membranes CARDIOVASCULAR: Regular rate and rhythm without murmurs, rubs or gallops. RESPIRATORY: Wheezing bilaterally no respiratory distress ABDOMEN: Soft, nontender. Normoactive bowel sounds all 4 quadrants. No guarding or rebound. EXTREMITIES: Normal range of motion, no clubbing or edema. Neurovascularly intact NEUROLOGICAL: Alert and oriented x4.Normal gait and speech. SKIN: Warm, dry, no laceration, no petechiae, no rashes or lesions. Course Orders Ordered: Discontinued Medications Albuterol/Ipratropium (Albuterol/Ipratropium 3 Ml Ampul) 3 ml INH NOW ONE Stop: 09/21/21 17:02 Last Admin: 09/21/21 17:34 Dose: 3 ml Documented By: Vital Signs Vital signs: Vital Signs - 8 hr 09/21/21 15:24 09/21/21 17:37 09/21/21 16:45 Temperature 97.4 F L Pulse Rate 63 65 Respiratory Rate 22 Blood Pressure 116/69 Pulse Oximetry 96 95 Oxygen Delivery Method Room Air Room Air Room Air 09/21/21 17:00 09/21/21 17:00 09/21/21 17:30 Temperature Pulse Rate 72 72 Respiratory Rate 24 24 Blood Pressure 137/89 Pulse Oximetry 95 95 Oxygen Delivery Method 09/21/21 18:00 09/21/21 18:30 09/21/21 18:54 Temperature Pulse Rate 76 72 76 Respiratory Rate 24 19 19 Blood Pressure Pulse Oximetry 96 94 95 Oxygen Delivery Method 09/21/21 18:54 09/21/21 19:00 09/21/21 19:00 Temperature Pulse Rate 69 Respiratory Rate 20 Blood Pressure 141/77 H 147/80 H Pulse Oximetry 96 Oxygen Delivery Method MDM - SOB/Dyspnea Lab Data Result diagrams: 09/21/21 15:30 09/21/21 15:30 Labs: Lab Results 09/21/21 09/21/21 09/21/21 Range/Units 15:30 15:30 15:30 WBC 8.5 (4.5-11.0) X10^3/uL RBC 4.39 (4.0-5.2) X10^6/uL Hgb 13.8 (12.0-16.0) g/dL Hct 39.8 (36-46) % MCV 90.6 (80-100) fL MCH 31.3 (26-34) PG MCHC 34.6 (30-36) % RDW 13.5 (11.6-14.8) % Plt Count 235 (150-400) X10^3/uL Neut % (Auto) 62.2 (50-75) % Lymph % (Auto) 24.0 L (25-40) % Banner % (Auto) 12.6 (3-14) % Eos % (Auto) 1.0 L (2-4) % Baso % (Auto) 0.2 (0-2) % Neut # (Auto) 5300 (8594-4930) /uL Lymph # (Auto) 2000 (1715-0741) /uL Banner # (Auto) 1100 H (0-900) /uL Eos # (Auto) 100 (0-450) /uL Baso # (Auto) 0 (0-100) /uL Sodium 137 (137-145) mmol/L Potassium 4.0 (3.4-5.1) mmol/L Chloride 100 (98-107) mmol/L Carbon Dioxide 30 (22-32) mmol/L BUN 10 (7-17) mg/dL Creatinine 0.88 (0.52-1.04) mg/dL Estimated GFR > 60 (>60) mL/min BUN/Creatinine Ratio 11.4 (6-22) Glucose 112 H (80-110) mg/dL Lactate 0.8 (0.7-2.1) mmol/L Calcium 8.7 (8.4-10.2) mg/dL Total Bilirubin 0.5 (0.2-1.3) mg/dL AST 23 (14-36) IU/L ALT 18 (<35) IU/L Alkaline Phosphatase 79 (38-126) U/L Total Creatine Kinase (30-135) U/L CK-MB (CK-2) CK-MB (CK-2) Rel Index Troponin I (0.01-0.034) ng/mL NT-Pro-B Natriuret Pep (<125) pg/mL Total Protein 7.2 (6.3-8.2) g/dL Albumin 4.1 (3.5-5.0) g/dL Globulin 3.1 (1.7-4.1) g/dL Albumin/Globulin Ratio 1.3 (1.0-2.8) Procalcitonin (<0.5) ng/mL Chlamy pneumoniae PCR (Not Detect) Adenovirus (PCR) (Not Detect) B. pertussis DNA (PCR) (Not Detecte) B.parapertussis DNA PCR (Not Detecte) Coronavirus OC43 (PCR) (Not Detect) Coronavirus HKU1 (PCR) (Not Detect) Coronavirus 229E (PCR) (Not Detect) SARS-CoV-2 (PCR) (Not Detecte) Coronavirus NL63 (PCR) (Not Detect) Human Metapneumovir PCR (Not Detect) Influenza Type A (PCR) (Not Detect) Influenza Type B (PCR) (Not Detect) M. pneumoniae (PCR) (Not Detect) Parainfluenza 1 (PCR) (Not Detect) Parainfluenza 2 (PCR) (Not Detect) Parainfluenza 3 (PCR) (Not Detect) Parainfluenza 4 (PCR) (Not Detect) RSV (PCR) (Not Detect) Entero/Rhino (PCR) (Not Detect) 09/21/21 09/21/21 09/21/21 Range/Units 15:30 15:30 17:30 WBC (4.5-11.0) X10^3/uL RBC (4.0-5.2) X10^6/uL Hgb (12.0-16.0) g/dL Hct (36-46) % MCV (80-100) fL MCH (26-34) PG MCHC (30-36) % RDW (11.6-14.8) % Plt Count (150-400) X10^3/uL Neut % (Auto) (50-75) % Lymph % (Auto) (25-40) % Banner % (Auto) (3-14) % Eos % (Auto) (2-4) % Baso % (Auto) (0-2) % Neut # (Auto) (2608-4834) /uL Lymph # (Auto) (0193-8960) /uL Banner # (Auto) (0-900) /uL Eos # (Auto) (0-450) /uL Baso # (Auto) (0-100) /uL Sodium (137-145) mmol/L Potassium (3.4-5.1) mmol/L Chloride (98-107) mmol/L Carbon Dioxide (22-32) mmol/L BUN (7-17) mg/dL Creatinine (0.52-1.04) mg/dL Estimated GFR (>60) mL/min BUN/Creatinine Ratio (6-22) Glucose (80-110) mg/dL Lactate (0.7-2.1) mmol/L Calcium (8.4-10.2) mg/dL Total Bilirubin (0.2-1.3) mg/dL AST (14-36) IU/L ALT (<35) IU/L Alkaline Phosphatase (38-126) U/L Total Creatine Kinase 56 (30-135) U/L CK-MB (CK-2) TNP CK-MB (CK-2) Rel Index TNP Troponin I < 0.012 (0.01-0.034) ng/mL NT-Pro-B Natriuret Pep 228 H (<125) pg/mL Total Protein (6.3-8.2) g/dL Albumin (3.5-5.0) g/dL Globulin (1.7-4.1) g/dL Albumin/Globulin Ratio (1.0-2.8) Procalcitonin 0.06 (<0.5) ng/mL Chlamy pneumoniae PCR Not detected (Not Detect) Adenovirus (PCR) Not detected (Not Detect) B. pertussis DNA (PCR) Not detected (Not Detecte) B.parapertussis DNA PCR Not detected (Not Detecte) Coronavirus OC43 (PCR) Not detected (Not Detect) Coronavirus HKU1 (PCR) Not detected (Not Detect) Coronavirus 229E (PCR) Not detected (Not Detect) SARS-CoV-2 (PCR) Not detected (Not Detecte) Coronavirus NL63 (PCR) Not detected (Not Detect) Human Metapneumovir PCR Not detected (Not Detect) Influenza Type A (PCR) Not detected (Not Detect) Influenza Type B (PCR) Not detected (Not Detect) M. pneumoniae (PCR) Not detected (Not Detect) Parainfluenza 1 (PCR) Not detected (Not Detect) Parainfluenza 2 (PCR) Not detected (Not Detect) Parainfluenza 3 (PCR) Not detected (Not Detect) Parainfluenza 4 (PCR) Not detected (Not Detect) RSV (PCR) Not detected (Not Detect) Entero/Rhino (PCR) Not detected (Not Detect) Imaging Data Chest x-ray: Radiologist's Impression: ent: Vane Olsen MR#: [id number] : 1955 Acct:[id number] Age/Sex: 66 / F Date of Service: 09/21/21 Loc: ED Accession Number: [id number] ?? Procedure: XR chest 1V Ordering Provider: Rosalva Shannon D.O. PROCEDURE:? XR CHEST 1V ? INDICATIONS:? shortness of breath ? TECHNIQUE:? One view of the chest was acquired.? ? COMPARISON:? [facility], , XR CHEST 1V, 09/19/2021, 9:19. ? FINDINGS:? ? Surgical changes and devices:? None.? ? Lungs and pleura:? Lungs are clear.? No pleural effusions or pneumothorax.? ? Mediastinum:? Mediastinal contours appear normal.? Heart size is normal.? ? Bones and chest wall:? No suspicious bony lesions.? Overlying soft tissues appear unremarkable.? ? IMPRESSION:? No acute cardiopulmonary abnormality. ? ? Dictated by: Levi Altamirano M.D. on 09/21/2021 at 15:57 ? ? CT scan - chest: Radiologist's Impression: CT Scan Report Signed Patient: Vane Olsen MR#: [id number] : 1955 Acct:[id number] Age/Sex: 66 / F Date of Service: 09/21/21 Loc: ED Accession Number: [id number] ?? Procedure: CT angio chest PE protocol Ordering Provider: Rosalva Shannon D.O. PROCEDURE:? CT ANGIO CHEST PE PROTOCOL ? INDICATIONS:? SHORTNESS OF BREATH ? TECHNIQUE:? After the administration of intravenous contrast, 2 mm thick sections acquired from the pulmonary apices to the posterior costophrenic angles.? 3-dimensional maximum intensity projection (MIP) coronal and sagittal reformats were then acquired through the thorax.? For radiation dose reduction, the following was used:? automated exposure control, adjustment of mA and/or kV according to patient size.? ? COMPARISON:? [facility], CR, XR CHEST 1V, 09/21/2021, 15:35.? [facility], CR, XR CHEST 1V, 09/19/2021, 9:19. ? FINDINGS:? Image quality:? Excellent.? ? Pulmonary arteries:? Pulmonary arteries are normal in size, and demonstrate no intraluminal filling defects to suggest central pulmonary embolism.? ? Lungs and pleura:? No acute airspace opacity.? No pleural effusions or pneumothorax.? Central and peripheral airways are patent.? Suspect small distal mucus airway plug at the left lower lobe.? Alternately, this could represent a punctate pulmonary nodule.? ? Mediastinum:? Heart size is normal, without pericardial effusion.? No mediastinal or hilar adenopathy.? Thoracic aorta is normal in caliber and enhancement.? Esophagus is normal in caliber, without hiatal hernia.? ? Bones and chest wall:? No suspicious bony lesions.? Ribs and thoracic spine appear intact throughout.? Thyroid gland is unremarkable.? No axillary or supraclavicular adenopathy.? ? Abdomen:? Visualized upper abdominal solid organs appear normal in the early arterial phase of enhancement.? Low-density renal cysts partially visualized.? There is a small amount of reflux of contrast into the hepatic veins. ? IMPRESSION:? 1. No pulmonary embolism. ? 2. No acute airspace opacity. ? 3. Reflux of contrast into the hepatic veins.? This could be seen in diastolic dysfunction. ? ? ? Dictated by: Omer Gtz M.D. on 09/21/2021 at 17:54 ? ? ECG Data Interpretation: Normal sinus rhythm rate 71 MT interval 144 QRS [address] changes she does have T-wave inversion noted in lead similar to previous EKG in 2020 MDM Narrative Medical decision making narrative: Patient has had supposedly fever for weeks. However no leukocytosis afebrile here negative procalcitonin and lactic acid. Chest x-ray and CT both do not show any source of pneumonia or pulmonary embolism. At this time no indication for antibiotics. Patient says that she was previously on 10 days of prednisone and antibiotics she does not want to be on prednisone again probably does need to be. He had plenty of albuterol inhalers at home. Overall patient feels significantly better after DuoNeb treatment in the ED. Discharge Plan Departure Patient Disposition: Home Clinical Impression: Acute exacerbation of chronic obstructive pulmonary disease Instructions: Chronic Obstructive Pulmonary Disease Activity Restrictions/Additional Instructions: *You have been diagnosed with COPD exacerbation *What to do: At this time no need for antibiotics. Her scans and workup in the emergency department are negative. *Continue to take medications as directed *Follow up with your primary care provider in 2-3 days or call [phone] *Return to ER if you should have increasing shortness of breath chest, [or] any new, worsening or concerning symptoms Prescriptions: No Action carvedilol 25 mg tablet 25 mg PO BID Qty: 180 3RF Rx Instructions: must administer with a meal/food ketoconazole 2 % cream 1 applic topical BID Qty: 30 1RF Rx Instructions: Apply topically to affected area twice per day. latanoprost 0.005 % drops 1 drp EYE-RIGHT .HS Qty: 2.5 0RF lisinopril 20 mg tablet See Rx Instructions .ROUTE .COMPLEX Qty: 360 3RF Dose Instruction: TAKE 2 TABLETS TWICE DAILY Rx Instructions: TAKE 2 TABLETS TWICE DAILY methocarbamol 500 mg tablet 500 mg PO BID PRN (Reason: muscle spasms) Qty: 180 3RF Rx Instructions: Take 1 tab up to 2x/day as needed for muscle spasms pantoprazole 40 mg tablet,delayed release (DR/EC) See Rx Instructions .ROUTE .COMPLEX Qty: 180 3RF Dose Instruction: TAKE 1 TABLET TWICE DAILY FOR GERD Rx Instructions: TAKE 1 TABLET TWICE DAILY FOR GERD promethazine 25 mg tablet See Rx Instructions .ROUTE .COMPLEX Qty: 120 3RF Dose Instruction: TAKE 1 TABLET EVERY 6 HOURS NEEDED FOR NAUSEA AND VOMITING. MAXIMUM DAILY DOSE IS 4 TABLETS. Rx Instructions: TAKE 1 TABLET EVERY 6 HOURS NEEDED FOR NAUSEA AND VOMITING. MAXIMUM DAILY DOSE IS 4 TABLETS. rosuvastatin 20 mg tablet 20 mg PO DAILY Qty: 90 3RF Rx Instructions: Take 20mg (1 tab) at bedtime each evening for high cholesterol trazodone 100 mg tablet See Rx Instructions .ROUTE .COMPLEX Qty: 180 3RF Dose Instruction: TAKE 1 AND 1/2 TO 2 TABLETS AT BEDTIME Rx Instructions: TAKE 1 AND 1/2 TO 2 TABLETS AT BEDTIME venlafaxine 75 mg capsule,extended release 24hr See Rx Instructions .ROUTE .COMPLEX Qty: 270 3RF Dose Instruction: TAKE 3 CAPSULES (225MG) AT BEDTIME Rx Instructions: TAKE 3 CAPSULES (225MG) AT BEDTIME sumatriptan succinate 50 mg tablet See Rx Instructions PO .COMPLEX Qty: 20 3RF Rx Instructions: take 1 tab at onset of headache; if no relief may repeat 1 tab after at least 2 hrs; max = 4 tabs/24 hr PO clonazepam 0.5 mg tablet 0.5 mg PO BID PRN (Reason: muscle spasm) Qty: 60 3RF dicyclomine 10 mg capsule See Rx Instructions .ROUTE .COMPLEX Qty: 90 3RF Dose Instruction: TAKE 1 CAPSULE BY MOUTH TWICE DAILY NEEDED FOR DIARRHEA Rx Instructions: TAKE 1 CAPSULE BY MOUTH TWICE DAILY NEEDED FOR DIARRHEA tramadol 50 mg tablet 50 mg PO DAILY PRN (Reason: pain) Qty: 30 5RF voltaren 10% gel See Rx Instructions .ROUTE .COMPLEX Qty: 30 2RF Rx Instructions: apply small amount to affected area twice daily as needed for pain fluticasone propion-salmeterol 250-50 mcg/dose blister with device See Rx Instructions inhalation .QD Rx Instructions: inhalation .QD; 1-2 puffs inhalation daily as needed hydralazine 25 mg tablet 25 mg PO BID albuterol sulfate 90 mcg/actuation HFA aerosol inhaler See Rx Instructions inhalation ONCE Rx Instructions: 1-2 puff inhalation once daily as needed prednisone 50 mg tablet 50 mg PO DAILY Qty: 5 0RF Rx Instructions: Take 1 tab with food daily x5 days loratadine [Claritin] 10 mg tablet 10 mg PO DAILY Qty: 90 3RF fluticasone propionate [Flonase Allergy Relief] 50 mcg/actuation spray,suspension 1 spray intranasal BID Qty: 16 3RF Rx Instructions: administer into each nostril oxycodone 5 mg Tablet 5 mg PO Q6-12H PRN (Reason: Pain, Moderate (4-6)) Qty: 20 0RF Referrals: Annette Marx ARNP [Primary Care Provider] - Visit Report Forms: Patient Portal/API
[2021-09-21] MEDS: ALBUTEROL/IPRATROPIUM 3 ML AMPUL INH (17:34)
[2021-09-21 18:04] LABS: Creatine Kinase 56 U/L (30-135)
[2021-09-21 18:17] LABS: NT-proBNP (BNP-Adult 18+) 228 pg/mL (<125); Troponin I < 0.012 ng/mL (0.01-0.034)
[2021-09-21 18:22] LABS: Procalcitonin 0.06 ng/mL (<0.5)
[2021-09-21 18:44] LABS: Adenovirus Not Detected (Not Detect); B. parapertussis Not Detected (Not Detecte); Bordetella pertussis Not Detected (Not Detecte); Chlamydophila pneumoniae Not Detected (Not Detect); Coronavirus 229E Not Detected (Not Detect); Coronavirus HKU1 Not Detected (Not Detect); Coronavirus NL 63 Not Detected (Not Detect); Coronavirus OC43 Not Detected (Not Detect); Human Metapneumovirus Not Detected (Not Detect); Human Rhinovirus/Enterovirus Not Detected (Not Detect); Influenza A Not Detected (Not Detect); Influenza B Not Detected (Not Detect); Mycoplasma pneumoniae Not Detected (Not Detect); Parainfluenza Virus 1 Not Detected (Not Detect); Parainfluenza Virus 2 Not Detected (Not Detect); Parainfluenza Virus 3 Not Detected (Not Detect); Parainfluenza Virus 4 Not Detected (Not Detect); Respiratory Syncytial Virus Not Detected (Not Detect); SARS- CoV-2 Not Detected (Not Detecte)
[2021-09-23 01:24] LABS: Acinetobacter baumannii Not Detected (Not Detect); Candida albicans Not Detected (Not Detect); Candida glabrata Not Detected (Not Detect); Candida krusei Not Detected (Not Detect); Candida parapsilosis Not Detected (Not Detect); Candida tropicalis Not Detected (Not Detect); E. coli Not Detected (Not Detect); Enterobacter cloacae complex Not Detected (Not Detect); Enterobacteriaceae species Not Detected (Not Detect); Enterococcus species Not Detected (Not Detect); Haemophilus influenzae Not Detected (Not Detect); Listeria monocytogenes Not Detected (Not Detect); Neisseria meningitidis Not Detected (Not Detect); Proteus species Not Detected (Not Detect); Pseudomonas aeruginosa Not Detected (Not Detect); Serratia marcescens Not Detected (Not Detect); Staphylococcus species Not Detected (Not Detect); Streptococcus agalactiae (Gr B Not Detected (Not Detect); Streptococcus pneumonia Not Detected (Not Detect); Streptococcus pyogenes (Gr A) Not Detected (Not Detect); Streptococcus species Not Detected (Not Detect)
== END 2021-09-21 19:28 | disposition home or self-care (01) ==
PROVIDERS: Emergency Provider Emergency Medicine; Family Provider Nurse Practitioner; PCP Nurse Practitioner
DX: A41.9 Sepsis, unspecified organism (principal); J44.1 Chronic obstructive pulmonary disease with (acute) exacerbation; Z20.822 Contact with and (suspected) exposure to COVID-19
CPT/HCPCS: 36415; 71045; 71275; 80053; 82550; 83605; 83880; 84145; 84484; 85025; 87040; 87150; 87633; 93005; 94640; 99284; Q9967

== ENCOUNTER → 2021-09-29 10:21 | Outpatient (CLI) | payer MEDICARE, SELFPAY | PROVIDERS: Family Provider Nurse Practitioner; PCP Nurse Practitioner; Visit Provider Obstetrics & Gynecology | DX: N90.89 Other specified noninflammatory disorders of vulva and perineum (principal) | CPT/HCPCS: 87255 ==

== ENCOUNTER → 2021-10-06 10:33 | Outpatient (CLI) | payer MEDICARE, SELFPAY | PROVIDERS: Family Provider Nurse Practitioner; PCP Nurse Practitioner; Referring Provider Nurse Practitioner; Visit Provider Nurse Practitioner | DX: A41.9 Sepsis, unspecified organism (principal) | CPT/HCPCS: 87040 ==

== ENCOUNTER → 2021-10-22 13:47 | Outpatient (CLI) | payer MEDICARE, SELFPAY ==
--- NOTE | 2021-10-22 13:50 | DI.RAD.S_ITS ---
1PROCEDURE: XR CHEST 2V INDICATIONS: cough TECHNIQUE: 2 views of the chest were acquired. COMPARISON: [facility], CR, XR CHEST 1V, 09/21/2021, 15:35. [facility], CR, XR CHEST 1V, 09/19/2021, 9:19. FINDINGS: Surgical changes and devices: None. Lungs and pleura: Perihilar interstitial prominence. No pleural effusions or consolidations. Mediastinum: Mediastinal contours are normal. Heart size is normal. Bones and chest wall: No suspicious bony abnormalities. Soft tissues appear unremarkable. IMPRESSION: Perihilar interstitial prominence could represent bronchitis or edema. Dictated by: Delta Roque M.D. on 10/22/2021 at 15:58 Approved by: Delta Roque M.D. on 10/22/2021 at 15:59
--- NOTE | 2021-10-22 13:50 | DI.RAD.S_ITS ---
PROCEDURE: XR CERVICAL SPINE 2V OR 3V INDICATIONS: cervical pain TECHNIQUE: 3 view(s) of the cervical spine were acquired. COMPARISON: None. FINDINGS: Bones: No fractures or dislocations to the C7-T1 level. The lateral masses of C1 appear intact on the odontoid view. No suspicious bony lesions. Multilevel degenerative changes are present most severe from C4-5 through C6-7. Multilevel uncovertebral arthropathy is present. Soft tissues: No prevertebral soft tissue swelling. IMPRESSION: Multilevel degenerative changes as above. Dictated by: Radha Orta M.D. on 10/22/2021 at 16:37 Approved by: Radha Orta M.D. on 10/22/2021 at 16:38
[2021-10-22 15:45] LABS: Add Manual Diff / Slide Review NO; Basophils Absolute Auto 0 /uL (0-100); Basophils Percent Auto 0.3 % (0-2); Eosinophils Absolute Auto 100 /uL (0-450); Hematocrit 40.7 % (36-46); Hemoglobin 13.7 g/dL (12.0-16.0); Lymphocytes Absolute Auto 2800 /uL (1100-4500); Lymphocytes Percent Auto 37.6 % (25-40); Mean Corpuscular HGB Conc 33.6 % (30-36); Mean Corpuscular Hemoglobin 30.3 PG (26-34); Mean Corpuscular Volume 90.2 fL (80-100); Monocytes Absolute Auto 600 /uL (0-900); Monocytes Percent Auto 7.5 % (3-14); Neutrophils Absolute Auto 3800 /uL (1500-7000); Neutrophils Percent Auto 52.6 % (50-75); Platelet Count 255 X10^3/uL (150-400); Red Blood Cell Count 4.51 X10^6/uL (4.0-5.2); Red Cell Distribution Width 13.8 % (11.6-14.8); White Blood Cell Count 7.3 X10^3/uL (4.5-11.0)
[2021-10-22 16:02] LABS: Appearance Urine UA CLEAR; Bilirubin Urine UA NEGATIVE (NEGATIVE); Color Urine UA YELLOW; Glucose Urine UA NEGATIVE (Negative); Ketones Urine UA NEGATIVE (NEGATIVE); Leukocyte Esterase Urine UA NEGATIVE (NEGATIVE); Nitrite Urine UA NEGATIVE (Negative); Occult Blood Urine UA TRACE-LYSED (Negative); Protein Urine UA NEGATIVE (Negative); Specific Gravity Urine UA <=1.005 (1.000-1.035); Urobilinogen Urine UA 0.2 E.U./dL (0.2)
[2021-10-22 16:22] LABS: Bacteria Urine None Seen; Culture Indicated Urine Cult Not Indicated; RBC Urine 0-1/HPF (0-5/HPF); Squamous Epithelial Cell Urine None Seen (0-5/HPF); WBC Urine 0-1/HPF (0-5/HPF)
== END ==
PROVIDERS: Family Provider Nurse Practitioner; PCP Nurse Practitioner; Referring Provider Nurse Practitioner; Visit Provider Nurse Practitioner
DX: M47.812 Spondylosis without myelopathy or radiculopathy, cervical region (principal); R05.9 Cough, unspecified; M54.2 Cervicalgia; N93.9 Abnormal uterine and vaginal bleeding, unspecified; R30.0 Dysuria
CPT/HCPCS: 36415; 71046; 72040; 81001; 85025

== ENCOUNTER 2021-10-30 09:45 | Outpatient (RCR) | payer MEDICARE, SELFPAY ==
--- NOTE | 2021-10-13 17:49 | PT.OIE ---
Current Diagnoses Pain in right foot (10/13/21) Past Medical History (Last Reviewed 09/24/21 @ 08:51 by BUNNY Wagner) Abdominal pain Abnormal chest x-ray (~2011) Abnormal Pap smear of cervix (~1974) Allergic rash present on examination Anemia (~2016) Cannabis dependence, daily use Cat bite Cervical cancer (~1977) Change in bowel habit Chronic pain of both shoulders Colon polyps (~2002) COPD (chronic obstructive pulmonary disease) (~2011) Degenerative joint disease (DJD) of lumbar spine (~1963) Depression (~1988) Epigastric pain determined by examination Fatigue Fecal incontinence (~2017) Fibromyalgia (~1983) Foot pain (~2017) Fractures GERD (gastroesophageal reflux disease) GI bleeding (~2018) Glaucoma (~2018) Granuloma annulare (~2014) Hemorrhoid (~1979) Hepatic steatosis History of chronic constipation Hyperlipidemia LDL goal <100 Intermittent left-sided chest pain Kidney stones (~2018) Liver disease (~1972) Mass of right thigh Measles Migraines (~1982) Mumps Muscle spasm of back Nausea & vomiting Neoplasm of uncertain behavior Ocular migraine Osteoarthritis (~2012) Osteoporosis (~2012) Painful menstrual periods Pancreatic mass Pancreatitis Paresthesia of right lower extremity Partial blindness Right renal mass Ruptured tympanic membrane (~1974) Scoliosis (~1963) Shoulder pain (~1985) Skin cancer (~2014) Sleep apnea (~2015) Vaginitis Weight loss, non-intentional Wound of left foot Past Surgical History (Last Reviewed 09/24/21 @ 08:51 by BUNNY Wagner) Anesthesia Carpal tunnel syndrome (~1987) Cataracts, bilateral (~2013) History of hysterectomy (~1981) Visit Care Team Role Provider Type BNUNY Wagner Attending Provider Advanced Reconciler Family Provider Primary Care Provider Referring Provider Specialty: Family Practice Address: [address] [place] [address], [facility] Email: [email or web address] Physical Therapy Initial Evaluation PT-OP-A Visit Information Start: 10/11/21 19:53 Freq: Status: Active Protocol: Document 10/13/21 09:52 LRN (Rec: 10/13/21 12:35 LRN [id number]) Out-Patient Physical Therapy Visit Information Visit Information Visit Type Initial Evaluation Visit Start Time 09:52 Visit Stop Time 10:35 Total Visit Minutes 43 Visit Number 1 Evaluation Information Evaluation Date 10/13/21 Precautions Precautions Just got out of full body sepsis from unknown source, treatment with heavy antibiotics ~09/10/21-10/13/21 ( culture came back negative). PT-OP-B Current Condition Start: 10/11/21 19:53 Freq: Status: Active Protocol: Document 10/13/21 09:52 LRN (Rec: 10/13/21 12:35 LRN [id number]) Current Condition History of Current Condition Onset Date 1 yr ago Current Complaints R foot pain in top of the foot and lump in arch of the foot History of Current Condition Insidous onset that spontaneously starts to hurt when she wakes up. When the knot in the bottom of the foot hurts, then the top of the foot hurts; when it doesn' t hurt, the top of the foot doesn't hurt. Can go a week without foot pain. She notices less pain onset when wearing [place] shoes. Pt states she has osteoarthritis. Her hands hurt also on the top and the pain is somewhat the same. She is not on medications due to recent full body sepsis. When active can barely walk. Uses ice and stays off the R foot. Prior Treatments and Tests None Treatment Goals Patient/Caregiver Goals Pt goal: Taught a HEP to walk without the R foot pain, more consistently. Prior Functional Status Baseline Function- ADL's Independent Baseline Function- Mobility Independent Baseline Function- Gait Daily activities in RV Baseline Function- Recreation/Hobbies Emphysema limits activities. Current Functional Impairments (Reported) Functional Limitations- ADL's Walking less around the RV s/p sepsis and when foot doesn't hurt. Personal Factors Other Personal Factors That May Effect Recent recovery from full body Therapy/Recovery sepsis causing her to be sedentary, Fibromyalgia, Osteoporosis, Osteoarthritis, Ascending aortic aneurysm and hard to control HBP, multiple cysts on kidneys. PT-OP-C Subjective Start: 10/11/21 19:53 Freq: Status: Active Protocol: Document 10/13/21 09:52 LRN (Rec: 10/13/21 12:35 LRN [id number]) Patient Questionnaires Lower Extremity Functional Scale LEFS Score 42 LEFS Impairment 40 to 59% Impaired (Score 32- 47) OP-PT Pain Assessment Pain Assessment Grid Paper Pain Assessment Grid Completed Yes Location R foot Pain Location Details Top of foot and pain at mid plantar arch. Intensity 5 Scale Used Numeric (0 - 10) Description Aching,Sharp Frequency Intermittent Variations/Patterns Getting up out of bed sometimes foot is painful, sometimes w/o pain the day PT-OP-J Posture/Palpation/Skin Start: 10/11/21 19:53 Freq: Status: Active Protocol: Document 10/13/21 09:52 LRN (Rec: 10/13/21 12:35 LRN [id number]) Posture Evaluation Position Standing Knee Posture (L) Genu Varus,(R) Genu Varus Ankle/Foot Posture (L) Forefoot Abducted,(R) Forefoot Abducted Foot Arch (L) Medium Arch,(R) Low Arch Palpation Assessment Location R foot Palpation Location Medial Cuneiform Palpation Findings Edema,Soft Tissue Tightness, Tenderness PT-OP-K Range of Motion Start: 10/11/21 19:53 Freq: Status: Active Protocol: Document 10/13/21 09:52 LRN (Rec: 10/13/21 12:35 LRN [id number]) Ankle and Foot Goniometric Range of Motion Ankle and Foot Right Active Ankle/Foot ROM WFL No Testing Position Supine Dorsiflexion with Knee Extended 10 Plantarflexion 60 Inversion 30 Eversion 10 Left Active Ankle/Foot ROM WFL Yes Testing Position Supine Dorsiflexion with Knee Extended 10 Plantarflexion 70 Inversion 35 Eversion 10 PT-OP-M Strength Start: 10/11/21 19:53 Freq: Status: Active Protocol: Document 10/13/21 09:52 LRN (Rec: 10/13/21 12:35 LRN [id number]) Ankle/Foot Strength Ankle and Foot Manual Muscle Testing Right Dorsiflexion (L4) 5 Normal Plantarflexion (S1) 5 Normal Inversion 5 Normal Eversion (S1) 5 Normal Left Dorsiflexion (L4) 5 Normal Plantarflexion (S1) 5 Normal Inversion 5 Normal Eversion (S1) 5 Normal PT-OP-Q Treatments Start: 10/11/21 19:53 Freq: Status: Active Protocol: Document 10/13/21 09:52 LRN (Rec: 10/13/21 12:35 LRN [id number]) Self-Care/Home Management Treatment Education Patient Education Pain Management Other Education Discussed results of evaluation, goals, and plan of care (POC). Pt agreeable to goals and POC. Activities Self-Care/Home Management Activities I/S pt in pain management care using a frozen water bottle to roll on the plantar surface of the R foot, to elevate and compression wrap foot if painful. Pt I/S to always wear shoes with arch support. PT-OP-T Assessment and Plan Start: 10/11/21 19:53 Freq: Status: Active Protocol: Document 10/13/21 09:52 LRN (Rec: 10/13/21 12:35 LRN [id number]) Physical Therapy Assessment Rehab Potential Rehabilitation Potential Good Evaluation Complexity Number of Personal Factors/Comorbidities 3 or More Number of Body Systems Impaired 3 Clinical Presentation at Evaluation Evolving Impairments Impairments Activity Tolerance,Gait,Pain, ROM,Strength Goals One Impairment Lacks self care HEP. Short Term Goal (STG) Pt educated in self care HEP to eliminate R foot pain. STG Duration 10/23/21 Group Home Goal (LTG) Pt able to eliminate R foot pain on a self care HEP so that she can walk without pain on a consistent basis. LTG Duration 12/12/21 Assessment Summary Assessment Pt presents with swelling and inflammation at the R Medial cuneiform resulting in plantar R foot pain and radiating pain across the top of her foot. Her pain onset is intermittent, and probably associated with not wearing supportive plantar arch shoe wear, resulting in pain in the R foot the next day from her fallen arch. Pt will benefit from skilled physical therapy for education, strengthening and ROM ex for PF, IV and for modality treatment for swelling in the plantar arch of the R foot. Physical Therapy Plan Frequency and Duration Frequency of Treatment 2x/Week Plan of Care Start Date 10/13/21 Plan of Care End Date 12/12/21 Therapeutic Interventions Therapeutic Interventions Home Exercise Program,Patient/ Caregiver Education,Self-Care/ Home Management,Soft Tissue Mobilization,Taping, Therapeutic Exercises Modalities Cold Pack/Ice Massage,Hot Packs,Ultrasound Next Visit Focus/Plan Next Note Type Treatment Note Next Visit Plan Modalities to decrease swelling at R plantar arch (US , cryotherapy/ice massage), assess for use of K-tape to plantar arch, Strengthening ex 's for plantar arch and ROM ex 's (PF, IV). POC: Self care/HEP/modalities , then 1 visit f/u after a week for DC.
--- NOTE | 2021-10-13 17:49 | PT.OPPOC ---
Physical, Occupational & Speech Therapy At [facility] Current Diagnoses Pain in right foot (10/13/21) Visit Care Team Role Provider Type BUNNY Wagner Attending Provider Advanced [employer]ol Mainframe Developer Family Provider Primary Care Provider Referring Provider Specialty: Family Practice Address: [address] [place] [address], [id number] Email: [email or web address] Plan Of Care PT-OP-T Assessment and Plan Start: 10/11/21 19:53 Freq: Status: Active Protocol: Document 10/13/21 09:52 LRN (Rec: 10/13/21 12:35 LRN [id number]) Physical Therapy Assessment Rehab Potential Rehabilitation Potential Good Evaluation Complexity Number of Personal Factors/Comorbidities 3 or More Number of Body Systems Impaired 3 Clinical Presentation at Evaluation Evolving Impairments Impairments Activity Tolerance,Gait,Pain, ROM,Strength Goals One Impairment Lacks self care HEP. Short Term Goal (STG) Pt educated in self care HEP to eliminate R foot pain. STG Duration 10/23/21 Shelter Goal (LTG) Pt able to eliminate R foot pain on a self care HEP so that she can walk without pain on a consistent basis. LTG Duration 12/12/21 Assessment Summary Assessment Pt presents with swelling and inflammation at the R Medial cuneiform resulting in plantar R foot pain and radiating pain across the top of her foot. Her pain onset is intermittent, and probably associated with not wearing supportive plantar arch shoe wear, resulting in pain in the R foot the next day from her fallen arch. Pt will benefit from skilled physical therapy for education, strengthening and ROM ex for PF, IV and for modality treatment for swelling in the plantar arch of the R foot. Physical Therapy Plan Frequency and Duration Frequency of Treatment 2x/Week Plan of Care Start Date 10/13/21 Plan of Care End Date 12/12/21 Therapeutic Interventions Therapeutic Interventions Home Exercise Program,Patient/ Caregiver Education,Self-Care/ Home Management,Soft Tissue Mobilization,Taping, Therapeutic Exercises Modalities Cold Pack/Ice Massage,Hot Packs,Ultrasound Next Visit Focus/Plan Next Note Type Treatment Note Next Visit Plan Modalities to decrease swelling at R plantar arch (US , cryotherapy/ice massage), assess for use of K-tape to plantar arch, Strengthening ex 's for plantar arch and ROM ex 's (PF, IV). POC: Self care/HEP/modalities , then 1 visit f/u after a week for DC. Plan of Care Dates Plan of Care Start Date 10/13/21 Plan of Care End Date 12/12/21 Electronically Signed by: Gianna Granados, PT 10/13/21 [id number] If you are in agreement with this Plan of Care, please return a signed and dated copy. I have reviewed this Plan of Care and certify that the skilled therapy services above are required to meet the patient?s needs. Physician Signature Date Printed Name and Credentials Clinical Instructor Signature Printed Name and Credentials
--- NOTE | 2021-10-16 10:42 | PT.OTN ---
Current Diagnoses Pain in right foot (10/16/21) Physical Therapy Treatment Note PT-OP-A Visit Information Start: 10/11/21 19:53 Freq: Status: Active Protocol: Document 10/16/21 09:49 LRN (Rec: 10/16/21 10:38 LRN [id number]) Out-Patient Physical Therapy Visit Information Visit Information Visit Type Treatment Note Visit Start Time 09:49 Visit Stop Time 10:34 Total Visit Minutes 45 Visit Number 2 Evaluation Information Evaluation Date 10/13/21 Precautions Precautions Just got out of full body sepsis from unknown source, treatment with heavy antibiotics ~09/10/21-10/13/21 ( culture came back negative). PT-OP-B Current Condition Start: 10/11/21 19:53 Freq: Status: Active Protocol: Document 10/13/21 09:52 LRN (Rec: 10/13/21 12:35 LRN [id number]) Current Condition History of Current Condition Onset Date 1 yr ago Current Complaints R foot pain in top of the foot and lump in arch of the foot History of Current Condition Insidous onset that spontaneously starts to hurt when she wakes up. When the knot in the bottom of the foot hurts, then the top of the foot hurts; when it doesn' t hurt, the top of the foot doesn't hurt. Can go a week without foot pain. She notices less pain onset when wearing [place] shoes. Pt states she has osteoarthritis. Her hands hurt also on the top and the pain is somewhat the same. She is not on medications due to recent full body sepsis. When active can barely walk. Uses ice and stays off the R foot. Prior Treatments and Tests None Treatment Goals Patient/Caregiver Goals Pt goal: Taught a HEP to walk without the R foot pain, more consistently. Prior Functional Status Baseline Function- ADL's Independent Baseline Function- Mobility Independent Baseline Function- Gait Daily activities in RV Baseline Function- Recreation/Hobbies Emphysema limits activities. Current Functional Impairments (Reported) Functional Limitations- ADL's Walking less around the RV s/p sepsis and when foot doesn't hurt. Personal Factors Other Personal Factors That May Effect Recent recovery from full body Therapy/Recovery sepsis causing her to be sedentary, Fibromyalgia, Osteoporosis, Osteoarthritis, Ascending aortic aneurysm and hard to control HBP, multiple cysts on kidneys. PT-OP-C Subjective Start: 10/11/21 19:53 Freq: Status: Active Protocol: Document 10/16/21 09:49 LRN (Rec: 10/16/21 10:38 LRN [id number]) OP-PT Subjective Patient Comments Patient Comments States her foot feels good, she is wearing her Birkenstocks. PT-OP-J Posture/Palpation/Skin Start: 10/11/21 19:53 Freq: Status: Active Protocol: Document 10/13/21 09:52 LRN (Rec: 10/13/21 12:35 LRN [id number]) Posture Evaluation Position Standing Knee Posture (L) Genu Varus,(R) Genu Varus Ankle/Foot Posture (L) Forefoot Abducted,(R) Forefoot Abducted Foot Arch (L) Medium Arch,(R) Low Arch Palpation Assessment Location R foot Palpation Location Medial Cuneiform Palpation Findings Edema,Soft Tissue Tightness, Tenderness PT-OP-K Range of Motion Start: 10/11/21 19:53 Freq: Status: Active Protocol: Document 10/13/21 09:52 LRN (Rec: 10/13/21 12:35 LRN [id number]) Ankle and Foot Goniometric Range of Motion Ankle and Foot Right Active Ankle/Foot ROM WFL No Testing Position Supine Dorsiflexion with Knee Extended 10 Plantarflexion 60 Inversion 30 Eversion 10 Left Active Ankle/Foot ROM WFL Yes Testing Position Supine Dorsiflexion with Knee Extended 10 Plantarflexion 70 Inversion 35 Eversion 10 PT-OP-M Strength Start: 10/11/21 19:53 Freq: Status: Active Protocol: Document 10/13/21 09:52 LRN (Rec: 10/13/21 12:35 LRN [id number]) Ankle/Foot Strength Ankle and Foot Manual Muscle Testing Right Dorsiflexion (L4) 5 Normal Plantarflexion (S1) 5 Normal Inversion 5 Normal Eversion (S1) 5 Normal Left Dorsiflexion (L4) 5 Normal Plantarflexion (S1) 5 Normal Inversion 5 Normal Eversion (S1) 5 Normal PT-OP-Q Treatments Start: 10/11/21 19:53 Freq: Status: Active Protocol: Document 10/16/21 09:49 LRN (Rec: 10/16/21 10:38 LRN [id number]) Therapeutic Exercises Sitting Exercises Ankle EV Sitting Exercise Name Ankle EV strengthening Side bilateral Reps/Minutes Lev 1 Ankle IV Sitting Exercise Name Ankle IV strengthening Side bilateral Equipment Used Lev 1 Toe Flexion Sitting Exercise Name Toe curls: towel pull front/ back and to L side. Side bilateral Short Foot Ex Sitting Exercise Name Lift of arch without curl of toes Side right Reps/Minutes 5-10 SH x 10 Comments Extra time to coordinate tightening without toe curls. Self-Care/Home Management Treatment Education Patient Education Home Exercise Program Other Education Pt educated in contrast bath treatment for pain management. Activities Self-Care/Home Management Activities Issued and reviewed HEP: Short foot flexors, toe flexion, ankle IV/EV with Lev 1 Tband. Contrast bath instructions. PT-OP-R Modalities Start: 10/11/21 19:53 Freq: Status: Active Protocol: Document 10/16/21 09:49 LRN (Rec: 10/16/21 10:38 LRN [id number]) Ultrasound Therapy Treatment R foot Treatment Duration (minutes) 8 Coupling Medium Ultrasound Gel Applicator Size (cm2) 2 Frequency Setting (mHz) 3 Mode Setting Pulsed Duty Cycle 50% Intensity Setting (w/cm2) 1.0 Comments R plantar arch of foot PT-OP-T Assessment and Plan Start: 10/11/21 19:53 Freq: Status: Active Protocol: Document 10/16/21 09:49 LRN (Rec: 10/16/21 10:38 LRN [id number]) Physical Therapy Assessment Goals One Impairment Lacks self care HEP. Short Term Goal (STG) Pt educated in self care HEP to eliminate R foot pain. 10/16/21: HEP: short foot flexor (w/progressiong), toe flexors, ankle IV ex's. STG Duration 10/23/21 (10/16/21: MET GOAL) Dna Sequencing Associate Goal (LTG) Pt able to eliminate R foot pain on a self care HEP so that she can walk without pain on a consistent basis. LTG Duration 12/12/21 Assessment Summary Assessment Pt appears to have a good understanding of HEP. No pain today in R foot. Physical Therapy Plan Frequency and Duration Frequency of Treatment 2x/Week Plan of Care Start Date 10/13/21 Plan of Care End Date 12/12/21 Next Visit Focus/Plan Next Note Type Treatment Note Next Visit Plan Pt will return in 1-2 weeks for follow up and probable DC. POC for treatment: Modalities to decrease swelling at R plantar arch (US, cryotherapy/ ice massage), assess for use of K-tape to plantar arch, Review strengthening ex's for plantar arch and ROM ex's (PF, IV).
--- NOTE | 2021-10-30 11:43 | PT.OTN ---
Current Diagnoses Pain in right foot (10/30/21) Physical Therapy Treatment Note PT-OP-A Visit Information Start: 10/11/21 19:53 Freq: Status: Active Protocol: Document 10/30/21 09:45 LRN (Rec: 10/30/21 10:30 LRN [id number]) Out-Patient Physical Therapy Visit Information Visit Information Visit Type Treatment Note Visit Start Time 09:45 Visit Stop Time 10:24 Total Visit Minutes 39 Visit Number 3 Evaluation Information Evaluation Date 10/13/21 Precautions Precautions Just got out of full body sepsis from unknown source, treatment with heavy antibiotics ~09/10/21-10/13/21 ( culture came back negative). PT-OP-B Current Condition Start: 10/11/21 19:53 Freq: Status: Active Protocol: Document 10/13/21 09:52 LRN (Rec: 10/13/21 12:35 LRN [id number]) Current Condition History of Current Condition Onset Date 1 yr ago Current Complaints R foot pain in top of the foot and lump in arch of the foot History of Current Condition Insidous onset that spontaneously starts to hurt when she wakes up. When the knot in the bottom of the foot hurts, then the top of the foot hurts; when it doesn' t hurt, the top of the foot doesn't hurt. Can go a week without foot pain. She notices less pain onset when wearing [place] shoes. Pt states she has osteoarthritis. Her hands hurt also on the top and the pain is somewhat the same. She is not on medications due to recent full body sepsis. When active can barely walk. Uses ice and stays off the R foot. Prior Treatments and Tests None Treatment Goals Patient/Caregiver Goals Pt goal: Taught a HEP to walk without the R foot pain, more consistently. Prior Functional Status Baseline Function- ADL's Independent Baseline Function- Mobility Independent Baseline Function- Gait Daily activities in RV Baseline Function- Recreation/Hobbies Emphysema limits activities. Current Functional Impairments (Reported) Functional Limitations- ADL's Walking less around the RV s/p sepsis and when foot doesn't hurt. Personal Factors Other Personal Factors That May Effect Recent recovery from full body Therapy/Recovery sepsis causing her to be sedentary, Fibromyalgia, Osteoporosis, Osteoarthritis, Ascending aortic aneurysm and hard to control HBP, multiple cysts on kidneys. PT-OP-C Subjective Start: 10/11/21 19:53 Freq: Status: Active Protocol: Document 10/30/21 09:45 LRN (Rec: 10/30/21 10:30 LRN [id number]) OP-PT Subjective Patient Comments Patient Comments States her foot feels fine. States she is wearing her [place] shoes first in the morning. States she can walk without pain on a consistent basis and has no pain. Patient Questionnaires Foot & Ankle Ability Measure- ADL and Sports FAAM-ADL Score 52 FAAM-ADL Impairment 20 to 39% Impaired (Score 50- 66) OP-PT Pain Assessment Pain Assessment Grid Paper Pain Assessment Grid Completed Yes Location R foot Pain Location Details Top of foot and pain at mid plantar arch. Intensity 0 PT-OP-J Posture/Palpation/Skin Start: 10/11/21 19:53 Freq: Status: Active Protocol: Document 10/13/21 09:52 LRN (Rec: 10/13/21 12:35 LRN [id number]) Posture Evaluation Position Standing Knee Posture (L) Genu Varus,(R) Genu Varus Ankle/Foot Posture (L) Forefoot Abducted,(R) Forefoot Abducted Foot Arch (L) Medium Arch,(R) Low Arch Palpation Assessment Location R foot Palpation Location Medial Cuneiform Palpation Findings Edema,Soft Tissue Tightness, Tenderness PT-OP-K Range of Motion Start: 10/11/21 19:53 Freq: Status: Active Protocol: Document 10/30/21 09:45 LRN (Rec: 10/30/21 10:30 LRN [id number]) Ankle and Foot Goniometric Range of Motion Ankle and Foot Right Active Ankle/Foot ROM WFL No Testing Position Supine Dorsiflexion with Knee Flexed 12 Plantarflexion 62 Inversion 30 Eversion 10 Left Active Ankle/Foot ROM WFL Yes Testing Position Supine Dorsiflexion with Knee Extended 10 Plantarflexion 60 Inversion 35 Eversion 10 PT-OP-M Strength Start: 10/11/21 19:53 Freq: Status: Active Protocol: Document 10/13/21 09:52 LRN (Rec: 10/13/21 12:35 LRN [id number]) Ankle/Foot Strength Ankle and Foot Manual Muscle Testing Right Dorsiflexion (L4) 5 Normal Plantarflexion (S1) 5 Normal Inversion 5 Normal Eversion (S1) 5 Normal Left Dorsiflexion (L4) 5 Normal Plantarflexion (S1) 5 Normal Inversion 5 Normal Eversion (S1) 5 Normal PT-OP-Q Treatments Start: 10/11/21 19:53 Freq: Status: Active Protocol: Document 10/30/21 09:45 LRN (Rec: 10/30/21 10:30 LRN [id number]) Therapeutic Exercises Supine Exercises PROM L ankle Supine Exercise Name Passive stretch ankle PF/IV Side left Comments Discussion of pt HEP for mild limitation in AROM Ankle AROM Supine Exercise Name Ankle ROM Side bilateral Comments ROM taken Sitting Exercises Ankle PF Sitting Exercise Name Ankle PF strengthening Side right Equipment Used Lev1 TB Reps/Minutes 10x 3 Ankle EV Sitting Exercise Name Ankle EV strengthening Side bilateral Reps/Minutes Lev 1 Ankle IV Sitting Exercise Name Ankle IV strengthening Side bilateral Equipment Used Lev 1 Reps/Minutes 30x Toe Flexion Sitting Exercise Name Toe curls: towel pull front/ back and to L side. Side bilateral Short Foot Ex Sitting Exercise Name Lift of arch without curl of toes Side right Reps/Minutes 5-10 SH x 10 Comments Extra time to coordinate tightening without toe curls. Self-Care/Home Management Treatment Education Patient Education Home Exercise Program Activities Self-Care/Home Management Activities Issued & reviewed HEP: CONC/ ECC Ankle PF strengthening. PT-OP-R Modalities Start: 10/11/21 19:53 Freq: Status: Active Protocol: Document 10/16/21 09:49 LRN (Rec: 10/16/21 10:38 N [id number]) Ultrasound Therapy Treatment R foot Treatment Duration (minutes) 8 Coupling Medium Ultrasound Gel Applicator Size (cm2) 2 Frequency Setting (mHz) 3 Mode Setting Pulsed Duty Cycle 50% Intensity Setting (w/cm2) 1.0 Comments R plantar arch of foot PT-OP-T Assessment and Plan Start: 10/11/21 19:53 Freq: Status: Active Protocol: Document 10/30/21 09:45 LRN (Rec: 10/30/21 10:30 LRN [id number]) Physical Therapy Assessment Goals One Impairment Lacks self care HEP. Short Term Goal (STG) Pt educated in self care HEP to eliminate R foot pain. 10/16/21: HEP: short foot flexor (w/progressiong), toe flexors, ankle IV ex's. STG Duration 10/23/21 (10/16/21: MET GOAL) Halfway Goal (LTG) Pt able to eliminate R foot pain on a self care HEP so that she can walk without pain on a consistent basis. LTG Duration 12/12/21 (10/30/21: MET GOAL) Assessment Summary Assessment Pt attends with no complaints of R foot pain. She demonstrates a good understanding of her HEP and is wearing supportive shoe wear in her home. Pt goal met ; therefore pt is ready for DC to her independent HEP. Physical Therapy Plan Discharge Physical Therapy Discharge Reasons Goals Met Discharge Comments Thank you for your referral.
== END 2021-11-04 10:34 ==
LOC: PHYS 09:45
PROVIDERS: Family Provider Nurse Practitioner; PCP Nurse Practitioner; Referring Provider Nurse Practitioner; Visit Provider Nurse Practitioner
DX: M79.671 Pain in right foot (principal)
CPT/HCPCS: 97035; 97110; 97162; 97535

== ENCOUNTER → 2021-10-30 10:32 | Outpatient (CLI) | payer MEDICARE, SELFPAY ==
--- NOTE | 2021-10-30 10:33 | DI.US.S_ITS ---
PROCEDURE: US PELVIC COMPLETE INDICATIONS: PMB TECHNIQUE: Real-time scanning was performed of the pelvic organs, with image documentation. Additional endovaginal scanning was necessary due to incomplete visualization of the adnexal and endometrial structures by transabdominal scanning. COMPARISON: None. FINDINGS: Uterus: Surgically absent Ovaries: Neither ovary was visualized Other: In the anterior wall of the distal vision vaginal canal, there is a hypoechoic focus with slight peripheral vascularity measuring 3.4 x 0.7 x 1.1 cm IMPRESSION: Hypoechoic probably cystic structure in the anterior wall of the distal vaginal canal probably reflects Bartholin gland cyst. Approved by: Chris Campos M.D. on 10/30/2021 at 15:11
== END ==
PROVIDERS: Family Provider Nurse Practitioner; PCP Nurse Practitioner; Referring Provider Obstetrics & Gynecology; Visit Provider Obstetrics & Gynecology
DX: N95.0 Postmenopausal bleeding (principal); R14.0 Abdominal distension (gaseous)
CPT/HCPCS: 76856

== ENCOUNTER → 2021-12-30 11:41 | Outpatient (CLI) | payer MEDICARE, SELFPAY ==
[2021-12-31 10:36] LABS: Candida species Negative (Negative); Gardnerella vaginalis Negative (Negative); Trichomoas vaginalis Negative (Negative)
== END ==
PROVIDERS: Family Provider Nurse Practitioner; PCP Nurse Practitioner; Visit Provider Obstetrics & Gynecology
DX: N89.8 Other specified noninflammatory disorders of vagina (principal)
CPT/HCPCS: 87480; 87510; 87660

== ENCOUNTER → 2022-01-15 09:09 | Outpatient (CLI) | payer MEDICARE, SELFPAY ==
--- NOTE | 2022-01-15 09:12 | DI.MG.S_ITS ---
BILATERAL DIGITAL DIAGNOSTIC MAMMOGRAM 3D/2D: 01/15/2022 CLINICAL: Right axilla lump. Comparison is made to exams dated: 05/22/2020 mammogram, 02/08/2020 mammogram - [facility], and 01/30/2016 mammogram - [facility]. Both breasts are heterogeneously dense, which may obscure small masses (category c / 51-75% glandular tissue). No significant masses, calcifications, or other findings are seen in either breast. No abnormality which corresponds with the palpable abnormality is seen. IMPRESSION: INCOMPLETE: NEEDS ADDITIONAL IMAGING EVALUATION Ultrasound is recommended. US will be performed and dictated separately. Based on the Tyrer Cuzick model (a risk assessment model) the patient's lifetime risk is 8.5% and her 10 year risk is 4.7%. According to the ACR, ACS, and NCCN guidelines, an annual breast MRI exam along with mammogram is recommended if the patient's lifetime risk is 20% or greater. This exam was interpreted at Station ID: [id number]. NOTE: For mammograms, a report in lay terms will be sent to the patient. Approximately 15% of breast malignancies will not be visualized mammographically. In the management of a palpable breast mass, a negative mammogram must not discourage biopsy of a clinically suspicious lesion. Electronically Signed By: Chris Valera M.D. acr/:01/15/2022 10:00:07 ACR BI-RADS Category 0: Incomplete [id number]
--- NOTE | 2022-01-15 09:12 | DI.US.S_ITS ---
ULTRASOUND OF RIGHT BREAST: 01/15/2022 CLINICAL: Palpable right breast lump. Comparison is made to exams dated: 01/15/2022 mammogram, 02/08/2020 mammogram - , and 01/30/2016 mammogram - [facility] [place]. Color flow and Doppler ultrasound of the right breast were performed. IMPRESSION: NEGATIVE There is no sonographic evidence of malignancy. There is no abnormality seen in the right axilla to correspond with the palpable abnormality in the right axilla, however, clinical followup is recommended. A 1 year screening mammogram is recommended. This exam was interpreted at Station ID: [id number]. Electronically Signed By: Chris Valera M.D. acr/sonny:01/15/2022 10:41:59 letter sent: Normal Exam Ultrasound BI-RADS: 1 Negative
== END ==
PROVIDERS: Family Provider Nurse Practitioner; PCP Nurse Practitioner; Referring Provider Nurse Practitioner; Visit Provider Nurse Practitioner
DX: N63.31 Unspecified lump in axillary tail of the right breast (principal); R92.2 Inconclusive mammogram
CPT/HCPCS: 76642; 77066; G0279

== ENCOUNTER → 2022-03-11 15:07 | Outpatient (CLI) | payer MEDICARE, SELFPAY ==
[2022-03-11 16:10] LABS: Add Manual Diff / Slide Review NO; Basophils Absolute Auto 0 /uL (0-100); Basophils Percent Auto 0.4 % (0-2); Eosinophils Absolute Auto 100 /uL (0-450); Eosinophils Percent Auto 1.5 % (2-4); Hematocrit 40.9 % (36-46); Hemoglobin 13.7 g/dL (12.0-16.0); Lymphocytes Absolute Auto 2700 /uL (1100-4500); Lymphocytes Percent Auto 39.2 % (25-40); Mean Corpuscular HGB Conc 33.4 % (30-36); Mean Corpuscular Hemoglobin 30.2 PG (26-34); Mean Corpuscular Volume 90.5 fL (80-100); Monocytes Absolute Auto 500 /uL (0-900); Monocytes Percent Auto 7.3 % (3-14); Neutrophils Absolute Auto 3600 /uL (1500-7000); Neutrophils Percent Auto 51.6 % (50-75); Platelet Count 248 X10^3/uL (150-400); Red Blood Cell Count 4.52 X10^6/uL (4.0-5.2); Red Cell Distribution Width 14.5 % (11.6-14.8); White Blood Cell Count 6.9 X10^3/uL (4.5-11.0)
[2022-03-11 16:25] LABS: Estimated Glomerular Filt Rate > 60 mL/min (>60)
[2022-03-11 16:26] LABS: Hemoglobin A1C% w Est Avg Glu 5.7 % (4.0-6.0)
[2022-03-11 16:57] LABS: HEMOLYSIS < 15 (0-50); Iron 96 ug/dL (37-170)
[2022-03-11 17:06] LABS: Alanine Aminotransferase 17 IU/L (<35); Albumin 3.9 g/dL (3.5-5.0); Albumin Globulin Ratio 1.4 (1.0-2.8); Alkaline Phosphatase 66 U/L (38-126); Aspartate Aminotransferase 20 IU/L (14-36); BUN Creatinine Ratio 12.2 (6-22); Bilirubin Total 0.3 mg/dL (0.2-1.3); Blood Urea Nitrogen 10 mg/dL (7-17); Calcium 8.4 mg/dL (8.4-10.2); Carbon Dioxide 28 mmol/L (22-32); Chloride 102 mmol/L (98-107); Estimated Glomerular Filt Rate > 60 mL/min (>60); Globulin 2.7 g/dL (1.7-4.1); Glucose 86 mg/dL (80-110); HEMOLYSIS < 15 (0-50); Potassium 4.1 mmol/L (3.4-5.1); Sodium 139 mmol/L (137-145); Total Protein 6.6 g/dL (6.3-8.2)
[2022-03-11 17:08] LABS: Percent Iron Saturation 33 % (15-50); Total Iron Binding Capacity 289 ug/dL (265-497); Transferrin 227 mg/dL (206-381)
[2022-03-11 17:15] LABS: Free T3, Triiodothyronine Free 3.24 pg/mL (2.77-5.27); Free T4, Direct Thyroxine 1.02 ng/dL (0.78-2.19)
[2022-03-11 17:28] LABS: Thyroid Stimulating Hormone 0.775 uIU/mL (0.47-4.68)
== END ==
PROVIDERS: Specialist; Family Provider Nurse Practitioner; PCP Nurse Practitioner; Referring Provider Nurse Practitioner; Visit Provider Nurse Practitioner
DX: R73.01 Impaired fasting glucose (principal); R53.83 Other fatigue; R63.4 Abnormal weight loss
CPT/HCPCS: 36415; 80053; 82565; 83036; 83540; 83550; 84439; 84443; 84481; 85025

== ENCOUNTER → 2022-03-12 08:53 | Outpatient (CLI) | payer MEDICARE, SELFPAY ==
--- NOTE | 2022-03-12 08:57 | DI.US.S_ITS ---
PROCEDURE: US ABDOMEN COMPLETE INDICATIONS: Abdominal discomfort TECHNIQUE: Real-time scanning was performed of the abdominal and retroperitoneal organs, with image documentation. COMPARISON: [facility], MR, MR ABDOMEN WO/W CON, 08/04/2020, 9:30. [facility], US, US ABDOMEN LIMITED, 12/02/2020, 8:45. FINDINGS: Liver: Liver is normal in size and homogeneous in echotexture. Gallbladder: Contracted. No stones or sludge identified. Normal gallbladder wall thickness. No pericholecystic fluid. Negative sonographic Anna's sign. Biliary ducts: Intrahepatic bile ducts are non-dilated. Extrahepatic bile duct caliber measures 7.5 mm. Normal is 6-7 mm or less in diameter, or 10 mm or less post-cholecystectomy. Pancreas: Visualized portions of the pancreas are sonographically normal. Pancreatic duct measures approximately 3.5 mm. Tail is suboptimally visualized. Spleen: Spleen is normal in size and homogeneous in echotexture. Measures 7.9 cm. Kidneys: Kidneys are normal in size and echotexture. Right kidney measures 8.8 cm long; left kidney measures 10.8 cm long. No hydronephrosis or nephrolithiasis. No solid masses. Multiple bilateral simple renal cysts. Largest on the right measuring 1.4 cm. Largest on the left measuring 2.1 cm. Aorta: Visualized aorta is normal in caliber at less than 3 cm. Plaque is seen in the mid aorta. Iliacs: Proximal common iliac arteries are normal in caliber at less than 2.5 cm. IVC: Intrahepatic inferior vena cava is patent. Miscellaneous: No free abdominal fluid. IMPRESSION: 1. No acute cholecystitis. No gallstones identified. 2. Minimal prominence of the CBD and pancreatic duct. Dictated by: Omer Gtz M.D. on 03/12/2022 at 11:19 Approved by: Omer Gtz M.D. on 03/12/2022 at 11:24
--- NOTE | 2022-03-12 08:57 | DI.RAD.S_ITS ---
PROCEDURE: XR WRIST LT MIN 3V INDICATIONS: left wrist pain TECHNIQUE: 4 views of the wrist were acquired. COMPARISON: None. FINDINGS: Bones: No acute fractures or dislocations. No suspicious bony lesions. Severe degenerative changes are seen at the 1st carpometacarpal joint with full-thickness joint space narrowing, subchondral sclerosis, and marginal osteophyte formation. Mild degenerative changes are seen at the 1st metacarpophalangeal joint and radioscaphoid joint. Scaphoid view: No scaphoid fracture. Soft tissues: No suspicious soft tissue calcifications. IMPRESSION: Severe 1st carpometacarpal joint osteoarthrosis. Approved by: Levi Altamirano M.D. on 03/12/2022 at 11:12
--- NOTE | 2022-03-12 08:57 | DI.CT.S_ITS ---
PROCEDURE: CT CHEST ABD PEL W CON INDICATIONS: fatigue, smoking history, SOB TECHNIQUE: After the administration of oral and intravenous contrast, axial sections acquired from the supraclavicular neck to the pubic symphysis. Coronal and sagittal reformats were performed. For radiation dose reduction, the following was used: automated exposure control, adjustment of mA and/or kV according to patient size. COMPARISON: None. FINDINGS: Image quality: Excellent. CHEST: Lower Neck: No enlarged lymph nodes. Thyroid: Unremarkable. Axillae: No enlarged lymph nodes. Chest Wall: Unremarkable. Lungs and Airways: A 5 mm ground-glass nodule is present within the lateral aspect of the left upper lobe (series 3/image 35). No other suspicious pulmonary nodules. No acute airspace opacities. Pleura: No pneumothorax or pleural effusions. Heart: Heart size is normal. No pericardial effusion. Thoracic Vessels: The aorta and pulmonary arteries demonstrate normal size. Scattered atheromatous calcifications are present within the ao rtic arch. Mediastinum and [place]: No enlarged lymph nodes. Esophagus: No wall thickening. No hiatal hernia. ABDOMEN: Liver: Unremarkable. Gallbladder: Unremarkable. Biliary ducts: Unremarkable. Pancreas: Unremarkable. Spleen: Unremarkable. Adrenal Glands: Unremarkable. Kidneys and Ureters: The kidneys are normal in size and enhancement. No hydronephrosis. There are multiple bilateral low-density renal cystic lesions. There is an intermediate density cyst within the anterior midpole of the right kidney (series 2/image 75 and series 4/image 27). Stomach and Bowel: Stomach, small bowel loops, and colon are unremarkable. The appendix is not visualized; however there is no discrete right lower quadrant fluid or fat stranding to suggest acute appendicitis. Peritoneum: No abnormal intraperitoneal fluid. No free air. Ventral Wall: No hernia. Abdominal Nodes: No retroperitoneal or mesenteric adenopathy by size criteria. Vessels: Aorta and inferior vena cava are normal in size. There are scattered atheromatous calcifications throughout the aorta and iliac arteries bilaterally. PELVIS: Pelvic Organs: Unremarkable. Bladder: Unremarkable. Pelvic Nodes: No enlarged lymph nodes. Miscellaneous: No inguinal hernias are seen. Bones: Unremarkable. IMPRESSION: 1. 5 mm left upper lobe ground-glass nodule. No further follow-up recommended. Please see follow-up guidelines below. 2. No acute pulmonary or intra-abdominal findings. The appendix is not visualized; however there are no ancillary findings to suggest acute appendicitis. 3. Intermediate density right renal cyst as described above. If further characterization is warranted to exclude cystic neoplasm, nonemergent renal ultrasound could be used. Fleischner Society criteria for SOLID lung nodule followup. Nodule size (mm)Low-risk patientHigh-risk patient<6 (single or multiple)No routine followup.Optional CT at 12 months. 6-8 (single or multiple)CT at 6-12 months, then optional CT at 18-24 mo.CT at 6-12 months, then CT at 18-24 months. >8 (single)CT at 3 months, PET-CT, or biopsy. Same as for low-risk pts. >8 (multiple)CT at 3-6 months, then optional CT at 18-24 mo.CT at 3-6 months, then CT at 18-24 months. Fleischner Society criteria for SUB-SOLID lung nodule followup. Solitary pure ground-glass nodules<6 mm (ground glass or part solid)No followup needed. 6 mm or larger (ground glass)CT at 6-12 months to confirm persistence, then CT every 2 years until 5 years.6 mm or larger (part solid)CT at 3-6 months to confirm persistence, then annual CT until 5 years if unchanged and solid component remains <6 mm. Multiple sub-solid nodules<6 mmCT at 3-6 months, then CT consider at 2 & 4 years for high risk patients. [address] at 3-6 months. Subsequent management based on most suspicious lesions. Recommendations do not apply to lung cancer screening, patients with immunosuppression, or patients with known primary cancer. Dictated by: Gianna Marks M.D. on 03/12/2022 at 13:56 Approved by: Gianna Marks M.D. on 03/12/2022 at 14:05
== END ==
PROVIDERS: Family Provider Nurse Practitioner; PCP Nurse Practitioner; Referring Provider Nurse Practitioner; Visit Provider Nurse Practitioner
DX: K86.89 Other specified diseases of pancreas (principal); N28.1 Cyst of kidney, acquired; R10.11 Right upper quadrant pain; R91.1 Solitary pulmonary nodule; R63.4 Abnormal weight loss; R53.83 Other fatigue; M18.12 Unilateral primary osteoarthritis of first carpometacarpal joint, left hand; M25.532 Pain in left wrist; Z87.891 Personal history of nicotine dependence
CPT/HCPCS: 71260; 73110; 74177; 76700; Q9967

== ENCOUNTER → 2022-03-26 09:54 | Outpatient (CLI) | payer MEDICARE, SELFPAY ==
[2022-03-26 10:38] LABS: Influenza A - CEPHEID Flu A NEGATIVE (NEGATIVE); Influenza B - CEPHEID Flu B NEGATIVE (NEGATIVE); Respiratory Syncytial Virus Negative (Negative)
[2022-03-26 10:41] LABS: COVID-19 CEPHEID 4-PLEX PCR Negative (Negative)
== END ==
PROVIDERS: Family Provider Nurse Practitioner; PCP Nurse Practitioner; Visit Provider Student in an Organized Health Care Education/Training Program
DX: J06.9 Acute upper respiratory infection, unspecified (principal); Z20.822 Contact with and (suspected) exposure to COVID-19
CPT/HCPCS: 0241U

== ENCOUNTER → 2022-03-26 09:57 | Outpatient (CLI) | payer MEDICARE, SELFPAY ==
[2022-03-26 11:47] LABS: Alanine Aminotransferase 27 IU/L (<35); Albumin 3.9 g/dL (3.5-5.0); Albumin Globulin Ratio 1.6 (1.0-2.8); Alkaline Phosphatase 55 U/L (38-126); Aspartate Aminotransferase 24 IU/L (14-36); BUN Creatinine Ratio 24.4 (6-22); Bilirubin Total 0.5 mg/dL (0.2-1.3); Blood Urea Nitrogen 19 mg/dL (7-17); Calcium 8.6 mg/dL (8.4-10.2); Carbon Dioxide 29 mmol/L (22-32); Chloride 102 mmol/L (98-107); Estimated Glomerular Filt Rate > 60 mL/min (>60); Globulin 2.5 g/dL (1.7-4.1); Glucose 82 mg/dL (80-110); HEMOLYSIS 35 (0-50); Potassium 4.6 mmol/L (3.4-5.1); Sodium 137 mmol/L (137-145); Total Protein 6.4 g/dL (6.3-8.2)
== END ==
PROVIDERS: Family Provider Nurse Practitioner; PCP Nurse Practitioner; Referring Provider Nurse Practitioner; Visit Provider Nurse Practitioner
DX: I10 Essential (primary) hypertension (principal); J06.9 Acute upper respiratory infection, unspecified; Z20.822 Contact with and (suspected) exposure to COVID-19
CPT/HCPCS: 0241U; 36415; 80053

== ENCOUNTER → 2022-04-01 12:47 | Outpatient (CLI) | payer MEDICARE, SELFPAY ==
[2022-04-01 13:34] LABS: Hematocrit 41.3 % (36-46); Hemoglobin 13.9 g/dL (12.0-16.0)
[2022-04-01 14:19] LABS: BUN Creatinine Ratio 28.7 (6-22); Blood Urea Nitrogen 25 mg/dL (7-17); Calcium 8.6 mg/dL (8.4-10.2); Carbon Dioxide 32 mmol/L (22-32); Chloride 99 mmol/L (98-107); Estimated Glomerular Filt Rate > 60 mL/min (>60); Glucose 98 mg/dL (80-110); HEMOLYSIS < 15 (0-50); Potassium 4.5 mmol/L (3.4-5.1); Sodium 138 mmol/L (137-145)
[2022-04-01 14:24] LABS: Creatinine Urine Random 94.4 mg/dL
[2022-04-01 14:26] LABS: Protein (Total) Urine Random < 5 mg/dL (0-12); Protein Creatinine Ratio Urine 0.05 GRAM/24H
[2022-04-02 13:04] LABS: Parathyroid Hormone Int 56 pg/mL (15-65)
== END ==
PROVIDERS: Family Provider Nurse Practitioner; PCP Nurse Practitioner; Referring Provider Student in an Organized Health Care Education/Training Program; Visit Provider Student in an Organized Health Care Education/Training Program
DX: N05.9 Unspecified nephritic syndrome with unspecified morphologic changes (principal); D64.9 Anemia, unspecified; R80.9 Proteinuria, unspecified; N25.81 Secondary hyperparathyroidism of renal origin
CPT/HCPCS: 36415; 80048; 82570; 83970; 84156; 85014; 85018

== ENCOUNTER → 2022-04-14 08:59 | Outpatient (CLI) | payer MEDICARE, SELFPAY ==
--- NOTE | 2022-04-14 | DI.ECHO.S_ITS ---
[facility]---------+ [facility] +---------+ : : [address] [place] : : : : [id number] : : : : Phone: [phone]+ Echocardiogram Report + + :Name: CHENG SWENSON Study Date: 04/14/2022 Height: 61 in : :[facility] ReadingLocation: Weight: 160 lb : : Gender: Female BSA: 1.7 m2 : :: 1955 Age: 66 yrs BP: 128/82 mmHg: :Reason For Study: OTHER SPECIFIED DISORDERS OF ARTERIES AND : :ARTERIOLS : :Ordering Physician: : :SHABNAM PALMER Performed By: Teetee Hobbs : :Referring: SHABNAM PALMER : + + Interpretation Summary The left ventricle is normal in size. The ejection fraction is estimated to be 55-60%. There has been no significant change in LVEF since the previous exam. Previous posterior lateral hypokinesis improved. The right ventricle is normal in size and function. There is mild to moderate aortic regurgitation. Compared to the prior echo study, there has been an increase in the severity of aortic regurgitation. Previously mild aortic regurgitation. The IVC is of normal diameter and collapses greater than 50% with a sniff. This suggests a low right atrial pressure of 3 mm Hg. Previously right atrial pressure about 15 mmHg. The ascending aorta is mildly enlarged. 3.9 cm in diameter. Unchanged from the previous study. Procedure: A two-dimensional transthoracic echocardiogram with color flow and Doppler was performed. The study quality was technically adequate. Comparison is made with the echocardiogram of 12/08/2020. The patient was in sinus bradycardia with heart rates between 49-66 bpm during the exam. The patient had occasional PACs during the exam. Left Ventricle: The left ventricle is normal in size. Proximal septal thickening is noted. There is no echo evidence for significant left ventricular outflow tract obstruction. There is no thrombus. The ejection fraction is estimated to be 55-60%. There has been no significant change since the previous exam. There is basal inferior wall hypokinesis. Compared to the prior exam, the posterior wall motion abnormality is improved. Diastolic parameters suggest a relaxation abnormality of the left ventricle, consistent with probable normal filling pressures. Right Ventricle: The right ventricle is normal in size and function. Atria: The left atrium is mildly dilated. There has been no significant change since the previous study. Right atrial size is normal. There is no Doppler evidence for an interatrial shunt. Mitral Valve: The mitral valve leaflets appear mildly thickened, but open well. There is mild mitral annular calcification. There is trace mitral regurgitation. Aortic Valve: The aortic valve is trileaflet. The aortic valve opens well. The aortic valve is slightly calcified. There is no aortic valve stenosis. There is mild to moderate aortic regurgitation. Compared to the prior echo study, there has been an increase in the severity of aortic regurgitation. Tricuspid Valve: The tricuspid valve is normal in structure and function. There is trace tricuspid regurgitation. Pulmonary artery pressures cannot be estimated because of the lack of a measurable TR jet velocity. Pulmonic Valve: The pulmonic valve is not well visualized. There is no pulmonic valvular regurgitation. Great Vessels: The aortic root is normal size. The ascending aorta is mildly enlarged. The IVC is of normal diameter and collapses greater than 50% with a sniff. This suggests a low right atrial pressure of 3 mm Hg. Pericardium/ Pleura There is no pericardial effusion. There is no pleural effusion. MMode/2D Measurements & Calculations LVIDd: 5.4 cm LVOT diam: 2.1 cm LVIDs: 3.4 cm Ao root diam: 3.2 cm FS: 36.2 % asc Aorta Diam: 3.9 cm EPSS: 0.76 cm Ao Arch Diam (Prox Trans): 2.3 cm IVSd: 0.66 cm LVPWd: 0.79 cm LV galdamez. diameter/BSA (cm/m^2): 3.1 LV sys. diameter/BSA (cm/m^2): 2.0 LA A2 area: 26.0 cm2 RA long axis: 4.8 cm LA A4 area: 13.5 cm2 RA area: 12.3 cm2 LA length (vol): 4.6 cm RA vol: 26.4 ml LA vol: 65.0 ml RA : 15.4 ml/m2 LA vol index: 37.8 ml/m2 IVC diam: 1.5 cm RVD1 (basal): 3.6 cm RVD2 (mid): 2.8 cm TAPSE: 2.1 cm Doppler Measurements & Calculations Ao V2 max: 178.0 cm/sec LVOT Max Joaquin: 99.6 cm/sec Ao V2 mean: 116.9 cm/sec LV V1 max P.0 mmHg Ao max P.7 mmHg LV V1 VTI: 26.6 cm Ao mean P.4 mmHg RUTH(I,D): 2.0 cm2 Ao V2 VTI: 44.1 cm RUTH(V,D): 1.9 cm2 sev ratio: 0.60 RUTH indexed to BSA (cm^2/m^2): 1.2 AI P1/2t: 847.2 msec AI dec slope: 150.2 cm/sec2 MV E max joaquin: 78.8 cm/sec PA V2 max: 84.2 cm/sec MV A max joaquin: 113.2 cm/sec PA V2 mean: 55.0 cm/sec MV E/A: 0.70 PA mean P.4 mmHg Med Peak E' Joaquin: 5.3 cm/sec PA pr(Accel): 29.3 mmHg E/E' med: 14.8 Lat Peak E' Joaquin: 6.9 cm/sec E/E' lat: 11.4 E/e' average: 13.1 MV dec time: 0.25 sec SV(LVOT): 88.1 ml Reading Physician:04:34 PM
== END ==
PROVIDERS: Family Provider Nurse Practitioner; PCP Nurse Practitioner; Referring Provider Internal Medicine Cardiovascular Disease; Visit Provider Internal Medicine Cardiovascular Disease
DX: I08.0 Rheumatic disorders of both mitral and aortic valves (principal); I77.89 Other specified disorders of arteries and arterioles
CPT/HCPCS: 93306

== ENCOUNTER → 2022-06-11 10:05 | Outpatient (CLI) | payer MEDICARE, SELFPAY ==
[2022-06-11 11:44] LABS: Add Manual Diff / Slide Review NO; Basophils Absolute Auto 0 /uL (0-100); Basophils Percent Auto 0.5 % (0-2); Eosinophils Absolute Auto 100 /uL (0-450); Eosinophils Percent Auto 2.4 % (2-4); Lymphocytes Absolute Auto 1700 /uL (1100-4500); Lymphocytes Percent Auto 31.5 % (25-40); Mean Corpuscular HGB Conc 33.4 % (30-36); Mean Corpuscular Hemoglobin 30.6 PG (26-34); Mean Corpuscular Volume 91.5 fL (80-100); Monocytes Absolute Auto 400 /uL (0-900); Monocytes Percent Auto 6.9 % (3-14); Neutrophils Absolute Auto 3200 /uL (1500-7000); Neutrophils Percent Auto 58.7 % (50-75); Platelet Count 252 X10^3/uL (150-400); Red Blood Cell Count 4.59 X10^6/uL (4.0-5.2); Red Cell Distribution Width 14.1 % (11.6-14.8); White Blood Cell Count 5.4 X10^3/uL (4.5-11.0)
[2022-06-11 12:07] LABS: Cholesterol 179 mg/dL (140-199); HDL Cholesterol 60 mg/dL (40-60); LDL Cholesterol Calculated 87 mg/dL (<100); Triglycerides 162 mg/dL (35-150)
[2022-06-11 12:08] LABS: C-Reactive Protein Quant 1.2 mg/dL (<1.0)
[2022-06-11 12:18] LABS: Rheumatoid Factor < 8.6 IU/mL (<12.0)
[2022-06-11 12:38] LABS: Erythrocyte Sedimentation Rate 15 MM/HR (0-20)
[2022-06-14 18:17] LABS: CCP Antibodies IgG/IgA 4 units (0-19)
[2022-06-14 20:08] LABS: ANA Screen, IFA Negative (.)
== END ==
PROVIDERS: Family Provider Nurse Practitioner; PCP Nurse Practitioner; Referring Provider Nurse Practitioner; Visit Provider Nurse Practitioner
DX: E78.5 Hyperlipidemia, unspecified (principal); J44.9 Chronic obstructive pulmonary disease, unspecified
CPT/HCPCS: 36415; 80061; 83516; 85025; 85651; 86038; 86140; 86200; 86430

== ENCOUNTER → 2022-06-17 11:16 | Outpatient (CLI) | payer MEDICARE, SELFPAY ==
--- NOTE | 2022-06-17 11:17 | DI.US.S_ITS ---
PROCEDURE: US EXTREMITY NONVASC UPPER LT INDICATIONS: LEFT ARM PAIN AND MULTIPLE LUMPS TECHNIQUE: Real-time scanning was performed of the left upper arm, with image documentation. COMPARISON: [facility], , US EXTREMITY NONVASC LOWER RT, 05/22/2020, 10:08. FINDINGS: Focused ultrasound examination of left upper arm at patient's reported area of pain shows no discrete soft tissue mass or fluid collection. No abnormally enlarged axillary lymph nodes by size criteria. Visualized portion of left upper extremity veins shows no intraluminal filling defects. IMPRESSION: No abnormality is seen in left upper arm to explain patient's symptoms. Dictated by: Brian Alegre M.D. on 06/17/2022 at 15:24 Approved by: Brian Alegre M.D. on 06/17/2022 at 15:25
== END ==
PROVIDERS: Family Provider Nurse Practitioner; PCP Nurse Practitioner; Referring Provider Nurse Practitioner; Visit Provider Nurse Practitioner
DX: M79.602 Pain in left arm (principal)
CPT/HCPCS: 76882

== ENCOUNTER → 2022-07-02 10:40 | Outpatient (CLI) | payer MEDICARE, SELFPAY ==
[2022-07-02 11:11] LABS: Hematocrit 42.3 % (36-46); Hemoglobin 14.4 g/dL (12.0-16.0)
[2022-07-02 11:34] LABS: Creatinine Urine Random 249.7 mg/dL; Protein (Total) Urine Random 17 mg/dL (0-12); Protein Creatinine Ratio Urine 0.06 GRAM/24H
[2022-07-02 13:26] LABS: BUN Creatinine Ratio 14.1 (6-22); Blood Urea Nitrogen 12 mg/dL (7-17); Calcium 8.8 mg/dL (8.4-10.2); Carbon Dioxide 29 mmol/L (22-32); Chloride 102 mmol/L (98-107); Estimated Glomerular Filt Rate > 60 mL/min (>60); Glucose 88 mg/dL (80-110); HEMOLYSIS < 15 (0-50); Potassium 4.3 mmol/L (3.4-5.1); Sodium 137 mmol/L (137-145)
[2022-07-06 07:08] LABS: Parathyroid Hormone Int 45 pg/mL (15-65)
== END ==
PROVIDERS: Family Provider Nurse Practitioner; PCP Nurse Practitioner; Referring Provider Student in an Organized Health Care Education/Training Program; Visit Provider Student in an Organized Health Care Education/Training Program
DX: N05.9 Unspecified nephritic syndrome with unspecified morphologic changes (principal); N30.00 Acute cystitis without hematuria; R80.9 Proteinuria, unspecified; D64.9 Anemia, unspecified; N25.81 Secondary hyperparathyroidism of renal origin
CPT/HCPCS: 36415; 80048; 82570; 83970; 84156; 85014; 85018

== ENCOUNTER → 2022-07-21 09:33 | Outpatient (CLI) | payer MEDICARE, SELFPAY ==
--- NOTE | 2022-07-21 09:36 | DI.US.S_ITS ---
PROCEDURE: US RENAL COMPLETE INDICATIONS: CHRONIC KIDNEY DISEASE, STAGE 2 (MILD) TECHNIQUE: Real-time scanning was performed of the kidneys and bladder, with image documentation. COMPARISON: [facility], US, US ABDOMEN COMPLETE, 03/12/2022, 9:14. [facility], CT, CT CHEST ABD PEL W CON, 03/12/2022, 11:47. FINDINGS: Kidneys: Kidneys are normal in size. Right kidney measures 9.7 cm long; left kidney measures 10.1 cm long. Right renal cortical thickness is 1 point cm; left renal cortical thickness is 2.1 cm. Renal cortical echotexture is normal. No hydronephrosis or nephrolithiasis. Bilateral simple appearing renal cysts. The largest cyst in right kidney measures 1.6 x 1.4 x 1.9 cm. The largest cyst in left kidney measures 2.2 x 2.2 x 2.3 cm. No suspicious solid mass lesions. Bladder: Pre-void bladder volume is 20.1 mL. No postvoid residual. Pre-void images demonstrate no intraluminal masses or stones. On pre-void images, neither ureteral jets are noted with color Doppler interrogation. (Of note, ureteral jets may not be detectable in up to 25% of cases due to insufficient differences in specific gravity between ureteral and bladder urine). Miscellaneous: No free pelvic fluid. IMPRESSION: 1. There are simple cysts in kidneys bilaterally. 2. No stones or hydronephrosis. 3. No postvoid residual in postvoid bladder. Dictated by: Paulino Etienne M.D. on 07/21/2022 at 13:50 Approved by: Paulino Etienne M.D. on 07/21/2022 at 13:56
[2022-07-21 11:19] LABS: Hemoglobin 13.8 g/dL (12.0-16.0)
[2022-07-21 11:52] LABS: BUN Creatinine Ratio 26.7 (6-22); Blood Urea Nitrogen 20 mg/dL (7-17); Calcium 8.8 mg/dL (8.4-10.2); Carbon Dioxide 30 mmol/L (22-32); Chloride 101 mmol/L (98-107); Estimated Glomerular Filt Rate > 60 mL/min (>60); Glucose 118 mg/dL (80-110); HEMOLYSIS < 15 (0-50); Potassium 4.4 mmol/L (3.4-5.1); Sodium 138 mmol/L (137-145)
[2022-07-21 13:18] LABS: Appearance Urine UA CLEAR; Bilirubin Urine UA NEGATIVE (NEGATIVE); Color Urine UA YELLOW; Glucose Urine UA NEGATIVE (Negative); Ketones Urine UA NEGATIVE (NEGATIVE); Leukocyte Esterase Urine UA NEGATIVE (NEGATIVE); Nitrite Urine UA NEGATIVE (Negative); Occult Blood Urine UA NEGATIVE (Negative); Protein Urine UA NEGATIVE (Negative); Urobilinogen Urine UA 0.2 E.U./dL (0.2)
[2022-07-21 13:22] LABS: pH Urine UA 5.5 (4.5-8.0)
[2022-07-21 13:25] LABS: RBC Urine None Seen (0-5/HPF); WBC Urine None Seen (0-5/HPF)
[2022-07-21 13:26] LABS: Bacteria Urine None Seen; Culture Indicated Urine Cult Not Indicated; Urine Comments Microscopic Normal
[2022-07-21 16:02] LABS: Creatinine Urine Random 124.4 mg/dL; Protein (Total) Urine Random 12 mg/dL (0-12); Protein Creatinine Ratio Urine 0.09 GRAM/24H
[2022-07-22 10:37] LABS: Parathyroid Hormone Int 29 pg/mL (15-65)
== END ==
PROVIDERS: Family Provider Nurse Practitioner; PCP Nurse Practitioner; Referring Provider Student in an Organized Health Care Education/Training Program; Visit Provider Student in an Organized Health Care Education/Training Program
DX: N18.2 Chronic kidney disease, stage 2 (mild) (principal); N05.9 Unspecified nephritic syndrome with unspecified morphologic changes; N30.00 Acute cystitis without hematuria; R80.9 Proteinuria, unspecified; N25.81 Secondary hyperparathyroidism of renal origin
CPT/HCPCS: 36415; 76770; 80048; 81001; 82570; 83970; 84156; 85014; 85018

== ENCOUNTER 2022-09-27 13:32 | Emergency (ER) | payer MEDICARE, SELFPAY ==
[2022-09-27] VITALS (8 sets, daily range): BP systolic 135–147; BP diastolic 72–92; PULSE 54–74; RESP 18–34; TEMP 36.4; O2SAT 91–99; BMI 29.2
--- NOTE | 2022-09-27 14:00 | ED_ITS ---
HPI - Back Pain/Injury General Chief Complaint: Back Pain/Injury Stated Complaint: back pain Time Seen by Provider: 09/27/22 13:49 Source: patient History of Present Illness HPI Narrative: 67-year-old female smoker with extensive history of neck and back pain, jung creatic mass, GERD, COPD presents with a chief complaint of 3 weeks of worsening midthoracic back pain. She states that it is tearing and 9 in nature and woke her from sleep. She denies dizziness, weakness or lightheadedness. She denies any chest pain worsening shortness of breath. She states that there are certain motions of her neck that seemed to worsen it and use of her right arm likely wo rsens it. She is had minimal to no relief with the use of topical analgesics and her typical, routine attempts at pain control. She states that she had recently been diagnosed with a AAA Related Data Home Medications Medication Instructions Recorded Confirmed albuterol sulfate 90 mcg/actuation See Rx Instructions inhalation ONCE 07/01/21 07/21/22 aerosol inhaler fluticasone 250 mcg-salmeterol 50 See Rx Instructions inhalation .QD 07/01/21 07/21/22 mcg/dose blistr powdr for inhalation hydralazine 25 mg tablet 25 mg PO BID 07/01/21 07/21/22 diltiazem HCl 240 mg 240 mg PO DAILY 05/03/22 07/21/22 capsule,extended release 24 hr lisinopril 40 mg tablet 40 mg PO DAILY 05/03/22 07/21/22 Previous Rx's Medication Instructions Recorded voltaren 10% gel See Rx Instructions .Route 04/24/19 .COMPLEX LBP #30 grams ketoconazole 2 % topical cream 1 applic topical BID #30 grams 04/02/21 sumatriptan succinate 50 mg tablet See Rx Instructions PO .COMPLEX 05/11/21 #20 tabs dicyclomine 10 mg capsule See Rx Instructions .Route 06/25/21 .COMPLEX #90 caps fluticasone propionate 50 1 spray intranasal BID #16 grams 07/01/21 mcg/actuation nasal spray,suspension (Flonase Allergy Relief) loratadine 10 mg tablet (Claritin) 10 mg PO DAILY #90 tabs 07/01/21 Nebulizer #1 ea 09/22/21 albuterol sulfate 2.5 mg/3 mL 2.5 mg (3 mL) inhalation Q4-6H PRN 09/22/21 (0.083 %) solution for nebulization SOB, cough, wheezing #180 mL Ensure Chocolate Flavor Preferred #60 ea 04/01/22 latanoprost 0.005 % eye drops 1 drp EYE-RIGHT .HS #2.5 mL 04/26/22 promethazine 25 mg tablet See Rx Instructions .Route 04/26/22 .COMPLEX #120 tabs trazodone 100 mg tablet See Rx Instructions .Route 05/06/22 .COMPLEX #180 tabs mucus clearing device (Aerobika #1 ea 06/15/22 Oscillating PEP System device) pantoprazole 40 mg tablet,delayed See Rx Instructions .Route 06/28/22 release .COMPLEX #180 tabs clonazepam 1 mg tablet 1 mg PO BID PRN muscle spasms #60 07/01/22 tabs tramadol 50 mg tablet 50 mg PO Q8H PRN pain #90 tabs 07/01/22 venlafaxine 75 mg capsule,extended 225 mg PO BEDTIME #270 caps 07/01/22 release 24 hr carvedilol 25 mg tablet See Rx Instructions .Route 07/09/22 .COMPLEX #180 tabs rosuvastatin 20 mg tablet See Rx Instructions .Route 07/09/22 .COMPLEX #90 tabs lidocaine 5 % topical patch 1 patch topical DAILY #30 ea 09/13/22 cyclobenzaprine 10 mg tablet 10 mg PO TID PRN muscle spasm #14 09/27/22 tabs ketorolac 10 mg tablet 10 mg PO Q6H PRN pain #14 tabs 09/27/22 methylprednisolone 4 mg tablets in See Rx Instructions PO .COMPLEX 09/27/22 a dose pack (Medrol ([place])) #21 ea oxycodone 5 mg tablet 5 mg PO Q6H PRN pain #10 tabs 09/27/22 Allergies Allergy/AdvReac Type Severity Reaction Status Date / Time azithromycin [From Zithromax] Allergy Mild Verified 09/27/22 13:35 ceftriaxone Allergy Mild Verified 09/27/22 13:35 clarithromycin [From Biaxin] Allergy Mild Verified 09/27/22 13:35 gemfibrozil Allergy Mild Verified 09/27/22 13:35 hydrocodone [From Vicodin] Allergy Mild Verified 09/27/22 13:35 nitrofurantoin Allergy Mild Hives on Verified 09/27/22 13:35 chest/ shoulders isosorbide AdvReac Intermediate Verified 09/27/22 13:35 aspirin AdvReac Mild Dizziness Verified 09/27/22 13:35 buprenorphine [From Suboxone] AdvReac Mild Agitated Verified 09/27/22 13:35 buspirone [From BuSpar] AdvReac Mild dysphoria Verified 09/27/22 13:35 memantine [From Namenda] AdvReac Mild confusion Verified 09/27/22 13:35 naloxone [From Suboxone] AdvReac Mild Agitated Verified 09/27/22 13:35 pregabalin [From Lyrica] AdvReac Mild Dizziness Verified 09/27/22 13:35 gabapentin AdvReac loopy in Verified 09/27/22 15:08 the head Review of Systems Review of Systems Narrative: GENERAL: Denies chills, fatigue, malaise, fever, sweats. HEENT: Denies sinus pain, ear pain, sore throat, difficulty swallowing, dizziness. RESPIRATORY: Denies dyspnea, cough, wheezing, hemoptysis, sputum. CARDIOVASCULAR: Denies chest pain, palpitations, orthopnea, edema, GASTROINTESTINAL: Denies nausea, vomiting, abdominal pain, diarrhea, constipation, melena. : Denies dysuria, frequency, incontinence, hematuria, urinary retention. MUSCULOSKELETAL: See HPI SKIN: Denies rash, skin lesions, or other NEUROLOGIC: Denies weakness, headache, numbness, change in speech, confusion, seizures, incoordination. PSYCHIATRIC: No concerning psychosocial issues. 12 point review of systems is negative except for those stated above Patient History Medical History AAA (abdominal aortic aneurysm) Abdominal pain Abnormal chest x-ray (~2011) Abnormal Pap smear of cervix (~1974) Allergic rash present on examination Anemia (~2016) Cannabis dependence, daily use Cat bite Cervical cancer (~1977) Cervical stenosis of spinal canal Change in bowel habit Chronic pain of both shoulders Colon polyps (~2002) COPD (chronic obstructive pulmonary disease) (~2011) Degenerative joint disease (DJD) of lumbar spine (~1963) Depression (~1988) Epigastric pain determined by examination Facet arthropathy, cervical Fatigue Fecal incontinence (~2017) Fibromyalgia (~1983) Foot pain (~2017) Fractures GERD (gastroesophageal reflux disease) GI bleeding (~2018) Glaucoma (~2018) Granuloma annulare (~2014) Hemorrhoid (~1979) Hepatic steatosis History of chronic constipation Hyperlipidemia LDL goal <100 Impingement syndrome of both shoulders Intermittent left-sided chest pain Kidney stones (~2018) Liver disease (~1972) Mass of right thigh Measles Migraines (~1982) Mumps Muscle spasm of back Nausea & vomiting Neoplasm of uncertain behavior Ocular migraine Osteoarthritis (~2012) Osteoporosis (~2012) Painful menstrual periods Pancreatic mass Pancreatitis Paresthesia of right lower extremity Partial blindness Right renal mass Ruptured tympanic membrane (~1974) Scoliosis (~1963) Shoulder pain (~1985) Skin cancer (~2014) Sleep apnea (~2015) Vaginitis Weight loss, non-intentional Wound of left foot Surgical History Anesthesia Carpal tunnel syndrome (~1987) Cataracts, bilateral (~2013) History of hysterectomy (~1981) Family History Father History of heart disease Hypertension Hyperlipidemia Mother Cancer Hypertension Grandfather No problems noted. Grandmother History of heart disease Hyperlipidemia Hypertension Grandfather Cancer Grandmother Stroke Social History marital status: unmarried,living together household members: significant other occupational status: previously employed Smoking Status: Former smoker alcohol intake: never substance use type: marijuana Smoking Status: Former smoker alcohol intake frequency: holidays/special occasions only Substance Use Type: marijuana Exam Narrative Exam Narrative: GENERAL: [67] year old patient appears stated age. Well-developed patient, in mild distress. HEAD: Atraumatic. Normocephalic. EYES: Pupils equal round and reactive. Extraocular motions intact. No scleral icterus. No injection or drainage. ENT: Nose without bleeding, purulent drainage. Throat without erythema, tonsillar hypertrophy or exudate. Airway patent. NECK: Trachea midline. Non tender CARDIOVASCULAR: Regular rate and rhythm without murmurs, gallops, or rubs. RESPIRATORY: Clear to auscultation. Breath sounds equal bilaterally. No wheezes, rales, or rhonchi. GASTROINTESTINAL: Abdomen soft, non-tender, nondistended. No palpable or pulsatile mass EXTREMITIES: No edema or joint tenderness. BACK: shrimp peeling machine tender but free of any obvious external abnormalities. Patient exam notes decreased range of motion and muscle spasm, but no CVA tenderness, or vertebral point tenderness. There are no symptoms of cauda equina such as saddle anesthesia, and decreased reflexes, decreased sensation or strength. NEURO: AOx3. SKIN: No rash or erythema of visible areas Initial Vital Signs Initial Vital Signs: Vital Signs Temperature 97.5 F L 09/27/22 13:35 Pulse Rate 62 09/27/22 13:35 Respiratory Rate 18 09/27/22 13:35 Blood Pressure 145/72 H 09/27/22 13:35 Pulse Oximetry 98 09/27/22 13:35 Oxygen Delivery Method Room Air 09/27/22 13:35 Course Orders Ordered: ED Orders 09/27/22 13:41 Consult to PAPER AND PULP MILL OPERATOR - Track Sweeper Stat 09/27/22 14:11 CT angio chest abdomen pelvis Stat 09/27/22 14:30 Complete Blood Count AUTO DIFF Stat Comprehensive Metabolic Panel Stat Troponin & CK Cardiac Panel Stat Discontinued Medications Dexamethasone (Dexamethasone 10 Mg/Ml Vial) 10 mg IV NOW ONE Stop: 09/27/22 14:12 Last Admin: 09/27/22 15:06 Dose: 10 mg Documented By: MARYSOL Gabapentin (Gabapentin 300 Mg Capsule) 300 mg PO NOW ONE Stop: 09/27/22 14:14 Last Admin: 09/27/22 15:06 Dose: Not Given Documented By: MARYSOL Sodium Chloride (Normal Saline 0.9%) 500 mls @ 1,000 mls/hr IV BOLUS ONE Stop: 09/27/22 14:40 Last Infusion: 09/27/22 16:41 Dose: 0 mls/hr Documented By: Infusion: 09/27/22 15:40 Dose: 1,000 mls/hr Documented By: Infusion: 09/27/22 15:17 Dose: 0 mls/hr Documented By: Admin: 09/27/22 15:06 Dose: 1,000 mls/hr Documented By: MARYSOL Ketorolac Tromethamine (Ketorolac 30 Mg/Ml Vial) 15 mg IV NOW ONE Stop: 09/27/22 14:12 Last Admin: 09/27/22 15:03 Dose: 15 mg Documented By: MARYSOL Vital Signs Vital signs: Vital Signs - 8 hr 09/27/22 13:35 Temperature 97.5 F L Pulse Rate 62 Respiratory Rate 18 Blood Pressure 145/72 H Pulse Oximetry 98 Oxygen Delivery Method Room Air MDM - Back Pain/Injury Lab Data 09/27/22 14:30 09/27/22 14:30 Labs: Lab Results 09/27/22 09/27/22 Range/Units 14:30 14:30 WBC 8.9 (4.5-11.0) X10^3/uL RBC 4.16 (4.0-5.2) X10^6/uL Hgb 12.9 (12.0-16.0) g/dL Hct 37.8 (36-46) % MCV 90.9 (80-100) fL MCH 31.0 (26-34) PG MCHC 34.1 (30-36) % RDW 13.6 (11.6-14.8) % Plt Count 248 (150-400) X10^3/uL Neut % (Auto) 64.3 (50-75) % Lymph % (Auto) 27.3 (25-40) % [place] % (Auto) 6.2 (3-14) % Eos % (Auto) 1.8 L (2-4) % Baso % (Auto) 0.4 (0-2) % Neut # (Auto) 5700 (5700-1227) /uL Lymph # (Auto) 2400 (9582-1384) /uL [place] # (Auto) 600 (0-900) /uL Eos # (Auto) 200 (0-450) /uL Baso # (Auto) 0 (0-100) /uL Sodium 137 (137-145) mmol/L Potassium 4.4 (3.4-5.1) mmol/L Chloride 103 (98-107) mmol/L Carbon Dioxide 31 (22-32) mmol/L BUN 14 (7-17) mg/dL Creatinine 0.79 (0.52-1.04) mg/dL Estimated GFR > 60 (>60) mL/min BUN/Creatinine Ratio 17.7 (6-22) Glucose 82 (80-110) mg/dL Calcium 8.6 (8.4-10.2) mg/dL Total Bilirubin 0.5 (0.2-1.3) mg/dL AST 23 (14-36) IU/L ALT 17 (<35) IU/L Alkaline Phosphatase 59 (38-126) U/L Total Creatine Kinase 71 (30-135) U/L Troponin I < 0.012 (0.01-0.034) ng/mL Total Protein 6.5 (6.3-8.2) g/dL Albumin 3.8 (3.5-5.0) g/dL Globulin 2.7 (1.7-4.1) g/dL Albumin/Globulin Ratio 1.4 (1.0-2.8) Urine Dip Bedside Urine Glucose Negative Bedside Urine Bilirubin - Negative Bedside Urine Ketone - Negative Urine Specific [place] 1.010 Bedside Urine Occult Blood - Negative Bedside Urine pH 6.0 Bedside Urine Protein - Negative Bedside Urine Urobilinogen - Negative Bedside Urine Nitrite - Negative Bedside Urine Leukocytes - Negative Esterase MDM Narrative Medical decision making narrative: CC: 67-year-old female smoker with report of known AAA as well as chronic neck and back pain presents with worsening, tearing midthoracic back pain Complicating co-morbidities: Hypertension, chronic neck and back pain, COPD, report of AAA Data collected from: Patient Medical records reviewed: Prior notes reviewed in our EMR Differential considered, but not limited to: Aortic dissection versus pulmonary embolism versus musculoskeletal causes versus pancreatitis versus other Exam documented above, pertinent findings include: Reproducible pain on palpation, motion of neck and use of right upper extremity Lab Test results independently reviewed as above. Pertinent findings: No leukocytosis or left shift, no signs of anemia no electrolyte abnormality, renal function and LFTs are all within normal limits Independently reviewed EKG as above Imaging studies independently reviewed: CTA of chest abdomen and pelvis with dissection protocol finds no evidence of acute aortic aneurysm or other acute aortic pathology Treatments: Decadron, saline, ketorolac Re-evaluations: Patient with some interval improvement Discussion: Patient with chronic neck and back pain presents with a burning pain in her upper back. It is made worse by palpation, motion of her neck and upper extremity. History and physical are certainly most consistent with this being exacerbation of chronic known issues. She does have reported history of AAA and for that reason angiography ordered of chest abdomen and pelvis which is extremely reassuring and demonstrates no evidence of acute aortic pathology. Furthermore labs including LFTs and bilirubin are unremarkable as is cardiac etiology. Disposition: see below, along with detailed discharge instructions that have been reviewed with patient as well as indications for ED re-evaluation and additional outpatient follow up Discharge Plan Departure Patient Disposition: Home Clinical Impression: Acute bilateral thoracic back pain Instructions: DI for Thoracic Back Pain Activity Restrictions/Additional Instructions: *You have been diagnosed with [thoracic back pain. As we discussed your history and physical exam are very reassuring. There is no evidence of any critical abnormality on the CT scan of your chest, abdomen and pelvis, specifically no evidence of aortic aneurysm, dissection or other vascular catastrophe. No evidence of pneumonia or collapsed lung.] *What to do: *Please continue to take your regular medications as directed. [ x] New medication prescriptions sent to your pharmacy: [ [facility] in [place]] [ ] New medication written as a paper prescription [ ] No new medications given *Please follow up with your primary care provider in 2-3 days, call for an appointment. Let them know you were seen in the Emergency Department and that we ask that you be seen in follow up. We will electronically transmit a record of today's note if your PCP is in our system *If you do not have a primary care provider please contact the [facility] Resource line at [phone]. They will ask some questions about your medical history and help get you set up with a doctor in the community. *Return to Emergency Department if you should have any new, worsening or concerning symptoms, such as [fever greater than 101 F, shaking chills, worseni ng pain, persistent vomiting or other bothersome symptoms] You have been prescribed a short course of narcotic medications. These are potentially dangerous and addictive medications that should be used carefully. While on these medications you cannot drive or operate heavy machinery. Additionally, you cannot sign legal documents or perform any duties such as this. Many people get constipated on narcotic medications so it would be advisable to discuss stool softeners with the pharmacist when you extrusion supervisor your prescription. Please understand that we cannot provide further refills of narcotics or controlled substances through the ED and your pain management will need to be through your Primary Care Provider Prescriptions: New cyclobenzaprine 10 mg tablet 10 mg PO TID PRN (Reason: muscle spasm) Qty: 14 0RF ketorolac 10 mg tablet 10 mg PO Q6H PRN (Reason: pain) Qty: 14 0RF methylprednisolone [Medrol (Gary)] 4 mg tablets,dose pack See Rx Instructions .ROUTE .COMPLEX Qty: 21 0RF Rx Instructions: orally per package directions oxycodone 5 mg tablet 5 mg PO Q6H PRN (Reason: pain) Qty: 10 0RF No Action ketoconazole 2 % cream 1 applic topical BID Qty: 30 1RF Rx Instructions: Apply topically to affected area twice per day. sumatriptan succinate 50 mg tablet See Rx Instructions PO .COMPLEX Qty: 20 3RF Rx Instructions: take 1 tab at onset of headache; if no relief may repeat 1 tab after at least 2 hrs; max = 4 tabs/24 hr PO dicyclomine 10 mg capsule See Rx Instructions .ROUTE .COMPLEX Qty: 90 3RF Dose Instruction: TAKE 1 CAPSULE BY MOUTH TWICE DAILY NEEDED FOR DIARRHEA Rx Instructions: TAKE 1 CAPSULE BY MOUTH TWICE DAILY NEEDED FOR DIARRHEA albuterol sulfate 2.5 mg /3 mL (0.083 %) solution for nebulization 2.5 mg inhalation Q4-6H PRN (Reason: SOB, cough, wheezing) Qty: 180 3RF (DME) Nebulizer See Rx Instructions .Route .MEDSUPPLY Qty: 1 0RF Rx Instructions: for use with albuterol bullets for COPD exacerbation promethazine 25 mg tablet See Rx Instructions .ROUTE .COMPLEX Qty: 120 3RF Dose Instruction: TAKE 1 TABLET EVERY 6 HOURS NEEDED FOR NAUSEA AND VOMITING. MAXIMUM DAILY DOSE IS 4 TABLETS. Rx Instructions: TAKE 1 TABLET EVERY 6 HOURS NEEDED FOR NAUSEA AND VOMITING. MAXIMUM DAILY DOSE IS 4 TABLETS. latanoprost 0.005 % drops 1 drp EYE-RIGHT .HS Qty: 2.5 3RF trazodone 100 mg tablet See Rx Instructions .ROUTE .COMPLEX Qty: 180 3RF Dose Instruction: TAKE 1 AND 1/2 TO 2 TABLETS BY MOUTH AT BEDTIME Rx Instructions: TAKE 1 AND 1/2 TO 2 TABLETS BY MOUTH AT BEDTIME (DME) Aerobika Oscillating PEP Systm Device See Rx Instructions .Route Qty: 1 0RF Rx Instructions: Use 2-3 times as directed to clear respiratory secretions pantoprazole 40 mg tablet,delayed release (DR/EC) See Rx Instructions .ROUTE .COMPLEX Qty: 180 3RF Dose Instruction: TAKE 1 TABLET BY MOUTH TWICE DAILY FOR GERD Rx Instructions: TAKE 1 TABLET BY MOUTH TWICE DAILY FOR GERD rosuvastatin 20 mg tablet See Rx Instructions .ROUTE .COMPLEX Qty: 90 2RF Dose Instruction: TAKE 1 TABLET BY MOUTH AT BEDTIME FOR CHOLESTEROL Rx Instructions: TAKE 1 TABLET BY MOUTH AT BEDTIME FOR CHOLESTEROL carvedilol 25 mg tablet See Rx Instructions .ROUTE .COMPLEX Qty: 180 2RF Dose Instruction: TAKE 1 TABLET BY MOUTH TWICE DAILY WITH MEAL/FOOD Rx Instructions: TAKE 1 TABLET BY MOUTH TWICE DAILY WITH MEAL/FOOD lidocaine 5 % adhesive patch,medicated 1 patch topical DAILY Qty: 30 11RF Rx Instructions: leave on most painful area for up to 12 hrs voltaren 10% gel See Rx Instructions .ROUTE .COMPLEX Qty: 30 2RF Rx Instructions: apply small amount to affected area twice daily as needed for pain venlafaxine 75 mg capsule,extended release 24hr 225 mg PO BEDTIME Qty: 270 3RF tramadol 50 mg tablet 50 mg PO Q8H PRN (Reason: pain) Qty: 90 2RF Rx Instructions: Take 1 tab by mouth every 8 hours as needed for pain clonazepam 1 mg tablet 1 mg PO BID PRN (Reason: muscle spasms) Qty: 60 2RF fluticasone propion-salmeterol 250-50 mcg/dose blister with device See Rx Instructions inhalation .QD Rx Instructions: inhalation .QD; 1-2 puffs inhalation daily as needed hydralazine 25 mg tablet 25 mg PO BID albuterol sulfate 90 mcg/actuation HFA aerosol inhaler See Rx Instructions inhalation ONCE Rx Instructions: 1-2 puff inhalation once daily as needed loratadine [Claritin] 10 mg tablet 10 mg PO DAILY Qty: 90 3RF fluticasone propionate [Flonase Allergy Relief] 50 mcg/actuation spray,suspension 1 spray intranasal BID Qty: 16 3RF Rx Instructions: administer into each nostril (DME) Ensure Chocolate Flavor Preferred See Rx Instructions .Route .MEDSUPPLY Qty: 60 11RF Rx Instructions: Take 1 ensure by mouth twice per day as meal replacement diltiazem HCl 240 mg capsule,extended release 24hr 240 mg PO DAILY Patient Comments: TAKE ONE CAPSULE BY MOUTH ONE TIME DAILY lisinopril 40 mg tablet 40 mg PO DAILY Referrals: Annette Marx ARNP [Primary Care Provider] - Stand Alone Forms: Patient Portal/API
--- NOTE | 2022-09-27 14:11 | DI.CT.S_ITS ---
PROCEDURE: CT ANGIO CHEST ABDOMEN PELVIS INDICATIONS: tearing upper back pain, reports known AAA TECHNIQUE: Precontrast 5 mm thick sections acquired from the lung apices to the iliac crests. After the administration of intravenous contrast, 2.5 mm thick sections again acquired from the lung apices to the iliac crests. Maximum intensity projection (MIP) oblique sagittal and coronal reformats were then acquired. For radiation dose reduction, the following was used: automated exposure control. COMPARISON: None. FINDINGS: Image quality: Excellent. AORTA: Intramural hematoma: Absent Maximum hematoma thickness: Not applicable Focal contrast enhancement: Absent Dissection: Absent [place] classification: Not applicable Maximum aortic diameter: 3.8 cm in the ascending thoracic aorta. No abdominal aortic aneurysm. Periaortic hematoma: Absent . CHEST: Lungs and pleura: No acute parenchymal consolidations. Mild diffuse bronchial wall thickening. Scattered areas of linear septal thickening/vertical atelectasis. No suspicious masses or nodules requiring follow-up. No pleural effusions. Mediastinum: Heart size is normal. No pericardial effusion. No mediastinal or hilar adenopathy by size criteria. Central pulmonary arteries are normal in size. Esophagus is normal in caliber. No hiatal hernias. Bones and chest wall: No axillary adenopathy by size criteria. Thyroid gland has a normal CT appearance . No suspicious bony lesions. No vertebral body compression fractures. ABDOMEN: Vasculature: Celiac trunk and mesenteric arteries are patent. Renal arteries are also patent. Solid organs: Liver is normal in size and enhancement. Gallbladder is partially decompressed. . Biliary system is non dilated. Pancreas enhances normally. Spleen is normal in size and enhancement. No adrenal both kidneys demonstrate symmetric enhancement and have a polycystic appearance. No nephrolithiasis or hydronephrosis. Peritoneum and bowel: Stomach and small bowel loops are unremarkable. Normal to mildly increased quantity of solid stool in the colon. There is a colorectal anastomosis. The rectum is decompressed. No free fluid or free air. Nodes and vessels: No retroperitoneal or mesenteric adenopathy by size criteria. Inferior vena cava is normal in morphology. Mild abdominal aortic atherosclerotic calcification. Miscellaneous: No ventral hernias. PELVIS: Genitourinary: Absent uterus. No suspicious adnexal masses. Miscellaneous: No inguinal hernias or adenopathy. No ventral hernias. Bones: Minor anterior vertebral body height loss of T11. No acute fractures or suspicious bone lesions. IMPRESSION: 1. No evidence of aortic aneurysm or acute aortic pathology. 2. Mild bilateral bronchial wall thickening suggesting bronchitis of indeterminate chronicity. Dictated by: Ankita Ramos M.D. on 09/27/2022 at 16:26 Approved by: Ankita Ramos M.D. on 09/27/2022 at 16:35
[2022-09-27 14:48] LABS: Add Manual Diff / Slide Review NO; Basophils Absolute Auto 0 /uL (0-100); Basophils Percent Auto 0.4 % (0-2); Eosinophils Absolute Auto 200 /uL (0-450); Eosinophils Percent Auto 1.8 % (2-4); Hematocrit 37.8 % (36-46); Hemoglobin 12.9 g/dL (12.0-16.0); Lymphocytes Absolute Auto 2400 /uL (1100-4500); Lymphocytes Percent Auto 27.3 % (25-40); Mean Corpuscular HGB Conc 34.1 % (30-36); Mean Corpuscular Volume 90.9 fL (80-100); Monocytes Absolute Auto 600 /uL (0-900); Monocytes Percent Auto 6.2 % (3-14); Neutrophils Absolute Auto 5700 /uL (1500-7000); Neutrophils Percent Auto 64.3 % (50-75); Platelet Count 248 X10^3/uL (150-400); Red Blood Cell Count 4.16 X10^6/uL (4.0-5.2); Red Cell Distribution Width 13.6 % (11.6-14.8); White Blood Cell Count 8.9 X10^3/uL (4.5-11.0)
[2022-09-27 15:03] LABS: Alanine Aminotransferase 17 IU/L (<35); Albumin 3.8 g/dL (3.5-5.0); Albumin Globulin Ratio 1.4 (1.0-2.8); Alkaline Phosphatase 59 U/L (38-126); Aspartate Aminotransferase 23 IU/L (14-36); BUN Creatinine Ratio 17.7 (6-22); Bilirubin Total 0.5 mg/dL (0.2-1.3); Blood Urea Nitrogen 14 mg/dL (7-17); Calcium 8.6 mg/dL (8.4-10.2); Carbon Dioxide 31 mmol/L (22-32); Chloride 103 mmol/L (98-107); Creatine Kinase 71 U/L (30-135); Estimated Glomerular Filt Rate > 60 mL/min (>60); Globulin 2.7 g/dL (1.7-4.1); Glucose 82 mg/dL (80-110); HEMOLYSIS < 15 (0-50); Potassium 4.4 mmol/L (3.4-5.1); Sodium 137 mmol/L (137-145); Total Protein 6.5 g/dL (6.3-8.2)
[2022-09-27] MEDS: KETOROLAC 30 MG/ML VIAL 15 MG IV (15:03)
[2022-09-27] MEDS: SODIUM CHLORIDE 0.9% 500 ML 1000 ML IV (15:06)
[2022-09-27] MEDS: DEXAMETHASONE 10 MG/ML VIAL IV (15:06)
--- NOTE | 2022-09-27 15:30 | PC.NURSE ---
Pt states she has had an issue passing stool, being constipated for days at a time before having a massive blowout of diarrhea. She is scheduled for a procedure next week at [facility].
[2022-09-27 15:32] LABS: Troponin I < 0.012 ng/mL (0.01-0.034)
--- NOTE | 2022-09-27 17:22 | CM.SWNOTE ---
ED MANAGER AGRICULTURE Note Patient is 67 y/o female who presents to ED due to concern for back pain. In triage patient endorses concern for housing, food and transportation. Patient's PCP is BUNNY Wagner and patient has AARP Medicare. MANAGER AGRICULTURE enters room to meet with patient. Patient presents as A/Ox4. Patient endorses she is currently living in [place] in a 5th wheel RV and pays rent to a landlord to stay on their property. Patient endorses she receives social security monthly. Patient discusses several hardships in her life where people have betrayed her, patient states she is in a good place now and has supports from her new life partner, landlord and cousins. Patient endorses interest in resources about utility assistance. MANAGER AGRICULTURE provides patient with utility assistance resources and senior resource guide. Patient has close f/u with Glass Blowing Instructor and PCP. Patient to d/c to home upon medical clearance. KENDRICK DevlinSW
== END 2022-09-27 17:14 | disposition home or self-care (01) ==
PROVIDERS: Emergency Provider Emergency Medicine; Family Provider Nurse Practitioner; PCP Nurse Practitioner
DX: M54.6 Pain in thoracic spine (principal); R03.0 Elevated blood-pressure reading, without diagnosis of hypertension
CPT/HCPCS: 36415; 71275; 74174; 80053; 81003; 82550; 84484; 85025; 96374; 96375; 99284; J1100; J1885; Q9967

== ENCOUNTER → 2022-10-01 07:34 | Outpatient (CLI) | payer MEDICARE, SELFPAY ==
--- NOTE | 2022-10-01 07:35 | DI.NM.S_ITS ---
PROCEDURE: NM GASTRIC EMPTYING STUDY RADIOPHARMACEUTICAL: 1.0 mCi Tc-99m sulfur colloid in an egg sandwich. INDICATIONS: Nausea TECHNIQUE: A Tc-99m labeled sulfur colloid labeled egg sandwich or oatmeal was served to the patient. Anterior and posterior planar images of the abdomen were obtained at 0 minutes and 30 minutes, then at hourly intervals up to 4 hours. The patient was upright and ambulating during the interval. COMPARISON: None. FINDINGS: The stomach has normal size, morphology, and position. There is normal emptying of solid gastric contents from the stomach by visual inspection. No gastroesophageal reflux is visualized. The percentage of tracer retained at specific time points are as follows: Time point Percent gastric retention Normal range 30 minutes 70% 70% or more 1 hour 26% 30% to 90% 2 hours 3% 60% or less 3 hours not applicable IMPRESSION: No evidence of gastric retention or significant abnormal gastric emptying. Dictated by: Jeer Fuchs M.D. on 10/01/2022 at 14:03 Approved by: Jere Fuchs M.D. on 10/01/2022 at 14:05
== END ==
PROVIDERS: Family Provider Nurse Practitioner; PCP Nurse Practitioner; Referring Provider Nurse Practitioner Family; Visit Provider Nurse Practitioner Family
DX: R11.0 Nausea (principal); R15.9 Full incontinence of feces
CPT/HCPCS: 78264; A9541

== ENCOUNTER 2022-12-21 08:34 | Outpatient (CLI) | payer MEDICARE, SELFPAY ==
[2022-12-21] VITALS (8 sets, daily range): BP systolic 118–133; BP diastolic 67–79; PULSE 52–94; RESP 13–25; TEMP 36.7; O2SAT 95–98
--- NOTE | 2022-12-21 08:36 | DI.RAD.S_ITS ---
PROCEDURE: PAIN C/T INTERLAMINAR INJECT INDICATIONS: SPINAL STENOSIS COMPARISON: None. FINDINGS: Fluoroscopic spot filming was performed to verify placement of spinal needles at the C6-7 level(s), as labeled on the films. Appropriate location(s) of the needle tip(s) was confirmed by injection of iodinated contrast. IMPRESSION: Fluoro guidance was provided intraoperatively for C6-7 translaminar epidural steroid injection performed by the ordering physician. Dictated by: Brian Alegre M.D. on 12/21/2022 at 12:36 Approved by: Brian Alegre M.D. on 12/21/2022 at 12:36
[2022-12-21] MEDS: MIDAZOLAM 2 MG/2 ML VIAL IV (10:00)
[2022-12-21] MEDS: iopamidoL 15 ML VIAL 3 ML INJ (10:02)
[2022-12-21] MEDS: DEXAMETHASONE 10 MG/ML VIAL 20 MG INJ (10:03)
[2022-12-21] MEDS: BUPIVACAINE 0.25% (PF) VIAL 2 ML INJ (10:04)
[2022-12-21] MEDS: fentaNYL 100 MCG/2 ML INJ 50 MCG IV (10:09)
--- NOTE | 2022-12-21 10:19 | P.PCN_ITS ---
Date/Time/Diagnoses Date of procedure: 12/21/22 Time of procedure: 10:19 Pre-procedure diagnosis: 1. CERVICAL STENOSIS, 2. CERVICAL HNP WITH UPPER EXTREMITY RADICULAR FEATURES Post-procedure diagnosis: same Procedure Notes Procedure: 1. FLUORSCOPICALLY GUIDED CONTRAST CONTROLLED INTERLAMINAR EPIDURAL STEROID INJECTION - C6/7 TL CHARO Indications: Vane is referred by BUNNY Marx for treatment of Cervical HNP with Upper Extremity Paresthesias. Physician: Ayo Montenegro Total Fluoroscopy time (seconds): 30 Total sedation minutes: 16 Complications: none Procedure in detail & Post-procedure care: FINDINGS Cervical Stenosis due to disc deterioration and nerve root irritation and nerve root irritation DESCRIPTION OF PROCEDURE Fluoroscopically guided, contrast-controlled C6/7 translaminar epidural steroid injection with conscious sedation. Following review of allergy and review of potential side effects and complications, including, but not necessarily limited to, infection, allergic reaction, local tissue breakdown, temporary as well as permanent nerve injury, stroke, paralysis, and possible , the patient indicated that patient understood and agreed to proceed. An informed consent document was signed by the patient, witnessed by a nurse, and placed in the patient's chart. Additionally, other treatment options including modalities, medications, and physical therapy were reviewed with the patient. After review of previous anaesthesic history and IV conscious sedation the patient was deemed safe to proceed with today?s procedure with IV conscious tian tion as ASA class II designation. Safety time-out was performed to confirm patient ID, procedure to be performed and site of procedure. IV sedation was accomplished with a combination of 2mg of Versed and 50mcg of Fentanyl administered by the RN after DO order, titrated to patient comfort during the course of the procedure while the patient remained responsive to all verbal commands. In the prone position, following sterile prep and drape of the cervical region, the C6/7 translaminar space was identified fluoroscopically. The skin was anesthetized via a 25-gauge 1.5-inch needle with 1% lidocaine solution. At this point, a 25-gauge, 2.5-inch short bevel spinal needle was atraumatically introduced and advanced under fluoroscopic guidance into epidural space at the C6/7 translaminar space. Depth was confirmed on lateral view. Radiological data, including multiple fluoroscopic views of the cervical spine, reveal a spinal needle at the C6/7 translaminar space. Lateral views then show placement of the needle in the epidural space. Subsequent views show contrast material flowing superiorly and inferiorly in the epidural space. DSA fluoroscopy with live contrast injection, once again, confirmed no vascular or intrathecal uptake. At this point, using loss of resistance technique with saline and air, the epidural space was entered. Following negative aspiration, injection of approximately 1.5 cc of Isovue-200 with live fluoroscopy in the AP view confirmed epidural flow in the epidural space without vascular or intrathecal uptake observed. Subsequently, a test dose of 1 cc of 1% lidocaine solution was injected and patient was observed for two minutes without signs or symptoms of complications, including abdominal pain, shortness of breath, bilateral upper or lower extremity weakness, nausea and vomiting, prior to steroid injection. At this point, 2cc or 20mg of dexamethasone was then injected without incident. The patient tolerated the procedure well without signs or symptoms of complications prior to being transferred to the recovery area for further monitoring, The patient was then transferred to the recovery area where they were observed for an appropriate period of time after the injection. The patient reported a VAS score of 6 prior to the procedure and a post-procedure VAS of 0. POST OP INSTRUCTIONS The patient was provided a Pain Log to continue to record their response to the target-specific procedure prior to follow-up visit with the referring provider. Additionally, specific post-injection care instructions and a contact number to our office were provided if concerns arise regarding possible complications associated with the procedure are suspected.
== END 2022-12-21 10:35 | disposition home or self-care (01) ==
LOC: RAD 08:35
PROVIDERS: Family Provider Nurse Practitioner; PCP Nurse Practitioner; Referring Provider Physical Medicine & Rehabilitation; Visit Provider Physical Medicine & Rehabilitation
DX: M48.02 Spinal stenosis, cervical region (principal); M50.123 Cervical disc disorder at C6-C7 level with radiculopathy
CPT/HCPCS: 62321; 99152; J1100; J2250; J3010; J3490

== ENCOUNTER 2023-01-10 10:30 | Outpatient (RCR) | payer MEDICARE, SELFPAY ==
--- NOTE | 2022-10-25 19:00 | PT.OIE ---
Current Diagnoses Constipation, unspecified (10/25/22) Rectal prolapse (10/25/22) Stiffness of unspecified hip, not elsewhere classified (10/25/22) Stress incontinence (female) (male) (10/25/22) Fecal smearing (10/25/22) Past Medical History (Last Updated 09/29/22 @ 14:50 by BUNNY Wagner) Abdominal pain Abnormal chest x-ray (~2011) Abnormal Pap smear of cervix (~1974) Allergic rash present on examination Anemia (~2016) Ascending aortic aneurysm Cannabis dependence, daily use Cat bite Cervical cancer (~1977) Cervical stenosis of spinal canal Change in bowel habit Chronic pain of both shoulders Colon polyps (~2002) COPD (chronic obstructive pulmonary disease) (~2011) Degenerative joint disease (DJD) of lumbar spine (~1963) Depression (~1988) Epigastric pain determined by examination Facet arthropathy, cervical Fatigue Fecal incontinence (~2017) Fibromyalgia (~1983) Foot pain (~2017) Fractures GERD (gastroesophageal reflux disease) GI bleeding (~2018) Glaucoma (~2018) Granuloma annulare (~2014) Hemorrhoid (~1979) Hepatic steatosis History of chronic constipation Hyperlipidemia LDL goal <100 Impingement syndrome of both shoulders Intermittent left-sided chest pain Kidney stones (~2018) Liver disease (~1972) Mass of right thigh Measles Migraines (~1982) Mumps Muscle spasm of back Nausea & vomiting Neoplasm of uncertain behavior Ocular migraine Osteoarthritis (~2012) Osteoporosis (~2012) Painful menstrual periods Pancreatic mass Pancreatitis Paresthesia of right lower extremity Partial blindness Right renal mass Ruptured tympanic membrane (~1974) Scoliosis (~1963) Shoulder pain (~1985) Skin cancer (~2014) Sleep apnea (~2015) Vaginitis Weight loss, non-intentional Wound of left foot Past Surgical History (Last Reviewed 09/29/22 @ 14:44 by BUNNY Wagner) Anesthesia Carpal tunnel syndrome (~1987) Cataracts, bilateral (~2013) History of hysterectomy (~1981) Visit Care Team Role Provider Type BUNNY Wagner Attending Provider Advanced Process Safety Specialist Family Provider Primary Care Provider Referring Provider Specialty: Family Practice Address: [address] [place] [address], [id number] Email: [email or web address] Physical Therapy Initial Evaluation PT-OP-A Visit Information Start: 10/25/22 11:12 Freq: Status: Active Protocol: Document 10/25/22 11:15 LRN (Rec: 10/25/22 12:26 LRN [id number]) Out-Patient Physical Therapy Visit Information Visit Information Visit Type Initial Evaluation Visit Start Time 11:18 Visit Stop Time 11:13 Total Visit Minutes 55 Visit Number 1 Evaluation Information Evaluation Date 10/25/22 Precautions Precautions Possible current UTI. PMH: Fibromyalgia, Osteoporosis, Osteoarthritis, Ascending aortic aneurysm and hard to control HBP. PT-OP-B Current Condition Start: 10/25/22 11:12 Freq: Status: Active Protocol: Document 10/25/22 11:15 LRN (Rec: 10/25/22 12:26 LRN [id number]) Current Condition History of Current Condition Onset Date 4-5 yrs ago. Worsened in past 2 yr ago. Current Complaints Fecal incontinence History of Current Condition Has a Rectocele and must manually go in to push fecal material. Has moments of gastroc emptying. Has hard black marbles, then pasty dark brown stools (like peanut butter). She is trying not to insert finger in rectum to pull stool out, currently uses thumb in vagina and fingers outside of rectum. States studies has shown she empties at normal rate. States for a time he was on opiates and suffered fecal impaction, then once corrected she began to have normal bowel movements. She has bleeds in the stomach. Now she has black stools ( had been on Toradol for pain from her upper back norma was told to take for ms back pain) and streaks of blood in her stomach and was told she had stomata of recent bleeds. Still taking Tramador and Lorazipam and (2 pain pills a day). Has hemorrhoids. Prior Treatments and Tests Pt reports 5 surgeries of rectum for rectocele repairs and on last surgery he mistaked him with another patient from 2000 to 2012 ( surgery almost every 2 yrs). Surgeries on hemorroids at age 27. Future Testing and Treatments Planned Cortisone injection in shoulders tomorrow. Treatment Goals Patient/Caregiver Goals Pt goal is: Strengthen the PF to prevent incontinence when sneezing, coughing, laughing. Eliminate fecal leakage during the day. Reduce cramping (pain rated 5/ 10) after voiding. Personal Factors Other Personal Factors That May Effect Pt reported: Multiple (5) Therapy/Recovery surgeries of rectum for rectocele repairs, last surgery mistakenly given for urinary leakage; hemorroid surgery at 27. Pt has been digitally assisting rectally to have BM, but recently has given assist with thumb in vagina and finger raking outside rectum with pushing to complete BM voiding. Pt has a multitude of health history, including reported: full body sepsis, Fibromyalgia , Osteoporosis, Osteoarthritis , Ascending aortic aneurysm and hard to control HBP, and multiple cysts on kidneys. PT-OP-C Subjective Start: 10/25/22 11:12 Freq: Status: Active Protocol: Document 10/25/22 11:15 LRN (Rec: 10/25/22 12:26 LRN [id number]) Patient Questionnaires Pelvic Floor Distress Inventory Questionnaire (PFDI- SF20) Pelvic Floor Score 178 OP-PT Pain Assessment Location Lateral trunk Pain Location Details Bilateral trunk Intensity 8 Scale Used Numeric (0 - 10) Back Pain Location Details Low Back at sacral level radiating posterior thighs Intensity 6 Scale Used Numeric (0 - 10) PT-OP-I Pelvic Floor Start: 10/25/22 11:12 Freq: Status: Active Protocol: Document 10/25/22 11:15 LRN (Rec: 10/25/22 12:26 LRN [id number]) Pelvic Floor Assessment Urine Urinary Symptoms Dribbling After Urination, Incomplete Emptying,Falling Out Feeling/Heavy Other Urinary Symptoms Urinary leakage with light activity, changing positions. Leaks in all positions. Triggers: washing hands or dishes w/warm or hot water. Leakage Cause Cough,Sneeze,Urge Other Leakage Causes No warning sometimes and with exertion. Voiding Frequency 4-5 Nocturia 1 Bowel Bowel Surgery Yes Bowel Symptoms Constipation,Fecal Leakage Other Bowel Symptoms Pt has hardened stool and soft stool noted to be the consistency of peanut butter. Pelvic Clock Pelvic Clock Other Extreme Tenderness lateral spicer (in location of Obturator Internus) and anteriorly. Inter-Rectal Assessment Per vaginal assessment: Tender at 4-5 O'Clock bilaterally. Good PF strength of 3/5 around PF clock. Extra loose tissue noted consistent with rectocele. Pt had eliminated stool already today. Per rectal assessment: Tenderness anterior and laterally. 10x quick contractions w/o difficulty; long hold contraction - mild fatigue after 3 and 7 secs. Pt does perform a moderate pulling up and in contraction. Prolapse Cystocele Grade 2 Rectocele Grade 3 Contraction Ability Manual Muscle Testing Left 2 Manual Muscle Testing Right 2 Manual Muscle Testing Anterior 5 Manual Muscle Testing Posterior 5 PT-OP-J Posture/Palpation/Skin Start: 10/25/22 11:12 Freq: Status: Active Protocol: Document 10/25/22 11:15 LRN (Rec: 10/25/22 12:26 LRN [id number]) Posture Evaluation Position Standing Head/C-Spine Posture Forward Head T-Spine Posture Increased Kyphosis L-Spine Posture Increased Lordosis PT-OP-K Range of Motion Start: 10/25/22 11:12 Freq: Status: Active Protocol: Document 10/25/22 11:15 LRN (Rec: 10/25/22 12:26 LRN [id number]) Lumbar Spine Range of Motion Lumbar Spine Active Degrees Testing Position Standing Flexion 45 Extension 15 Rotation Left 25 Rotation Right 35 Comments ROM taken is approximate deg's measurement Hip Goniometric Range of Motion Hip Right Passive Testing Position Supine Internal Rotation 25 External Rotation 75 Left Passive Testing Position Supine Internal Rotation 15 External Rotation 80 PT-OP-Q Treatments Start: 10/25/22 11:12 Freq: Status: Active Protocol: Document 10/25/22 11:15 LRN (Rec: 10/25/22 12:26 LRN [id number]) Self-Care/Home Management Treatment Education Other Education Discussed results of evaluation, goals, and plan of care (POC). Pt agreeable to goals and POC. Pt educated in use of Bladder Diary and I/S in tracking for 1 week. Discussed use of 2 different diaries for tracking of bladder. Activities Self-Care/Home Management Activities Issued & reviewed HEP: Laura ex's and discussed exercise of Quick Flicks, Long Holds and Aggravators. PT-OP-T Assessment and Plan Start: 10/25/22 11:12 Freq: Status: Active Protocol: Document 10/25/22 11:15 LRN (Rec: 10/25/22 12:26 LRN [id number]) Physical Therapy Assessment Rehab Potential Rehabilitation Potential Good Evaluation Complexity Number of Personal Factors/Comorbidities 3 or More Number of Body Systems Impaired 4 or More Clinical Presentation at Evaluation Evolving Impairments Impairments Pain,Posture,ROM,Soft Tissue Mobility,Strength,Transfers Other Impairments Fecal and urinary incontinence . Goals Five Impairment Abdominal ms cramping after having BM Impairment Abdominal Pain after BM is rated 5/10. Glenn internal PF pain at 3-5 and 7-9 of the PF Clock Short Term Goal (STG) Pt will be educated in BM massage, proper bowel care, use of squatty potty and avoding valsalva maneuver. STG Duration 12/09/22 Russet Repairer Goal (LTG) Reduce cramping frequency (50% less than after every void) and reduce pain after voiding. LTG Duration 01/23/23 Three Impairment Fecal & urinary leakage requiring 3-4 pantiliners daily Impairment Occasionally has total loss of fecal continence 1x/month Short Term Goal (STG) Decrease use of pantiliners to 1-2/day. STG Duration 12/09/22 Custodial Goal (LTG) Eliminate fecal leakage during the day. LTG Duration 01/23/23 Two Impairment Decreased PF strength for long holds Impairment Pt fatigues after 3 and 7 secs of long holding. Hip IR PROM is ~25 deg's right , 15 deg's left. Short Term Goal (STG) Improve bilateral hip IR mobility. STG Duration 12/09/22 Custodial Goal (LTG) Strengthen the PF to prevent urinary and fecal incontinence when sneezing, coughing, laughing. LTG Duration 01/23/23 One Impairment Pt lacks an independent self care HEP. Short Term Goal (STG) Pt educated in proper transfers and body mechanics to lessen core abdominal pressure. STG Duration 12/09/22 Custodial Goal (LTG) Pt will be independent in a self care HEP for PF strengthening and hip IR stretch ex. LTG Duration 01/23/23 Assessment Summary Assessment Pt is a 67 yo female with fecal incontinence and stress urinary incontinence with difficulty eliminating stool due to a rectocele. She may be tight in her anterior PF resulting in urinary leakage, although when asked to do a PF contraction, visibly only a posterior PF contraction is seen. She has mild weakness in her posterior PF muscles and it may be that she is cycling between constipation and soft stool, causing stool leakage. Per subjective reports the pt has had an extended time where she was digitally placing her finger in the anus to remove stool, but is not trying to push it out through her vagina, which is a more desired approach. She may have stretched her anal sphincter muscles; therefore PF strengthening is needed. She also demonstrates poor coordination with transfers and appears to have poor knowledge of voiding without increasing her intra- abdominal pressure; therefore much education will be needed to modify her methods for transfers, body mechanics and voiding. The pt will benefit from skilled physical therapy that will more than likely require and extended rehabilitation time due to her many comorbidities and history of surgeries, in order to acheive the above stated goals. It is expected due to her comorbidities that her PF rehabilitation may require longer therapy time. The pt will benefit from skilled physical therapy to work towards achieving the above stated goals. Physical Therapy Plan Frequency and Duration Frequency of Treatment 1x/Week Duration of treatment (weeks) 12 Plan of Care Start Date 10/25/22 Plan of Care End Date 01/23/23 Therapeutic Interventions Therapeutic Interventions Home Exercise Program,Manual Therapy,Neuromuscular Re- education,Self-Care/Home Management,Soft Tissue Mobilization,Taping, Therapeutic Activities, Therapeutic Exercises Modalities Cold Pack/Ice Massage,Hot Packs Next Visit Focus/Plan Next Note Type Treatment Note Next Visit Plan Cont 2x/week for 1-[address] pt on a HEP and educate in safe and proper self care to decrease intra-abdominal pressures with daily activities. Check response to shoulder cortisone injection tomorrow. Review bladder diary, Discuss stool types, foods, water intake, pt education in bladder retraining with urge deference technique, proper Kegel without use of substitute muscles Complete PF bowel assessment, Assess hip/trunk strength and trunk SB AROM, posture, DTRs, PSLR. Assess deep breathing and start LE roll in/out ex when appropriate. Add hip IR stretch and manual stretch to OI/external and internal PF ( when UTI cleared). Education in vulvar/genital care, BM management, body mechanics, posture, decrease vagus n stim. Educate pt in deep breathing and proper breathing for transfers and body mechanics for proper core pressure management, use of squatty potty for BMs, BM massage. PF/core/hip strengthening, Educate pt in Bowel massage, proper squatting and lifting, sit to stand, and moving in bed using breathwork and core/ PF stabilization for proper abdominal pressure system, ? STM of abdomen (and urachus), improve abdominal soft tissue (bladder) mobility. POC: Pt education, Manual therapy. Biofeedback with vaginal sensor. Therapeutic Exercises, Therapeutic Activities, Neuromuscular Reeducation.
--- NOTE | 2022-10-28 17:02 | PT.OTN ---
Current Diagnoses Constipation, unspecified (10/28/22) Rectal prolapse (10/28/22) Stiffness of unspecified hip, not elsewhere classified (10/28/22) Stress incontinence (female) (male) (10/28/22) Fecal smearing (10/28/22) Physical Therapy Treatment Note PT-OP-A Visit Information Start: 10/25/22 11:12 Freq: Status: Active Protocol: Document 10/28/22 11:19 LRN (Rec: 10/28/22 12:24 LRN [id number]) Out-Patient Physical Therapy Visit Information Visit Information Visit Type Treatment Note Visit Start Time 11:19 Visit Stop Time 12:04 Total Visit Minutes 45 Visit Number 2 Evaluation Information Evaluation Date 10/25/22 Precautions Precautions Possible current UTI. PMH: Fibromyalgia, Osteoporosis, Osteoarthritis, Ascending aortic aneurysm and hard to control HBP. PT-OP-B Current Condition Start: 10/25/22 11:12 Freq: Status: Active Protocol: Document 10/25/22 11:15 LRN (Rec: 10/25/22 12:26 LRN [id number]) Current Condition History of Current Condition Onset Date 4-5 yrs ago. Worsened in past 2 yr ago. Current Complaints Fecal incontinence History of Current Condition Has a Rectocele and must manually go in to push fecal material. Has moments of gastroc emptying. Has hard black marbles, then pasty dark brown stools (like peanut butter). She is trying not to insert finger in rectum to pull stool out, currently uses thumb in vagina and fingers outside of rectum. States studies has shown she empties at normal rate. States for a time he was on opiates and suffered fecal impaction, then once corrected she began to have normal bowel movements. She has bleeds in the stomach. Now she has black stools ( had been on Toradol for pain from her upper back norma was told to take for ms back pain) and streaks of blood in her stomach and was told she had stomata of recent bleeds. Still taking Tramador and Lorazipam and (2 pain pills a day). Has hemorrhoids. Prior Treatments and Tests Pt reports 5 surgeries of rectum for rectocele repairs and on last surgery he mistaked him with another patient from 2000 to 2012 ( surgery almost every 2 yrs). Surgeries on hemorroids at age 27. Future Testing and Treatments Planned Cortisone injection in shoulders tomorrow. Treatment Goals Patient/Caregiver Goals Pt goal is: Strengthen the PF to prevent incontinence when sneezing, coughing, laughing. Eliminate fecal leakage during the day. Reduce cramping (pain rated 5/ 10) after voiding. Personal Factors Other Personal Factors That May Effect Pt reported: Multiple (5) Therapy/Recovery surgeries of rectum for rectocele repairs, last surgery mistakenly given for urinary leakage; hemorroid surgery at 27. Pt has been digitally assisting rectally to have BM, but recently has given assist with thumb in vagina and finger raking outside rectum with pushing to complete BM voiding. Pt has a multitude of health history, including reported: full body sepsis, Fibromyalgia , Osteoporosis, Osteoarthritis , Ascending aortic aneurysm and hard to control HBP, and multiple cysts on kidneys. PT-OP-C Subjective Start: 10/25/22 11:12 Freq: Status: Active Protocol: Document 10/28/22 11:19 LRN (Rec: 10/28/22 12:24 LRN [id number]) OP-PT Subjective Patient Comments Patient Comments Since last visit has only dropped 2 sharif. PT-OP-I Pelvic Floor Start: 10/25/22 11:12 Freq: Status: Active Protocol: Document 10/25/22 11:15 LRN (Rec: 10/25/22 12:26 LRN [id number]) Pelvic Floor Assessment Urine Urinary Symptoms Dribbling After Urination, Incomplete Emptying,Falling Out Feeling/Heavy Other Urinary Symptoms Urinary leakage with light activity, changing positions. Leaks in all positions. Triggers: washing hands or dishes w/warm or hot water. Leakage Cause Cough,Sneeze,Urge Other Leakage Causes No warning sometimes and with exertion. Voiding Frequency 4-5 Nocturia 1 Bowel Bowel Surgery Yes Bowel Symptoms Constipation,Fecal Leakage Other Bowel Symptoms Pt has hardened stool and soft stool noted to be the consistency of peanut butter. Pelvic Clock Pelvic Clock Other Extreme Tenderness lateral spicer (in location of Obturator Internus) and anteriorly. Inter-Rectal Assessment Per vaginal assessment: Tender at 4-5 O'Clock bilaterally. Good PF strength of 3/5 around PF clock. Extra loose tissue noted consistent with rectocele. Pt had eliminated stool already today. Per rectal assessment: Tenderness anterior and laterally. 10x quick contractions w/o difficulty; long hold contraction - mild fatigue after 3 and 7 secs. Pt does perform a moderate pulling up and in contraction. Prolapse Cystocele Grade 2 Rectocele Grade 3 Contraction Ability Manual Muscle Testing Left 2 Manual Muscle Testing Right 2 Manual Muscle Testing Anterior 5 Manual Muscle Testing Posterior 5 PT-OP-J Posture/Palpation/Skin Start: 10/25/22 11:12 Freq: Status: Active Protocol: Document 10/25/22 11:15 LRN (Rec: 10/25/22 12:26 LRN [id number]) Posture Evaluation Position Standing Head/C-Spine Posture Forward Head T-Spine Posture Increased Kyphosis L-Spine Posture Increased Lordosis PT-OP-K Range of Motion Start: 10/25/22 11:12 Freq: Status: Active Protocol: Document 10/25/22 11:15 LRN (Rec: 10/25/22 12:26 LRN [id number]) Lumbar Spine Range of Motion Lumbar Spine Active Degrees Testing Position Standing Flexion 45 Extension 15 Rotation Left 25 Rotation Right 35 Comments ROM taken is approximate deg's measurement Hip Goniometric Range of Motion Hip Right Passive Testing Position Supine Internal Rotation 25 External Rotation 75 Left Passive Testing Position Supine Internal Rotation 15 External Rotation 80 PT-OP-Q Treatments Start: 10/25/22 11:12 Freq: Status: Active Protocol: Document 10/28/22 11:19 LRN (Rec: 10/28/22 12:24 LRN [id number]) Therapeutic Exercises Supine Exercises Deep Breathing Supine Exercise Name Deep Breathing training Reps/Minutes 4' Comments Cuing for slowing speed of breath, inhale> exhale. ILU massage Supine Exercise Name Pt self ILU massage Reps/Minutes 6' Comments Much cuing for direction of massage, small circles, pressure, slow speed Manual Therapy Treatment Soft Tissue Mobilization ILU massage Body Location ILU massage Intensity/Depth Moderate Body Position Supine Comments 11' Self-Care/Home Management Treatment Education Other Education 18' to review bladder diary and discussed norms for hydration and recommended level for pt based on her weight, discuss her diet with recommendations to increase greens and recommended other amounts (protein, carbs). Discussed what may be plugging : BRAT diet. Reviewed sitting like on a squatty potty. Activities Self-Care/Home Management Activities 4' to Issued & reviewed HEP: ILU massage & bowel program, Log roll bed transfers method, and Foods/Beverages suggestions. PT-OP-T Assessment and Plan Start: 10/25/22 11:12 Freq: Status: Active Protocol: Document 10/28/22 11:19 LRN (Rec: 10/28/22 12:24 LRN [id number]) Physical Therapy Assessment Goals Five Impairment Abdominal ms cramping after having BM Impairment Abdominal Pain after BM is rated 5/10. Glenn internal PF pain at 3-5 and 7-9 of the PF Clock Short Term Goal (STG) Pt will be educated in BM massage, proper bowel care, use of squatty potty and avoding valsalva maneuver. 10/28/22: Pt educ in BM massage, proper bowel care with bowel program. STG Duration 12/09/22 progressed 10/28/22 (need HO of squatty potty & breathwork w/BM) Jail Goal (LTG) Reduce cramping frequency (50% less than after every void) and reduce pain after voiding. LTG Duration 01/23/23 Three Impairment Fecal & urinary leakage requiring 3-4 pantiliners daily Impairment Occasionally has total loss of fecal continence 1x/month Short Term Goal (STG) Decrease use of pantiliners to 1-2/day. STG Duration 12/09/22 Jail Goal (LTG) Eliminate fecal leakage during the day. LTG Duration 01/23/23 Two Impairment Decreased PF strength for long holds Impairment Pt fatigues after 3 and 7 secs of long holding. Hip IR PROM is ~25 deg's right , 15 deg's left. Short Term Goal (STG) Improve bilateral hip IR mobility. STG Duration 12/09/22 [employer] Goal (LTG) Strengthen the PF to prevent urinary and fecal incontinence when sneezing, coughing, laughing. LTG Duration 01/23/23 One Impairment Pt lacks an independent self care HEP. Short Term Goal (STG) Pt educated in proper transfers and body mechanics to lessen core abdominal pressure. 10/28/22: Pt educated in proper log roll transfer to lessen core pressure. STG Duration 12/09/22 progressed 10/28/22 ( need ed of body mechanics) [employer] Goal (LTG) Pt will be independent in a self care HEP for PF strengthening and hip IR stretch ex. LTG Duration 01/23/23 Assessment Summary Assessment Pt is with fecal incontinence and stress urinary incontinence with difficulty eliminating stool due to a rectocele. Pt attends with minimal BM's since last session; therefore withheld further rectal assessment. She was very receptive to self care information, self ILU massage and deep breathing. She was able to perform properly the ILU massage w/min cuing after training and with training was able to perform the 6 inhale/exhale without cuing. Per bladder diary review, pt intake of vegs/ fruit is minimal and she her fluid intake is quite a bit below recommended amount. Further encouragement is needed in these areas. Pt states she did not need cortisone injection because she wore a neck brace to sleep and woke w/o shoulder pain. She plans on wearing the brace at nighttime. Physical Therapy Plan Frequency and Duration Frequency of Treatment 1x/Week Duration of treatment (weeks) 12 Plan of Care Start Date 10/25/22 Plan of Care End Date 01/23/23 Next Visit Focus/Plan Next Note Type Treatment Note Next Visit Plan Cont 2x/week for 1-[address] pt on a HEP. Assess response to use of squatty potty positioning for BMs, BM massage and changes with change in diet/fluids. Educate pt in proper breathing to decrease intra-abdominal pressures with daily activities, transfers and body mechanics for proper core pressure management. Review 2nd week of bladder diary to discuss stool types, foods, water intake, Educated pt in bladder retraining with urge deference technique, proper Kegel without use of substitute muscles Complete PF bowel assessment, Add hip IR stretch Assess hip/trunk strength and trunk SB AROM, posture, DTRs, PSLR. Start LE roll in/out ex when can deep breath appropriately. Education in vulvar/genital care, posture, decrease vagus n stim. Manual stretch to OI/external and internal PF (when UTI cleared). PF/core/hip strengthening, ?STM of abdomen (and urachus), improve abdominal soft tissue (bladder) mobility. POC: Pt education, Manual therapy. Biofeedback with vaginal sensor. Therapeutic Exercises, Therapeutic Activities, Neuromuscular Reeducation.
--- NOTE | 2022-11-05 16:11 | PT.OTN ---
Current Diagnoses Constipation, unspecified (11/05/22) Rectal prolapse (11/05/22) Stiffness of unspecified hip, not elsewhere classified (11/05/22) Stress incontinence (female) (male) (11/05/22) Fecal smearing (11/05/22) Physical Therapy Treatment Note PT-OP-A Visit Information Start: 10/25/22 11:12 Freq: Status: Active Protocol: Document 11/05/22 10:37 LRN (Rec: 11/05/22 11:21 LRN [id number]) Out-Patient Physical Therapy Visit Information Visit Information Visit Type Treatment Note Visit Start Time 10:37 Visit Stop Time 11:19 Total Visit Minutes 42 Visit Number 3 Evaluation Information Evaluation Date 10/25/22 Precautions Precautions Possible current UTI. PMH: Fibromyalgia, Osteoporosis, Osteoarthritis, Ascending aortic aneurysm and hard to control HBP. PT-OP-B Current Condition Start: 10/25/22 11:12 Freq: Status: Active Protocol: Document 10/25/22 11:15 LRN (Rec: 10/25/22 12:26 LRN [id number]) Current Condition History of Current Condition Onset Date 4-5 yrs ago. Worsened in past 2 yr ago. Current Complaints Fecal incontinence History of Current Condition Has a Rectocele and must manually go in to push fecal material. Has moments of gastroc emptying. Has hard black marbles, then pasty dark brown stools (like peanut butter). She is trying not to insert finger in rectum to pull stool out, currently uses thumb in vagina and fingers outside of rectum. States studies has shown she empties at normal rate. States for a time he was on opiates and suffered fecal impaction, then once corrected she began to have normal bowel movements. She has bleeds in the stomach. Now she has black stools ( had been on Toradol for pain from her upper back norma was told to take for ms back pain) and streaks of blood in her stomach and was told she had stomata of recent bleeds. Still taking Tramador and Lorazipam and (2 pain pills a day). Has hemorrhoids. Prior Treatments and Tests Pt reports 5 surgeries of rectum for rectocele repairs and on last surgery he mistaked him with another patient from 2000 to 2012 ( surgery almost every 2 yrs). Surgeries on hemorroids at age 27. Future Testing and Treatments Planned Cortisone injection in shoulders tomorrow. Treatment Goals Patient/Caregiver Goals Pt goal is: Strengthen the PF to prevent incontinence when sneezing, coughing, laughing. Eliminate fecal leakage during the day. Reduce cramping (pain rated 5/ 10) after voiding. Personal Factors Other Personal Factors That May Effect Pt reported: Multiple (5) Therapy/Recovery surgeries of rectum for rectocele repairs, last surgery mistakenly given for urinary leakage; hemorroid surgery at 27. Pt has been digitally assisting rectally to have BM, but recently has given assist with thumb in vagina and finger raking outside rectum with pushing to complete BM voiding. Pt has a multitude of health history, including reported: full body sepsis, Fibromyalgia , Osteoporosis, Osteoarthritis , Ascending aortic aneurysm and hard to control HBP, and multiple cysts on kidneys. PT-OP-C Subjective Start: 10/25/22 11:12 Freq: Status: Active Protocol: Document 11/05/22 10:37 LRN (Rec: 11/05/22 11:21 LRN [id number]) OP-PT Subjective Patient Comments Patient Comments Lost 10# in a month. Patient Reported Progress Same PT-OP-I Pelvic Floor Start: 10/25/22 11:12 Freq: Status: Active Protocol: Document 10/25/22 11:15 LRN (Rec: 10/25/22 12:26 LRN [id number]) Pelvic Floor Assessment Urine Urinary Symptoms Dribbling After Urination, Incomplete Emptying,Falling Out Feeling/Heavy Other Urinary Symptoms Urinary leakage with light activity, changing positions. Leaks in all positions. Triggers: washing hands or dishes w/warm or hot water. Leakage Cause Cough,Sneeze,Urge Other Leakage Causes No warning sometimes and with exertion. Voiding Frequency 4-5 Nocturia 1 Bowel Bowel Surgery Yes Bowel Symptoms Constipation,Fecal Leakage Other Bowel Symptoms Pt has hardened stool and soft stool noted to be the consistency of peanut butter. Pelvic Clock Pelvic Clock Other Extreme Tenderness lateral spicer (in location of Obturator Internus) and anteriorly. Inter-Rectal Assessment Per vaginal assessment: Tender at 4-5 O'Clock bilaterally. Good PF strength of 3/5 around PF clock. Extra loose tissue noted consistent with rectocele. Pt had eliminated stool already today. Per rectal assessment: Tenderness anterior and laterally. 10x quick contractions w/o difficulty; long hold contraction - mild fatigue after 3 and 7 secs. Pt does perform a moderate pulling up and in contraction. Prolapse Cystocele Grade 2 Rectocele Grade 3 Contraction Ability Manual Muscle Testing Left 2 Manual Muscle Testing Right 2 Manual Muscle Testing Anterior 5 Manual Muscle Testing Posterior 5 PT-OP-J Posture/Palpation/Skin Start: 10/25/22 11:12 Freq: Status: Active Protocol: Document 10/25/22 11:15 LRN (Rec: 10/25/22 12:26 LRN [id number]) Posture Evaluation Position Standing Head/C-Spine Posture Forward Head T-Spine Posture Increased Kyphosis L-Spine Posture Increased Lordosis PT-OP-K Range of Motion Start: 10/25/22 11:12 Freq: Status: Active Protocol: Document 10/25/22 11:15 LRN (Rec: 10/25/22 12:26 LRN [id number]) Lumbar Spine Range of Motion Lumbar Spine Active Degrees Testing Position Standing Flexion 45 Extension 15 Rotation Left 25 Rotation Right 35 Comments ROM taken is approximate deg's measurement Hip Goniometric Range of Motion Hip Right Passive Testing Position Supine Internal Rotation 25 External Rotation 75 Left Passive Testing Position Supine Internal Rotation 15 External Rotation 80 PT-OP-Q Treatments Start: 10/25/22 11:12 Freq: Status: Active Protocol: Document 11/05/22 10:37 LRN (Rec: 11/05/22 11:21 LRN [id number]) Therapeutic Exercises Supine Exercises Hip IR stretches Supine Exercise Name Lateral Hip and Piriformis, L> R Side bilateral Reps/Minutes 2x L, 1x R Comments Cuing for leg placement/hand placement and hold time. Self-Care/Home Management Treatment Education Other Education Reviewed Bladder dairy and discussed fluid and food intake (AM/PM), hydration levels, food types (vegs, fruit, BRAT diet items) & I/S pt to do a food diary to monitor fluid intake, food intake and types. Pt education/discussion with handout, in PF anatomy of primarily bowel system at PF. Discussed pt using fingers for applying pressure to assit with having BM. Discussed positioning modification of knees higher than hips. Pt discussed her different movement of leaning back or moving back and forth (ratchet mvmt) to eliminate. Activities Self-Care/Home Management Activities Issued & reviewed HEP of Hip stretches: Lateral Hip and Piriformis stretch. PT-OP-T Assessment and Plan Start: 10/25/22 11:12 Freq: Status: Active Protocol: Document 11/05/22 10:37 LRN (Rec: 11/05/22 11:21 LRN [id number]) Physical Therapy Assessment Goals Five Impairment Abdominal ms cramping after having BM Impairment Abdominal Pain after BM is rated 5/10. Glenn internal PF pain at 3-5 and 7-9 of the PF Clock Short Term Goal (STG) Pt will be educated in BM massage, proper bowel care, use of squatty potty and avoding valsalva maneuver. 10/28/22: Pt educ in BM massage, proper bowel care with bowel program. STG Duration 12/09/22 progressed 10/28/22 (need HO of squatty potty & breathwork w/BM) Nursing Home Goal (LTG) Reduce cramping frequency (50% less than after every void) and reduce pain after voiding. LTG Duration 01/23/23 Three Impairment Fecal & urinary leakage requiring 3-4 pantiliners daily Impairment Occasionally has total loss of fecal continence 1x/month Short Term Goal (STG) Decrease use of pantiliners to 1-2/day. STG Duration 12/09/22 Nursing Home Goal (LTG) Eliminate fecal leakage during the day. LTG Duration 01/23/23 Two Impairment Decreased PF strength for long holds Impairment Pt fatigues after 3 and 7 secs of long holding. Hip IR PROM is ~25 deg's right , 15 deg's left. Short Term Goal (STG) Improve bilateral hip IR mobility. STG Duration 12/09/22 [employer] Goal (LTG) Strengthen the PF to prevent urinary and fecal incontinence when sneezing, coughing, laughing. LTG Duration 01/23/23 One Impairment Pt lacks an independent self care HEP. Short Term Goal (STG) Pt educated in proper transfers and body mechanics to lessen core abdominal pressure. 10/28/22: Pt educated in proper log roll transfer to lessen core pressure. STG Duration 12/09/22 progressed 10/28/22 ( need ed of body mechanics) Nursing Home Goal (LTG) Pt will be independent in a self care HEP for PF strengthening and hip IR stretch ex. 11/05/22: HEP: Hip IR stretches (lateral hip & Piriformis). LTG Duration 01/23/23 progressed 11/05/22 Assessment Summary Assessment Pt doing BM massage, doesn't have squatty potty, using fingers on external PF to assist with BM (pushing from behind anus and forward). Per diary review, pt doesn't appear to be eating enough solid food to have solid BM, and not veges. She is drinking enough fluid for now based on her food intake. Pt is receptive to trying to eat more food. Physical Therapy Plan Frequency and Duration Frequency of Treatment 1x/Week Duration of treatment (weeks) 12 Plan of Care Start Date 10/25/22 Plan of Care End Date 01/23/23 Next Visit Focus/Plan Next Note Type Treatment Note Next Visit Plan Caution: UTI. Cont 2x/week for [address] pt on a HEP. Review issued hip IR stretch Assess response to use of squatty potty positioning for BMs, BM massage and changes with change in diet/fluids. Issue HO of squatty potty & breathwork w/BM Educate pt in proper breathing to decrease intra-abdominal pressures with daily activities, transfers and body mechanics for proper core pressure management. Educated pt in bladder retraining with urge deference technique, proper Kegel without use of substitute muscles Complete PF bowel assessment, Assess hip/trunk strength and trunk SB AROM, posture, DTRs, PSLR. Start LE roll in/out ex when can deep breath appropriately. Education in vulvar/genital care, posture, decrease vagus n stim. When UTI cleared: Manual stretch to OI/external and internal PF. PF/core/hip strengthening, ?STM of abdomen (and urachus), improve abdominal soft tissue (bladder) mobility. POC: Pt education, Manual therapy. Biofeedback with vaginal sensor. Therapeutic Exercises, Therapeutic Activities, Neuromuscular Reeducation.
--- NOTE | 2022-11-08 16:26 | PT.OTN ---
Current Diagnoses Constipation, unspecified (11/08/22) Rectal prolapse (11/08/22) Stiffness of unspecified hip, not elsewhere classified (11/08/22) Stress incontinence (female) (male) (11/08/22) Fecal smearing (11/08/22) Physical Therapy Treatment Note PT-OP-A Visit Information Start: 10/25/22 11:12 Freq: Status: Active Protocol: Document 11/08/22 08:51 LRN (Rec: 11/08/22 09:34 LRN [id number]) Out-Patient Physical Therapy Visit Information Visit Information Visit Type Treatment Note Visit Start Time 08:51 Visit Stop Time 09:32 Total Visit Minutes 41 Visit Number 4 Evaluation Information Evaluation Date 10/25/22 Precautions Precautions Possible current UTI. PMH: Fibromyalgia, Osteoporosis, Osteoarthritis, Ascending aortic aneurysm and hard to control HBP. PT-OP-B Current Condition Start: 10/25/22 11:12 Freq: Status: Active Protocol: Document 10/25/22 11:15 LRN (Rec: 10/25/22 12:26 LRN [id number]) Current Condition History of Current Condition Onset Date 4-5 yrs ago. Worsened in past 2 yr ago. Current Complaints Fecal incontinence History of Current Condition Has a Rectocele and must manually go in to push fecal material. Has moments of gastroc emptying. Has hard black marbles, then pasty dark brown stools (like peanut butter). She is trying not to insert finger in rectum to pull stool out, currently uses thumb in vagina and fingers outside of rectum. States studies has shown she empties at normal rate. States for a time he was on opiates and suffered fecal impaction, then once corrected she began to have normal bowel movements. She has bleeds in the stomach. Now she has black stools ( had been on Toradol for pain from her upper back norma was told to take for ms back pain) and streaks of blood in her stomach and was told she had stomata of recent bleeds. Still taking Tramador and Lorazipam and (2 pain pills a day). Has hemorrhoids. Prior Treatments and Tests Pt reports 5 surgeries of rectum for rectocele repairs and on last surgery he mistaked him with another patient from 2000 to 2012 ( surgery almost every 2 yrs). Surgeries on hemorroids at age 27. Future Testing and Treatments Planned Cortisone injection in shoulders tomorrow. Treatment Goals Patient/Caregiver Goals Pt goal is: Strengthen the PF to prevent incontinence when sneezing, coughing, laughing. Eliminate fecal leakage during the day. Reduce cramping (pain rated 5/ 10) after voiding. Personal Factors Other Personal Factors That May Effect Pt reported: Multiple (5) Therapy/Recovery surgeries of rectum for rectocele repairs, last surgery mistakenly given for urinary leakage; hemorroid surgery at 27. Pt has been digitally assisting rectally to have BM, but recently has given assist with thumb in vagina and finger raking outside rectum with pushing to complete BM voiding. Pt has a multitude of health history, including reported: full body sepsis, Fibromyalgia , Osteoporosis, Osteoarthritis , Ascending aortic aneurysm and hard to control HBP, and multiple cysts on kidneys. PT-OP-C Subjective Start: 10/25/22 11:12 Freq: Status: Active Protocol: Document 11/08/22 08:51 LRN (Rec: 11/08/22 09:34 LRN [id number]) OP-PT Subjective Patient Comments Patient Comments Not able to eat more because doesn't have an appetite. PT-OP-I Pelvic Floor Start: 10/25/22 11:12 Freq: Status: Active Protocol: Document 10/25/22 11:15 LRN (Rec: 10/25/22 12:26 LRN [id number]) Pelvic Floor Assessment Urine Urinary Symptoms Dribbling After Urination, Incomplete Emptying,Falling Out Feeling/Heavy Other Urinary Symptoms Urinary leakage with light activity, changing positions. Leaks in all positions. Triggers: washing hands or dishes w/warm or hot water. Leakage Cause Cough,Sneeze,Urge Other Leakage Causes No warning sometimes and with exertion. Voiding Frequency 4-5 Nocturia 1 Bowel Bowel Surgery Yes Bowel Symptoms Constipation,Fecal Leakage Other Bowel Symptoms Pt has hardened stool and soft stool noted to be the consistency of peanut butter. Pelvic Clock Pelvic Clock Other Extreme Tenderness lateral spicer (in location of Obturator Internus) and anteriorly. Inter-Rectal Assessment Per vaginal assessment: Tender at 4-5 O'Clock bilaterally. Good PF strength of 3/5 around PF clock. Extra loose tissue noted consistent with rectocele. Pt had eliminated stool already today. Per rectal assessment: Tenderness anterior and laterally. 10x quick contractions w/o difficulty; long hold contraction - mild fatigue after 3 and 7 secs. Pt does perform a moderate pulling up and in contraction. Prolapse Cystocele Grade 2 Rectocele Grade 3 Contraction Ability Manual Muscle Testing Left 2 Manual Muscle Testing Right 2 Manual Muscle Testing Anterior 5 Manual Muscle Testing Posterior 5 PT-OP-J Posture/Palpation/Skin Start: 10/25/22 11:12 Freq: Status: Active Protocol: Document 10/25/22 11:15 LRN (Rec: 10/25/22 12:26 LRN [id number]) Posture Evaluation Position Standing Head/C-Spine Posture Forward Head T-Spine Posture Increased Kyphosis L-Spine Posture Increased Lordosis PT-OP-K Range of Motion Start: 10/25/22 11:12 Freq: Status: Active Protocol: Document 10/25/22 11:15 LRN (Rec: 10/25/22 12:26 LRN [id number]) Lumbar Spine Range of Motion Lumbar Spine Active Degrees Testing Position Standing Flexion 45 Extension 15 Rotation Left 25 Rotation Right 35 Comments ROM taken is approximate deg's measurement Hip Goniometric Range of Motion Hip Right Passive Testing Position Supine Internal Rotation 25 External Rotation 75 Left Passive Testing Position Supine Internal Rotation 15 External Rotation 80 PT-OP-Q Treatments Start: 10/25/22 11:12 Freq: Status: Active Protocol: Document 11/08/22 08:51 LRN (Rec: 11/08/22 09:34 LRN [id number]) Therapeutic Exercises Supine Exercises PF/Bridge/3 breaths Supine Exercise Name PF/Bridge thru 3 breaths f/b 5x BKFO's for PF rest Reps/Minutes 20' Comments Much cuing for breathwork & cuing to move BKFO, keeping pt focused on exer Hip IR stretches Supine Exercise Name Lateral Hip and Piriformis, L> R Side bilateral Reps/Minutes (16') 60 stretches 2x L, 1x R Comments Much cuing for leg /hand placement, preventing trunk rot & hold time. Deep Breathing Supine Exercise Name Deep Breathing Reps/Minutes 2' Comments Cuing to not hold breath at end of inhale. Self-Care/Home Management Treatment Education Patient Education Home Exercise Program Other Education Bladder diary review, with discussion of to increasing green leafy vegs and to NOT eat a BRAT diet, as pt got confused as to thinking she needed to eat more of BRAT diet. Pt having bowel leakage during the night consistently and through the day, even in the abscence of loose stools; therefore pt appears to have a sensation dysfunction that EStim may help. Activities Self-Care/Home Management Activities Issued & reviewed HEP: PF strengthening with bridge hold (10 secs), with active BKFO x 5 during PF rest. PT-OP-T Assessment and Plan Start: 10/25/22 11:12 Freq: Status: Active Protocol: Document 11/08/22 08:51 LRN (Rec: 11/08/22 09:34 LRN [id number]) Physical Therapy Assessment Goals Five Impairment Abdominal ms cramping after having BM Impairment Abdominal Pain after BM is rated 5/10. Glenn internal PF pain at 3-5 and 7-9 of the PF Clock Short Term Goal (STG) Pt will be educated in BM massage, proper bowel care, use of squatty potty and avoding valsalva maneuver. 10/28/22: Pt educ in BM massage, proper bowel care with bowel program. STG Duration 12/09/22 progressed 10/28/22 (need HO of squatty potty & breathwork w/BM) Bdc Manager Goal (LTG) Reduce cramping frequency (50% less than after every void) and reduce pain after voiding. LTG Duration 01/23/23 Three Impairment Fecal & urinary leakage requiring 3-4 pantiliners daily Impairment Occasionally has total loss of fecal continence 1x/month Short Term Goal (STG) Decrease use of pantiliners to 1-2/day. STG Duration 12/09/22 Bdc Manager Goal (LTG) Eliminate fecal leakage during the day. LTG Duration 01/23/23 Two Impairment Decreased PF strength for long holds Impairment Pt fatigues after 3 and 7 secs of long holding. Hip IR PROM is ~25 deg's right , 15 deg's left. Short Term Goal (STG) Improve bilateral hip IR mobility. STG Duration 12/09/22 Bdc Manager Goal (LTG) Strengthen the PF to prevent urinary and fecal incontinence when sneezing, coughing, laughing. LTG Duration 01/23/23 One Impairment Pt lacks an independent self care HEP. Short Term Goal (STG) Pt educated in proper transfers and body mechanics to lessen core abdominal pressure. 10/28/22: Pt educated in proper log roll transfer to lessen core pressure. STG Duration 12/09/22 progressed 10/28/22 ( need ed of body mechanics) Bdc Manager Goal (LTG) Pt will be independent in a self care HEP for PF strengthening and hip IR stretch ex. 11/05/22: HEP: Hip IR stretches (lateral hip & Piriformis). 11/08/22: HEP: PF long hold with Bridging hold thru 1-1/2 breath, resting with BKFO x 5 reps. LTG Duration 01/23/23 progressed 11/08/22 Assessment Summary Assessment Pt with fecal incontinence and stress urinary incontinence with difficulty eliminating stool due to a rectocele. Pt may have anterior PF tightness and posterior tightness at lateral spicer/?transverse perineum. Pt does not have a squatty potty and feels she is able to have BM using rocking motion and fingers on external perineum to push stool out. Pt was not familiar with hip IR stretches and needs further review because of poor recall. Much training and cuing needed for ex's and coordination of PF contraction with breathing and movement. With review of bladder diary, pt shows some improvement in her bowel type, but has bowel leakage without sensation. Rectal stim may be needed to improve posterior PF contraction awareness. Physical Therapy Plan Frequency and Duration Frequency of Treatment 1x/Week Duration of treatment (weeks) 12 Plan of Care Start Date 10/25/22 Plan of Care End Date 01/23/23 Next Visit Focus/Plan Next Note Type Treatment Note Next Visit Plan Caution: UTI. Cont 2x/week for this week to place pt on a HEP. Plan is to change to 1x/week, but pt may need neuro-reducation of rectal sphincters that she would benefit 2x/week. Reassess need for PT 2x/week next visit. Rectal check sphincters ability to relax and for sensation of rectal sphincters for possible use of rectal EStim to improve sensation and awareness of spincter contraction. Possible stretch to anterior & lateral spicer of PF and rectal spincters. Assess response to use of squatty potty positioning for BMs, BM massage and changes with change in diet/fluids. Educate pt in breathwork w/BM Educate pt in proper breathing to decrease intra-abdominal pressures with daily activities, & body mechanics for proper core pressure management. Educated pt in bladder retraining with urge deference technique, proper Kegel without use of substitute muscles Complete PF bowel assessment, Assess hip/trunk strength and trunk SB AROM, posture, DTRs, PSLR. Start LE roll in/out ex when can deep breath appropriately. Education in vulvar/genital care, posture, decrease vagus n stim. When UTI cleared: Manual stretch to OI/external and internal PF. PF/core/hip strengthening, ?STM of abdomen (and urachus), improve abdominal soft tissue (bladder) mobility. POC: Pt education, Manual therapy. Biofeedback with vaginal sensor. Therapeutic Exercises, Therapeutic Activities, Neuromuscular Reeducation.
--- NOTE | 2022-12-20 10:56 | PT.OTN ---
Current Diagnoses Constipation, unspecified (12/20/22) Rectal prolapse (12/20/22) Stiffness of unspecified hip, not elsewhere classified (12/20/22) Stress incontinence (female) (male) (12/20/22) Fecal smearing (12/20/22) Physical Therapy Treatment Note PT-OP-A Visit Information Start: 10/25/22 11:12 Freq: Status: Active Protocol: Document 12/20/22 09:38 LRN (Rec: 12/20/22 10:56 LRN [id number]) Out-Patient Physical Therapy Visit Information Visit Information Visit Type Treatment Note Visit Start Time 09:38 Visit Stop Time 10:23 Total Visit Minutes 45 Visit Number 5 Evaluation Information Evaluation Date 10/25/22 Precautions Precautions Possible current UTI. PMH: Fibromyalgia, Osteoporosis, Osteoarthritis, Ascending aortic aneurysm and hard to control HBP. PT-OP-B Current Condition Start: 10/25/22 11:12 Freq: Status: Active Protocol: Document 10/25/22 11:15 LRN (Rec: 10/25/22 12:26 LRN [id number]) Current Condition History of Current Condition Onset Date 4-5 yrs ago. Worsened in past 2 yr ago. Current Complaints Fecal incontinence History of Current Condition Has a Rectocele and must manually go in to push fecal material. Has moments of gastroc emptying. Has hard black marbles, then pasty dark brown stools (like peanut butter). She is trying not to insert finger in rectum to pull stool out, currently uses thumb in vagina and fingers outside of rectum. States studies has shown she empties at normal rate. States for a time he was on opiates and suffered fecal impaction, then once corrected she began to have normal bowel movements. She has bleeds in the stomach. Now she has black stools ( had been on Toradol for pain from her upper back norma was told to take for ms back pain) and streaks of blood in her stomach and was told she had stomata of recent bleeds. Still taking Tramador and Lorazipam and (2 pain pills a day). Has hemorrhoids. Prior Treatments and Tests Pt reports 5 surgeries of rectum for rectocele repairs and on last surgery he mistaked him with another patient from 2000 to 2012 ( surgery almost every 2 yrs). Surgeries on hemorroids at age 27. Future Testing and Treatments Planned Cortisone injection in shoulders tomorrow. Treatment Goals Patient/Caregiver Goals Pt goal is: Strengthen the PF to prevent incontinence when sneezing, coughing, laughing. Eliminate fecal leakage during the day. Reduce cramping (pain rated 5/ 10) after voiding. Personal Factors Other Personal Factors That May Effect Pt reported: Multiple (5) Therapy/Recovery surgeries of rectum for rectocele repairs, last surgery mistakenly given for urinary leakage; hemorroid surgery at 27. Pt has been digitally assisting rectally to have BM, but recently has given assist with thumb in vagina and finger raking outside rectum with pushing to complete BM voiding. Pt has a multitude of health history, including reported: full body sepsis, Fibromyalgia , Osteoporosis, Osteoarthritis , Ascending aortic aneurysm and hard to control HBP, and multiple cysts on kidneys. PT-OP-C Subjective Start: 10/25/22 11:12 Freq: Status: Active Protocol: Document 12/20/22 09:38 LRN (Rec: 12/20/22 10:56 LRN [id number]) OP-PT Subjective Patient Comments Patient Comments States she doesn't have a UTI and is not on antibiotics. Thinks she is bleeding in her stool and is bleeding in her vagina. Has estrogen cream that she sometimes forgets to use. States her stool is an array of things; therefore she has no appetite. PT-OP-I Pelvic Floor Start: 10/25/22 11:12 Freq: Status: Active Protocol: Document 10/25/22 11:15 LRN (Rec: 10/25/22 12:26 LRN [id number]) Pelvic Floor Assessment Urine Urinary Symptoms Dribbling After Urination, Incomplete Emptying,Falling Out Feeling/Heavy Other Urinary Symptoms Urinary leakage with light activity, changing positions. Leaks in all positions. Triggers: washing hands or dishes w/warm or hot water. Leakage Cause Cough,Sneeze,Urge Other Leakage Causes No warning sometimes and with exertion. Voiding Frequency 4-5 Nocturia 1 Bowel Bowel Surgery Yes Bowel Symptoms Constipation,Fecal Leakage Other Bowel Symptoms Pt has hardened stool and soft stool noted to be the consistency of peanut butter. Pelvic Clock Pelvic Clock Other Extreme Tenderness lateral spicer (in location of Obturator Internus) and anteriorly. Inter-Rectal Assessment Per vaginal assessment: Tender at 4-5 O'Clock bilaterally. Good PF strength of 3/5 around PF clock. Extra loose tissue noted consistent with rectocele. Pt had eliminated stool already today. Per rectal assessment: Tenderness anterior and laterally. 10x quick contractions w/o difficulty; long hold contraction - mild fatigue after 3 and 7 secs. Pt does perform a moderate pulling up and in contraction. Prolapse Cystocele Grade 2 Rectocele Grade 3 Contraction Ability Manual Muscle Testing Left 2 Manual Muscle Testing Right 2 Manual Muscle Testing Anterior 5 Manual Muscle Testing Posterior 5 PT-OP-J Posture/Palpation/Skin Start: 10/25/22 11:12 Freq: Status: Active Protocol: Document 10/25/22 11:15 LRN (Rec: 10/25/22 12:26 LRN [id number]) Posture Evaluation Position Standing Head/C-Spine Posture Forward Head T-Spine Posture Increased Kyphosis L-Spine Posture Increased Lordosis PT-OP-K Range of Motion Start: 10/25/22 11:12 Freq: Status: Active Protocol: Document 10/25/22 11:15 LRN (Rec: 10/25/22 12:26 LRN [id number]) Lumbar Spine Range of Motion Lumbar Spine Active Degrees Testing Position Standing Flexion 45 Extension 15 Rotation Left 25 Rotation Right 35 Comments ROM taken is approximate deg's measurement Hip Goniometric Range of Motion Hip Right Passive Testing Position Supine Internal Rotation 25 External Rotation 75 Left Passive Testing Position Supine Internal Rotation 15 External Rotation 80 PT-OP-Q Treatments Start: 10/25/22 11:12 Freq: Status: Active Protocol: Document 12/20/22 09:38 LRN (Rec: 12/20/22 10:56 LRN [id number]) Therapeutic Exercises Supine Exercises Happy Baby Pose Supine Exercise Name Happy Baby Pose Reps/Minutes 3' Comments Cuing for positioning for Anal sphincter stretch. Hip IR stretches Supine Exercise Name Lateral Hip and Piriformis, L> R Side bilateral Reps/Minutes (8') 60 stretches 2x L, 1x R Comments Much cuing for leg /hand placement, preventing trunk rot & hold time. Sitting Exercises Deep Breathing Sitting Exercise Name Deep Breathing training for when having BM in 3 different positions Reps/Minutes 12' Comments Cuing for feet on stool, upright, and flight FB position Other Exercises Transfer training sit<>sup Other Exercise Name Sit<>Supine Reps/Minutes 3' Comments Cuing for log roll method. Self-Care/Home Management Treatment Education Patient Education Body Mechanics,Posture Other Education Reviewed pt breathwork w/BM. Educated pt in deep breathing to perform when trying to have BM. Encourated pt to try without step stool and to try leaning fwd a little since pt using stool only when she thinks of it. Discussed prior surgery may need her to FB to better eliminate stool with BM. Briefly educated pt in genital and vulvar care with handout issued Educated pt in body mechanics for daily acitivies with handout reviewed. Activities Self-Care/Home Management Activities Issued handouts for Deep Breathing (w/BM); log roll transfer in/out of bed; body mechanics for daily activities and vulvar/genital care. PT-OP-T Assessment and Plan Start: 10/25/22 11:12 Freq: Status: Active Protocol: Document 12/20/22 09:38 LRN (Rec: 12/20/22 10:56 LRN [id number]) Physical Therapy Assessment Goals Five Impairment Abdominal ms cramping after having BM Impairment Abdominal Pain after BM is rated 5/10. Glenn internal PF pain at 3-5 and 7-9 of the PF Clock Short Term Goal (STG) Pt will be educated in BM massage, proper bowel care, use of squatty potty and avoding valsalva maneuver. 10/28/22: Pt educ in BM massage, proper bowel care with bowel program. 12/20/22: Discussed need for squatty potty and recommended forward bending for having BM and breathwork through BM ( deep breathing). Deep Breathing handout issued. STG Duration 12/09/22 (12/20/22: MET GOAL) [facility] Goal (LTG) Reduce cramping frequency (50% less than after every void) and reduce pain after voiding. 12/20/22: Cramping after having BM or bladder emptying after 30-40'. LTG Duration 01/23/23 Three Impairment Fecal & urinary leakage requiring 3-4 pantiliners daily Impairment Occasionally has total loss of fecal continence 1x/month Short Term Goal (STG) Decrease use of pantiliners to 1-2/day. STG Duration 12/09/22 [facility]ci Goal (LTG) Eliminate fecal leakage during the day. LTG Duration 01/23/23 Two Impairment Decreased PF strength for long holds Impairment Pt fatigues after 3 and 7 secs of long holding. Hip IR PROM is ~25 deg's right , 15 deg's left. Short Term Goal (STG) Improve bilateral hip IR mobility. STG Duration 12/09/22 Child Caregiver Goal (LTG) Strengthen the PF to prevent urinary and fecal incontinence when sneezing, coughing, laughing. LTG Duration 01/23/23 One Impairment Pt lacks an independent self care HEP. Short Term Goal (STG) Pt educated in proper transfers and body mechanics to lessen core abdominal pressure. 10/28/22: Pt educated in proper log roll transfer to lessen core pressure. 12/20/22: Pt educated in ADL body mechanics STG Duration 12/09/22 progressed 03/22/22 ( body mechanics educ in lessening abd pressur) Child Caregiver Goal (LTG) Pt will be independent in a self care HEP for PF strengthening and hip IR stretch ex. 11/05/22: HEP: Hip IR stretches (lateral hip & Piriformis). 11/08/22: HEP: PF long hold with Bridging hold thru 1-1/2 breath, resting with BKFO x 5 reps. 12/20/22: I/S in Happy Baby Pose. LTG Duration 01/23/23 progressed 12/20/22 Assessment Summary Assessment Pt with fecal incontinence and stress urinary incontinence with difficulty eliminating stool due to a rectocele (? tight sphincters vs weak). Pt may have anterior PF tightness and posterior tightness at lateral spicer/? transverse perineum, but unable to assess internally due to possible current bleeding history in bowels and reportedly vaginally. Pt uses step stools in place of squatty potty she feels it makes having BM worse due to changes in her anatomy after rectal surgery, but has been doing BM massage and is trying to eat more food. Pt appears to have forgotten her hip stretches, but after review appeared to have better recall. Physical Therapy Plan Frequency and Duration Frequency of Treatment 1x/Week Duration of treatment (weeks) 12 Plan of Care Start Date 10/25/22 Plan of Care End Date 01/23/23 Next Visit Focus/Plan Next Note Type Treatment Note Next Visit Plan NExt: Assess response to change in position for BM and Happy Baby Pose stretch (issue handout if + response), check hip IR PROM. STM of abdomen (and urachus), improve abdominal soft tissue (bladder ) mobility. to decrease abdominal cramps after BM. Discuss/educate/review pt in proper breathing to decrease intra-abdominal pressures with daily activities, & body mechanics for proper core pressure management. Pt only tolerating 1x/week; therefore unless Neuro- reducation of rectal sphincters can be done 2x/week , if genital tissues are healthy enough to burke rectal electrode, cont 1x/week. Check rectal sphincters ability to relax and for sensation of rectal sphincters for possible use of rectal EStim to improve sensation and awareness of spincter contraction. Possible stretch to anterior & lateral spicer of PF and rectal spincters. Educated pt in bladder retraining with urge deference technique, Educate pt in Kegel without use of substitute muscles Complete PF bowel assessment when rectal tissues are well enough for internal assess, Assess hip/trunk strength and trunk SB AROM, posture, DTRs, PSLR. Start LE roll in/out ex when can deep breath appropriately. Education in posture, decrease vagus n stim. When vaginal tissues are healthy (no bleeding): Manual stretch to OI/external and internal PF. PF/core/hip strengthening, POC: Pt education, Manual therapy. Biofeedback with vaginal sensor. Therapeutic Exercises, Therapeutic Activities, Neuromuscular Reeducation.
--- NOTE | 2023-01-03 16:21 | PT.OTN ---
Current Diagnoses Constipation, unspecified (01/03/23) Rectal prolapse (01/03/23) Stiffness of unspecified hip, not elsewhere classified (01/03/23) Stress incontinence (female) (male) (01/03/23) Fecal smearing (01/03/23) Physical Therapy Treatment Note PT-OP-A Visit Information Start: 10/25/22 11:12 Freq: Status: Active Protocol: Document 01/03/23 10:25 LRN (Rec: 01/03/23 11:18 LRN [id number]) Out-Patient Physical Therapy Visit Information Visit Information Visit Start Time 10:31 Visit Stop Time 11:12 Total Visit Minutes 41 Visit Number 6 Evaluation Information Evaluation Date 10/25/22 Precautions Precautions Possible current UTI. PMH: Fibromyalgia, Osteoporosis, Osteoarthritis, Ascending aortic aneurysm and hard to control HBP. PT-OP-B Current Condition Start: 10/25/22 11:12 Freq: Status: Active Protocol: Document 10/25/22 11:15 LRN (Rec: 10/25/22 12:26 LRN [id number]) Current Condition History of Current Condition Onset Date 4-5 yrs ago. Worsened in past 2 yr ago. Current Complaints Fecal incontinence History of Current Condition Has a Rectocele and must manually go in to push fecal material. Has moments of gastroc emptying. Has hard black marbles, then pasty dark brown stools (like peanut butter). She is trying not to insert finger in rectum to pull stool out, currently uses thumb in vagina and fingers outside of rectum. States studies has shown she empties at normal rate. States for a time he was on opiates and suffered fecal impaction, then once corrected she began to have normal bowel movements. She has bleeds in the stomach. Now she has black stools ( had been on Toradol for pain from her upper back norma was told to take for ms back pain) and streaks of blood in her stomach and was told she had stomata of recent bleeds. Still taking Tramador and Lorazipam and (2 pain pills a day). Has hemorrhoids. Prior Treatments and Tests Pt reports 5 surgeries of rectum for rectocele repairs and on last surgery he mistaked him with another patient from 2000 to 2012 ( surgery almost every 2 yrs). Surgeries on hemorroids at age 27. Future Testing and Treatments Planned Cortisone injection in shoulders tomorrow. Treatment Goals Patient/Caregiver Goals Pt goal is: Strengthen the PF to prevent incontinence when sneezing, coughing, laughing. Eliminate fecal leakage during the day. Reduce cramping (pain rated 5/ 10) after voiding. Personal Factors Other Personal Factors That May Effect Pt reported: Multiple (5) Therapy/Recovery surgeries of rectum for rectocele repairs, last surgery mistakenly given for urinary leakage; hemorroid surgery at 27. Pt has been digitally assisting rectally to have BM, but recently has given assist with thumb in vagina and finger raking outside rectum with pushing to complete BM voiding. Pt has a multitude of health history, including reported: full body sepsis, Fibromyalgia , Osteoporosis, Osteoarthritis , Ascending aortic aneurysm and hard to control HBP, and multiple cysts on kidneys. PT-OP-C Subjective Start: 10/25/22 11:12 Freq: Status: Active Protocol: Document 01/03/23 10:25 LRN (Rec: 01/03/23 11:18 LRN [id number]) OP-PT Subjective Patient Comments Patient Comments States she had an injection in the neck. States BM positioning of leaning fwd a little and breathing allows for easier BM's. States her L elbow has been very painful for past 2 months of insidious onset, and requires PT for inflammed tendon; therefore is requesting shortening her PF rehab so that she can receive L elbow rehab. Used to have nauseous abdominal pain, that had lessened until yesterday. PT-OP-I Pelvic Floor Start: 10/25/22 11:12 Freq: Status: Active Protocol: Document 10/25/22 11:15 LRN (Rec: 10/25/22 12:26 LRN [id number]) Pelvic Floor Assessment Urine Urinary Symptoms Dribbling After Urination, Incomplete Emptying,Falling Out Feeling/Heavy Other Urinary Symptoms Urinary leakage with light activity, changing positions. Leaks in all positions. Triggers: washing hands or dishes w/warm or hot water. Leakage Cause Cough,Sneeze,Urge Other Leakage Causes No warning sometimes and with exertion. Voiding Frequency 4-5 Nocturia 1 Bowel Bowel Surgery Yes Bowel Symptoms Constipation,Fecal Leakage Other Bowel Symptoms Pt has hardened stool and soft stool noted to be the consistency of peanut butter. Pelvic Clock Pelvic Clock Other Extreme Tenderness lateral spicer (in location of Obturator Internus) and anteriorly. Inter-Rectal Assessment Per vaginal assessment: Tender at 4-5 O'Clock bilaterally. Good PF strength of 3/5 around PF clock. Extra loose tissue noted consistent with rectocele. Pt had eliminated stool already today. Per rectal assessment: Tenderness anterior and laterally. 10x quick contractions w/o difficulty; long hold contraction - mild fatigue after 3 and 7 secs. Pt does perform a moderate pulling up and in contraction. Prolapse Cystocele Grade 2 Rectocele Grade 3 Contraction Ability Manual Muscle Testing Left 2 Manual Muscle Testing Right 2 Manual Muscle Testing Anterior 5 Manual Muscle Testing Posterior 5 PT-OP-J Posture/Palpation/Skin Start: 10/25/22 11:12 Freq: Status: Active Protocol: Document 10/25/22 11:15 LRN (Rec: 10/25/22 12:26 LRN [id number]) Posture Evaluation Position Standing Head/C-Spine Posture Forward Head T-Spine Posture Increased Kyphosis L-Spine Posture Increased Lordosis PT-OP-K Range of Motion Start: 10/25/22 11:12 Freq: Status: Active Protocol: Document 10/25/22 11:15 LRN (Rec: 10/25/22 12:26 LRN [id number]) Lumbar Spine Range of Motion Lumbar Spine Active Degrees Testing Position Standing Flexion 45 Extension 15 Rotation Left 25 Rotation Right 35 Comments ROM taken is approximate deg's measurement Hip Goniometric Range of Motion Hip Right Passive Testing Position Supine Internal Rotation 25 External Rotation 75 Left Passive Testing Position Supine Internal Rotation 15 External Rotation 80 PT-OP-Q Treatments Start: 10/25/22 11:12 Freq: Status: Active Protocol: Document 01/03/23 10:25 LRN (Rec: 01/03/23 11:18 LRN [id number]) Therapeutic Exercises Supine Exercises PF/Bridge/Hip ER Supine Exercise Name Head elevated/PF/Bridge/Hip ER Equipment Used Lev 2 TBand Reps/Minutes 3 breath PF/bridge hold f/b 20SH rest Comments Cuing for resting phase. Pt moves slowly through exercise. PF/Bridge/Pillow Squeeze Supine Exercise Name PF/Bridge/Pillow Squeeze Equipment Used Lv2 TBand and Pillow Reps/Minutes 3 breath PF/bridge hold f/b 20SH rest Comments Cuing for breath and hold time . Pt moves slowly through exercise. Happy Baby Pose Supine Exercise Name Happy Baby Pose Reps/Minutes 3' Comments Cuing for positioning for Anal sphincter stretch. PF/Bridge/3 breaths Supine Exercise Name PF/Bridge thru 3 breaths f/b 5x BKFO's for PF rest Reps/Minutes 5' Comments Much cuing for breathwork & cuing to move BKFO, keeping pt focused on exer Self-Care/Home Management Treatment Education Patient Education Home Exercise Program Activities Self-Care/Home Management Activities Issued & reviewed HEP: PF strengthening (sup) PF><, Bridge/PF><, PF/Bridge/Pillow Squeeze, PF/Bridge/Hip ER agst TB, PF semi-reclined/sitting/ standing & PF/functional pelvic brace (walking/stairs), & staning plie. PT-OP-T Assessment and Plan Start: 10/25/22 11:12 Freq: Status: Active Protocol: Document 01/03/23 10:25 LRN (Rec: 01/03/23 11:18 LRN [id number]) Physical Therapy Assessment Goals Five Impairment Abdominal ms cramping after having BM Impairment Abdominal Pain after BM is rated 5/10. Glenn internal PF pain at 3-5 and 7-9 of the PF Clock Short Term Goal (STG) Pt will be educated in BM massage, proper bowel care, use of squatty potty and avoding valsalva maneuver. 10/28/22: Pt educ in BM massage, proper bowel care with bowel program. 12/20/22: Discussed need for squatty potty and recommended forward bending for having BM and breathwork through BM ( deep breathing). Deep Breathing handout issued. STG Duration 12/09/22 (12/20/22: MET GOAL) Residential Goal (LTG) Reduce cramping frequency (50% less than after every void) and reduce pain after voiding. 12/20/22: Cramping after having BM or bladder emptying after 30-40'. LTG Duration 01/23/23 (01/03/23: No change) Three Impairment Fecal & urinary leakage requiring 3-4 pantiliners daily Impairment Occasionally has total loss of fecal continence 1x/month Short Term Goal (STG) Decrease use of pantiliners to 1-2/day. 01/03/23: Pantiliners 0-1 a day. STG Duration 12/09/22 (01/03/23: MET GOAL ) Residential Goal (LTG) Eliminate fecal leakage during the day. 01/03/23: LTG Duration 01/23/23 Two Impairment Decreased PF strength for long holds Impairment Pt fatigues after 3 and 7 secs of long holding. Hip IR PROM is ~25 deg's right , 15 deg's left. Short Term Goal (STG) Improve bilateral hip IR mobility. 11/05/22: HEP: Hip IR stretches (lateral hip & Piriformis). 12/20/22: I/S in Happy Baby Pose. STG Duration 12/09/22 (11/05/22: MET GOAL) Residential Goal (LTG) Strengthen the PF to prevent urinary and fecal incontinence when sneezing, coughing, laughing. 01/03/23: HEP: PF/Bridge/hip AD, PF/Bridge/hip AB, PF contraction with walking and stairs. 01/03/23: HEP: PF strengthening (sup) PF><, Bridge/PF><, PF/Bridge/Pillow Squeeze, PF/Bridge/Hip ER agst TB, PF semi-reclined/sitting/ standing & PF/functional pelvic brace (walking/stairs), & staning plie. LTG Duration 01/23/23 (01/03/23: MET GOAL for current status in rehab) One Impairment Pt lacks an independent self care HEP. Short Term Goal (STG) Pt educated in proper transfers and body mechanics to lessen core abdominal pressure. 10/28/22: Pt educated in proper log roll transfer to lessen core pressure. 12/20/22: Pt educated in ADL body mechanics STG Duration 12/09/22 progressed 03/22/22 ( body mechanics educ in lessening abd pressur) [facility] Goal (LTG) Pt will be independent in a self care HEP for PF strengthening and hip IR stretch ex. 11/05/22: HEP: Hip IR stretches (lateral hip & Piriformis). 11/08/22: HEP: PF long hold with Bridging hold thru 1-1/2 breath, resting with BKFO x 5 reps. 12/20/22: I/S in Happy Baby Pose. 01/03/23: HEP: PF strengthening (sup) PF><, Bridge/PF><, PF/Bridge/Pillow Squeeze, PF/Bridge/Hip ER agst TB, PF semi-reclined/sitting/ standing & PF/functional pelvic brace (walking/stairs), & staning plie. LTG Duration 01/23/23 (01/03/23: MET GOAL for current status in rehab) Assessment Summary Assessment Poor tolerance to PF supine ex 's due to difficulty breathing resulting in coughing, requiring a recovery period. Pt receptive to PF strengthening ex's in sit, sup , standing, & walk/stairs. Physical Therapy Plan Frequency and Duration Frequency of Treatment 1x/Week Duration of treatment (weeks) 12 Plan of Care Start Date 10/25/22 Plan of Care End Date 01/23/23 Next Visit Focus/Plan Next Note Type Discharge Summary Next Visit Plan Next: Probable DC to HEP per pt request in order for her to start [facility]. Assess PUF & ?PDFI 20. Assess goal #3 & #5 and issue Happy Baby Pose stretch, check hip IR PROM & review HEP. Discuss/educate daily body mechanics for proper core pressure management (STG #1). If time: Educate pt in bladder retraining with urge deference technique, Possible stretch to anterior & lateral spicer of PF and rectal spincters. Educate pt in proper posture, and Kegel without use of substitute muscles. Ex: LE roll in/out ex when can deep breath appropriately. Check rectal sphincters ability to relax and for sensation of rectal sphincters for possible use of rectal EStim to improve sensation and awareness of spincter contraction. Complete PF bowel assessment when rectal tissues are well enough for internal assess, When vaginal tissues are healthy (no bleeding): Manual stretch to OI/external and internal PF. POC: PF/core/hip strengthening, Pt education, Manual therapy. Biofeedback with vaginal sensor. Therapeutic Exercises, Therapeutic Activities, Neuromuscular Reeducation.
--- NOTE | 2023-01-10 18:08 | PT.OTN ---
Current Diagnoses Constipation, unspecified (01/10/23) Rectal prolapse (01/10/23) Stiffness of unspecified hip, not elsewhere classified (01/10/23) Stress incontinence (female) (male) (01/10/23) Fecal smearing (01/10/23) Physical Therapy Treatment Note PT-OP-A Visit Information Start: 10/25/22 11:12 Freq: Status: Active Protocol: Document 01/10/23 10:42 LRN (Rec: 01/10/23 12:23 LRN [id number]) Out-Patient Physical Therapy Visit Information Visit Information Visit Type Treatment Note Visit Start Time 10:42 Visit Stop Time 11:25 Total Visit Minutes 43 Visit Number 7 Evaluation Information Evaluation Date 10/25/22 Precautions Precautions Possible current UTI. PMH: Fibromyalgia, Osteoporosis, Osteoarthritis, Ascending aortic aneurysm and hard to control HBP. PT-OP-B Current Condition Start: 10/25/22 11:12 Freq: Status: Active Protocol: Document 10/25/22 11:15 LRN (Rec: 10/25/22 12:26 LRN [id number]) Current Condition History of Current Condition Onset Date 4-5 yrs ago. Worsened in past 2 yr ago. Current Complaints Fecal incontinence History of Current Condition Has a Rectocele and must manually go in to push fecal material. Has moments of gastroc emptying. Has hard black marbles, then pasty dark brown stools (like peanut butter). She is trying not to insert finger in rectum to pull stool out, currently uses thumb in vagina and fingers outside of rectum. States studies has shown she empties at normal rate. States for a time he was on opiates and suffered fecal impaction, then once corrected she began to have normal bowel movements. She has bleeds in the stomach. Now she has black stools ( had been on Toradol for pain from her upper back norma was told to take for ms back pain) and streaks of blood in her stomach and was told she had stomata of recent bleeds. Still taking Tramador and Lorazipam and (2 pain pills a day). Has hemorrhoids. Prior Treatments and Tests Pt reports 5 surgeries of rectum for rectocele repairs and on last surgery he mistaked him with another patient from 2000 to 2012 ( surgery almost every 2 yrs). Surgeries on hemorroids at age 27. Future Testing and Treatments Planned Cortisone injection in shoulders tomorrow. Treatment Goals Patient/Caregiver Goals Pt goal is: Strengthen the PF to prevent incontinence when sneezing, coughing, laughing. Eliminate fecal leakage during the day. Reduce cramping (pain rated 5/ 10) after voiding. Personal Factors Other Personal Factors That May Effect Pt reported: Multiple (5) Therapy/Recovery surgeries of rectum for rectocele repairs, last surgery mistakenly given for urinary leakage; hemorroid surgery at 27. Pt has been digitally assisting rectally to have BM, but recently has given assist with thumb in vagina and finger raking outside rectum with pushing to complete BM voiding. Pt has a multitude of health history, including reported: full body sepsis, Fibromyalgia , Osteoporosis, Osteoarthritis , Ascending aortic aneurysm and hard to control HBP, and multiple cysts on kidneys. PT-OP-C Subjective Start: 10/25/22 11:12 Freq: Status: Active Protocol: Document 01/10/23 10:42 LRN (Rec: 01/10/23 12:23 LRN [id number]) OP-PT Subjective Patient Comments Patient Comments Still has hard stools and had gastoc epmtying. Just saw GP and is going to check why she has blood in stools. Told Dr. Marx that her elbow needs more work than the PF for now. Feels her current HEP of PF strengthening has been helpful . Is not ready for DC so that she can start treatment on her L elbow. States the L leg has had episodes of weakness and sciatic pain. Her GP is referring her to Dr. Sosa for possible cortisone injections . Patient Questionnaires Pelvic Floor Distress Inventory Questionnaire (PFDI- SF20) Pelvic Floor Score 161.4 of 300 Pelvic Pain and Urgency/Frequency Patient Symptom Scale Pelvic Pain Score 15 PT-OP-I Pelvic Floor Start: 10/25/22 11:12 Freq: Status: Active Protocol: Document 10/25/22 11:15 LRN (Rec: 10/25/22 12:26 LRN [id number]) Pelvic Floor Assessment Urine Urinary Symptoms Dribbling After Urination, Incomplete Emptying,Falling Out Feeling/Heavy Other Urinary Symptoms Urinary leakage with light activity, changing positions. Leaks in all positions. Triggers: washing hands or dishes w/warm or hot water. Leakage Cause Cough,Sneeze,Urge Other Leakage Causes No warning sometimes and with exertion. Voiding Frequency 4-5 Nocturia 1 Bowel Bowel Surgery Yes Bowel Symptoms Constipation,Fecal Leakage Other Bowel Symptoms Pt has hardened stool and soft stool noted to be the consistency of peanut butter. Pelvic Clock Pelvic Clock Other Extreme Tenderness lateral spicer (in location of Obturator Internus) and anteriorly. Inter-Rectal Assessment Per vaginal assessment: Tender at 4-5 O'Clock bilaterally. Good PF strength of 3/5 around PF clock. Extra loose tissue noted consistent with rectocele. Pt had eliminated stool already today. Per rectal assessment: Tenderness anterior and laterally. 10x quick contractions w/o difficulty; long hold contraction - mild fatigue after 3 and 7 secs. Pt does perform a moderate pulling up and in contraction. Prolapse Cystocele Grade 2 Rectocele Grade 3 Contraction Ability Manual Muscle Testing Left 2 Manual Muscle Testing Right 2 Manual Muscle Testing Anterior 5 Manual Muscle Testing Posterior 5 PT-OP-J Posture/Palpation/Skin Start: 10/25/22 11:12 Freq: Status: Active Protocol: Document 10/25/22 11:15 LRN (Rec: 10/25/22 12:26 LRN [id number]) Posture Evaluation Position Standing Head/C-Spine Posture Forward Head T-Spine Posture Increased Kyphosis L-Spine Posture Increased Lordosis PT-OP-K Range of Motion Start: 10/25/22 11:12 Freq: Status: Active Protocol: Document 01/10/23 10:42 LRN (Rec: 01/10/23 12:23 LRN [id number]) Hip Goniometric Range of Motion Hip Right Passive Testing Position Supine Internal Rotation 10 External Rotation 85 Left Passive Testing Position Supine Internal Rotation 10 External Rotation 85 PT-OP-Q Treatments Start: 10/25/22 11:12 Freq: Status: Active Protocol: Document 01/10/23 10:42 LRN (Rec: 01/10/23 12:23 LRN [id number]) Therapeutic Exercises Supine Exercises Hip IR/ER stretch Supine Exercise Name Hip IR/ER stretch Side bilateral Reps/Minutes 8' Comments ROM taken Happy Baby Pose Supine Exercise Name Happy Baby Pose Reps/Minutes 3' Comments Cuing for positioning for Anal sphincter stretch. Hip IR stretches Supine Exercise Name Lateral Hip and Piriformis, L> R Side bilateral Reps/Minutes (10') 60 stretches 2x L, 1x R Comments Much cuing for leg /hand placement, preventing trunk rot & hold time. Other Exercises Transfer training sit<>sup Other Exercise Name Sit<>Sidelie<>Supine Reps/Minutes 8' Comments Phys & V cuing for log roll method. Self-Care/Home Management Treatment Education Patient Education Body Mechanics,Home Exercise Program,Posture Other Education Discussed pt questions regarding filling out PF 20. Reviewed and discussed daily body mechanics for proper core pressure management. Discussed how pt is positioning for BM's and discussed her stool types. Activities Self-Care/Home Management Activities Issued Happy Baby Pose stretch . Reissued Self care handout for Daily activities. Issued self care handout for proper standing and sitting posture. PT-OP-T Assessment and Plan Start: 10/25/22 11:12 Freq: Status: Active Protocol: Document 01/10/23 10:42 LRN (Rec: 01/10/23 12:23 LRN [id number]) Physical Therapy Assessment Goals Five Impairment Abdominal ms cramping after having BM Impairment Abdominal Pain after BM is rated 5/10. Glenn internal PF pain at 3-5 and 7-9 of the PF Clock Short Term Goal (STG) Pt will be educated in BM massage, proper bowel care, use of squatty potty and avoding valsalva maneuver. 10/28/22: Pt educ in BM massage, proper bowel care with bowel program. 12/20/22: Discussed need for squatty potty and recommended forward bending for having BM and breathwork through BM ( deep breathing). Deep Breathing handout issued. STG Duration 12/09/22 (12/20/22: MET GOAL) Usp Goal (LTG) Reduce cramping frequency (50% less than after every void) and reduce pain after voiding. 12/20/22: Cramping after having BM or bladder emptying after 30-40'. LTG Duration 01/23/23 (01/10/23: NOT MET GOAL, No change) Three Impairment Fecal & urinary leakage requiring 3-4 pantiliners daily Impairment Occasionally has total loss of fecal continence 1x/month Short Term Goal (STG) Decrease use of pantiliners to 1-2/day. 01/03/23: Pantiliners 0-1 a day. 01/10/23: Max 2x/day, other 1x/day. STG Duration 12/09/22 (01/03/23: MET GOAL ) Usp Goal (LTG) Eliminate fecal leakage during the day. 01/10/23: No longer having little chunks of stool. Now having liquidy brown and red stool. Stool leakage 5x/week. If have to change, changes 2x/day. LTG Duration 01/23/23 (01/10/23: improved , NOT MET GOAL) Two Impairment Decreased PF strength for long holds Impairment Pt fatigues after 3 and 7 secs of long holding. Hip IR PROM is ~25 deg's right , 15 deg's left. Short Term Goal (STG) Improve bilateral hip IR mobility. 11/05/22: HEP: Hip IR stretches (lateral hip & Piriformis). 12/20/22: I/S in Happy Baby Pose. STG Duration 12/09/22 (11/05/22: MET GOAL) Handkerchief Cutter Goal (LTG) Strengthen the PF to prevent urinary and fecal incontinence when sneezing, coughing, laughing. 01/03/23: HEP: PF/Bridge/hip AD, PF/Bridge/hip AB, PF contraction with walking and stairs. 01/03/23: HEP: PF strengthening (sup) PF><, Bridge/PF><, PF/Bridge/Pillow Squeeze, PF/Bridge/Hip ER agst TB, PF semi-reclined/sitting/ standing & PF/functional pelvic brace (walking/stairs), & staning plie. LTG Duration 01/23/23 (01/10/23: MET GOAL for current status in rehab) One Impairment Pt lacks an independent self care HEP. Short Term Goal (STG) Pt educated in proper transfers and body mechanics to lessen core abdominal pressure. 10/28/22: Pt educated in proper log roll transfer to lessen core pressure. 12/20/22: Pt educated in ADL body mechanics 01/10/23: Educated in Body mechanics for bed mobilty and body mechanics to lessen inner abdominal core pressure. STG Duration 12/09/22 (01/10/23: MET GOAL ) Usp Goal (LTG) Pt will be independent in a self care HEP for PF strengthening and hip IR stretch ex. 11/05/22: HEP: Hip IR stretches (lateral hip & Piriformis). 11/08/22: HEP: PF long hold with Bridging hold thru 1-1/2 breath, resting with BKFO x 5 reps. 12/20/22: I/S in Happy Baby Pose. 01/03/23: HEP: PF strengthening (sup) PF><, Bridge/PF><, PF/Bridge/Pillow Squeeze, PF/Bridge/Hip ER agst TB, PF semi-reclined/sitting/ standing & PF/functional pelvic brace (walking/stairs), & standing plie. 01/10/23: HEP issued: Happy Baby Pose. LTG Duration 01/23/23 (01/10/23: MET GOAL for current status in rehab) Assessment Summary Assessment Pt is a 67 yo female who was attending therapy for fecal incontinence and stress urinary incontinence with difficulty eliminating stool due to a rectocele. She was able to make small progress, but due to her rectocele continues to have difficulty eliminating stool without manual assist. She has been educated in methods to minimize the need for phys assist and is aware of the need to modify her diet to allow for lessening of her constipation and improving her stool type. She has a little confusion of her hip stretches and needed much review and assist to perform correctly. The pt is more focused on relieving L elbow pain and has requested discharge to start rehabilitation on her elbow. The pt has been placed on a HEP and has been educated in self care programs; therefore the pt is being discharged from pelvic floor physical therapy. The pt would benefit from further therapy in the future when she can focus on her pelvic floor. Physical Therapy Plan Discharge Physical Therapy Discharge Reasons Patient Request Discharge Comments Pt wanting to return to therapy for L Elbow pain; therefore requesting discharge from PT. Thank you for your referral. Next Visit Focus/Plan Next Note Type Discharge Summary Next Visit Plan Educate pt in bladder retraining with urge deference technique, Possible stretch to anterior & lateral spicer of PF and rectal spincters. Educate pt in proper posture, and Kegel without use of substitute muscles. Ex: LE roll in/out ex when can deep breath appropriately. Check rectal sphincters ability to relax and for sensation of rectal sphincters for possible use of rectal EStim to improve sensation and awareness of spincter contraction. Complete PF bowel assessment when rectal tissues are well enough for internal assess, When vaginal tissues are healthy (no bleeding).
== END 2023-01-17 08:38 | disposition home or self-care (01) ==
LOC: PHYS 10:30
PROVIDERS: Family Provider Nurse Practitioner; PCP Nurse Practitioner; Referring Provider Nurse Practitioner; Visit Provider Nurse Practitioner
DX: K62.3 Rectal prolapse (principal); M25.659 Stiffness of unspecified hip, not elsewhere classified; N39.3 Stress incontinence (female) (male); R15.1 Fecal smearing; K59.00 Constipation, unspecified
CPT/HCPCS: 97110; 97140; 97162; 97535

== ENCOUNTER 2023-01-17 10:06 | Outpatient (RCR) | payer MEDICARE, SELFPAY ==
--- NOTE | 2023-01-17 17:09 | PT.OIE ---
Current Diagnoses Medial epicondylitis, left elbow (01/17/23) Past Medical History (Last Reviewed 01/05/23 @ 10:50 by BUNNY Wagner) Abdominal pain Abnormal chest x-ray (~2011) Abnormal Pap smear of cervix (~1974) Allergic rash present on examination Anemia (~2016) Ascending aortic aneurysm Cannabis dependence, daily use Cat bite Cervical cancer (~1977) Cervical stenosis of spinal canal Change in bowel habit Chronic pain of both shoulders Colon polyps (~2002) COPD (chronic obstructive pulmonary disease) (~2011) Degenerative joint disease (DJD) of lumbar spine (~1963) Depression (~1988) Epigastric pain determined by examination Facet arthropathy, cervical Fatigue Fecal incontinence (~2017) Fibromyalgia (~1983) Foot pain (~2017) Fractures GERD (gastroesophageal reflux disease) GI bleeding (~2018) Glaucoma (~2018) Granuloma annulare (~2014) Hemorrhoid (~1979) Hepatic steatosis History of chronic constipation Hyperlipidemia LDL goal <100 Impingement syndrome of both shoulders Intermittent left-sided chest pain Kidney stones (~2018) Liver disease (~1972) Mass of right thigh Measles Medial epicondylitis of both elbows Migraines (~1982) Mumps Muscle spasm of back Nausea & vomiting Neoplasm of uncertain behavior Ocular migraine Osteoarthritis (~2012) Osteoporosis (~2012) Painful menstrual periods Pancreatic mass Pancreatitis Paresthesia of right lower extremity Partial blindness Right renal mass Ruptured tympanic membrane (~1974) Scoliosis (~1963) Shoulder pain (~1985) Skin cancer (~2014) Sleep apnea (~2015) Vaginitis Weight loss, non-intentional Wound of left foot Past Surgical History (Last Reviewed 01/05/23 @ 10:50 by BUNNY Wagner) Anesthesia Carpal tunnel syndrome (~1987) Cataracts, bilateral (~2013) History of hysterectomy (~1981) Visit Care Team Role Provider Type BUNNY Wagner Family Provider [employer] Primary Care Provider Specialty: Family Practice Address: [address] [place] [address], [id number] Email: [email or web address] Parth Mckinney MD Attending Provider Physician Referring Provider Specialty: Orthopedics Orthopedic Surgery Address: [address] [place] [address], [id number] Email: [email or web address] Physical Therapy Initial Evaluation PT-OP-A Visit Information Start: 01/17/23 10:40 Freq: Status: Active Protocol: Document 01/17/23 10:41 LRN (Rec: 01/17/23 11:25 LRN [id number]) Out-Patient Physical Therapy Visit Information Visit Information Visit Type Initial Evaluation Visit Start Time 10:41 Visit Stop Time 11:19 Total Visit Minutes 38 Visit Number 1 Evaluation Information Evaluation Date 01/17/23 Precautions Precautions PMH: Fibromyalgia, Osteoporosis, Osteoarthritis, Ascending aortic aneurysm and hard to control HBP, pt reported cervical stenosis. PT-OP-B Current Condition Start: 01/17/23 10:40 Freq: Status: Active Protocol: Document 01/17/23 10:41 LRN (Rec: 01/17/23 11:25 LRN [id number]) Current Condition History of Current Condition Onset Date 3 months ago Current Complaints L Elbow pain History of Current Condition Insidious onset of L elbow pain. Pt is getting pain when setting her L arm down. Has noticed a bump at the inner elbow at medial epicondyle that is where her pain is. She was told it was a tendon that was the problem . Recent medication she is taking is Clorazipan & Tramadol for her neck pain. She is scheduled for a cortisone injection in the elbow within the next 2 weeks. Prior Treatments and Tests None Future Testing and Treatments Planned Cortisone injection - within the next 2 weeks. Hoping to get cortisone injection for sciatic nerve pain. Developmental History Developmental History Pt with extensive PMH (per intake form): arthritis, back & neck pain, HBP, depression, dizziness, fibromyalgia, headaches, heart disease, Hep B, kidney and liver disease, neuropathy, osteoporosis, R eye & nose CA, lipoma in thighs, hyste and ovaries removed, shoulders and hands listed with surgeries. Treatment Goals Patient/Caregiver Goals Pt goal is: to reduce inflammation and pain when setting her elbow/forearm down on an arm chair, and with reaching backwards. Personal Factors Other Personal Factors That May Effect Pt has a multitude of health Therapy/Recovery history, including reported: cervical stenosis, full body sepsis, Fibromyalgia, Osteoporosis, Osteoarthritis, Ascending aortic aneurysm and hard to control HBP, and multiple cysts on kidneys. PT-OP-C Subjective Start: 01/17/23 10:40 Freq: Status: Active Protocol: Document 01/17/23 10:41 LRN (Rec: 01/17/23 11:25 LRN [id number]) Patient Questionnaires Quick Dash- Upper Extremity Quick Dash UE Score 52.27 Quick Dash UE Impairment 40 to 59% Impaired (Score 40- 59) OP-PT Pain Assessment Location L elbow Pain Location Details Medial side of elbow (Medial epicondyle) Intensity 4 Scale Used Numeric (0 - 10) Description Sharp Frequency bumping it, reaching back, rest Pain Alleviating Factors Cold Comments Pain Comments Choosing not to take pain medication due to fears of side effects on her glaucoma. PT-OP-J Posture/Palpation/Skin Start: 01/17/23 10:40 Freq: Status: Active Protocol: Document 01/17/23 10:41 LRN (Rec: 01/17/23 11:25 LRN [id number]) Palpation Assessment Location L Elbow Palpation Location Cubital tunnel near medial epicondyle Palpation Findings Tenderness Palpation Details No radiating pain with palpation. PT-OP-K Range of Motion Start: 01/17/23 10:40 Freq: Status: Active Protocol: Document 01/17/23 10:41 LRN (Rec: 01/17/23 11:25 LRN [id number]) Elbow/Forearm Range of Motion Elbow/Forearm Right Active ROM Testing Position Sitting Elbow Flexion (degrees) 145 Elbow Extension (degrees) 0 Pronation (degrees) 90 Supination (degrees) 90 Left Active ROM Testing Position Sitting Elbow Flexion (degrees) 136 Elbow Hyperextension 2 Pronation (degrees) 90 Supination (degrees) 90 Wrist Goniometric Range of Motion Wrist Right Wrist ROM WFL Yes Left Wrist ROM WFL Yes PT-OP-L Special Tests Start: 01/17/23 10:40 Freq: Status: Active Protocol: Document 01/17/23 10:41 LRN (Rec: 01/17/23 11:25 LRN [id number]) Special Tests Cervical Spine Special Tests Foraminal Compression Test Results + Comments Onset of L elbow pain Traction Test Results + Comments Relief of L elbow pain Elbow Special Tests Varus- 25 Degrees Test Results - L elbow Varus- 0 Degrees Test Results - L elbow Valgus- 25 Degrees Test Results - L elbow Valgus- 0 Degrees Test Results - L elbow Medial Epicondylitis Test Results + L elbow PT-OP-M Strength Start: 01/17/23 10:40 Freq: Status: Active Protocol: Document 01/17/23 10:41 LRN (Rec: 01/17/23 11:25 LRN [id number]) Elbow/Forearm Strength Elbow and Forearm Manual Muscle Testing Right Comments Normal strength Left Flexion (C6) 4 Good Extension (C7) 3+ Fair+ Pronation 2+ Poor+ Comments Pain with resisted elbow extension and forearm supination. Pt was supporting elbow at stomach with resistnace of supination. Wrist Strength Wrist Manual Muscle Testing Right Comments WNL Left Comments WNL PT-OP-Q Treatments Start: 01/17/23 10:40 Freq: Status: Active Protocol: Document 01/17/23 10:41 LRN (Rec: 01/17/23 11:25 LRN [id number]) Manual Therapy Treatment Manual Traction Cervical Details Cervical axial traction Body Position Supine Reps/Duration 5' Self-Care/Home Management Treatment Education Other Education Discussed results of evaluation, goals, and plan of care (POC). Pt agreeable to goals and POC. Pt educated in proper sitting posture. PT-OP-T Assessment and Plan Start: 01/17/23 10:40 Freq: Status: Active Protocol: Document 01/17/23 10:41 LRN (Rec: 01/17/23 11:25 LRN [id number]) Physical Therapy Assessment Rehab Potential Rehabilitation Potential Good Evaluation Complexity Number of Personal Factors/Comorbidities 3 or More Number of Body Systems Impaired 3 Clinical Presentation at Evaluation Evolving Impairments Impairments Activity Tolerance,Functional Activities,Pain Goals One Impairment Pt lacks appropriate self care HEP Short Term Goal (STG) Pt will be educated in proper posturing of head on shoulders . STG Duration 3 wks-02/11/23 Commercial Shrimping Captain Goal (LTG) Pt will be independent in a self care HEP of postural exercises, neck/shoulder stabilization, and UE neural tension ex's. LTG Duration 6 wks-03/04/23 Three Impairment Decreased functional mobility of L UE Chcf Goal (LTG) Improve L arm mobility with pt able to reaching backwards with decreased and sometimes no pain at L elbow. LTG Duration 6 wks-03/04/23 Two Impairment L medial elbow pain rated 4/10 with palpation Short Term Goal (STG) Pt will be educated in self care hot/cold pain management. STG Duration 2 wks-02/04/23 Commercial Shrimping Captain Goal (LTG) Reduce L medial elbow pain with pt able to set her arm down on arm chair without pain . LTG Duration 6 wks-03/04/23 Assessment Summary Assessment Pt is a 67 yo female who presents with L medial elbow pain that appears to be ulnar nerve and cervical positioning related. Her pain is exacerbated and relieved with cervical manipulation and ulnar nerve tension. She does not appear to have L elbow or wrist weakness, but pain is present with resisted L elbow extension and forearm supination. The pt will benefit from skilled physical therapy for cervical and postural rehabilitation and self care exercises. Physical Therapy Plan Frequency and Duration Frequency of Treatment 2x/Week Duration of treatment (weeks) 6 Plan of Care Start Date 01/17/23 Plan of Care End Date 03/04/23 Therapeutic Interventions Therapeutic Interventions Home Exercise Program,Joint Mobilizations,Manual Therapy, Neuromuscular Re-education, Self-Care/Home Management,Soft Tissue Mobilization,Taping, Therapeutic Activities, Therapeutic Exercises Modalities Cold Pack/Ice Massage,Hot Packs,Iontophoresis Other Therapeutic Interventions 4 mg/ml Dexamethasone with Sodium Phosphate Next Visit Focus/Plan Next Note Type Treatment Note Next Visit Plan L neck/elbow rehab for ulnar n pain at cubital tunnel. STM of neck/UT/upper back, f/b manual C. tx and UE ulnar glides and L UE AROM. Hot/ cold treatment to L elbow during manual therapy or with exercise. Pt educated in hot/ cold treatment for pain management and in proper posturing of head on shoulders . HEP of postural exercises, neck/shoulder stabilization, and UE neural tension ex's.
--- NOTE | 2023-01-17 17:12 | PT.OPPOC ---
Physical, Occupational & Speech Therapy At [facility] Current Diagnoses Medial epicondylitis, left elbow (01/17/23) Visit Care Team Role Provider Type BUNNY Wagner Family Provider Advanced Books Salesperson Primary Care Provider Specialty: Family Practice Address: [address] [place] [address], [phone] Email: [email or web address] Parth Mckinney MD Attending Provider Physician Referring Provider Specialty: Orthopedics Orthopedic Surgery Address: [address] [place] [address], [phone] Email: [email or web address] Plan Of Care PT-OP-T Assessment and Plan Start: 01/17/23 10:40 Freq: Status: Active Protocol: Document 01/17/23 10:41 LRN (Rec: 01/17/23 11:25 LRN [id number]) Physical Therapy Assessment Rehab Potential Rehabilitation Potential Good Evaluation Complexity Number of Personal Factors/Comorbidities 3 or More Number of Body Systems Impaired 3 Clinical Presentation at Evaluation Evolving Impairments Impairments Activity Tolerance,Functional Activities,Pain Goals One Impairment Pt lacks appropriate self care HEP Short Term Goal (STG) Pt will be educated in proper posturing of head on shoulders . STG Duration 3 wks-02/11/23 Fci Goal (LTG) Pt will be independent in a self care HEP of postural exercises, neck/shoulder stabilization, and UE neural tension ex's. LTG Duration 6 wks-03/04/23 Three Impairment Decreased functional mobility of L UE Fci Goal (LTG) Improve L arm mobility with pt able to reaching backwards with decreased and sometimes no pain at L elbow. LTG Duration 6 wks-03/04/23 Two Impairment L medial elbow pain rated 4/10 with palpation Short Term Goal (STG) Pt will be educated in self care hot/cold pain management. STG Duration 2 wks-02/04/23 Jewelry Model Maker Goal (LTG) Reduce L medial elbow pain with pt able to set her arm down on arm chair without pain . LTG Duration 6 wks-03/04/23 Assessment Summary Assessment Pt is a 67 yo female who presents with L medial elbow pain that appears to be ulnar nerve and cervical positioning related. Her pain is exacerbated and relieved with cervical manipulation and ulnar nerve tension. She does not appear to have L elbow or wrist weakness, but pain is present with resisted L elbow extension and forearm supination. The pt will benefit from skilled physical therapy for cervical and postural rehabilitation and self care exercises. Physical Therapy Plan Frequency and Duration Frequency of Treatment 2x/Week Duration of treatment (weeks) 6 Plan of Care Start Date 01/17/23 Plan of Care End Date 03/04/23 Therapeutic Interventions Therapeutic Interventions Home Exercise Program,Joint Mobilizations,Manual Therapy, Neuromuscular Re-education, Self-Care/Home Management,Soft Tissue Mobilization,Taping, Therapeutic Activities, Therapeutic Exercises Modalities Cold Pack/Ice Massage,Hot Packs,Iontophoresis Other Therapeutic Interventions 4 mg/ml Dexamethasone with Sodium Phosphate Other Referrals/Consults Referrals/Consults Recommended Recommend completion of PT rehab prior to cortisone injection. Next Visit Focus/Plan Next Note Type Treatment Note Next Visit Plan L neck/elbow rehab for ulnar n pain at cubital tunnel. STM of neck/UT/upper back, f/b manual C. tx and UE ulnar glides and L UE AROM. Hot/ cold treatment to L elbow during manual therapy or with exercise. Pt educated in hot/ cold treatment for pain management and in proper posturing of head on shoulders . HEP of postural exercises, neck/shoulder stabilization, and UE neural tension ex's. Plan of Care Dates Plan of Care Start Date 01/17/23 Plan of Care End Date 03/04/23 Electronically Signed by: Gianna Granados, PT 01/18/23 2062 If you are in agreement with this Plan of Care, please return a signed and dated copy. I have reviewed this Plan of Care and certify that the skilled therapy services above are required to meet the patient?s needs. Physician Signature Date Printed Name and Credentials Clinical Instructor Signature Printed Name and Credentials
--- NOTE | 2023-02-07 09:18 | PT-OP ANOTE ---
Pt states she woke today feeling ill; therfore canceled. Pt notified her next appt is in the new year. Recommended pt work on RC ex's since there are no available appt slots until her next appt.
--- NOTE | 2023-03-18 10:16 | PT.OPDS ---
Current Diagnoses Radiculopathy, cervical region (01/17/23) Medial epicondylitis, left elbow (01/17/23) Visit Care Team Role Provider Type BUNNY Wagner Family Provider Advanced Boilermaking Supervisor Primary Care Provider Specialty: Family Practice Address: [address] [place] [address], [phone] Email: [email or web address] Parth Mckinney MD Attending Provider Physician Referring Provider Specialty: Orthopedics Orthopedic Surgery Address: [address] [place] [address], [phone] Email: [email or web address] Visit Number Visit Number 1 Discharge Summary PT-OP-B Current Condition Start: 01/17/23 10:40 Freq: Status: Active Protocol: Document 01/17/23 10:41 LRN (Rec: 01/17/23 11:25 LRN [id number]) Current Condition History of Current Condition Onset Date 3 months ago Current Complaints L Elbow pain History of Current Condition Insidious onset of L elbow pain. Pt is getting pain when setting her L arm down. Has noticed a bump at the inner elbow at medial epicondyle that is where her pain is. She was told it was a tendon that was the problem . Recent medication she is taking is Clorazipan & Tramadol for her neck pain. She is scheduled for a cortisone injection in the elbow within the next 2 weeks. Prior Treatments and Tests None Future Testing and Treatments Planned Cortisone injection - within the next 2 weeks. Hoping to get cortisone injection for sciatic nerve pain. Developmental History Developmental History Pt with extensive PMH (per intake form): arthritis, back & neck pain, HBP, depression, dizziness, fibromyalgia, headaches, heart disease, Hep B, kidney and liver disease, neuropathy, osteoporosis, R eye & nose CA, lipoma in thighs, hyste and ovaries removed, shoulders and hands listed with surgeries. Treatment Goals Patient/Caregiver Goals Pt goal is: to reduce inflammation and pain when setting her elbow/forearm down on an arm chair, and with reaching backwards. Personal Factors Other Personal Factors That May Effect Pt has a multitude of health Therapy/Recovery history, including reported: cervical stenosis, full body sepsis, Fibromyalgia, Osteoporosis, Osteoarthritis, Ascending aortic aneurysm and hard to control HBP, and multiple cysts on kidneys. PT-OP-C Subjective Start: 01/17/23 10:40 Freq: Status: Active Protocol: Document 01/17/23 10:41 LRN (Rec: 01/17/23 11:25 LRN [id number]) Patient Questionnaires Quick Dash- Upper Extremity Quick Dash UE Score 52.27 Quick Dash UE Impairment 40 to 59% Impaired (Score 40- 59) OP-PT Pain Assessment Location L elbow Pain Location Details Medial side of elbow (Medial epicondyle) Intensity 4 Scale Used Numeric (0 - 10) Description Sharp Frequency bumping it, reaching back, rest Pain Alleviating Factors Cold Comments Pain Comments Choosing not to take pain medication due to fears of side effects on her glaucoma. PT-OP-J Posture/Palpation/Skin Start: 01/17/23 10:40 Freq: Status: Active Protocol: Document 01/17/23 10:41 LRN (Rec: 01/17/23 11:25 LRN [id number]) Palpation Assessment Location L Elbow Palpation Location Cubital tunnel near medial epicondyle Palpation Findings Tenderness Palpation Details No radiating pain with palpation. PT-OP-K Range of Motion Start: 01/17/23 10:40 Freq: Status: Active Protocol: Document 01/17/23 10:41 LRN (Rec: 01/17/23 11:25 LRN [id number]) Elbow/Forearm Range of Motion Elbow/Forearm Right Active ROM Testing Position Sitting Elbow Flexion (degrees) 145 Elbow Extension (degrees) 0 Pronation (degrees) 90 Supination (degrees) 90 Left Active ROM Testing Position Sitting Elbow Flexion (degrees) 136 Elbow Hyperextension 2 Pronation (degrees) 90 Supination (degrees) 90 Wrist Goniometric Range of Motion Wrist Right Wrist ROM WFL Yes Left Wrist ROM WFL Yes PT-OP-L Special Tests Start: 01/17/23 10:40 Freq: Status: Active Protocol: Document 01/17/23 10:41 LRN (Rec: 01/17/23 11:25 LRN [id number]) Special Tests Cervical Spine Special Tests Foraminal Compression Test Results + Comments Onset of L elbow pain Traction Test Results + Comments Relief of L elbow pain Elbow Special Tests Varus- 25 Degrees Test Results - L elbow Varus- 0 Degrees Test Results - L elbow Valgus- 25 Degrees Test Results - L elbow Valgus- 0 Degrees Test Results - L elbow Medial Epicondylitis Test Results + L elbow PT-OP-M Strength Start: 01/17/23 10:40 Freq: Status: Active Protocol: Document 01/17/23 10:41 LRN (Rec: 01/17/23 11:25 LRN [id number]) Elbow/Forearm Strength Elbow and Forearm Manual Muscle Testing Right Comments Normal strength Left Flexion (C6) 4 Good Extension (C7) 3+ Fair+ Pronation 2+ Poor+ Comments Pain with resisted elbow extension and forearm supination. Pt was supporting elbow at stomach with resistnace of supination. Wrist Strength Wrist Manual Muscle Testing Right Comments WNL Left Comments WNL PT-OP-T Assessment and Plan Start: 01/17/23 10:40 Freq: Status: Active Protocol: Document 03/18/23 10:08 LRN (Rec: 03/18/23 10:15 LRN [id number]) Physical Therapy Assessment Goals One Impairment Pt lacks appropriate self care HEP Short Term Goal (STG) Pt will be educated in proper posturing of head on shoulders . STG Duration 3 wks-02/11/23 GOAL NOT MET due to early discharge. Intermediate Goal (LTG) Pt will be independent in a self care HEP of postural exercises, neck/shoulder stabilization, and UE neural tension ex's. LTG Duration 6 wks-03/04/23 GOAL NOT MET due to early discharge. Three Impairment Decreased functional mobility of L UE Pulp Grinder Goal (LTG) Improve L arm mobility with pt able to reaching backwards with decreased and sometimes no pain at L elbow. LTG Duration 6 wks-03/04/23 GOAL MET per pt report Two Impairment L medial elbow pain rated 4/10 with palpation Short Term Goal (STG) Pt will be educated in self care hot/cold pain management. STG Duration 2 wks-02/04/23 GOAL NOT MET, due to early DC. Pulp Grinder Goal (LTG) Reduce L medial elbow pain with pt able to set her arm down on arm chair without pain . LTG Duration 6 wks-03/04/23 GOAL MET per pt report Assessment Summary Assessment Pt is a 67 yo female who presents with L medial elbow pain that appears to be ulnar nerve and cervical positioning related. The pt was seen for her initial evaluation and on 03/02/23 she called to cancel her remaining appointments. she reported the issue had resolved itself; therefore the pt is being discharged from physical therapy. Physical Therapy Plan Discharge Physical Therapy Discharge Reasons Patient Request Discharge Comments Thank you for your referral.
== END 2023-03-24 10:21 | disposition home or self-care (01) ==
LOC: PHYS 10:06
PROVIDERS: Family Provider Nurse Practitioner; PCP Nurse Practitioner; Referring Provider Orthopaedic Surgery; Visit Provider Orthopaedic Surgery
DX: M77.02 Medial epicondylitis, left elbow (principal); M54.12 Radiculopathy, cervical region
CPT/HCPCS: 97162

== ENCOUNTER → 2023-01-29 10:14 | Outpatient (CLI) | payer MEDICARE, SELFPAY ==
--- NOTE | 2023-01-29 | DI.MRI.S_ITS ---
PROCEDURE: MR LUMBAR SPINE WO CON INDICATIONS: LUMBAR RADICULOPATHY TECHNIQUE: Noncontrast sagittal T1 spin echo and T2 fast echo, sagittal STIR, and T2 fast spin echo through the lumbar spine. In cases with scoliosis, additional coronal T2 fast spin echo may be performed. COMPARISON: None. FINDINGS: Image quality: Excellent. Alignment and Curvature: There is normal bony alignment. Bone Marrow: Marrow is of normal overall signal. No acute vertebral body compression fractures. Chronic mild T11 compression. Spinal Cord: Conus medullaris terminates at the L1-L2 level. Visualized cord demonstrates normal signal and size. Paraspinous Soft Tissues: No paravertebral masses. T12-L1: Normal appearance. L1-L2: Normal appearance. L2-L3: Disc bulge. Facet hypertrophy. No canal stenosis or significant foraminal stenosis. L3-L4: Minimal disc bulge. Facet hypertrophy. No canal stenosis or significant foraminal stenosis. L4-L5: Disc bulge with mild superimposed broad-based right posterior lateral disc protrusion. There is mild impingement on the right L5 nerve root in the right lateral recess. There is facet hypertrophy. There is no central canal stenosis. There is mild bilateral foraminal stenosis. L5-S1: Mild facet hypertrophy. No canal stenosis. Mild left foraminal stenosis. IMPRESSION: 1. There is relatively mild multilevel facet arthropathy, most pronounced at L3-L4 and L4-L5. 2. At L4-L5, there is a mild broad-based right posterior lateral disc protrusion. There is mild impingement on the right L5 nerve root in the right lateral recess. Recommend clinical correlation for presence or absence of right L5 radicular symptoms. 3. No central canal stenosis or significant foraminal stenosis. Dictated by: Brody Yin M.D. on 01/31/2023 at 9:42 Approved by: Brody Yin M.D. on 01/31/2023 at 9:48
--- NOTE | 2023-01-29 | DI.MG.S_ITS ---
BILATERAL DIGITAL SCREENING MAMMOGRAM 3D/2D WITH CAD: 01/29/2023 CLINICAL: Routine screening. Comparison is made to exams dated: 01/15/2022 mammogram, 05/22/2020 mammogram, and 02/08/2020 mammogram - [facility]. Both breasts are heterogeneously dense, which may obscure small masses (category c / 51-75% glandular tissue). Current study was also evaluated with a Computer Aided Detection (CAD) system. No significant masses, calcifications, or other findings are seen in either breast. There has been no significant interval change. IMPRESSION: NEGATIVE There is no mammographic evidence of malignancy. A 1 year screening mammogram is recommended. Based on the Tyrer Cuzick model (a risk assessment model) the patient's lifetime risk is 8.1% and her 10 year risk is 4.8%. According to the ACR, ACS, and NCCN guidelines, an annual breast MRI exam along with mammogram is recommended if the patient's lifetime risk is 20% or greater. This exam was interpreted at Station ID: [id number]. NOTE: For mammograms, a report in lay terms will be sent to the patient. Approximately 15% of breast malignancies will not be visualized mammographically. In the management of a palpable breast mass, a negative mammogram must not discourage biopsy of a clinically suspicious lesion. Electronically Signed By: Henry [email or web address]/[email or web address]:01/31/2023 07:10:18 letter sent: Normal Exam ACR BI-RADS Category 1: Negative [id number]
== END ==
PROVIDERS: Family Provider Nurse Practitioner; PCP Nurse Practitioner; Referring Provider Physical Medicine & Rehabilitation; Visit Provider Physical Medicine & Rehabilitation
DX: Z12.31 Encounter for screening mammogram for malignant neoplasm of breast; M47.26 Other spondylosis with radiculopathy, lumbar region; M51.16 Intervertebral disc disorders with radiculopathy, lumbar region
CPT/HCPCS: 72148; 77063; 77067

== ENCOUNTER → 2023-02-03 10:11 | Outpatient (CLI) | payer MEDICARE, SELFPAY ==
[2023-02-03 11:38] LABS: Add Manual Diff / Slide Review NO; Basophils Absolute Auto 0 /uL (0-100); Basophils Percent Auto 0.3 % (0-2); Eosinophils Absolute Auto 200 /uL (0-450); Eosinophils Percent Auto 1.8 % (2-4); Hematocrit 39.5 % (36-46); Hemoglobin 13.2 g/dL (12.0-16.0); Lymphocytes Absolute Auto 2600 /uL (1100-4500); Lymphocytes Percent Auto 30.1 % (25-40); Mean Corpuscular HGB Conc 33.5 % (30-36); Mean Corpuscular Hemoglobin 30.4 PG (26-34); Mean Corpuscular Volume 90.8 fL (80-100); Monocytes Absolute Auto 700 /uL (0-900); Monocytes Percent Auto 7.9 % (3-14); Neutrophils Absolute Auto 5300 /uL (1500-7000); Neutrophils Percent Auto 59.9 % (50-75); Platelet Count 274 X10^3/uL (150-400); Red Blood Cell Count 4.35 X10^6/uL (4.0-5.2); Red Cell Distribution Width 14.4 % (11.6-14.8); White Blood Cell Count 8.8 X10^3/uL (4.5-11.0)
[2023-02-03 12:02] LABS: Alanine Aminotransferase 28 IU/L (<35); Albumin 3.7 g/dL (3.5-5.0); Albumin Globulin Ratio 1.4 (1.0-2.8); Alkaline Phosphatase 54 U/L (38-126); Aspartate Aminotransferase 22 IU/L (14-36); BUN Creatinine Ratio 27.4 (6-22); Bilirubin Total 0.6 mg/dL (0.2-1.3); Blood Urea Nitrogen 20 mg/dL (7-17); Calcium 9.3 mg/dL (8.4-10.2); Carbon Dioxide 31 mmol/L (22-32); Chloride 100 mmol/L (98-107); Cholesterol 166 mg/dL (140-199); Estimated Glomerular Filt Rate > 60 mL/min (>60); Globulin 2.6 g/dL (1.7-4.1); Glucose 78 mg/dL (80-110); HDL Cholesterol 66 mg/dL (40-60); HEMOLYSIS < 15 (0-50); LDL Cholesterol Calculated 81 mg/dL (<100); Potassium 4.5 mmol/L (3.4-5.1); Sodium 137 mmol/L (137-145); Total Protein 6.3 g/dL (6.3-8.2); Triglycerides 96 mg/dL (35-150); Uric Acid 3.8 mg/dL (2.5-6.2)
[2023-02-03 12:32] LABS: Thyroid Stimulating Hormone 1.99 uIU/mL (0.47-4.68)
[2023-02-03 15:07] LABS: Appearance Urine UA CLEAR; Bilirubin Urine UA NEGATIVE (NEGATIVE); Color Urine UA YELLOW; Glucose Urine UA NEGATIVE (Negative); Ketones Urine UA TRACE (NEGATIVE); Leukocyte Esterase Urine UA NEGATIVE (NEGATIVE); Nitrite Urine UA NEGATIVE (Negative); Occult Blood Urine UA NEGATIVE (Negative); Protein Urine UA NEGATIVE (Negative); Specific Gravity Urine UA 1.015 (1.000-1.035); Urobilinogen Urine UA 0.2 E.U./dL (0.2)
[2023-02-03 15:08] LABS: pH Urine UA 6.5 (4.5-8.0)
[2023-02-03 15:10] LABS: RBC Urine 1-5/HPF (0-5/HPF); WBC Urine 1-5/HPF (0-5/HPF)
[2023-02-03 15:11] LABS: Bacteria Urine Occasional (0-1); Culture Indicated Urine Specimen Cultured; Squamous Epithelial Cell Urine 0-1 /HPF (0-5/HPF)
[2023-02-03 15:54] LABS: Creatinine Urine Random 151.4 mg/dL; Protein (Total) Urine Random 11 mg/dL (0-12); Protein Creatinine Ratio Urine 0.07 GRAM/24H
[2023-02-03 15:58] LABS: Microalbumi Creatinin Ratio Ur 15.8 ug/mg CR (<30); Microalbumin Urine Random 2.4 mg/dL (0-1.6)
[2023-02-04 10:10] LABS: Parathyroid Hormone Int 36 pg/mL (15-65)
== END ==
PROVIDERS: Family Provider Nurse Practitioner; PCP Nurse Practitioner; Referring Provider Student in an Organized Health Care Education/Training Program; Visit Provider Student in an Organized Health Care Education/Training Program
DX: N05.9 Unspecified nephritic syndrome with unspecified morphologic changes (principal); N25.81 Secondary hyperparathyroidism of renal origin; D64.9 Anemia, unspecified; R80.9 Proteinuria, unspecified; D70.9 Neutropenia, unspecified; D63.1 Anemia in chronic kidney disease; N18.9 Chronic kidney disease, unspecified; I10 Essential (primary) hypertension; F41.9 Anxiety disorder, unspecified; F32.9 Major depressive disorder, single episode, unspecified; K86.89 Other specified diseases of pancreas; K76.0 Fatty (change of) liver, not elsewhere classified; M25.50 Pain in unspecified joint; R30.0 Dysuria
CPT/HCPCS: 36415; 80053; 80061; 81001; 82043; 82570; 83970; 84156; 84443; 84550; 85025; 87086; 87147

== ENCOUNTER → 2023-04-28 11:07 | Outpatient (CLI) | payer OTHER, SELFPAY | PROVIDERS: Family Provider Nurse Practitioner; PCP Nurse Practitioner; Visit Provider Physician Assistant | DX: R31.9 Hematuria, unspecified (principal); R23.2 Flushing | CPT/HCPCS: 87086 ==

== ENCOUNTER → 2023-04-28 11:44 | Outpatient (CLI) | payer OTHER, SELFPAY ==
[2023-04-28 12:37] LABS: Add Manual Diff / Slide Review NO; Basophils Absolute Auto 0 /uL (0-100); Basophils Percent Auto 0.4 % (0-2); Eosinophils Absolute Auto 100 /uL (0-450); Hematocrit 37.9 % (36-46); Hemoglobin 12.9 g/dL (12.0-16.0); Lymphocytes Absolute Auto 2300 /uL (1100-4500); Lymphocytes Percent Auto 35.4 % (25-40); Mean Corpuscular HGB Conc 34.2 % (30-36); Mean Corpuscular Hemoglobin 30.6 PG (26-34); Mean Corpuscular Volume 89.6 fL (80-100); Monocytes Absolute Auto 500 /uL (0-900); Monocytes Percent Auto 7.6 % (3-14); Neutrophils Absolute Auto 3600 /uL (1500-7000); Neutrophils Percent Auto 54.6 % (50-75); Platelet Count 245 X10^3/uL (150-400); Red Blood Cell Count 4.23 X10^6/uL (4.0-5.2); Red Cell Distribution Width 13.6 % (11.6-14.8); White Blood Cell Count 6.6 X10^3/uL (4.5-11.0)
[2023-04-28 13:02] LABS: Alanine Aminotransferase 21 IU/L (<35); Albumin 3.7 g/dL (3.5-5.0); Albumin Globulin Ratio 1.4 (1.0-2.8); Alkaline Phosphatase 62 U/L (38-126); Aspartate Aminotransferase 25 IU/L (14-36); BUN Creatinine Ratio 22.2 (6-22); Bilirubin Total 0.5 mg/dL (0.2-1.3); Blood Urea Nitrogen 18 mg/dL (7-17); Calcium 8.8 mg/dL (8.4-10.2); Carbon Dioxide 34 mmol/L (22-32); Chloride 104 mmol/L (98-107); Estimated Glomerular Filt Rate > 60 mL/min (>60); Globulin 2.7 g/dL (1.7-4.1); Glucose 87 mg/dL (80-110); HEMOLYSIS < 15 (0-50); Potassium 4.9 mmol/L (3.4-5.1); Sodium 138 mmol/L (137-145); Total Protein 6.4 g/dL (6.3-8.2)
== END ==
PROVIDERS: Family Provider Nurse Practitioner; PCP Nurse Practitioner; Referring Provider Physician Assistant; Visit Provider Physician Assistant
DX: R23.2 Flushing (principal); R31.9 Hematuria, unspecified
CPT/HCPCS: 36415; 80053; 85025; 87086

== ENCOUNTER 2023-06-13 14:38 | Emergency (ER) | payer MEDICARE, SELFPAY ==
[2023-06-13] VITALS (16 sets, daily range): BP systolic 140–199; BP diastolic 71–94; PULSE 60–78; RESP 9–45; TEMP 36.7; O2SAT 92–99; BMI 28.7
[2023-06-13 15:07] LABS: Add Manual Diff / Slide Review NO; Basophils Absolute Auto 0 /uL (0-100); Basophils Percent Auto 0.4 % (0-2); Eosinophils Absolute Auto 100 /uL (0-450); Hematocrit 37.7 % (36-46); Hemoglobin 12.5 g/dL (12.0-16.0); Lymphocytes Absolute Auto 2800 /uL (1100-4500); Lymphocytes Percent Auto 31.1 % (25-40); Mean Corpuscular HGB Conc 33.1 % (30-36); Mean Corpuscular Hemoglobin 30.4 PG (26-34); Monocytes Absolute Auto 700 /uL (0-900); Monocytes Percent Auto 7.9 % (3-14); Neutrophils Absolute Auto 5300 /uL (1500-7000); Neutrophils Percent Auto 59.6 % (50-75); Platelet Count 244 X10^3/uL (150-400); Red Cell Distribution Width 13.4 % (11.6-14.8); White Blood Cell Count 8.9 X10^3/uL (4.5-11.0)
[2023-06-13 15:16] LABS: INR 0.9 (0.9-1.3); Prothrombin Time 10.8 SECONDS (9.4-12.5)
[2023-06-13 15:19] LABS: PTT Partial Thromboplastin Tim 34 SECONDS (25.1-36.5)
[2023-06-13 15:21] LABS: Alanine Aminotransferase 24 IU/L (<35); Albumin 4.2 g/dL (3.5-5.0); Albumin Globulin Ratio 1.7 (1.0-2.8); Alkaline Phosphatase 59 U/L (38-126); Aspartate Aminotransferase 31 IU/L (14-36); BUN Creatinine Ratio 26.7 (6-22); Bilirubin Total 0.5 mg/dL (0.2-1.3); Blood Urea Nitrogen 23 mg/dL (7-17); Calcium 8.5 mg/dL (8.4-10.2); Carbon Dioxide 30 mmol/L (22-32); Chloride 104 mmol/L (98-107); Creatine Kinase 74 U/L (30-135); Estimated Glomerular Filt Rate > 60 mL/min (>60); Globulin 2.5 g/dL (1.7-4.1); Glucose 88 mg/dL (80-110); HEMOLYSIS < 15 (0-50); Lipase 90 U/L (23-300); Magnesium 2.1 mg/dL (1.6-2.3); Potassium 4.1 mmol/L (3.4-5.1); Sodium 137 mmol/L (137-145); Total Protein 6.7 g/dL (6.3-8.2)
[2023-06-13 15:31] LABS: Troponin I < 0.012 ng/mL (0.01-0.034)
--- NOTE | 2023-06-13 17:17 | ED_ITS ---
HPI - Chest Pain <Shefali Chowdhury, - Last Filed: 06/18/23 01:21> General Chief Complaint: Chest Pain Stated Complaint: chest pain, ascending aortic aneurysm Time Seen by Provider: 06/13/23 15:06 Source: patient Mode of arrival: Ambulatory Limitations: no limitations History of Present Illness HPI narrative: 67-year-old female with history of known ascending aortic aneurysm, hypertension, dyslipidemia, prior tobacco use, extensive history of neck and back pain with known disc bulge, pancreatic mass who presents with complaint of left sided chest arm and pain between her shoulder blades starting last night into today. Patient states she has a herniated disc in her neck so her pain could be from that but she also has a known ascending aortic aneurysm that they have been monitoring. She became concerned as pain has been persistent waxing and waning in intensity but not resolving. She denies any diaphoresis. She denies any new shortness of breath she feels like she is at her baseline. She does use oxygen at nighttime. She has had some occasional nausea but no vomiting yesterday but none today. No issues with bowel movements or urination. She states no significant swelling in her legs. Occasionally she feels dizzy but no syncope. She states pain does not radiate to her abdomen. She has not on any anticoagulation she states she is on multiple medications for hypertension medicine for dyslipidemia. States she has some allergies to antibiotics and multiple adverse reactions to other medications. Quit using tobacco 7 years ago, no alcohol, uses marijuana but no other illicit drugs. Shared brown his primary care physician. 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 Related Data Home Medications Medication Instructions Recorded Confirmed albuterol sulfate 90 mcg/actuation See Rx Instructions inhalation ONCE 07/01/21 06/09/23 aerosol inhaler lisinopril 40 mg tablet 40 mg PO DAILY 05/03/22 06/09/23 estradiol 0.01% (0.1 mg/gram) 1 g vaginal 2XW 12/13/22 06/09/23 vaginal cream Previous Rx's Medication Instructions Recorded Nebulizer #1 ea 09/22/21 albuterol sulfate 2.5 mg/3 mL 2.5 mg (3 mL) inhalation Q4-6H PRN 09/22/21 (0.083 %) solution for nebulization SOB, cough, wheezing #180 mL latanoprost 0.005 % eye drops 1 drp EYE-RIGHT .HS #2.5 mL 04/26/22 mucus clearing device (Aerobika #1 ea 06/15/22 Oscillating PEP System device) carvedilol 25 mg tablet See Rx Instructions .Route 07/09/22 .COMPLEX #180 tabs lidocaine 5 % topical patch 3 patch topical DAILY #90 ea 09/29/22 hydralazine 25 mg tablet 25 mg PO BID #180 tabs 12/03/22 loratadine 10 mg tablet (Claritin) 10 mg PO DAILY #90 tabs 12/06/22 rosuvastatin 20 mg tablet See Rx Instructions .Route 02/09/23 .COMPLEX #90 tabs ketoconazole 2 % topical cream 1 applic topical BID #30 grams 04/11/23 venlafaxine 75 mg capsule,extended 225 mg (3 x 75 mg) PO ONCE PM #270 04/25/23 release 24 hr caps pantoprazole 40 mg tablet,delayed See Rx Instructions .Route 05/06/23 release .COMPLEX #180 tabs promethazine 25 mg tablet 25 mg PO Q6H PRN for 05/09/23 nausea/vomiting #120 tabs trazodone 100 mg tablet 150 - 200 mg (1.5 - 2 x 100 mg) PO 05/09/23 ONCE PM #180 tabs tramadol 50 mg tablet 50 mg PO Q8H PRN pain #90 tabs 05/11/23 diltiazem HCl 120 mg tablet 240 mg (2 x 120 mg) PO DAILY #180 05/24/23 tabs diltiazem HCl 240 mg 240 mg PO DAILY #30 caps 05/25/23 capsule,extended release 24 hr azelastine 137 mcg-fluticasone 50 1 spray intranasal BID #23 grams 06/09/23 mcg/spray nasal spray clonazepam 1 mg tablet 1 mg PO Q8H PRN muscle spasms #90 06/09/23 tabs Allergies Allergy/AdvReac Type Severity Reaction Status Date / Time azithromycin [From Zithromax] Allergy Mild Verified 06/13/23 14:48 ceftriaxone Allergy Mild Verified 06/13/23 14:48 clarithromycin [From Biaxin] Allergy Mild Verified 06/13/23 14:48 gemfibrozil Allergy Mild Verified 06/13/23 14:48 hydrocodone [From Vicodin] Allergy Mild Verified 06/13/23 14:48 nitrofurantoin Allergy Mild Hives on Verified 06/13/23 14:48 chest/ shoulders isosorbide AdvReac Intermediate Verified 06/13/23 14:48 aspirin AdvReac Mild Dizziness Verified 06/13/23 14:48 buprenorphine [From Suboxone] AdvReac Mild Agitated Verified 06/13/23 14:48 buspirone [From BuSpar] AdvReac Mild dysphoria Verified 06/13/23 14:48 memantine [From Namenda] AdvReac Mild confusion Verified 04/28/23 11:15 naloxone [From Suboxone] AdvReac Mild Agitated Verified 04/28/23 11:15 pregabalin [From Lyrica] AdvReac Mild Dizziness Verified 04/28/23 11:15 gabapentin AdvReac loopy in Verified 04/28/23 11:15 the head Review of Systems <Shefali Chowdhury DO - Last Filed: 06/18/23 01:21> Review of Systems ROS Unobtainable: All systems reviewed & are unremarkable except as noted in HPI and below Patient History <Shefali Chowdhury DO - Last Filed: 06/18/23 01:21> Medical History Immunodeficiency due to conditions classified elsewhere Post menopausal syndrome Lumbar pain with radiation down left leg Dependence on nocturnal oxygen therapy CKD (chronic kidney disease) Medial epicondylitis of both elbows Ascending aortic aneurysm Facet arthropathy, cervical Cervical stenosis of spinal canal Impingement syndrome of both shoulders Ocular migraine GERD (gastroesophageal reflux disease) Hepatic steatosis Wound of left foot Muscle spasm of back Paresthesia of right lower extremity Neoplasm of uncertain behavior Intermittent left-sided chest pain Mass of right thigh Cat bite Allergic rash present on examination Chronic pain of both shoulders Hyperlipidemia LDL goal <100 Cannabis dependence, daily use Nausea & vomiting Vaginitis Abnormal chest x-ray (~2011) Depression (~1988) Mumps Measles Ruptured tympanic membrane (~1974) Abnormal Pap smear of cervix (~1974) Kidney stones (~2018) Pancreatitis Hemorrhoid (~1979) Colon polyps (~2002) Change in bowel habit History of chronic constipation Fatigue Weight loss, non-intentional Right renal mass Pancreatic mass Epigastric pain determined by examination Abdominal pain Granuloma annulare (~2014) Osteoarthritis (~2012) Sleep apnea (~2015) COPD (chronic obstructive pulmonary disease) (~2011) Migraines (~1982) Shoulder pain (~1985) Scoliosis (~1963) Osteoporosis (~2012) Degenerative joint disease (DJD) of lumbar spine (~1963) Fractures Foot pain (~2017) Fibromyalgia (~1983) Anemia (~2016) Glaucoma (~2018) Partial blindness Painful menstrual periods Fecal incontinence (~2017) Liver disease (~1972) GI bleeding (~2018) Skin cancer (~2014) Cervical cancer (~1977) Surgical History Cataracts, bilateral (~2013) Anesthesia Carpal tunnel syndrome (~1987) History of hysterectomy (~1981) Family History Father History of heart disease Hypertension Hyperlipidemia Mother Cancer Hypertension Grandfather No problems noted. Grandmother History of heart disease Hyperlipidemia Hypertension Grandfather Cancer Grandmother Stroke Social History marital status: unmarried,living together household members: significant other occupational status: previously employed Smoking Status: Former smoker alcohol intake: never substance use type: marijuana Smoking Status: Former smoker alcohol intake frequency: holidays/special occasions only Substance Use Type: marijuana Exam <Shefali Chowdhury, DO - Last Filed: 06/18/23 01:21> Narrative Exam Narrative: GENERAL: Alert and oriented x three, female in mild distress. HEENT: Head normocephalic, atraumatic, EOMI, pupils reactive, face symmetric, moist mucous membranes NECK: Supple, full range of motion CARDIOVASCULAR: Regular rate and rhythm without murmurs, rubs or gallops. 2+ pulses bilateral upper and lower extremities. RESPIRATORY: Breath sounds equal bilaterally, no wheezes rales or rhonchi. No tachypnea accessory muscle use. ABDOMEN: Soft, nontender. Normoactive bowel sounds all 4 quadrants. No guarding or rebound, rigidity, no mass, no pulsatile mass. : No CVA tenderness EXTREMITIES: Normal range of motion, no clubbing or edema. Neurovascularly intact NEUROLOGICAL: Cranial nerves II through XII grossly intact. Moving all extremities SKIN: Warm, dry, no petechiae, no rashes or lesions. Initial Vital Signs Initial Vital Signs: Vital Signs Temperature 98.0 F 06/13/23 14:43 Pulse Rate 60 06/13/23 14:43 Respiratory Rate 16 06/13/23 14:43 Blood Pressure 150/72 H 06/13/23 14:43 Pulse Oximetry 98 06/13/23 14:43 Oxygen Delivery Method Room Air 06/13/23 14:43 <Shefali Redd MD - Last Filed: 06/14/23 02:03> Initial Vital Signs Initial Vital Signs: Vital Signs Temperature 98.0 F 06/13/23 14:43 Pulse Rate 60 06/13/23 14:43 Respiratory Rate 16 06/13/23 14:43 Blood Pressure 150/72 H 06/13/23 14:43 Pulse Oximetry 98 06/13/23 14:43 Oxygen Delivery Method Room Air 06/13/23 14:43 Course <Shefali Chowdhury DO - Last Filed: 06/18/23 01:21> Orders Ordered: Discontinued Medications Morphine Sulfate (Morphine 4 Mg/Ml Inj) 4 mg IV NOW ONE Stop: 06/13/23 17:47 Last Admin: 06/13/23 17:58 Dose: 4 mg Documented By: SPF Vital Signs Vital signs: Vital Signs - 8 hr 06/13/23 18:23 06/13/23 18:30 06/13/23 19:00 Pulse Rate 78 70 72 Respiratory Rate 24 45 H Blood Pressure Pulse Oximetry 92 96 96 Oxygen Delivery Method Room Air 06/13/23 19:04 06/13/23 19:04 06/13/23 19:25 Pulse Rate 66 Respiratory Rate 9 L Blood Pressure 199/84 H 157/86 H Pulse Oximetry 97 Oxygen Delivery Method 06/13/23 19:25 06/13/23 19:25 06/13/23 19:30 Pulse Rate 70 70 74 Respiratory Rate 25 H 16 26 H Blood Pressure 157/86 H Pulse Oximetry 96 96 Oxygen Delivery Method Room Air Room Air <Shefail Redd MD - Last Filed: 06/14/23 02:03> Orders Ordered: Discontinued Medications Morphine Sulfate (Morphine 4 Mg/Ml Inj) 4 mg IV NOW ONE Stop: 06/13/23 17:47 Last Admin: 06/13/23 17:58 Dose: 4 mg Documented By: SPF Vital Signs Vital signs: Vital Signs - 8 hr 06/13/23 18:23 04/15/24 18:30 06/13/23 19:00 Pulse Rate 78 70 72 Respiratory Rate 24 45 H Blood Pressure Pulse Oximetry 92 96 96 Oxygen Delivery Method Room Air 06/13/23 19:04 06/13/23 19:04 06/13/23 19:25 Pulse Rate 66 Respiratory Rate 9 L Blood Pressure 199/84 H 157/86 H Pulse Oximetry 97 Oxygen Delivery Method 06/13/23 19:25 06/13/23 19:25 06/13/23 19:30 Pulse Rate 70 70 74 Respiratory Rate 25 H 16 26 H Blood Pressure 157/86 H Pulse Oximetry 96 96 Oxygen Delivery Method Room Air Room Air MDM - Chest Pain <Shefali Chowdhury, DO - Last Filed: 06/18/23 01:21> Lab Data 06/13/23 14:56 06/13/23 14:56 Labs: Lab Results 06/13/23 06/13/23 Range/Units 14:56 18:05 WBC 8.9 (4.5-11.0) X10^3/uL RBC 4.10 (4.0-5.2) X10^6/uL Hgb 12.5 (12.0-16.0) g/dL Hct 37.7 (36-46) % MCV 92.0 (80-100) fL MCH 30.4 (26-34) PG MCHC 33.1 (30-36) % RDW 13.4 (11.6-14.8) % Plt Count 244 (150-400) X10^3/uL Neut % (Auto) 59.6 (50-75) % Lymph % (Auto) 31.1 (25-40) % Armstrong % (Auto) 7.9 (3-14) % Eos % (Auto) 1.0 L (2-4) % Baso % (Auto) 0.4 (0-2) % Neut # (Auto) 5300 (0319-9162) /uL Lymph # (Auto) 2800 (8691-1620) /uL Armstrong # (Auto) 700 (0-900) /uL Eos # (Auto) 100 (0-450) /uL Baso # (Auto) 0 (0-100) /uL PT 10.8 (9.4-12.5) SECONDS INR 0.9 (0.9-1.3) APTT 34 (25.1-36.5) SECONDS Sodium 137 (137-145) mmol/L Potassium 4.1 (3.4-5.1) mmol/L Chloride 104 (98-107) mmol/L Carbon Dioxide 30 (22-32) mmol/L BUN 23 H (7-17) mg/dL Creatinine 0.86 (0.52-1.04) mg/dL Estimated GFR > 60 (>60) mL/min BUN/Creatinine Ratio 26.7 H (6-22) Glucose 88 (80-110) mg/dL Calcium 8.5 (8.4-10.2) mg/dL Magnesium 2.1 (1.6-2.3) mg/dL Total Bilirubin 0.5 (0.2-1.3) mg/dL AST 31 (14-36) IU/L ALT 24 (<35) IU/L Alkaline Phosphatase 59 (38-126) U/L Total Creatine Kinase 74 (30-135) U/L Troponin I < 0.012 < 0.012 (0.01-0.034) ng/mL Total Protein 6.7 (6.3-8.2) g/dL Albumin 4.2 (3.5-5.0) g/dL Globulin 2.5 (1.7-4.1) g/dL Albumin/Globulin Ratio 1.7 (1.0-2.8) Lipase 90 (23-300) U/L Imaging Data Chest x-ray: My Impression: No acute change. Radiologist's Impression: No acute change. Did not crossover into EMR but report is in PACs. ECG Data Attestation: I personally reviewed and interpreted this ECG as follows: Prior ECG tracings: available for review Interpretation: Sinus bradycardia rate of 56 MO 156 QRS 82 QTC of 436. No acute ST changes. Patient has prior from 09/21/2021 which appears similar. MDM Narrative Medical decision making narrative: 67-year-old female with complaint of left-sided chest pain down in her arm and upper thoracic back. Patient notes she has cervical spine issues could be related but has some risk factors with hypertension dyslipidemia but also known ascending aortic aneurysm. Patient's labs show white count 8.9 hemoglobin 12 platelets of 244 INR 0.9 normal renal function, BUN 23 glucose 88 otherwise electrolytes negative LFTs, troponin less than 0.12, chest x-ray is negative Repeat troponin Patient has history of aneurysm, CT angio dissection protocol ordered and pending. Signed out to Dr. Redd while awaiting results. <Shefali Redd MD - Last Filed: 06/14/23 02:03> Differential Diagnosis Differential diagnosis: Likely pneumothorax, unstable angina pectoris and atypical chest pain Lab Data Labs: Lab Results 06/13/23 06/13/23 Range/Units 14:56 18:05 WBC 8.9 (4.5-11.0) X10^3/uL RBC 4.10 (4.0-5.2) X10^6/uL Hgb 12.5 (12.0-16.0) g/dL Hct 37.7 (36-46) % MCV 92.0 (80-100) fL MCH 30.4 (26-34) PG MCHC 33.1 (30-36) % RDW 13.4 (11.6-14.8) % Plt Count 244 (150-400) X10^3/uL Neut % (Auto) 59.6 (50-75) % Lymph % (Auto) 31.1 (25-40) % Armstrong % (Auto) 7.9 (3-14) % Eos % (Auto) 1.0 L (2-4) % Baso % (Auto) 0.4 (0-2) % Neut # (Auto) 5300 (7973-6591) /uL Lymph # (Auto) 2800 (1400-1377) /uL Armstrong # (Auto) 700 (0-900) /uL Eos # (Auto) 100 (0-450) /uL Baso # (Auto) 0 (0-100) /uL PT 10.8 (9.4-12.5) SECONDS INR 0.9 (0.9-1.3) APTT 34 (25.1-36.5) SECONDS Sodium 137 (137-145) mmol/L Potassium 4.1 (3.4-5.1) mmol/L Chloride 104 (98-107) mmol/L Carbon Dioxide 30 (22-32) mmol/L BUN 23 H (7-17) mg/dL Creatinine 0.86 (0.52-1.04) mg/dL Estimated GFR > 60 (>60) mL/min BUN/Creatinine Ratio 26.7 H (6-22) Glucose 88 (80-110) mg/dL Calcium 8.5 (8.4-10.2) mg/dL Magnesium 2.1 (1.6-2.3) mg/dL Total Bilirubin 0.5 (0.2-1.3) mg/dL AST 31 (14-36) IU/L ALT 24 (<35) IU/L Alkaline Phosphatase 59 (38-126) U/L Total Creatine Kinase 74 (30-135) U/L Troponin I < 0.012 < 0.012 (0.01-0.034) ng/mL Total Protein 6.7 (6.3-8.2) g/dL Albumin 4.2 (3.5-5.0) g/dL Globulin 2.5 (1.7-4.1) g/dL Albumin/Globulin Ratio 1.7 (1.0-2.8) Lipase 90 (23-300) U/L Imaging Data CT scan - chest: Radiologist's Impression: PROCEDURE: CT ANGIO CHEST ABDOMEN PELVIS INDICATIONS: left chest pain, known aneurysm TECHNIQUE: Precontrast 5 mm thick sections acquired from the lung apices to the iliac crests. After the administration of intravenous contrast, 2.5 mm thick sections again acquired from the lung apices to the iliac crests. Maximum intensity projection (MIP) oblique sagittal and coronal reformats were then acquired. For radiation dose reduction, the following was used: automated exposure control. COMPARISON: [facility], CT, CT ANGIO CHEST ABDOMEN PELVIS, 09/27/2022, 15:17. FINDINGS: Image quality: Diagnostic. AORTA: Ascending thoracic aorta is slightly ectatic measures up to 3.9 cm in largest AP diameter compared to 3.8 cm on previous study. There is no descending thoracic aortic aneurysm. No abdominal aortic aneurysm. No aortic dissection. Mild atherosclerotic plaques are noted in infrarenal abdominal aorta. CHEST: Lower Neck: No enlarged lymph nodes. Thyroid: No thyroid nodules which require sonographic evaluation. Axillae: No enlarged lymph nodes. Chest Wall: Unremarkable. Lungs and Pleura: No pneumothorax or pleural effusions. Linear scarring/atelectasis scattered in anterior and posterior aspect of bilateral lung bases are seen. Central and peripheral airway is patent. Heart: Heart size is normal. No pericardial effusion. Thoracic Vessels: Pulmonary arteries demonstrate normal size. Mediastinum and Ysabel: No enlarged lymph nodes. Esophagus: No wall thickening. No bilateral renal cysts hiatal hernia. ABDOMEN: Liver: No solid mass. Gallbladder: No radiopaque gallstones or wall thickening. Biliary ducts: No biliary dilation. Pancreas: No ductal dilation. Spleen: Size is within normal limits. Adrenal Glands: No adrenal nodules. Kidneys and Ureters: No hydronephrosis. No solid mass. No complex renal cystic lesion which requires follow up. Simple appearing bilateral renal cysts are again seen not significantly changed from prior study and measures up to 2 x 1.4 cm in size in midpole left kidney. Stomach and Bowel: Mild fecal stasis in the colon is seen. There is no bowel obstruction or abnormal bowel wall thickening. Colorectal anastomosis is again seen and is grossly intact. No abscess collection. Peritoneum: No abnormal intraperitoneal fluid. No free air. Ventral Wall: No hernia. Abdominal Nodes: No retroperitoneal or mesenteric adenopathy by size criteria. Vessels: Inferior vena cava is normal in size. PELVIS: Pelvic Organs: Unremarkable. Bladder: Unremarkable. Pelvic Nodes: No enlarged lymph nodes. Miscellaneous: No inguinal hernias are seen. Bones: No acute vertebral body compression fracture. Chronic appearing anterior wedge compression deformity at T11 and T12 levels are again seen unchanged from prior study. No suspicious bony lesions. IMPRESSION: 1. No aortic aneurysm or dissection. No evidence of central pulmonary embolism. 2. No hemodynamically significant stenosis or aneurysm is seen in major branches of thoracic and abdominal aorta. Mild atherosclerotic disease. 3. Scattered scarring/atelectasis at bilateral lung bases. Bilateral lungs otherwise clear. 4. No acute inflammatory process is seen in abdomen or pelvis. No significant changes from previous study. Dictated by: Brian Alegre M.D. on 06/13/2023 at 18:42 Approved by: Brian Alegre M.D. on 06/13/2023 at 18:48 MDM Narrative Medical decision making narrative: 67-year-old female with complaint of left-sided chest pain down in her arm and upper thoracic back. Patient notes she has cervical spine issues could be related but has some risk factors with hypertension dyslipidemia but also known ascending aortic aneurysm. Patient's labs show white count 8.9 hemoglobin 12 platelets of 244 INR 0.9 normal renal function, BUN 23 glucose 88 otherwise electrolytes negative LFTs, troponin less than 0.12, chest x-ray is negative Repeat troponin Patient has history of aneurysm, CT angio dissection protocol ordered and pending. Signed out to Dr. Redd while awaiting results. Dr. Redd -care of patient is signed out to me by Dr. Chowdhury at 1800. Patient reassessed, resting comfortably in bed. Troponins negative x2. CT angio of the chest abdomen and pelvis reviewed, patient has history of AAA. On CTA there is a small aneurysm measuring 3.9 cm without rupture, stenosis, or dissection. Patient's last scan was 1 year ago and it measured 3.8 cm. Patient reassured that her aneurysm has not significantly progressed and that her heart enzymes were normal. She states she will call her doctor's and is ready to go home. Discharge Plan Departure Patient Disposition: Home Clinical Impression: Chest pain Instructions: DI for Chest Pain Activity Restrictions/Additional Instructions: Your aneurysm today measured 3.9 cm compared to 3.8 cm 1 year ago. Please follow up as usual with your doctors about this. I do not know the cause of your chest pain today but it does not appear to be related to your aneurysm or a heart attack. Prescriptions: No Action albuterol sulfate 2.5 mg /3 mL (0.083 %) solution for nebulization 2.5 mg inhalation Q4-6H PRN (Reason: SOB, cough, wheezing) Qty: 180 3RF (DME) Nebulizer See Rx Instructions .Route .MEDSUPPLY Qty: 1 0RF Rx Instructions: for use with albuterol bullets for COPD exacerbation latanoprost 0.005 % drops 1 drp EYE-RIGHT .HS Qty: 2.5 3RF (DME) Aerobika Oscillating PEP Systm Device See Rx Instructions .Route Qty: 1 0RF Rx Instructions: Use 2-3 times as directed to clear respiratory secretions carvedilol 25 mg tablet See Rx Instructions .ROUTE .COMPLEX Qty: 180 2RF Dose Instruction: TAKE 1 TABLET BY MOUTH TWICE DAILY WITH MEAL/FOOD Rx Instructions: TAKE 1 TABLET BY MOUTH TWICE DAILY WITH MEAL/FOOD hydralazine 25 mg tablet 25 mg PO BID Qty: 180 0RF loratadine [Claritin] 10 mg tablet 10 mg PO DAILY Qty: 90 3RF rosuvastatin 20 mg tablet See Rx Instructions .ROUTE .COMPLEX Qty: 90 3RF Dose Instruction: TAKE 1 TABLET BY MOUTH AT BEDTIME FOR CHOLESTEROL Rx Instructions: TAKE 1 TABLET BY MOUTH AT BEDTIME FOR CHOLESTEROL ketoconazole 2 % cream 1 applic topical BID Qty: 30 0RF Rx Instructions: Apply topically to affected area twice per day. venlafaxine 75 mg capsule,extended release 24hr 225 mg PO ONCE PM Qty: 270 3RF pantoprazole 40 mg tablet,delayed release (DR/EC) See Rx Instructions .ROUTE .COMPLEX Qty: 180 3RF Dose Instruction: TAKE 1 TABLET BY MOUTH TWICE DAILY FOR GERD Rx Instructions: TAKE 1 TABLET BY MOUTH TWICE DAILY FOR GERD trazodone 100 mg tablet 150 - 200 mg PO ONCE PM Qty: 180 3RF promethazine 25 mg tablet 25 mg PO Q6H PRN (Reason: for nausea/vomiting) Qty: 120 3RF tramadol 50 mg tablet 50 mg PO Q8H PRN (Reason: pain) Qty: 90 2RF Rx Instructions: Take 1 tab by mouth every 8 hours as needed for pain diltiazem HCl 120 mg tablet 240 mg PO DAILY Qty: 180 0RF diltiazem HCl 240 mg capsule,extended release 24hr 240 mg PO DAILY Qty: 30 0RF albuterol sulfate 90 mcg/actuation HFA aerosol inhaler See Rx Instructions inhalation ONCE Rx Instructions: 1-2 puff inhalation once daily as needed lidocaine 5 % adhesive patch,medicated 3 patch topical DAILY Qty: 90 11RF Rx Instructions: leave on most painful area(s) for up to 12 hrs azelastine-fluticasone 137-50 mcg/spray spray,non-aerosol 1 spray intranasal BID Qty: 23 3RF Rx Instructions: administer into each nostril clonazepam 1 mg tablet 1 mg PO Q8H PRN (Reason: muscle spasms) Qty: 90 2RF lisinopril 40 mg tablet 40 mg PO DAILY estradiol 0.01 % (0.1 mg/gram) cream 1 g vaginal 2XW Referrals: Annette Marx ARNP [Primary Care Provider] - Stand Alone Forms: Patient Portal/API
--- NOTE | 2023-06-13 17:34 | PC.NURSE ---
PT denies dizziness, lightheaded, SOB, nausea. She has had increasingly frequent chest pains starting yesterday. Pt reports occasionally having back pain between the shoulder blades described at 4/10 dull pain. Today patient has intermittent, left chest pain that lasts around 7 seconds, occurring every few minutes. History of cardiac regurgitation, Ascending Aortic Aneurysm, stage 2 renal disease.
--- NOTE | 2023-06-13 17:46 | DI.CT.S_ITS ---
PROCEDURE: CT ANGIO CHEST ABDOMEN PELVIS INDICATIONS: left chest pain, known aneurysm TECHNIQUE: Precontrast 5 mm thick sections acquired from the lung apices to the iliac crests. After the administration of intravenous contrast, 2.5 mm thick sections again acquired from the lung apices to the iliac crests. Maximum intensity projection (MIP) oblique sagittal and coronal reformats were then acquired. For radiation dose reduction, the following was used: automated exposure control. COMPARISON: [facility], CT, CT ANGIO CHEST ABDOMEN PELVIS, 09/27/2022, 15:17. FINDINGS: Image quality: Diagnostic. AORTA: Ascending thoracic aorta is slightly ectatic measures up to 3.9 cm in largest AP diameter compared to 3.8 cm on previous study. There is no descending thoracic aortic aneurysm. No abdominal aortic aneurysm. No aortic dissection. Mild atherosclerotic plaques are noted in infrarenal abdominal aorta. CHEST: Lower Neck: No enlarged lymph nodes. Thyroid: No thyroid nodules which require sonographic evaluation. Axillae: No enlarged lymph nodes. Chest Wall: Unremarkable. Lungs and Pleura: No pneumothorax or pleural effusions. Linear scarring/atelectasis scattered in anterior and posterior aspect of bilateral lung bases are seen. Central and peripheral airway is patent. Heart: Heart size is normal. No pericardial effusion. Thoracic Vessels: Pulmonary arteries demonstrate normal size. Mediastinum and Ysabel: No enlarged lymph nodes. Esophagus: No wall thickening. No bilateral renal cysts hiatal hernia. ABDOMEN: Liver: No solid mass. Gallbladder: No radiopaque gallstones or wall thickening. Biliary ducts: No biliary dilation. Pancreas: No ductal dilation. Spleen: Size is within normal limits. Adrenal Glands: No adrenal nodules. Kidneys and Ureters: No hydronephrosis. No solid mass. No complex renal cystic lesion which requires follow up. Simple appearing bilateral renal cysts are again seen not significantly changed from prior study and measures up to 2 x 1.4 cm in size in midpole left kidney. Stomach and Bowel: Mild fecal stasis in the colon is seen. There is no bowel obstruction or abnormal bowel wall thickening. Colorectal anastomosis is again seen and is grossly intact. No abscess collection. Peritoneum: No abnormal intraperitoneal fluid. No free air. Ventral Wall: No hernia. Abdominal Nodes: No retroperitoneal or mesenteric adenopathy by size criteria. Vessels: Inferior vena cava is normal in size. PELVIS: Pelvic Organs: Unremarkable. Bladder: Unremarkable. Pelvic Nodes: No enlarged lymph nodes. Miscellaneous: No inguinal hernias are seen. Bones: No acute vertebral body compression fracture. Chronic appearing anterior wedge compression deformity at T11 and T12 levels are again seen unchanged from prior study. No suspicious bony lesions. IMPRESSION: 1. No aortic aneurysm or dissection. No evidence of central pulmonary embolism. 2. No hemodynamically significant stenosis or aneurysm is seen in major branches of thoracic and abdominal aorta. Mild atherosclerotic disease. 3. Scattered scarring/atelectasis at bilateral lung bases. Bilateral lungs otherwise clear. 4. No acute inflammatory process is seen in abdomen or pelvis. No significant changes from previous study. Dictated by: Brian Alegre M.D. on 06/13/2023 at 18:42 Approved by: Brian Alegre M.D. on 06/13/2023 at 18:48
[2023-06-13] MEDS: MORPHINE 4 MG/ML INJ IV (17:58)
[2023-06-13 18:40] LABS: Troponin I < 0.012 ng/mL (0.01-0.034)
== END 2023-06-13 19:35 | disposition home or self-care (01) ==
PROVIDERS: Emergency Medicine; Emergency Provider Emergency Medicine; Family Provider Nurse Practitioner; PCP Nurse Practitioner
DX: R07.9 Chest pain, unspecified (principal); R00.1 Bradycardia, unspecified; I71.40 Abdominal aortic aneurysm, without rupture, unspecified; Z79.899 Other long term (current) drug therapy
CPT/HCPCS: 36415; 71275; 74174; 80053; 82550; 83690; 83735; 84484; 85025; 85610; 85730; 93005; 96374; 99284; J2270; Q9967

== ENCOUNTER → 2023-08-05 10:26 | Outpatient (CLI) | payer MEDICARE, SELFPAY ==
[2023-08-05 11:02] LABS: Hematocrit 38.1 % (36-46)
[2023-08-05 11:19] LABS: BUN Creatinine Ratio 25.6 (6-22); Blood Urea Nitrogen 23 mg/dL (7-17); Calcium 8.5 mg/dL (8.4-10.2); Carbon Dioxide 31 mmol/L (22-32); Chloride 105 mmol/L (98-107); Estimated Glomerular Filt Rate > 60 mL/min (>60); Glucose 108 mg/dL (80-110); HEMOLYSIS < 15 (0-50); Potassium 4.6 mmol/L (3.4-5.1); Sodium 138 mmol/L (137-145)
[2023-08-05 11:39] LABS: Creatinine Urine Random 163.79 mg/dL; Protein (Total) Urine Random 19 mg/dL (0-12); Protein Creatinine Ratio Urine 0.11 GRAM/24H
[2023-08-09 07:21] LABS: Parathyroid Hormone Int 49 pg/mL (15-65)
== END ==
PROVIDERS: Family Provider Nurse Practitioner; PCP Nurse Practitioner; Referring Provider Student in an Organized Health Care Education/Training Program; Visit Provider Student in an Organized Health Care Education/Training Program
DX: N05.9 Unspecified nephritic syndrome with unspecified morphologic changes (principal); D70.9 Neutropenia, unspecified; D63.1 Anemia in chronic kidney disease; N25.81 Secondary hyperparathyroidism of renal origin; R80.9 Proteinuria, unspecified
CPT/HCPCS: 36415; 80048; 82570; 83970; 84156; 85014; 85018

== ENCOUNTER → 2023-08-23 09:52 | Outpatient (CLI) | payer MEDICARE, SELFPAY ==
--- NOTE | 2023-08-23 09:54 | DI.RAD.S_ITS ---
PROCEDURE: XR LUMBAR SPINE 2-3V INDICATIONS: thoracic and lumbar spine pain s/p fall TECHNIQUE: 3 views of the lumbar spine were acquired. COMPARISON: [facility], CT, CT ANGIO CHEST ABDOMEN PELVIS, 06/13/2023, 17:52. FINDINGS: Bones: 5 [id number] vertebrae are present. Grade 1 retrolisthesis of L1 on L2 and L2 on L3. No vertebral body compression fractures. No suspicious bony lesions. Moderate disc height loss at L2-3. Mild disc height loss at remaining levels. Facet arthrosis of L4 through S1. Soft tissues: Overlying bowel gas pattern is normal. No suspicious soft tissue calcifications. IMPRESSION: No acute bony abnormality. Mild to moderate, multilevel degenerative disc disease and lower lumbar facet arthrosis. Dictated by: Rito Houser M.D. on 08/23/2023 at 10:42 Approved by: Rito Houser M.D. on 08/23/2023 at 10:44
--- NOTE | 2023-08-23 09:54 | DI.RAD.S_ITS ---
PROCEDURE: XR THORACIC SPINE 3V INDICATIONS: thoracic and lumbar spine pain s/p fall TECHNIQUE: 3 views of the thoracic spine were acquired. COMPARISON: [facility], CT, CT ANGIO CHEST ABDOMEN PELVIS, 06/13/2023, 17:52. FINDINGS: Bones: Similar anterior wedging of the T11 vertebral body compared with 06/13/2023. No suspicious bony lesions. 12 pairs of ribs are noted, and appear intact where visualized. Mild, multilevel disc height loss. Soft tissues: No paravertebral stripe thickening. IMPRESSION: Stable anterior wedging of the T11 vertebral body compared with 06/13/2023. Dictated by: Rito Houser M.D. on 08/23/2023 at 10:44 Approved by: Rito Houser M.D. on 08/23/2023 at 10:46
== END ==
PROVIDERS: Family Provider Nurse Practitioner; PCP Nurse Practitioner; Referring Provider Nurse Practitioner; Visit Provider Nurse Practitioner
DX: M51.36 Other intervertebral disc degeneration, lumbar region (principal); M47.816 Spondylosis without myelopathy or radiculopathy, lumbar region; M47.817 Spondylosis without myelopathy or radiculopathy, lumbosacral region; M48.54XA Collapsed vertebra, not elsewhere classified, thoracic region, initial encounter for fracture; M54.50 Low back pain, unspecified; M43.9 Deforming dorsopathy, unspecified; Z87.81 Personal history of (healed) traumatic fracture
CPT/HCPCS: 72072; 72100

== ENCOUNTER 2023-09-07 10:30 | Outpatient (RCR) | payer MEDICARE, SELFPAY ==
--- NOTE | 2023-08-19 17:52 | PT.OIE ---
Current Diagnoses Spondylosis without myelopathy or radiculopathy, thoracic region (08/19/23) Spinal stenosis, lumbar region with neurogenic claudication (08/19/23) Muscle weakness (generalized) (08/19/23) Past Medical History (Last Updated 06/25/23 @ 16:23 by BUNNY Wagner) Abdominal pain Abnormal chest x-ray (~2011) Abnormal Pap smear of cervix (~1974) Allergic rash present on examination Anemia (~2016) Ascending aortic aneurysm Cannabis dependence, daily use Cat bite Cervical cancer (~1977) Cervical stenosis of spinal canal Change in bowel habit Chronic pain of both shoulders CKD (chronic kidney disease) Colon polyps (~2002) COPD (chronic obstructive pulmonary disease) (~2011) Degenerative joint disease (DJD) of lumbar spine (~1963) Dependence on nocturnal oxygen therapy Depression (~1988) Epigastric pain determined by examination Facet arthropathy, cervical Fatigue Fecal incontinence (~2017) Fibromyalgia (~1983) Foot pain (~2017) Fractures GERD (gastroesophageal reflux disease) GI bleeding (~2018) Glaucoma (~2018) Granuloma annulare (~2014) Hemorrhoid (~1979) Hepatic steatosis History of chronic constipation Hyperlipidemia LDL goal <100 Immunodeficiency due to conditions classified elsewhere Impingement syndrome of both shoulders Intermittent left-sided chest pain Kidney stones (~2018) Liver disease (~1972) Lumbar pain with radiation down left leg Mass of right thigh Measles Medial epicondylitis of both elbows Migraines (~1982) Mumps Muscle spasm of back Nausea & vomiting Neoplasm of uncertain behavior Ocular migraine Osteoarthritis (~2012) Osteoarthritis of hands, bilateral Osteoporosis (~2012) Painful menstrual periods Pancreatic mass Pancreatitis Paresthesia of right lower extremity Partial blindness Post menopausal syndrome Right renal mass Ruptured tympanic membrane (~1974) Scoliosis (~1963) Shoulder pain (~1985) Skin cancer (~2014) Sleep apnea (~2015) Vaginitis Wedge deformity on x-ray of spine Weight loss, non-intentional Wound of left foot Past Surgical History (Last Reviewed 06/25/23 @ 16:19 by BUNNY Wagner) Anesthesia Carpal tunnel syndrome (~1987) Cataracts, bilateral (~2013) History of hysterectomy (~1981) Visit Care Team Role Provider Type BUNNY Wagner Family Provider Advanced Scoop Filler Primary Care Provider Specialty: Family Practice Address: [address] [place] [address], [id number] Email: [email or web address] Yarelis Guillaume MD Attending Provider Physician Referring Provider Specialty: Orthopedics Orthopedic Surgery Address: [address] [place] [address], [place], [address] Email: [email or web address] Physical Therapy Initial Evaluation PT-OP-A Visit Information Start: 08/02/23 20:33 Freq: Status: Active Protocol: Document 08/19/23 10:38 LRN (Rec: 08/19/23 11:27 LRN [id number]) Out-Patient Physical Therapy Visit Information Visit Information Visit Type Initial Evaluation Visit Start Time 10:38 Visit Stop Time 11:25 Visit Number 1 Evaluation Information Evaluation Date 08/19/23 Precautions Precautions PMH: Extensive: Fibromyalgia, Osteoporosis, Ascending aortic aneurysm and hard to control HBP. PT-OP-B Current Condition Start: 08/02/23 20:33 Freq: Status: Active Protocol: Document 08/19/23 10:38 LRN (Rec: 08/19/23 11:27 LRN [id number]) Current Condition History of Current Condition Onset Date 04/2023 after fall, L Sciatic pn 2 days ago Current Complaints Pain in center of back & not able to sit straight, & new L Sciatic pain History of Current Condition Pt reports after falling onto L side and kind of twisted to the right, at home on grass started to have center back pain (spine). Two days ago bent forward to tack picker garden Pt reports in 04/2023 she fell onto her L side and twisted a little to the R causing onset or spinal pain. She was found to have compression/ deformity of T11-T12. Her back pain limits her ability to sit and makes her feel like she is constantly slouching. She has had intermittent L sciatic pain with bending forward with the most recent 2 days ago while picking up a garden hose. Prior Treatments and Tests CAT scan found spinal deformity when assessing for possible cardiac problem. No cardiac problem was noted. 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 Pt reports MRI (reportedly at [facility]) showing R bulging disc, L4-L5. Future Testing and Treatments Planned X-rays of back today after evaluation. Treatment Goals Patient/Caregiver Goals Pt goals: - be able to able to ADLS to continue to live independently (clean house, sit comfortably without slouching), - less pain with transfers in/ out of bed & car, - less back pain with coughing , and if have to push with BMs . Prior Functional Status Baseline Function- Other Pt able to cough without L sciatic pain, and have a bowel movement without pain limiting her ability to push. Pt was able to bend over to tack picker objects without LB/ sciatic pain. Personal Factors Other Personal Factors That May Effect Pt lives by self, Fibromyalgia Therapy/Recovery , Osteoporosis, Ascending aortic aneurysm and hard to control HBP. PT-OP-C Subjective Start: 08/02/23 20:33 Freq: Status: Active Protocol: Document 08/19/23 10:38 LRN (Rec: 08/19/23 11:27 LRN [id number]) OP-PT Subjective Patient Comments Patient Comments Fell on her side, before going in for cardiac pain in May, found T11-T12 spinal deformity. states Annette Marx MD (primary) didn't realize she had a fracture but found documentation showing wedge compression/ deformity. Two days ago was bending forward to tack picker a water hose and had onset of L sciatic pain (2 wks ago had it that took 2-3 days to recover from). Is waiting to see a pain doctor at the end of Oct . Patient Questionnaires Oswestry Low Back Index Oswestry Score 26 Oswestry Impairment 20 to 39% Impaired (Score 20- 39) OP-PT Pain Assessment Pain Assessment Grid Paper Pain Assessment Grid Completed Yes Location LPB/L Sciatic Pain Location Details LBP at sacral level and down posterior thigh Intensity 6 Scale Used Numeric (0 - 10) Mid back spinal pain Pain Location Details spinal pain, noted in mid- back (T11-T12 level) Intensity 4 Scale Used Numeric (0 - 10) Description Sharp,Shooting Comments Pain Comments BAck pain- sharp, stabbing, intermittent, aches all the time that pain meds help to keep minimal. L Sciatic - sharp stabbing, radiates down the posterior leg, intermittent. PT-OP-F Manual Assessment Start: 08/02/23 20:33 Freq: Status: Active Protocol: Document 08/19/23 10:38 LRN (Rec: 08/19/23 11:27 LRN [id number]) Manual Assessments Soft Tissue Assessment Soft Tissue Mobility Assessment Tender paraspinals of mid to low back & piriformis bilaterally. PT-OP-H Neuro Start: 08/02/23 20:33 Freq: Status: Active Protocol: Document 08/19/23 10:38 LRN (Rec: 08/19/23 11:27 LRN [id number]) Sensation Evaluation Gross Sensation Gross Sensation WNL PT-OP-J Posture/Palpation/Skin Start: 08/02/23 20:33 Freq: Status: Active Protocol: Document 08/19/23 10:38 LRN (Rec: 08/19/23 11:27 LRN [id number]) Posture Evaluation Position Standing L-Spine Posture Decreased Lordosis Comments Posture Comments Fwd head tHoracic kyponsis, decre cure of LS, flat R foot mildly flat L foot, L shoulder a little high, blind in R eye, PT-OP-K Range of Motion Start: 08/02/23 20:33 Freq: Status: Active Protocol: Document 08/19/23 10:38 LRN (Rec: 08/19/23 11:27 LRN [id number]) Lumbar Spine Range of Motion Lumbar Spine Active Degrees Testing Position Standing Flexion 23 Extension 8 Rotation Left 15 Rotation Right 10 Lateral Flexion Left 12 Lateral Flexion Right 7 Hip Goniometric Range of Motion Hip Right Passive Testing Position Supine Flexion w/Knee Flexed 90 Internal Rotation 0 External Rotation 75 Left Passive Testing Position Supine Flexion w/Knee Flexed 90 Internal Rotation 5 External Rotation 60 PT-OP-M Strength Start: 08/02/23 20:33 Freq: Status: Active Protocol: Document 08/19/23 10:38 LRN (Rec: 08/19/23 11:27 LRN [id number]) Hip Strength Hip Manual Muscle Testing Right External Rotation 4- Good- Internal Rotation 3+ Fair+ Left External Rotation 3+ Fair+ Internal Rotation 3+ Fair+ PT-OP-Q Treatments Start: 08/02/23 20:33 Freq: Status: Active Protocol: Document 08/19/23 10:38 LRN (Rec: 08/19/23 11:27 LRN [id number]) Therapeutic Exercises Supine Exercises KTC stretch Supine Exercise Name Gentle slow stretch to tolerance Side bilateral Comments Pt has poor awareness of not going into pain; therefore held as HEP Lateral Hip stretch Supine Exercise Name Gentle slow stretch to tolerance Side bilateral Comments Pt has poor awareness of not going into pain; therefore held as HEP Self-Care/Home Management Treatment Education Other Education Discussed results of evaluation, goals, and plan of care (POC) with pt, discussed attendance/cx/dns policy; pt agreeable to goals, attendance /cx/dns policy and POC. PT-OP-T Assessment and Plan Start: 08/02/23 20:33 Freq: Status: Active Protocol: Document 08/19/23 10:38 LRN (Rec: 08/19/23 11:27 LRN [id number]) Physical Therapy Assessment Rehab Potential Rehabilitation Potential Excellent Evaluation Complexity Number of Personal Factors/Comorbidities 0 Impairments Impairments Activity Tolerance Goals Four Impairment LBP rated 6/10 Short Term Goal (STG) Decrease LBP to 3/10 with pt able to transfer out of a car with ease. STG Duration 6 wks-09/30/23 Writer Producer Goal (LTG) Decrease LBP to 1/10 with pt able to sleep in bed instead of recliner and transfers in/ out of bed with tolerable pain . LTG Duration 12 wks-11/11/23 One Impairment Lacks self care HEP Impairment GISELLA score is 26 (20-39% impaired, score 20-39) Short Term Goal (STG) Pt will be educated in proper body mechanics for ADLs to protect her back and will be independent on a HEP of back strengthening ex's and LB/L hip mobility ex's for her sciatic pain. STG Duration 4wks-09/16/23 Writer Producer Goal (LTG) Improve function per GISELLA score of 19 or less with pt able to feel confident to live independently at home. LTG Duration 12 wks-11/11/23 Three Impairment L sciatic pain rated 6/10 Writer Producer Goal (LTG) Decrease L Sciatic pain with pt able to cough without pain, and have a bowel movement without pain limiting her ability to push. LTG Duration 12 wks-11/11/23 Two Impairment Spinal mid back pain rated 4 /10 Detention Goal (LTG) Decrease mid back pain with pt able to perform functional activities (clean house, sit comfortably without slouching) with pain no greater than 1/ 10. LTG Duration 12 wks-11/11/23 Assessment Summary Assessment Pt is a 68 yo female who presents with chronic mid back and low back pain and acute L sciatic pain, after ground level fall and bending over to tack picker object, respectively. The pt demonstrates pain behaviour of not being able to sit comforably, requiring shifting in chair and ultimately having to stand and move around. She demonstrates postural deviations (kyphosis and decreased lordosis), and appears to have a high pain tolerance except after lying supine she had increased back pain, but with time the pain subsided for her to be able to leave clinic in what appeared to be tolerable pain. X-rays reportedly indicate compression fx at T11-T12 and disc bulge at L4-L5. Pt is having x-rays after therapy today. The pt is limited in tolerable sitting (for rest & BMs), and functional transfers in/out of bed and car due to pain, and is concerned of being able to tolerate living at home. The pt will benefit from skilled physical therapy to decrease her back and L sciatic pain to improve her functional level and work to achieve the above stated goals . Physical Therapy Plan Frequency and Duration Frequency of Treatment 2x/Week Duration of treatment (weeks) 12 Plan of Care Start Date 08/19/23 Plan of Care End Date 11/11/23 Therapeutic Interventions Therapeutic Interventions Home Exercise Program,Manual Therapy,Neuromuscular Re- education,Self-Care/Home Management,Soft Tissue Mobilization,Therapeutic Activities,Therapeutic Exercises Modalities Cold Pack/Ice Massage,Electric Stimulation,Hot Packs, Ultrasound Next Visit Focus/Plan Next Note Type Treatment Note Next Visit Plan Next: X-ray results. Ex: Start gentle isometric back strengthening (partial recline or on pillows) and core ex's to improve posture and reduce strain on compression fractures, and gentle hip stretches for L sciatic pain. Gentle Neck/ shoulder ROM to minimize fascial scarring down of paraspinals. STM: LB/L hip. Educ: Body mechanics training (picking up objects and having BM's) Caution with modalities that might effect the opposite area of dysfunction. POC:
--- NOTE | 2023-08-19 17:52 | PT.OPPOC ---
Physical, Occupational & Speech Therapy At [facility] Current Diagnoses Spondylosis without myelopathy or radiculopathy, thoracic region (08/19/23) Spinal stenosis, lumbar region with neurogenic claudication (08/19/23) Muscle weakness (generalized) (08/19/23) Visit Care Team Role Provider Type BUNNY Wagner Family Provider Advanced [employer]ist [employer] Primary Care Provider Specialty: Family Practice Address: [address] [place] [address], [id number] Email: [email or web address] Yarelis Guillaume MD Attending Provider Physician Referring Provider Specialty: Orthopedics Orthopedic Surgery Address: [address] [place] [address], [address] Email: [email or web address] Plan Of Care PT-OP-T Assessment and Plan Start: 08/02/23 20:33 Freq: Status: Active Protocol: Document 08/19/23 10:38 LRN (Rec: 08/19/23 11:27 LRN [id number]) Physical Therapy Assessment Rehab Potential Rehabilitation Potential Excellent Evaluation Complexity Number of Personal Factors/Comorbidities 0 Impairments Impairments Activity Tolerance Goals Four Impairment LBP rated 6/10 Short Term Goal (STG) Decrease LBP to 3/10 with pt able to transfer out of a car with ease. STG Duration 6 wks-09/30/23 Vanstone Machine Operator Goal (LTG) Decrease LBP to 1/10 with pt able to sleep in bed instead of recliner and transfers in/ out of bed with tolerable pain . LTG Duration 12 wks-11/11/23 One Impairment Lacks self care HEP Impairment GISELLA score is 26 (20-39% impaired, score 20-39) Short Term Goal (STG) Pt will be educated in proper body mechanics for ADLs to protect her back and will be independent on a HEP of back strengthening ex's and LB/L hip mobility ex's for her sciatic pain. STG Duration 4wks-09/16/23 Vanstone Machine Operator Goal (LTG) Improve function per GISELLA score of 19 or less with pt able to feel confident to live independently at home. LTG Duration 12 wks-11/11/23 Three Impairment L sciatic pain rated 6/10 Vanstone Machine Operator Goal (LTG) Decrease L Sciatic pain with pt able to cough without pain, and have a bowel movement without pain limiting her ability to push. LTG Duration 12 wks-11/11/23 Two Impairment Spinal mid back pain rated 4 /10 Vanstone Machine Operator Goal (LTG) Decrease mid back pain with pt able to perform functional activities (clean house, sit comfortably without slouching) with pain no greater than 1/ 10. LTG Duration 12 wks-11/11/23 Assessment Summary Assessment Pt is a 68 yo female who presents with chronic mid back and low back pain and acute L sciatic pain, after ground level fall and bending over to pickers material handlers object, respectively. The pt demonstrates pain behaviour of not being able to sit comforably, requiring shifting in chair and ultimately having to stand and move around. She demonstrates postural deviations (kyphosis and decreased lordosis), and appears to have a high pain tolerance except after lying supine she had increased back pain, but with time the pain subsided for her to be able to leave clinic in what appeared to be tolerable pain. X-rays reportedly indicate compression fx at T11-T12 and disc bulge at L4-L5. Pt is having x-rays after therapy today. The pt is limited in tolerable sitting (for rest & BMs), and functional transfers in/out of bed and car due to pain, and is concerned of being able to tolerate living at home. The pt will benefit from skilled physical therapy to decrease her back and L sciatic pain to improve her functional level and work to achieve the above stated goals . Physical Therapy Plan Frequency and Duration Frequency of Treatment 2x/Week Duration of treatment (weeks) 12 Plan of Care Start Date 08/19/23 Plan of Care End Date 11/11/23 Therapeutic Interventions Therapeutic Interventions Home Exercise Program,Manual Therapy,Neuromuscular Re- education,Self-Care/Home Management,Soft Tissue Mobilization,Therapeutic Activities,Therapeutic Exercises Modalities Cold Pack/Ice Massage,Electric Stimulation,Hot Packs, Ultrasound Next Visit Focus/Plan Next Note Type Treatment Note Next Visit Plan Next: X-ray results. Ex: Start gentle isometric back strengthening (partial recline or on pillows) and core ex's to improve posture and reduce strain on compression fractures, and gentle hip stretches for L sciatic pain. Gentle Neck/ shoulder ROM to minimize fascial scarring down of paraspinals. STM: LB/L hip. Educ: Body mechanics training (picking up objects and having BM's) Caution with modalities that might effect the opposite area of dysfunction. POC: Plan of Care Dates Plan of Care Start Date 08/19/23 Plan of Care End Date 11/11/23 Electronically Signed by: Gianna Granados, PT 08/19/23 [id number] If you are in agreement with this Plan of Care, please return a signed and dated copy. I have reviewed this Plan of Care and certify that the skilled therapy services above are required to meet the patient?s needs. Physician Signature Date Printed Name and Credentials Clinical Instructor Signature Printed Name and Credentials
--- NOTE | 2023-08-23 12:52 | PT.OTN ---
Current Diagnoses Spondylosis without myelopathy or radiculopathy, thoracic region (08/23/23) Spinal stenosis, lumbar region with neurogenic claudication (08/23/23) Muscle weakness (generalized) (08/23/23) Physical Therapy Treatment Note PT-OP-A Visit Information Start: 08/02/23 20:33 Freq: Status: Active Protocol: Document 08/23/23 08:10 AB (Rec: 08/23/23 10:49 AB [id number]) Out-Patient Physical Therapy Visit Information Visit Information Visit Type Treatment Note Visit Start Time 09:03 Visit Stop Time 09:45 Visit Number 2 Number of MANAGER CARDIAC Visits 1 Evaluation Information Evaluation Date 08/19/23 Precautions Precautions PMH: Extensive: Fibromyalgia, Osteoporosis, Ascending aortic aneurysm and hard to control HBP. PT-OP-B Current Condition Start: 08/02/23 20:33 Freq: Status: Active Protocol: Document 08/19/23 10:38 LRN (Rec: 08/19/23 11:27 LRN [id number]) Current Condition History of Current Condition Onset Date 04/2023 after fall, L Sciatic pn 2 days ago Current Complaints Pain in center of back & not able to sit straight, & new L Sciatic pain History of Current Condition Pt reports after falling onto L side and kind of twisted to the right, at home on grass started to have center back pain (spine). Two days ago bent forward to carding supervisor garden Pt reports in 04/2023 she fell onto her L side and twisted a little to the R causing onset or spinal pain. She was found to have compression/ deformity of T11-T12. Her back pain limits her ability to sit and makes her feel like she is constantly slouching. She has had intermittent L sciatic pain with bending forward with the most recent 2 days ago while picking up a garden hose. Prior Treatments and Tests CAT scan found spinal deformity when assessing for possible cardiac problem. No cardiac problem was noted. 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 Pt reports MRI (reportedly at [facility]) showing R bulging disc, L4-L5. Future Testing and Treatments Planned X-rays of back today after evaluation. Treatment Goals Patient/Caregiver Goals Pt goals: - be able to able to ADLS to continue to live independently (clean house, sit comfortably without slouching), - less pain with transfers in/ out of bed & car, - less back pain with coughing , and if have to push with BMs . Prior Functional Status Baseline Function- Other Pt able to cough without L sciatic pain, and have a bowel movement without pain limiting her ability to push. Pt was able to bend over to carding supervisor objects without LB/ sciatic pain. Personal Factors Other Personal Factors That May Effect Pt lives by self, Fibromyalgia Therapy/Recovery , Osteoporosis, Ascending aortic aneurysm and hard to control HBP. PT-OP-C Subjective Start: 08/02/23 20:33 Freq: Status: Active Protocol: Document 08/23/23 08:10 AB (Rec: 08/23/23 10:49 AB [id number]) OP-PT Subjective Patient Comments Patient Comments Patient reports she missed her Xray as she was in a lot of pain post previous session, and was focused on getting home. Patient reports she is worse than previous session, reports right leg is now invooved painful and week, comments pushing on gas feels weak and painful. PT-OP-F Manual Assessment Start: 08/02/23 20:33 Freq: Status: Active Protocol: Document 08/19/23 10:38 LRN (Rec: 08/19/23 11:27 LRN [id number]) Manual Assessments Soft Tissue Assessment Soft Tissue Mobility Assessment Tender paraspinals of mid to low back & piriformis bilaterally. PT-OP-H Neuro Start: 08/02/23 20:33 Freq: Status: Active Protocol: Document 08/19/23 10:38 LRN (Rec: 08/19/23 11:27 LRN [id number]) Sensation Evaluation Gross Sensation Gross Sensation WNL PT-OP-J Posture/Palpation/Skin Start: 08/02/23 20:33 Freq: Status: Active Protocol: Document 08/19/23 10:38 LRN (Rec: 08/19/23 11:27 LRN [id number]) Posture Evaluation Position Standing L-Spine Posture Decreased Lordosis Comments Posture Comments Fwd head tHoracic kyponsis, decre cure of LS, flat R foot mildly flat L foot, L shoulder a little high, blind in R eye, PT-OP-K Range of Motion Start: 08/02/23 20:33 Freq: Status: Active Protocol: Document 08/19/23 10:38 LRN (Rec: 08/19/23 11:27 LRN [id number]) Lumbar Spine Range of Motion Lumbar Spine Active Degrees Testing Position Standing Flexion 23 Extension 8 Rotation Left 15 Rotation Right 10 Lateral Flexion Left 12 Lateral Flexion Right 7 Hip Goniometric Range of Motion Hip Right Passive Testing Position Supine Flexion w/Knee Flexed 90 Internal Rotation 0 External Rotation 75 Left Passive Testing Position Supine Flexion w/Knee Flexed 90 Internal Rotation 5 External Rotation 60 PT-OP-M Strength Start: 08/02/23 20:33 Freq: Status: Active Protocol: Document 08/19/23 10:38 LRN (Rec: 08/19/23 11:27 LRN [id number]) Hip Strength Hip Manual Muscle Testing Right External Rotation 4- Good- Internal Rotation 3+ Fair+ Left External Rotation 3+ Fair+ Internal Rotation 3+ Fair+ PT-OP-Q Treatments Start: 08/02/23 20:33 Freq: Status: Active Protocol: Document 08/23/23 08:10 AB (Rec: 08/23/23 10:49 AB [id number]) Therapeutic Exercises Supine Exercises isometrics Supine Exercise Name with trunk elevated 45 deg, small towel roll LS area for tactile cue Reps/Minutes 15 X 2 each direction Sitting Exercises rhythmic stabilization Comments manual resistance breathing from diaphragm Sitting Exercise Name with UE's supported HEP Reps/Minutes 2 min X 2 Comments verbal cues for breathing from diaphram AROM hip IR and ER Sitting Exercise Name HEP Side bilateral Reps/Minutes X10 each ex each LE Comments verbal and visual cues Standing Exercises hip extension Standing Exercise Name trunk flexed over mat with pillows HEP Side bilateral Reps/Minutes X15 Comments verbal cues for very small lift side stepping Standing Exercise Name HEP Side bilateral Reps/Minutes 2 min Comments verbal cues to avoid toeing out Manual Therapy Treatment Soft Tissue Mobilization gluteal muscles Mobilization Type Cross-Friction,Rolling Intensity/Depth Superficial Body Position Standing Comments monitored for pain paraspinals Body Location thoracic and lumbar Mobilization Type Sustained Pressure Intensity/Depth Superficial Body Position Sitting Comments monitored for pain Self-Care/Home Management Treatment Activities Self-Care/Home Management Activities breathing from diaphragm seated, Isometrics core supine at 45 deg elevation, side stepping, standing hip extension with trunk resting on counter and AROM hip IR and ER added to HEP. PT-OP-T Assessment and Plan Start: 08/02/23 20:33 Freq: Status: Active Protocol: Document 08/23/23 08:10 AB (Rec: 08/23/23 10:49 AB [id number]) Physical Therapy Assessment Goals Four Impairment LBP rated 6/10 Short Term Goal (STG) Decrease LBP to 3/10 with pt able to transfer out of a car with ease. STG Duration 6 wks-09/30/23 Nanny Babysitter Goal (LTG) Decrease LBP to 1/10 with pt able to sleep in bed instead of recliner and transfers in/ out of bed with tolerable pain . LTG Duration 12 wks-11/11/23 One Impairment Lacks self care HEP Impairment GISELLA score is 26 (20-39% impaired, score 20-39) Short Term Goal (STG) Pt will be educated in proper body mechanics for ADLs to protect her back and will be independent on a HEP of back strengthening ex's and LB/L hip mobility ex's for her sciatic pain. 08/23/2023 breathing from diaphragm seated, Isometrics core supine at 45 deg elevation, side stepping, standing hip extension with trunk resting on counter and AROM hip IR and ER added to HEP. STG Duration 4wks-09/16/23 Snf Goal (LTG) Improve function per GISELLA score of 19 or less with pt able to feel confident to live independently at home. LTG Duration 12 wks-11/11/23 Three Impairment L sciatic pain rated 6/10 Impairment Occasionally has total loss of fecal continence 1x/month Snf Goal (LTG) Decrease L Sciatic pain with pt able to cough without pain, and have a bowel movement without pain limiting her ability to push. LTG Duration 12 wks-11/11/23 Two Impairment Spinal mid back pain rated 4 /10 Impairment Pt fatigues after 3 and 7 secs of long holding. Hip IR PROM is ~25 deg's right , 15 deg's left. Nanny Babysitter Goal (LTG) Decrease mid back pain with pt able to perform functional activities (clean house, sit comfortably without slouching) with pain no greater than 1/ 10. LTG Duration 12 wks-11/11/23 Assessment Summary Assessment Patient reports she feels better end of session. Patient performed a log roll with good technique end of session transferring from mat, and attributes this to Rebeca's instructions. Physical Therapy Plan Frequency and Duration Frequency of Treatment 2x/Week Duration of treatment (weeks) 12 Plan of Care Start Date 08/19/23 Plan of Care End Date 11/11/23 Next Visit Focus/Plan Next Note Type Treatment Note Next Visit Plan Next: X-ray results. Ex: review isometric back strengthening (partial recline or on pillows) and core ex's to improve posture and reduce strain on compression fractures, and gentle hip stretches for L sciatic pain. Gentle Neck/shoulder ROM to minimize fascial scarring down of paraspinals. STM: LB/L hip. Educ: Body mechanics training (picking up objects and having BM's) Caution with modalities that might effect the opposite area of dysfunction. POC:
--- NOTE | 2023-08-30 12:47 | PT.OTN ---
Current Diagnoses Spondylosis without myelopathy or radiculopathy, thoracic region (08/30/23) Spinal stenosis, lumbar region with neurogenic claudication (08/30/23) Muscle weakness (generalized) (08/30/23) Physical Therapy Treatment Note PT-OP-A Visit Information Start: 08/02/23 20:33 Freq: Status: Active Protocol: Document 08/30/23 08:12 AB (Rec: 08/30/23 12:47 AB [id number]) Out-Patient Physical Therapy Visit Information Visit Information Visit Type Treatment Note Visit Note Access Code [email or web address] Visit Start Time 10:35 Visit Stop Time 11:16 Visit Number 3 Number of INDUSTRIAL ENGINEERING ANALYST Visits 2 Evaluation Information Evaluation Date 08/19/23 Precautions Precautions PMH: Extensive: Fibromyalgia, Osteoporosis, Ascending aortic aneurysm and hard to control HBP. PT-OP-B Current Condition Start: 08/02/23 20:33 Freq: Status: Active Protocol: Document 08/19/23 10:38 LRN (Rec: 08/19/23 11:27 LRN [id number]) Current Condition History of Current Condition Onset Date 04/2023 after fall, L Sciatic pn 2 days ago Current Complaints Pain in center of back & not able to sit straight, & new L Sciatic pain History of Current Condition Pt reports after falling onto L side and kind of twisted to the right, at home on grass started to have center back pain (spine). 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 She was found to have compression/ deformity of T11-T12. Her back pain limits her ability to sit and makes her feel like she is constantly slouching. She has had intermittent L sciatic pain with bending forward with the most recent 2 days ago while picking up a garden hose. Prior Treatments and Tests CAT scan found spinal deformity when assessing for possible cardiac problem. No cardiac problem was noted. 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 Pt reports MRI (reportedly at [facility]) showing R bulging disc, L4-L5. Future Testing and Treatments Planned X-rays of back today after evaluation. Treatment Goals Patient/Caregiver Goals Pt goals: - be able to able to ADLS to continue to live independently (clean house, sit comfortably without slouching), - less pain with transfers in/ out of bed & car, - less back pain with coughing , and if have to push with BMs . Prior Functional Status Baseline Function- Other Pt able to cough without L sciatic pain, and have a bowel movement without pain limiting her ability to push. Pt was able to bend over to pickle processor objects without LB/ sciatic pain. Personal Factors Other Personal Factors That May Effect Pt lives by self, Fibromyalgia Therapy/Recovery , Osteoporosis, Ascending aortic aneurysm and hard to control HBP. PT-OP-C Subjective Start: 08/02/23 20:33 Freq: Status: Active Protocol: Document 08/30/23 08:12 AB (Rec: 08/30/23 12:47 AB [id number]) OP-PT Subjective Patient Comments Patient Comments Patient reports the sciatica has calmed down, but the mid back is sore. Patient reports she had a virtual visit with MD, but did not go over X rays . Patient reports she reviewed the report and things looked the same as previously. Patient reports the aneurysm on heart has grown. Seated trunk rotation AROM with reports pain with left at 35%. Patient reports she lost her HEP handout. PT-OP-F Manual Assessment Start: 08/02/23 20:33 Freq: Status: Active Protocol: Document 08/19/23 10:38 LRN (Rec: 08/19/23 11:27 LRN [id number]) Manual Assessments Soft Tissue Assessment Soft Tissue Mobility Assessment Tender paraspinals of mid to low back & piriformis bilaterally. PT-OP-H Neuro Start: 08/02/23 20:33 Freq: Status: Active Protocol: Document 08/19/23 10:38 LRN (Rec: 08/19/23 11:27 LRN [id number]) Sensation Evaluation Gross Sensation Gross Sensation WNL PT-OP-J Posture/Palpation/Skin Start: 08/02/23 20:33 Freq: Status: Active Protocol: Document 08/19/23 10:38 LRN (Rec: 08/19/23 11:27 LRN [id number]) Posture Evaluation Position Standing L-Spine Posture Decreased Lordosis Comments Posture Comments Fwd head tHoracic kyponsis, decre cure of LS, flat R foot mildly flat L foot, L shoulder a little high, blind in R eye, PT-OP-K Range of Motion Start: 08/02/23 20:33 Freq: Status: Active Protocol: Document 08/19/23 10:38 LRN (Rec: 08/19/23 11:27 LRN [id number]) Lumbar Spine Range of Motion Lumbar Spine Active Degrees Testing Position Standing Flexion 23 Extension 8 Rotation Left 15 Rotation Right 10 Lateral Flexion Left 12 Lateral Flexion Right 7 Hip Goniometric Range of Motion Hip Right Passive Testing Position Supine Flexion w/Knee Flexed 90 Internal Rotation 0 External Rotation 75 Left Passive Testing Position Supine Flexion w/Knee Flexed 90 Internal Rotation 5 External Rotation 60 PT-OP-M Strength Start: 08/02/23 20:33 Freq: Status: Active Protocol: Document 08/19/23 10:38 LRN (Rec: 08/19/23 11:27 LRN [id number]) Hip Strength Hip Manual Muscle Testing Right External Rotation 4- Good- Internal Rotation 3+ Fair+ Left External Rotation 3+ Fair+ Internal Rotation 3+ Fair+ PT-OP-Q Treatments Start: 08/02/23 20:33 Freq: Status: Active Protocol: Document 08/30/23 08:12 AB (Rec: 08/30/23 12:47 AB [id number]) Therapeutic Exercises Supine Exercises isometrics Supine Exercise Name with trunk elevated 45 deg, small towel roll LS area for tactile cue Reps/Minutes X15 three second holds HEP KTC stretch Side bilateral Reps/Minutes 10 sec X 3 Comments Verbal cues for breathing from diaphragm Lateral Hip stretch Supine Exercise Name Gentle slow stretch to tolerance Side bilateral Reps/Minutes X3 X10 second Sidelying Exercises open book Side bilateral Reps/Minutes X3 each Comments verbal cues Sitting Exercises AROM hip IR and ER Sitting Exercise Name HEP Side bilateral Reps/Minutes X10 each ex each LE Comments verbal and visual cues Standing Exercises hip extension Standing Exercise Name trunk flexed over mat with pillows HEP Side bilateral Reps/Minutes X15 Comments monitored for pain side stepping Standing Exercise Name HEP Side bilateral Reps/Minutes 2 min Comments verbal cues to avoid toeing out Manual Therapy Treatment Consent Patient gave verbal consent for manual Yes treatment Soft Tissue Mobilization paraspinals Body Location thoracic and lumbar Mobilization Type Sustained Pressure Intensity/Depth Superficial Body Position Sidelying Comments monitored for pain PT-OP-T Assessment and Plan Start: 08/02/23 20:33 Freq: Status: Active Protocol: Document 08/30/23 08:12 AB (Rec: 08/30/23 12:47 AB [id number]) Physical Therapy Assessment Goals Four Impairment LBP rated 6/10 Short Term Goal (STG) Decrease LBP to 3/10 with pt able to transfer out of a car with ease. STG Duration 6 wks-09/30/23 Meat Blender Goal (LTG) Decrease LBP to 1/10 with pt able to sleep in bed instead of recliner and transfers in/ out of bed with tolerable pain . LTG Duration 12 wks-11/11/23 One Impairment Lacks self care HEP Impairment GISELLA score is 26 (20-39% impaired, score 20-39) Short Term Goal (STG) Pt will be educated in proper body mechanics for ADLs to protect her back and will be independent on a HEP of back strengthening ex's and LB/L hip mobility ex's for her sciatic pain. 08/23/2023 breathing from diaphragm seated, Isometrics core supine at 45 deg elevation, side stepping, standing hip extension with trunk resting on counter and AROM hip IR and ER added to HEP. STG Duration 4wks-09/16/23 Meat Blender Goal (LTG) Improve function per GISELLA score of 19 or less with pt able to feel confident to live independently at home. LTG Duration 12 wks-11/11/23 Three Impairment L sciatic pain rated 6/10 Impairment Occasionally has total loss of fecal continence 1x/month Meat Blender Goal (LTG) Decrease L Sciatic pain with pt able to cough without pain, and have a bowel movement without pain limiting her ability to push. 08/30/2023 Pt reports no more sciatic pain with bowel movements or couching, but does have mid back pain with coughing. LTG Duration 12 wks-11/11/23 Two Impairment Spinal mid back pain rated 4 /10 Impairment Pt fatigues after 3 and 7 secs of long holding. Hip IR PROM is ~25 deg's right , 15 deg's left. Halfway Goal (LTG) Decrease mid back pain with pt able to perform functional activities (clean house, sit comfortably without slouching) with pain no greater than 1/ 10. LTG Duration 12 wks-11/11/23 Assessment Summary Assessment Pt into session with reports of sciatica relief. HEP review this session due to loss of written HEP. AROM seated trunk rotation left to 50% with reports of decreased pain end of session. Physical Therapy Plan Frequency and Duration Frequency of Treatment 2x/Week Duration of treatment (weeks) 12 Plan of Care Start Date 08/19/23 Plan of Care End Date 11/11/23 Next Visit Focus/Plan Next Note Type Treatment Note Next Visit Plan Question patient regarding pain with car transfers Ex: core ex's to improve posture and reduce strain on compression fractures, and gentle hip stretches for L sciatic pain. Gentle Neck/ shoulder ROM to minimize fascial scarring down of paraspinals. STM: LB/L hip. Educ: Focus next session: Body mechanics training ( picking up objects and having BM's) Caution with modalities that might effect the opposite area of dysfunction. POC:
--- NOTE | 2023-09-06 11:31 | PT.OTN ---
Current Diagnoses Spondylosis without myelopathy or radiculopathy, thoracic region (09/06/23) Spinal stenosis, lumbar region with neurogenic claudication (09/06/23) Muscle weakness (generalized) (09/06/23) Physical Therapy Treatment Note PT-OP-A Visit Information Start: 08/02/23 20:33 Freq: Status: Active Protocol: Document 09/06/23 10:45 LRN (Rec: 09/06/23 11:30 LRN [id number]) Out-Patient Physical Therapy Visit Information Visit Information Visit Type Treatment Note Visit Start Time 10:45 Visit Stop Time 11:26 Visit Number 4 Evaluation Information Evaluation Date 08/19/23 Precautions Precautions PMH: Extensive: Fibromyalgia, Osteoporosis, Ascending aortic aneurysm and hard to control HBP. PT-OP-B Current Condition Start: 08/02/23 20:33 Freq: Status: Active Protocol: Document 08/19/23 10:38 LRN (Rec: 08/19/23 11:27 LRN [id number]) Current Condition History of Current Condition Onset Date 04/2023 after fall, L Sciatic pn 2 days ago Current Complaints Pain in center of back & not able to sit straight, & new L Sciatic pain History of Current Condition Pt reports after falling onto L side and kind of twisted to the right, at home on grass started to have center back pain (spine). Two days ago bent forward to machine pecan picker garden Pt reports in 04/2023 she fell onto her L side and twisted a little to the R causing onset or spinal pain. She was found to have compression/ deformity of T11-T12. Her back pain limits her ability to sit and makes her feel like she is constantly slouching. She has had intermittent L sciatic pain with bending forward with the most recent 2 days ago while picking up a garden hose. Prior Treatments and Tests CAT scan found spinal deformity when assessing for possible cardiac problem. No cardiac problem was noted. 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 Pt reports MRI (reportedly at [facility]) showing R bulging disc, L4-L5. Future Testing and Treatments Planned X-rays of back today after evaluation. Treatment Goals Patient/Caregiver Goals Pt goals: - be able to able to ADLS to continue to live independently (clean house, sit comfortably without slouching), - less pain with transfers in/ out of bed & car, - less back pain with coughing , and if have to push with BMs . Prior Functional Status Baseline Function- Other Pt able to cough without L sciatic pain, and have a bowel movement without pain limiting her ability to push. Pt was able to bend over to machine pecan picker objects without LB/ sciatic pain. Personal Factors Other Personal Factors That May Effect Pt lives by self, Fibromyalgia Therapy/Recovery , Osteoporosis, Ascending aortic aneurysm and hard to control HBP. PT-OP-C Subjective Start: 08/02/23 20:33 Freq: Status: Active Protocol: Document 09/06/23 10:45 LRN (Rec: 09/06/23 11:30 LRN [id number]) OP-PT Subjective Patient Comments Patient Comments Having problems with financial accounts. Swelling in legs are really bad, thinks heart problem is progressing. Ex's on her back has been okay. For past couple of days hasn't because the back has been sore. THe sciatic pain is being quiet and is manageable . PT-OP-F Manual Assessment Start: 08/02/23 20:33 Freq: Status: Active Protocol: Document 08/19/23 10:38 LRN (Rec: 08/19/23 11:27 LRN [id number]) Manual Assessments Soft Tissue Assessment Soft Tissue Mobility Assessment Tender paraspinals of mid to low back & piriformis bilaterally. PT-OP-H Neuro Start: 08/02/23 20:33 Freq: Status: Active Protocol: Document 08/19/23 10:38 LRN (Rec: 08/19/23 11:27 LRN [id number]) Sensation Evaluation Gross Sensation Gross Sensation WNL PT-OP-J Posture/Palpation/Skin Start: 08/02/23 20:33 Freq: Status: Active Protocol: Document 08/19/23 10:38 LRN (Rec: 08/19/23 11:27 LRN [id number]) Posture Evaluation Position Standing L-Spine Posture Decreased Lordosis Comments Posture Comments Fwd head tHoracic kyponsis, decre cure of LS, flat R foot mildly flat L foot, L shoulder a little high, blind in R eye, PT-OP-K Range of Motion Start: 08/02/23 20:33 Freq: Status: Active Protocol: Document 08/19/23 10:38 LRN (Rec: 08/19/23 11:27 LRN [id number]) Lumbar Spine Range of Motion Lumbar Spine Active Degrees Testing Position Standing Flexion 23 Extension 8 Rotation Left 15 Rotation Right 10 Lateral Flexion Left 12 Lateral Flexion Right 7 Hip Goniometric Range of Motion Hip Right Passive Testing Position Supine Flexion w/Knee Flexed 90 Internal Rotation 0 External Rotation 75 Left Passive Testing Position Supine Flexion w/Knee Flexed 90 Internal Rotation 5 External Rotation 60 PT-OP-M Strength Start: 08/02/23 20:33 Freq: Status: Active Protocol: Document 08/19/23 10:38 LRN (Rec: 08/19/23 11:27 LRN [id number]) Hip Strength Hip Manual Muscle Testing Right External Rotation 4- Good- Internal Rotation 3+ Fair+ Left External Rotation 3+ Fair+ Internal Rotation 3+ Fair+ PT-OP-Q Treatments Start: 08/02/23 20:33 Freq: Status: Active Protocol: Document 09/06/23 10:45 LRN (Rec: 09/06/23 11:30 LRN [id number]) Therapeutic Exercises Supine Exercises Semi reclined BKFO Supine Exercise Name 45 deg's reclined: TA/BKFO Side bilateral Reps/Minutes 10x each Comments Cuing during ex to breath/ count and keep TA tight isometrics Supine Exercise Name with trunk elevated 45 deg, small towel roll LS area for tactile cue Reps/Minutes 5 SH x 15 KTC stretch Side bilateral Reps/Minutes 10 sec X 3 Comments Verbal cues for breathing from diaphragm Lateral Hip stretch Supine Exercise Name Gentle slow stretch to tolerance Side bilateral Reps/Minutes 10 SH x 5 Comments Cued to hold full 10 secs Sidelying Exercises open book Sidelying Exercise Name Carefully slow painfree rotation. Side bilateral Reps/Minutes X5 each Comments verbal cues to move arm only as far as head turns. Sitting Exercises rhythmic stabilization Sitting Exercise Name ISAIAS flex/ext & Glenn SB Equipment Used manual resistnace Reps/Minutes 1' each breathing from diaphragm Reps/Minutes 2 min X 2 Comments verbal cues for breathing from diaphram PT-OP-T Assessment and Plan Start: 08/02/23 20:33 Freq: Status: Active Protocol: Document 09/06/23 10:45 LRN (Rec: 09/06/23 11:30 LRN [id number]) Physical Therapy Assessment Goals Four Impairment LBP rated 6/10 Short Term Goal (STG) Decrease LBP to 3/10 with pt able to transfer out of a car with ease. 09/06/23: Low back pain with car transfers is 4/10. STG Duration 6 wks-09/30/23 progressing 09/06/23 Customer Service Trainer Goal (LTG) Decrease LBP to 1/10 with pt able to sleep in bed instead of recliner and transfers in/ out of bed with tolerable pain . LTG Duration 12 wks-11/11/23 One Impairment Lacks self care HEP Impairment GISELLA score is 26 (20-39% impaired, score 20-39) Short Term Goal (STG) Pt will be educated in proper body mechanics for ADLs to protect her back and will be independent on a HEP of back strengthening ex's and LB/L hip mobility ex's for her sciatic pain. 08/23/2023 breathing from diaphragm seated, Isometrics core supine at 45 deg elevation, side stepping, standing hip extension with trunk resting on counter and AROM hip IR and ER added to HEP. STG Duration 4wks-09/16/23 Customer Service Trainer Goal (LTG) Improve function per GISELLA score of 19 or less with pt able to feel confident to live independently at home. LTG Duration 12 wks-11/11/23 Three Impairment L sciatic pain rated 6/10 Impairment Occasionally has total loss of fecal continence 1x/month Residential Goal (LTG) Decrease L Sciatic pain with pt able to cough without pain, and have a bowel movement without pain limiting her ability to push. 08/30/2023 Pt reports no more sciatic pain with bowel movements or couching, but does have mid back pain with coughing. 09/05/23: Coughing w/o sciatic pain, BM with sciatic pain pushing. LTG Duration 12 wks-11/11/23 progressing 09/06/23 Two Impairment Spinal mid back pain rated 4 /10 Impairment Pt fatigues after 3 and 7 secs of long holding. Hip IR PROM is ~25 deg's right , 15 deg's left. Residential Goal (LTG) Decrease mid back pain with pt able to perform functional activities (clean house, sit comfortably without slouching) with pain no greater than 1/ 10. 09/06/23: Sitting in wiating room 2/10. LTG Duration 12 wks-11/11/23 pogressed Assessment Summary Assessment Pt is a 68 yo female who presents with chronic mid back and low back pain and acute L sciatic pain, after ground level fall and bending over to machine pecan picker object, respectively. Today pt reports low back pain with car transfers is 4/ 10 and pt appears to be moving with greater ease and less pain. Good tolerance to ex and increase in reps; L sciatic pain is decreasing . Physical Therapy Plan Frequency and Duration Frequency of Treatment 2x/Week Duration of treatment (weeks) 12 Plan of Care Start Date 08/19/23 Plan of Care End Date 11/11/23 Next Visit Focus/Plan Next Note Type Treatment Note Next Visit Plan NEXT: Educ/training: Body mechanics training (picking up objects and having BM's) - see STG #1 Ex: core ex's to improve posture and reduce strain on compression fractures, and gentle hip stretches for L sciatic pain. Gentle Neck/ shoulder ROM to minimize fascial scarring down of paraspinals. STM: LB/L hip. Caution with modalities that might effect the opposite area of dysfunction. POC: CAUTIOUS spinal stabilization/strengthening, activity tolerance, manual therapy, MH/ice if needed for pain, pt education.
--- NOTE | 2023-09-07 12:52 | PT.OTN ---
Current Diagnoses Spondylosis without myelopathy or radiculopathy, thoracic region (09/07/23) Spinal stenosis, lumbar region with neurogenic claudication (09/07/23) Muscle weakness (generalized) (09/07/23) Physical Therapy Treatment Note PT-OP-A Visit Information Start: 08/02/23 20:33 Freq: Status: Active Protocol: Document 09/07/23 10:32 AB (Rec: 09/07/23 12:52 AB [id number]) Out-Patient Physical Therapy Visit Information Visit Information Visit Type Treatment Note Visit Note Access Code [email or web address] Visit Start Time 10:35 Visit Stop Time 11:18 Visit Number 5 Number of TRANSMITTER TESTER Visits 1 Evaluation Information Evaluation Date 08/19/23 Precautions Precautions PMH: Extensive: Fibromyalgia, Osteoporosis, Ascending aortic aneurysm and hard to control HBP. PT-OP-B Current Condition Start: 08/02/23 20:33 Freq: Status: Active Protocol: Document 08/19/23 10:38 LRN (Rec: 08/19/23 11:27 LRN [id number]) Current Condition History of Current Condition Onset Date 04/2023 after fall, L Sciatic pn 2 days ago Current Complaints Pain in center of back & not able to sit straight, & new L Sciatic pain History of Current Condition Pt reports after falling onto L side and kind of twisted to the right, at home on grass started to have center back pain (spine). Two days ago bent forward to pick up man garden Pt reports in 04/2023 she fell onto her L side and twisted a little to the R causing onset or spinal pain. She was found to have compression/ deformity of T11-T12. Her back pain limits her ability to sit and makes her feel like she is constantly slouching. She has had intermittent L sciatic pain with bending forward with the most recent 2 days ago while picking up a garden hose. Prior Treatments and Tests CAT scan found spinal deformity when assessing for possible cardiac problem. No cardiac problem was noted. 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 Pt reports MRI (reportedly at [facility]) showing R bulging disc, L4-L5. Future Testing and Treatments Planned X-rays of back today after evaluation. Treatment Goals Patient/Caregiver Goals Pt goals: - be able to able to ADLS to continue to live independently (clean house, sit comfortably without slouching), - less pain with transfers in/ out of bed & car, - less back pain with coughing , and if have to push with BMs . Prior Functional Status Baseline Function- Other Pt able to cough without L sciatic pain, and have a bowel movement without pain limiting her ability to push. Pt was able to bend over to pick up man objects without LB/ sciatic pain. Personal Factors Other Personal Factors That May Effect Pt lives by self, Fibromyalgia Therapy/Recovery , Osteoporosis, Ascending aortic aneurysm and hard to control HBP. PT-OP-C Subjective Start: 08/02/23 20:33 Freq: Status: Active Protocol: Document 09/07/23 10:32 AB (Rec: 09/07/23 12:52 AB [id number]) OP-PT Subjective Patient Comments Patient Comments Patient reports the sciatica pain has calmed down a lot. Patient reports she is wearing her support hose, feet hurt a lot when she puts on her shoes and is on water pills. PT-OP-F Manual Assessment Start: 08/02/23 20:33 Freq: Status: Active Protocol: Document 08/19/23 10:38 LRN (Rec: 08/19/23 11:27 LRN [id number]) Manual Assessments Soft Tissue Assessment Soft Tissue Mobility Assessment Tender paraspinals of mid to low back & piriformis bilaterally. PT-OP-H Neuro Start: 08/02/23 20:33 Freq: Status: Active Protocol: Document 08/19/23 10:38 LRN (Rec: 08/19/23 11:27 LRN [id number]) Sensation Evaluation Gross Sensation Gross Sensation WNL PT-OP-J Posture/Palpation/Skin Start: 08/02/23 20:33 Freq: Status: Active Protocol: Document 08/19/23 10:38 LRN (Rec: 08/19/23 11:27 LRN [id number]) Posture Evaluation Position Standing L-Spine Posture Decreased Lordosis Comments Posture Comments Fwd head tHoracic kyponsis, decre cure of LS, flat R foot mildly flat L foot, L shoulder a little high, blind in R eye, PT-OP-K Range of Motion Start: 08/02/23 20:33 Freq: Status: Active Protocol: Document 08/19/23 10:38 LRN (Rec: 08/19/23 11:27 LRN [id number]) Lumbar Spine Range of Motion Lumbar Spine Active Degrees Testing Position Standing Flexion 23 Extension 8 Rotation Left 15 Rotation Right 10 Lateral Flexion Left 12 Lateral Flexion Right 7 Hip Goniometric Range of Motion Hip Right Passive Testing Position Supine Flexion w/Knee Flexed 90 Internal Rotation 0 External Rotation 75 Left Passive Testing Position Supine Flexion w/Knee Flexed 90 Internal Rotation 5 External Rotation 60 PT-OP-M Strength Start: 08/02/23 20:33 Freq: Status: Active Protocol: Document 08/19/23 10:38 LRN (Rec: 08/19/23 11:27 LRN [id number]) Hip Strength Hip Manual Muscle Testing Right External Rotation 4- Good- Internal Rotation 3+ Fair+ Left External Rotation 3+ Fair+ Internal Rotation 3+ Fair+ PT-OP-Q Treatments Start: 08/02/23 20:33 Freq: Status: Active Protocol: Document 09/07/23 10:32 AB (Rec: 09/07/23 12:52 AB [id number]) Therapeutic Exercises Sitting Exercises abdominal bracing with shoulder flexion to 90 deg Side bilateral Reps/Minutes X10 Comments Verbal cues to brace as UE's raise rhythmic stabilization Sitting Exercise Name ISAIAS flex/ext & rotation Equipment Used manual resistnace Reps/Minutes 2 min total Standing Exercises Pallof press Side bilateral Resistance level one band Reps/Minutes X8 Comments Verbal cues monitored for pain hip extension Standing Exercise Name trunk flexed over mat with pillows, bracing with abdominals added to HEP Side bilateral Reps/Minutes X10 Comments verbal cues for abdominal bracing, focus on bracing *HEP added bracing Therapeutic Activity Therapeutic Activity wiping/sheets on bed Name weight shift with UE sliding pilow case Reps/Minutes one min Comments Verbal and visual cues mopping simulation Name 1 walking 2 lunge pattern Reps/Minutes X 5 each Comments verbal and visual cues, verbal cues to keep UE's next to core ie avoid reaching fwd with UE's lifting Name 1. Pivot WS and step 2 overhead pivot and step, 3. floor to waist Reps/Minutes X5 each pattern/lift ( Pt's purse 1-2 lb and Kleenex box used) Comments Verbal and visual cues Manual Therapy Treatment Soft Tissue Mobilization paraspinals Body Location thoracic and lumbar Mobilization Type Sustained Pressure Intensity/Depth Superficial Body Position Sidelying PT-OP-T Assessment and Plan Start: 08/02/23 20:33 Freq: Status: Active Protocol: Document 09/07/23 10:32 AB (Rec: 09/07/23 12:52 AB [id number]) Physical Therapy Assessment Goals Four Impairment LBP rated 6/10 Short Term Goal (STG) Decrease LBP to 3/10 with pt able to transfer out of a car with ease. 09/06/23: Low back pain with car transfers is 4/10. STG Duration 6 wks-09/30/23 progressing 09/06/23 Group Home Goal (LTG) Decrease LBP to 1/10 with pt able to sleep in bed instead of recliner and transfers in/ out of bed with tolerable pain . LTG Duration 12 wks-11/11/23 One Impairment Lacks self care HEP Impairment GISELLA score is 26 (20-39% impaired, score 20-39) Short Term Goal (STG) Pt will be educated in proper body mechanics for ADLs to protect her back and will be independent on a HEP of back strengthening ex's and LB/L hip mobility ex's for her sciatic pain. 08/23/2023 breathing from diaphragm seated, Isometrics core supine at 45 deg elevation, side stepping, standing hip extension with trunk resting on counter and AROM hip IR and ER added to HEP. STG Duration 4wks-09/16/23 Group Home Goal (LTG) Improve function per GISELLA score of 19 or less with pt able to feel confident to live independently at home. LTG Duration 12 wks-11/11/23 Three Impairment L sciatic pain rated 6/10 Impairment Occasionally has total loss of fecal continence 1x/month Lead Game Designer Goal (LTG) Decrease L Sciatic pain with pt able to cough without pain, and have a bowel movement without pain limiting her ability to push. 08/30/2023 Pt reports no more sciatic pain with bowel movements or couching, but does have mid back pain with coughing. 09/05/23: Coughing w/o sciatic pain, BM with sciatic pain pushing. LTG Duration 12 wks-11/11/23 progressing 09/06/23 Two Impairment Spinal mid back pain rated 4 /10 Impairment Pt fatigues after 3 and 7 secs of long holding. Hip IR PROM is ~25 deg's right , 15 deg's left. Group Home Goal (LTG) Decrease mid back pain with pt able to perform functional activities (clean house, sit comfortably without slouching) with pain no greater than . 09/06/23: Sitting in wiating room 04/09. 09/06/1013 Good return demonstration for weight shifting and stepping with lifting and cleaning tasks, but did fatigue rapidly with lower level picking up kleenex box from floor and simulated mopping. LTG Duration 12 wks-11/11/23 pogressed Assessment Summary Assessment Good return demonstration for weight shifting and stepping with lifting and cleaning tasks, but did fatigue rapidly with lower level picking up kleenex box from floor and simulated mopping. Physical Therapy Plan Frequency and Duration Frequency of Treatment 2x/Week Duration of treatment (weeks) 12 Plan of Care Start Date 08/19/23 Plan of Care End Date 11/11/23 Next Visit Focus/Plan Next Note Type Treatment Note Next Visit Plan NEXT: Educ/training: having BM's) - see STG #1 Ex: assess burke to abdominal bracing with shoulder flex to 90 and pallof press possibly add to HEP/core ex's to improve posture and reduce strain on compression fractures, and gentle hip stretches for L sciatic pain. Gentle Neck/shoulder ROM to minimize fascial scarring down of paraspinals. STM: LB/L hip. Caution with modalities that might effect the opposite area of dysfunction. POC: CAUTIOUS spinal stabilization/strengthening, activity tolerance, manual therapy, MH/ice if needed for pain, pt education.
--- NOTE | 2024-07-03 17:24 | PT.OPDS ---
Current Diagnoses Spondylosis without myelopathy or radiculopathy, thoracic region (09/07/23) Spinal stenosis, lumbar region with neurogenic claudication (09/07/23) Muscle weakness (generalized) (09/07/23) Visit Care Team Role Provider Type BUNNY Wagner Family Provider Non-Staff Primary Care Provider Specialty: Family Practice Address: [address] [place] [address], [id number] Email: Yarelis Guillaume MD Attending Provider Physician Referring Provider Specialty: Orthopedics Orthopedic Surgery Address: [address] [place] [address], [id number] Email: [email or web address] Visit Number Visit Number 5 Discharge Summary PT-OP-B Current Condition Start: 08/02/23 20:33 Freq: Status: Active Protocol: Document 08/19/23 10:38 LRN (Rec: 08/19/23 11:27 LRN [id number]) Current Condition History of Current Condition Onset Date 04/2023 after fall, L Sciatic pn 2 days ago Current Complaints Pain in center of back & not able to sit straight, & new L Sciatic pain History of Current Condition Pt reports after falling onto L side and kind of twisted to the right, at home on grass started to have center back pain (spine). Two days ago bent forward to pecan picker garden Pt reports in 04/2023 she fell onto her L side and twisted a little to the R causing onset or spinal pain. She was found to have compression/ deformity of T11-T12. Her back pain limits her ability to sit and makes her feel like she is constantly slouching. She has had intermittent L sciatic pain with bending forward with the most recent 2 days ago while picking up a garden hose. Prior Treatments and Tests CAT scan found spinal deformity when assessing for possible cardiac problem. No cardiac problem was noted. 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 Pt reports MRI (reportedly at [facility]) showing R bulging disc, L4-L5. Future Testing and Treatments Planned X-rays of back today after evaluation. Treatment Goals Patient/Caregiver Goals Pt goals: - be able to able to ADLS to continue to live independently (clean house, sit comfortably without slouching), - less pain with transfers in/ out of bed & car, - less back pain with coughing , and if have to push with BMs . Prior Functional Status Baseline Function- Other Pt able to cough without L sciatic pain, and have a bowel movement without pain limiting her ability to push. Pt was able to bend over to pecan picker objects without LB/ sciatic pain. Personal Factors Other Personal Factors That May Effect Pt lives by self, Fibromyalgia Therapy/Recovery , Osteoporosis, Ascending aortic aneurysm and hard to control HBP. PT-OP-C Subjective Start: 08/02/23 20:33 Freq: Status: Active Protocol: Document 09/07/23 10:32 AB (Rec: 09/07/23 12:52 AB [id number]) OP-PT Subjective Patient Comments Patient Comments Patient reports the sciatica pain has calmed down a lot. Patient reports she is wearing her support hose, feet hurt a lot when she puts on her shoes and is on water pills. PT-OP-F Manual Assessment Start: 08/02/23 20:33 Freq: Status: Active Protocol: Document 08/19/23 10:38 LRN (Rec: 08/19/23 11:27 LRN [id number]) Manual Assessments Soft Tissue Assessment Soft Tissue Mobility Assessment Tender paraspinals of mid to low back & piriformis bilaterally. PT-OP-H Neuro Start: 08/02/23 20:33 Freq: Status: Active Protocol: Document 08/19/23 10:38 LRN (Rec: 08/19/23 11:27 LRN [id number]) Sensation Evaluation Gross Sensation Gross Sensation WNL PT-OP-J Posture/Palpation/Skin Start: 08/02/23 20:33 Freq: Status: Active Protocol: Document 08/19/23 10:38 LRN (Rec: 08/19/23 11:27 LRN [id number]) Posture Evaluation Position Standing L-Spine Posture Decreased Lordosis Comments Posture Comments Fwd head tHoracic kyponsis, decre cure of LS, flat R foot mildly flat L foot, L shoulder a little high, blind in R eye, PT-OP-K Range of Motion Start: 08/02/23 20:33 Freq: Status: Active Protocol: Document 08/19/23 10:38 LRN (Rec: 08/19/23 11:27 LRN [id number]) Lumbar Spine Range of Motion Lumbar Spine Active Degrees Testing Position Standing Flexion 23 Extension 8 Rotation Left 15 Rotation Right 10 Lateral Flexion Left 12 Lateral Flexion Right 7 Hip Goniometric Range of Motion Hip Right Passive Testing Position Supine Flexion w/Knee Flexed 90 Internal Rotation 0 External Rotation 75 Left Passive Testing Position Supine Flexion w/Knee Flexed 90 Internal Rotation 5 External Rotation 60 PT-OP-M Strength Start: 08/02/23 20:33 Freq: Status: Active Protocol: Document 08/19/23 10:38 LRN (Rec: 08/19/23 11:27 LRN [id number]) Hip Strength Hip Manual Muscle Testing Right External Rotation 4- Good- Internal Rotation 3+ Fair+ Left External Rotation 3+ Fair+ Internal Rotation 3+ Fair+ PT-OP-T Assessment and Plan Start: 08/02/23 20:33 Freq: Status: Active Protocol: Document 07/02/24 19:16 LRN (Rec: 07/02/24 19:23 LRN Laptop) Physical Therapy Assessment Goals Four Impairment LBP rated 6/10 Short Term Goal (STG) Decrease LBP to 3/10 with pt able to transfer out of a car with ease. 09/06/23: Low back pain with car transfers is 4/10. STG Duration 6 wks-09/30/23 progressing 09/06/23 Cancer Researcher Goal (LTG) Decrease LBP to 1/10 with pt able to sleep in bed instead of recliner and transfers in/ out of bed with tolerable pain . LTG Duration 12 wks-11/11/23 One Impairment Lacks self care HEP Impairment GISELLA score is 26 (20-39% impaired, score 20-39) Short Term Goal (STG) Pt will be educated in proper body mechanics for ADLs to protect her back and will be independent on a HEP of back strengthening ex's and LB/L hip mobility ex's for her sciatic pain. 08/23/2023 breathing from diaphragm seated, Isometrics core supine at 45 deg elevation, side stepping, standing hip extension with trunk resting on counter and AROM hip IR and ER added to HEP. STG Duration 4wks-09/16/23 Care Home Goal (LTG) Improve function per GISELLA score of 19 or less with pt able to feel confident to live independently at home. LTG Duration 12 wks-11/11/23 Three Impairment L sciatic pain rated 6/10 Impairment Occasionally has total loss of fecal continence 1x/month Care Home Goal (LTG) Decrease L Sciatic pain with pt able to cough without pain, and have a bowel movement without pain limiting her ability to push. 08/30/2023 Pt reports no more sciatic pain with bowel movements or couching, but does have mid back pain with coughing. 09/05/23: Coughing w/o sciatic pain, BM with sciatic pain pushing. LTG Duration 12 wks-11/11/23 progressing 09/06/23 Two Impairment Spinal mid back pain rated 4 /10 Impairment Pt fatigues after 3 and 7 secs of long holding. Hip IR PROM is ~25 deg's right , 15 deg's left. Care Home Goal (LTG) Decrease mid back pain with pt able to perform functional activities (clean house, sit comfortably without slouching) with pain no greater than . 09/06/23: Sitting in wiating room 04/09. 09/06/1013 Good return demonstration for weight shifting and stepping with lifting and cleaning tasks, but did fatigue rapidly with lower level picking up kleenex box from floor and simulated mopping. LTG Duration 12 wks-11/11/23 pogressed Assessment Summary Assessment Pt was seen for initial eval and was seen for 5 visits with the last visit on 09/07/23, seen by Brigette Romero PTA. Her remaining 5 visits were canceled. The pt did make some progress, but goals were not met. Pt was limited and hindered by pain during therapy. The pt is beyond her plan of care and is being discharged from physical therapy. Physical Therapy Plan Discharge Physical Therapy Discharge Reasons No Longer Attending PT Discharge Comments Thank you for your referral.
== END 2024-07-05 09:54 | disposition home or self-care (01) ==
LOC: PHYS 10:30
PROVIDERS: Family Provider Nurse Practitioner; PCP Nurse Practitioner; Referring Provider Orthopaedic Surgery Orthopaedic Surgery of the Spine; Visit Provider Orthopaedic Surgery Orthopaedic Surgery of the Spine
DX: M48.062 Spinal stenosis, lumbar region with neurogenic claudication (principal); M47.814 Spondylosis without myelopathy or radiculopathy, thoracic region; M62.81 Muscle weakness (generalized)
CPT/HCPCS: 97110; 97140; 97161; 97530

== ENCOUNTER → 2023-09-12 11:49 | Outpatient (CLI) | payer MEDICARE, SELFPAY ==
[2023-09-12 13:19] LABS: Hematocrit 36.1 % (36-46); Hemoglobin 12.1 g/dL (12.0-16.0); Mean Corpuscular HGB Conc 33.6 % (30-36); Mean Corpuscular Hemoglobin 30.7 PG (26-34); Mean Corpuscular Volume 91.5 fL (80-100); Platelet Count 239 X10^3/uL (150-400); Red Blood Cell Count 3.95 X10^6/uL (4.0-5.2); Red Cell Distribution Width 13.4 % (11.6-14.8); White Blood Cell Count 9.1 X10^3/uL (4.5-11.0)
[2023-09-12 14:32] LABS: Alanine Aminotransferase 18 IU/L (<35); Albumin 3.6 g/dL (3.5-5.0); Albumin Globulin Ratio 1.5 (1.0-2.8); Alkaline Phosphatase 54 U/L (38-126); Aspartate Aminotransferase 28 IU/L (14-36); BUN Creatinine Ratio 19.2 (6-22); Bilirubin Total 0.5 mg/dL (0.2-1.3); Blood Urea Nitrogen 19 mg/dL (7-17); Carbon Dioxide 31 mmol/L (22-32); Chloride 103 mmol/L (98-107); Cholesterol 144 mg/dL (140-199); Estimated Glomerular Filt Rate > 60 mL/min (>60); Globulin 2.4 g/dL (1.7-4.1); Glucose 101 mg/dL (80-110); HDL Cholesterol 57 mg/dL (40-60); HEMOLYSIS 24 (0-50); LDL Cholesterol Calculated 61 mg/dL (<100); Potassium 4.5 mmol/L (3.4-5.1); Sodium 138 mmol/L (137-145); Triglycerides 129 mg/dL (35-150)
== END ==
PROVIDERS: Family Provider Nurse Practitioner; PCP Nurse Practitioner; Referring Provider Nurse Practitioner; Visit Provider Nurse Practitioner
DX: I10 Essential (primary) hypertension (principal); E78.5 Hyperlipidemia, unspecified
CPT/HCPCS: 36415; 80053; 80061; 85027

== ENCOUNTER → 2023-10-05 12:33 | Outpatient (CLI) | payer MEDICARE, SELFPAY ==
--- NOTE | 2023-10-05 12:30 | DI.US.S_ITS ---
PROCEDURE: US EXTREMITY NONVASC UPPER LT INDICATIONS: Mass of left upper arm, superior aspect of scar from lipoma? TECHNIQUE: Real-time scanning was performed of the area of clinical concern left anterior upper arm , with image documentation. COMPARISON: [facility], EXTREMITY NONVASC UPPER LT, 06/17/2022, 11:43. [facility], EXTREMITY NONVASC LOWER RT, 05/22/2020, 10:08. FINDINGS: There is an ovoid soft tissue masslike structure measuring up to 2.9 x 1.2 x 3.4 cm, nonspecific in appearance, at or emanating from the ventral fascial plane over the underlying musculature. IMPRESSION: With reference to the soft tissue mass in the area of current clinical concern the appearance is nonspecific, and could represent a benign tumor or malignant sarcoma. It does not represent a fluid collection. Follow-up with contrast-enhanced MR scanning likely is warranted in the near term for more accurate assessment. The clinical history provided seems to indicate possible prior lipoma. MR scanning can accurately detect evidence of benign lipoma. Dictated by: Jere Fuchs M.D. on 10/05/2023 at 14:18 Approved by: Jere Fuchs M.D. on 10/05/2023 at 14:21
== END ==
LOC: US 12:33
PROVIDERS: Family Provider Nurse Practitioner; PCP Nurse Practitioner; Referring Provider Nurse Practitioner; Visit Provider Nurse Practitioner
DX: M79.89 Other specified soft tissue disorders (principal); R22.32 Localized swelling, mass and lump, left upper limb
CPT/HCPCS: 76882

== ENCOUNTER → 2023-10-21 11:35 | Outpatient (CLI) | payer MEDICARE, SELFPAY ==
--- NOTE | 2023-10-21 11:37 | DI.MRI.S_ITS ---
PROCEDURE: MR SHOULDER LT WO CON INDICATIONS: COMPLETE ROTATOR CUFF TEAR OR RUPTURE TECHNIQUE: Noncontrast oblique coronal T2 fast spin echo with fat saturation, oblique sagittal T1 spin echo and T2 fast spin echo with fat saturation, axial T1 spin echo and T2 fast spin echo with fat saturation through the shoulder. COMPARISON: [facility], CR, XR SHOULDER 2+ VIEWS BILATERAL, 07/07/2023, 9:50. [facility], US, US EXTREMITY NONVASC UPPER LT, 10/05/2023, 13:20. [facility], MR, MR SHOULDER LT WO CON, 05/30/2020, 15:48. FINDINGS: Image quality: Somewhat limited evaluation given patient motion. Rotator cuff: Marked tendinosis of the supraspinatus and the infraspinatus. Low-grade interstitial tear of the anterior fiber of the supraspinatus. The teres minor is unremarkable. Mild tendinosis of the subscapularis with low-grade articular sided tear. No muscle edema or fatty atrophy. Bones and bursae: Mild degenerative changes of the acromioclavicular joint. Type 3 acromion. No os acromial. Trace subacromial/subdeltoid bursitis. Multifocal subchondral cystic changes in the posterior aspect of the greater tuberosity, reactive. No acute fracture. Capsule and soft tissues: Anterior superior labral tear. Partial thickness tear of the extra-articular biceps tendon. Mild tendinosis of the intra-articular biceps tendon. Small glenohumeral effusion. Mild subcoracoid bursitis. IMPRESSION: 1. Mild degenerative changes of the acromioclavicular joint. 2. Marked tendinosis of the supraspinatus and infraspinatus, with low-grade tear of the supraspinatus, unchanged from prior exam. 3. Low-grade tear of the subscapularis. 4. Partial thickness tear of the extra-articular biceps tendon, unchanged. Dictated by: Monique Flynn M.D. on 10/21/2023 at 15:27 Approved by: Monique Flynn M.D. on 10/21/2023 at 15:39
--- NOTE | 2023-10-21 11:39 | DI.MRI.S_ITS ---
PROCEDURE: MR HUMERUS LT WO/W CON INDICATIONS: Possible malignancy TECHNIQUE: Noncontrast coronal T1 spin echo and STIR, sagittal T1 spin echo with fat saturation and STIR, axial T1 spin echo and T2 fast spin echo with fat saturation. After the administration of contrast, axial/sagittal/coronal T1 spin echo with fat saturation through the left humerus . COMPARISON: [facility], CR, XR ELBOW 1 OR 2 VIEWS LEFT, 01/03/2023, 9:24. [facility], CR, XR SHOULDER 2+ VIEWS BILATERAL, 07/07/2023, 9:50. FINDINGS: Image quality: Excellent. Bones: Normal marrow signal. No acute fracture or marrow edema. Soft tissues: There is a 3.3 x 3.2 cm (axial image 9) fat containing lesion in the distal triceps muscle, without nodular enhancement, likely representing an intramuscular lipoma. No muscle edema. No left axillary lymphadenopathy. 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 Dictated by: Monique Flynn M.D. on 10/21/2023 at 15:17 Approved by: Monique Flynn M.D. on 10/21/2023 at 15:26
== END ==
PROVIDERS: Family Provider Nurse Practitioner; PCP Nurse Practitioner; Referring Provider Orthopaedic Surgery; Visit Provider Orthopaedic Surgery
DX: M79.89 Other specified soft tissue disorders (principal); M75.122 Complete rotator cuff tear or rupture of left shoulder, not specified as traumatic; D17.9 Benign lipomatous neoplasm, unspecified; S46.212A Strain of muscle, fascia and tendon of other parts of biceps, left arm, initial encounter
CPT/HCPCS: 73220; 73221; A9579

== ENCOUNTER 2023-10-23 09:17 | Emergency (ER) | payer MEDICARE, SELFPAY ==
[2023-10-23 09:37] VITALS: BP 153/80; PULSE 57; RESP 14; TEMP 36.5; O2SAT 96; BMI 30.8
--- NOTE | 2023-10-23 09:42 | ED_ITS ---
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 She notes that she typically has mild abdominal pain that is present today. She reports black stool a couple of months ago not currently present. She does have a history of upper GI bleeding and avoids nonsteroidals because of this. She notes that she slipped going down 1 of the steps in her 5th wheel twisted her right ankle. After she takes off her ankle high boot that is providing significant support she is noticing that the ankle is significantly sore she is unable to fully rotate it. Related Data Home Medications Medication Instructions Recorded Confirmed albuterol sulfate 90 mcg/actuation See Rx Instructions inhalation ONCE 07/01/21 09/19/23 aerosol inhaler lisinopril 40 mg tablet 40 mg PO DAILY 05/03/22 09/19/23 estradiol 0.01% (0.1 mg/gram) 1 g vaginal 2XW 12/13/22 09/19/23 vaginal cream Previous Rx's Medication Instructions Recorded Nebulizer #1 ea 09/22/21 albuterol sulfate 2.5 mg/3 mL 2.5 mg (3 mL) inhalation Q4-6H PRN 09/22/21 (0.083 %) solution for nebulization SOB, cough, wheezing #180 mL latanoprost 0.005 % eye drops 1 drp EYE-RIGHT .HS #2.5 mL 04/26/22 mucus clearing device (Aerobika #1 ea 06/15/22 Oscillating PEP System device) carvedilol 25 mg tablet See Rx Instructions .Route 07/09/22 .COMPLEX #180 tabs lidocaine 5 % topical patch 3 patch topical DAILY #90 ea 09/29/22 hydralazine 25 mg tablet 25 mg PO BID #180 tabs 12/03/22 loratadine 10 mg tablet (Claritin) 10 mg PO DAILY #90 tabs 12/06/22 rosuvastatin 20 mg tablet See Rx Instructions .Route 02/09/23 .COMPLEX #90 tabs pantoprazole 40 mg tablet,delayed See Rx Instructions .Route 05/06/23 release .COMPLEX #180 tabs promethazine 25 mg tablet 25 mg PO Q6H PRN for 05/09/23 nausea/vomiting #120 tabs trazodone 100 mg tablet 150 - 200 mg (1.5 - 2 x 100 mg) PO 05/09/23 ONCE PM #180 tabs azelastine 137 mcg-fluticasone 50 1 spray intranasal BID #23 grams 06/09/23 mcg/spray nasal spray clonazepam 1 mg tablet 1 mg PO Q8H PRN muscle spasms #90 06/09/23 tabs diltiazem HCl 240 mg 240 mg PO DAILY #90 caps 08/17/23 capsule,extended release 24 hr tramadol 50 mg tablet See Rx Instructions .Route 08/24/23 .COMPLEX #90 tabs duloxetine 20 mg capsule,delayed See Rx Instructions .Route 08/30/23 release .COMPLEX #360 caps ketoconazole 2 % topical cream 1 applic topical BID #30 grams 10/03/23 meclizine 25 mg tablet 25 mg PO BID PRN dizziness #20 tabs 10/23/23 ondansetron 4 mg disintegrating 4 mg PO Q8H PRN nausea and 10/23/23 tablet vomiting #14 tabs Allergies Allergy/AdvReac Type Severity Reaction Status Date / Time azithromycin [From Zithromax] Allergy Mild Verified 09/19/23 14:36 ceftriaxone Allergy Mild Verified 09/19/23 14:36 clarithromycin [From Biaxin] Allergy Mild Verified 09/19/23 14:36 gemfibrozil Allergy Mild Verified 09/19/23 14:36 hydrocodone [From Vicodin] Allergy Mild Verified 09/19/23 14:36 nitrofurantoin Allergy Mild Hives on Verified 09/19/23 14:36 chest/ shoulders isosorbide AdvReac Intermediate Verified 09/19/23 14:36 aspirin AdvReac Mild Dizziness Verified 09/19/23 14:36 buprenorphine [From Suboxone] AdvReac Mild Agitated Verified 09/19/23 14:36 buspirone [From BuSpar] AdvReac Mild dysphoria Verified 09/19/23 14:36 memantine [From Namenda] AdvReac Mild confusion Verified 09/19/23 14:36 naloxone [From Suboxone] AdvReac Mild Agitated Verified 09/19/23 14:36 pregabalin [From Lyrica] AdvReac Mild Dizziness Verified 09/19/23 14:36 gabapentin AdvReac loopy in Verified 09/19/23 14:36 the head Review of Systems Review of Systems Narrative: Pertinent positive and negative findings as per HPI Patient History Medical History Pancreatic mass Ascending aortic aneurysm Major depression, recurrent Osteoarthritis of hands, 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 Immunodeficiency due to conditions classified elsewhere Post menopausal syndrome Lumbar pain with radiation down left leg Dependence on nocturnal oxygen therapy CKD (chronic kidney disease) Medial epicondylitis of both elbows Facet arthropathy, cervical Cervical stenosis of spinal canal Impingement syndrome of both shoulders Ocular migraine GERD (gastroesophageal reflux disease) Hepatic steatosis Wound of left foot Paresthesia of right lower extremity Neoplasm of uncertain behavior Intermittent left-sided chest pain Mass of right thigh Cat bite Allergic rash present on examination Chronic pain of both shoulders Hyperlipidemia LDL goal <100 Cannabis dependence, daily use Nausea & vomiting Vaginitis Abnormal chest x-ray (~2011) Depression (~1988) Mumps Measles Ruptured tympanic membrane (~1974) Abnormal Pap smear of cervix (~1974) Kidney stones (~2018) Hemorrhoid (~1979) Colon polyps (~2002) Change in bowel habit History of chronic constipation Fatigue Weight loss, non-intentional Right renal mass Epigastric pain determined by examination Abdominal pain Granuloma annulare (~2014) Osteoarthritis (~2012) Sleep apnea (~2015) COPD (chronic obstructive pulmonary disease) (~2011) Migraines (~1982) Shoulder pain (~1985) Scoliosis (~1963) Osteoporosis (~2012) Degenerative joint disease (DJD) of lumbar spine (~1963) Fractures Foot pain (~2017) Fibromyalgia (~1983) Anemia (~2016) Glaucoma (~2018) Partial blindness Painful menstrual periods Fecal incontinence (~2017) Liver disease (~1972) GI bleeding (~2018) Skin cancer (~2014) Surgical History Cataracts, bilateral (~2013) Anesthesia Carpal tunnel syndrome (~1987) History of hysterectomy (~1981) Family History Father History of heart disease Hypertension Hyperlipidemia Mother Cancer Hypertension Grandfather No problems noted. Grandmother History of heart disease Hyperlipidemia Hypertension Grandfather Cancer Grandmother Stroke Social History marital status: unmarried,living together household members: significant other occupational status: previously employed Smoking Status: Former smoker alcohol intake: never substance use type: marijuana Smoking Status: Former smoker alcohol intake frequency: holidays/special occasions only Substance Use Type: marijuana Exam Initial Vital Signs Initial Vital Signs: Vital Signs Temperature 97.7 F 10/23/23 09:37 Pulse Rate 57 L 10/23/23 09:37 Respiratory Rate 14 10/23/23 09:37 Blood Pressure 153/80 H 10/23/23 09:37 Pulse Oximetry 96 10/23/23 09:37 Oxygen Delivery Method Room Air 10/23/23 09:37 General: Frail, chronically ill-appearing, able to participate completely with exam and history HEENT: Moist mucous membranes, normal sclera with reactive pupils, right eye is blind. When looking to the left side she has some mild nystagmus in the left eye that is associated with increase in her vertigo. Ears are unremarkable tympanic membranes pearly jones bilaterally Respiratory: Lungs are clear to auscultation, scattered wheeze that resolves with deep breathing Cardiac: Regular rate and rhythm no murmurs no bruits Abdomen: Soft, mild diffuse tenderness without rebound or guarding Skin: Warm and dry, no rashes Neurologic: Grossly neurologically intact with no obvious asymmetries or abnorm alities Extremities: Minor tenderness to the right ankle with tenderness to the lateral med malleoli. Swelling is noted. She is neurovascularly intact Psych: Cooperative, appropriate insight and affect Course Orders Ordered: ED Orders 10/23/23 10:47 XR ankle RT min 3V Stat Discontinued Medications Acetaminophen (Acetaminophen 325 Mg Tablet) 975 mg PO NOW ONE Stop: 10/23/23 10:48 Last Admin: 10/23/23 10:55 Dose: 975 mg Documented By: MATTHEW Meclizine HCl (Meclizine Hcl 12.5 Mg Tablet) 25 mg PO NOW ONE Stop: 10/23/23 10:41 Last Admin: 10/23/23 10:55 Dose: 25 mg Documented By: MATTHEW Ondansetron HCl (Ondansetron 4 Mg Odt) 4 mg SL NOW ONE Stop: 10/23/23 10:41 Last Admin: 10/23/23 10:54 Dose: 4 mg Documented By: MATTHEW Vital Signs Vital signs: Vital Signs - 8 hr 10/23/23 09:37 Temperature 97.7 F Pulse Rate 57 L Respiratory Rate 14 Blood Pressure 153/80 H Pulse Oximetry 96 Oxygen Delivery Method Room Air Medical Decision Making MDM Narrative Medical decision making narrative: CC: Acute onset dizziness, positional with head change, significant enough that she is having difficulty walking, stumbled and has some tenderness in her right ankle Complicating co-morbidities: COPD oxygen dependent at night, hypertension Data collected from: patient Social determinants of health that may influence the patients condition: Patient lives independently in a 5th wheel Medical records reviewed: Primary care notes from August 25, 2023 are reviewed Differential considered: Benign positional vertigo, electrolyte abnormality, acute stroke, TIA, cardiac etiology, infection Exam documented above, pertinent findings include: Exam is relatively benign. She is some mild nystagmus with left-sided head turning and exacerbation of her dizziness with that. Minor tenderness and swelling to the right ankle Lab Test results independently reviewed as above. Pertinent findings: Ankle x-ray does not show acute fracture Independently reviewed EKG: Imaging studies independently reviewed: Patient had MRIs of the shoulder and humerus on October 20. Significant rotator cuff injury appreciated and a intramuscular lipoma in the distal triceps appreciated Consultations: Treatments: Wilmar wrap is placed around the right ankle by nursing staff. She is neurovascularly intact pre and post ankle wrap Re-evaluations: Patient is able to walk around the department with minimal difficulty Discussion: 68-year-old woman with likely benign positional vertigo. Slight improvement only with meclizine and Zofran. Prescriptions for both will be given. Ankle sprain without fracture. She does feel better with the Wilmar wrap and does have excellent shoes for ankle support available. At this point there is no indication for additional workup, imaging studies or hospitalization. Reassurance is given an she will be safe for discharge. We will need help finding transportation home Discharge Plan Departure Patient Disposition: Home Clinical Impression: Ankle sprain Qualifiers: Encounter type: initial encounter Involved ligament of ankle: unspecified ligament Laterality: right Qualified Code(s): S93.401A - Sprain of unspecified ligament of right ankle, initial encounter Benign paroxysmal positional vertigo Qualifiers: Laterality: left Qualified Code(s): H81.12 - Benign paroxysmal vertigo, left ear Fall Qualifiers: Encounter type: initial encounter Qualified Code(s): W19.XXXA - Unspecified fall, initial encounter Instructions: DI for Ankle Sprain, DI for Benign Paroxysmal Positional Vertigo Activity Restrictions/Additional Instructions: Thank you for coming in today I am sorry that you are feeling dizzy. That is such a horrible sensation. I suspect that it is benign positional vertigo. I have given you some information on that. I have given you a prescriptions for both meclizine and Zofran. Meclizine helps with a spinning feeling and Zofran helps with the nausea feeling. Together they can both be helpful. Meclizine can cause some constipation so should be taken with a stool softener I am not finding any evidence for stroke, heart attack, infection or reason for hospitalization today which is quite reassuring. You did sprain your right ankle with your fall in your trailer. Use the Wilmar wrap as needed. There is no underlying fracture If you find that you are getting worse or develop any new symptoms, please feel free to return to the emergency department for further evaluation. All of your prescriptions were electronically transmitted to [facility] Prescriptions: New meclizine 25 mg tablet 25 mg PO BID PRN (Reason: dizziness) Qty: 20 0RF ondansetron 4 mg tablet,disintegrating 4 mg PO Q8H PRN (Reason: nausea and vomiting) Qty: 14 0RF No Action albuterol sulfate 2.5 mg /3 mL (0.083 %) solution for nebulization 2.5 mg inhalation Q4-6H PRN (Reason: SOB, cough, wheezing) Qty: 180 3RF (DME) Nebulizer See Rx Instructions .Route .MEDSUPPLY Qty: 1 0RF Rx Instructions: for use with albuterol bullets for COPD exacerbation latanoprost 0.005 % drops 1 drp EYE-RIGHT .HS Qty: 2.5 3RF (DME) Aerobika Oscillating PEP Systm Device See Rx Instructions .Route Qty: 1 0RF Rx Instructions: Use 2-3 times as directed to clear respiratory secretions carvedilol 25 mg tablet See Rx Instructions .ROUTE .COMPLEX Qty: 180 2RF Dose Instruction: TAKE 1 TABLET BY MOUTH TWICE DAILY WITH MEAL/FOOD Rx Instructions: TAKE 1 TABLET BY MOUTH TWICE DAILY WITH MEAL/FOOD hydralazine 25 mg tablet 25 mg PO BID Qty: 180 0RF loratadine [Claritin] 10 mg tablet 10 mg PO DAILY Qty: 90 3RF rosuvastatin 20 mg tablet See Rx Instructions .ROUTE .COMPLEX Qty: 90 3RF Dose Instruction: TAKE 1 TABLET BY MOUTH AT BEDTIME FOR CHOLESTEROL Rx Instructions: TAKE 1 TABLET BY MOUTH AT BEDTIME FOR CHOLESTEROL pantoprazole 40 mg tablet,delayed release (DR/EC) See Rx Instructions .ROUTE .COMPLEX Qty: 180 3RF Dose Instruction: TAKE 1 TABLET BY MOUTH TWICE DAILY FOR GERD Rx Instructions: TAKE 1 TABLET BY MOUTH TWICE DAILY FOR GERD trazodone 100 mg tablet 150 - 200 mg PO ONCE PM Qty: 180 3RF promethazine 25 mg tablet 25 mg PO Q6H PRN (Reason: for nausea/vomiting) Qty: 120 3RF diltiazem HCl 240 mg capsule,extended release 24hr 240 mg PO DAILY Qty: 90 3RF tramadol 50 mg tablet See Rx Instructions .ROUTE .COMPLEX Qty: 90 3RF Rx Instructions: Take 1 tab by mouth every 8 hours as needed for pain.; duloxetine 20 mg capsule,delayed release(DR/EC) See Rx Instructions .ROUTE .COMPLEX Qty: 360 3RF Rx Instructions: Take 40mg (2 20mg tabs) each morning and 40mg (2 20mg tabs) each evening; ketoconazole 2 % cream 1 applic topical BID Qty: 30 0RF Rx Instructions: Apply topically to affected area twice per day. albuterol sulfate 90 mcg/actuation HFA aerosol inhaler See Rx Instructions inhalation ONCE Rx Instructions: 1-2 puff inhalation once daily as needed lidocaine 5 % adhesive patch,medicated 3 patch topical DAILY Qty: 90 11RF Rx Instructions: leave on most painful area(s) for up to 12 hrs azelastine-fluticasone 137-50 mcg/spray spray,non-aerosol 1 spray intranasal BID Qty: 23 3RF Rx Instructions: administer into each nostril clonazepam 1 mg tablet 1 mg PO Q8H PRN (Reason: muscle spasms) Qty: 90 2RF Hold Instructions: While on Methocarbomol lisinopril 40 mg tablet 40 mg PO DAILY estradiol 0.01 % (0.1 mg/gram) cream 1 g vaginal 2XW Referrals: Annette Marx ARNP [Primary Care Provider] - Stand Alone Forms: Patient Portal/API
--- NOTE | 2023-10-23 09:48 | PC.NURSE ---
Pt reports dizziness since having MRI scan. Pt reports her nausea and dizziness is somewhat relieved when she lies back. Pt reports marijuana use but has not felt nauseous or dizzy in the past from discontinuation.
--- NOTE | 2023-10-23 10:47 | DI.RAD.S_ITS ---
PROCEDURE: XR ANKLE RT MIN 3V INDICATIONS: fall, pain lateral malleoli TECHNIQUE: 3 views of the ankle were acquired. COMPARISON: None. FINDINGS: Bones: In this patient with this given history, scrutiny is given to the lateral malleolus. No focal abnormality is seen. No avulsion fracture is seen. No fractures or dislocations are seen elsewhere. Ankle mortise is normally aligned. No suspicious bony lesions. The talar dome demonstrates no mary abnormality. Age-appropriate bony degenerative changes are seen. Plantar and Achilles calcaneal spurs are seen. Soft tissues: No tibiotalar joint effusion. Achilles tendon appears normal. IMPRESSION: No acute bony abnormality or significant effusion. Dictated by: Ayo Stevens M.D. on 10/23/2023 at 10:31 Approved by: Ayo Stevens M.D. on 10/23/2023 at 10:32
[2023-10-23] MEDS: ONDANSETRON 4 MG ODT SL (10:54)
[2023-10-23] MEDS: ACETAMINOPHEN 325 MG TABLET 975 MG PO (10:55)
[2023-10-23] MEDS: MECLIZINE HCL 12.5 MG TABLET 25 MG PO (10:55)
--- NOTE | 2023-10-23 13:05 | PC.NURSE ---
Dizziness since having MRI; unrelieved by rest. Feels better when laying on right side. Associated nausea.
[2023-10-23 13:06] VITALS: BP 164/84; PULSE 65; RESP 16; TEMP 36.6; O2SAT 98
== END 2023-10-23 13:07 | disposition home or self-care (01) ==
PROVIDERS: Emergency Provider Emergency Medicine; Family Provider Nurse Practitioner; PCP Nurse Practitioner
DX: H81.12 Benign paroxysmal vertigo, left ear (principal); S93.401A Sprain of unspecified ligament of right ankle, initial encounter; W10.9XXA Fall (on) (from) unspecified stairs and steps, initial encounter
CPT/HCPCS: 73610; 99283

== ENCOUNTER → 2023-12-02 15:56 | Outpatient (CLI) | payer MEDICARE, SELFPAY ==
[2023-12-02 16:37] LABS: Add Manual Diff / Slide Review NO; Basophils Absolute Auto 0 /uL (0-100); Basophils Percent Auto 0.5 % (0-2); Eosinophils Absolute Auto 300 /uL (0-450); Eosinophils Percent Auto 4.1 % (2-4); Hematocrit 35.3 % (36-46); Lymphocytes Absolute Auto 2900 /uL (1100-4500); Mean Corpuscular Hemoglobin 30.4 PG (26-34); Mean Corpuscular Volume 89.4 fL (80-100); Monocytes Absolute Auto 600 /uL (0-900); Monocytes Percent Auto 7.6 % (3-14); Neutrophils Absolute Auto 3600 /uL (1500-7000); Neutrophils Percent Auto 48.8 % (50-75); Platelet Count 312 X10^3/uL (150-400); Red Blood Cell Count 3.95 X10^6/uL (4.0-5.2); Red Cell Distribution Width 13.7 % (11.6-14.8); White Blood Cell Count 7.4 X10^3/uL (4.5-11.0)
[2023-12-02 17:00] LABS: Alanine Aminotransferase 24 IU/L (<35); Albumin 4.2 g/dL (3.5-5.0); Albumin Globulin Ratio 1.3 (1.0-2.8); Alkaline Phosphatase 56 U/L (38-126); Aspartate Aminotransferase 31 IU/L (14-36); BUN Creatinine Ratio 18.9 (6-22); Bilirubin Total 0.5 mg/dL (0.2-1.3); Blood Urea Nitrogen 20 mg/dL (7-17); Calcium 9.1 mg/dL (8.4-10.2); Carbon Dioxide 34 mmol/L (22-32); Chloride 98 mmol/L (98-107); Estimated Glomerular Filt Rate 57 mL/min (>60); Globulin 3.3 g/dL (1.7-4.1); Glucose 108 mg/dL (80-110); HEMOLYSIS 19 (0-50); Potassium 3.8 mmol/L (3.4-5.1); Sodium 137 mmol/L (137-145); Total Protein 7.5 g/dL (6.3-8.2)
== END ==
PROVIDERS: Family Provider Nurse Practitioner; PCP Family Medicine; Referring Provider Orthopaedic Surgery; Visit Provider Orthopaedic Surgery
DX: Z01.812 Encounter for preprocedural laboratory examination (principal)
CPT/HCPCS: 36415; 80053; 85025

== ENCOUNTER → 2023-12-05 09:09 | Outpatient (CLI) | payer MEDICARE, SELFPAY ==
--- NOTE | 2023-12-05 09:10 | DI.ECHO.S_ITS ---
[place] [facility] : : [address] : : [place] : : [id number] : : Phone: [phone] Echocardiogram Report + + :Name: CHENG SWENSON Study Date: 12/05/2023 Height: 61 in : :[facility] ReadingLocation: [place] Weight: 160 lb : : Gender: Female BSA: 1.7 m2 : :: 1955 Age: 68 yrs BP: 110/74 mmHg: :Reason For Study: Aortic, Ascending Aneurysm : :Ordering Physician: SHILPA, : :VALENTINO Bateman Performed By: Sarah Crocker : :Referring: VALENTINO MASSEY W : + + Interpretation Summary Normal left ventricle size with ejection fraction 60-65%. Diastolic parameters suggest a relaxation abnormality of the left ventricle, consistent with probable normal filling pressures. Mild aortic valve sclerosis. Mild aortic regurgitation. The ascending aorta is mildly enlarged. Comparison is made with the echocardiogram of 04/14/2022, no significant change. Procedure: A two-dimensional transthoracic echocardiogram with color flow and Doppler was performed. The study quality was technically adequate. Comparison is made with the echocardiogram of 04/14/2022. The patient was in sinus rhythm with heart rates between 52-65 bpm during the exam. Left Ventricle: The left ventricle is normal in size and wall thickness. The ejection fraction is estimated to be 60-65%. There are no focal wall motion abnormalities. Diastolic parameters suggest a relaxation abnormality of the left ventricle, consistent with probable normal filling pressures. Atria: Both atria are normal in size. There is no Doppler evidence for an interatrial shunt. Mitral Valve: The mitral valve is normal. There is no mitral valve stenosis. There is trace mitral regurgitation. Aortic Valve: The aortic valve is trileaflet. The aortic valve opens well. There is mild aortic valve sclerosis. There is no aortic valve stenosis. There is mild aortic regurgitation. Tricuspid Valve: The tricuspid valve leaflets are thin and pliable. There is a trace or physiologic amount of tricuspid regurgitation. The right ventricular systolic pressure is estimated to be at least 16 mmHg based on an estimated right atrial pressure of 3 mm Hg. Pulmonic Valve: The pulmonic valve is not well visualized. There is no pulmonic valvular regurgitation. Great Vessels: The aortic root is normal size. The ascending aorta is mildly enlarged. Asc Ao was 3.9 cm on prior echo. The pulmonary artery is not well visualized, but is probably normal size. The IVC is of normal diameter and collapses greater than 50% with a sniff. This suggests a low right atrial pressure of 3 mm Hg. Pericardium/ Pleura There is an anterior echo-free space consistent with a fat pad. There is no pericardial effusion. There is no pleural effusion. MMode/2D Measurements & Calculations LVIDd: 4.9 cm LVOT diam: 2.1 cm LVIDs: 3.7 cm Ao root diam: 3.3 cm FS: 24.5 % asc Aorta Diam: 3.9 cm EPSS: 0.32 cm Ao Arch Diam (Prox Trans): 1.6 cm IVSd: 0.58 cm LVPWd: 0.66 cm LV galdamez. diameter/BSA (cm/m^2): 2.9 LV sys. diameter/BSA (cm/m^2): 2.2 LA A2 area: 22.2 cm2 RA long axis: 5.2 cm LA A4 area: 16.5 cm2 RA area: 13.3 cm2 LA length (vol): 5.0 cm RA vol: 28.9 ml LA vol: 61.4 ml RA : 16.8 ml/m2 LA vol index: 35.8 ml/m2 IVC diam: 2.1 cm TAPSE: 2.1 cm Doppler Measurements & Calculations Ao V2 max: 202.5 cm/sec LVOT Max Joaquin: 122.6 cm/sec Ao V2 mean: 128.2 cm/sec LV V1 max P.0 mmHg Ao max P.4 mmHg LV V1 VTI: 33.2 cm Ao mean P.5 mmHg RUTH(I,D): 2.6 cm2 Ao V2 VTI: 44.6 cm RUTH(V,D): 2.1 cm2 sev ratio: 0.74 RUTH indexed to BSA (cm^2/m^2): 1.5 AI P1/2t: 671.8 msec AI dec slope: 178.6 cm/sec2 MV E max joaquin: 92.6 cm/sec TR max joaquin: 183.1 cm/sec MV A max joaquin: 114.4 cm/sec TR max P.4 mmHg MV E/A: 0.81 PA V2 max: 66.3 cm/sec Med Peak E' Joaquin: 5.8 cm/sec PA V2 mean: 45.5 cm/sec E/E' med: 16.0 PA mean P.91 mmHg Lat Peak E' Joaquin: 9.5 cm/sec PA pr(Accel): 15.6 mmHg E/E' lat: 9.8 E/e' average: 12.9 MV dec time: 0.32 sec MVA(VTI): 2.1 cm2 MV V2 mean: 66.4 cm/sec SV(LVOT): 115.5 ml MV mean P.1 mmHg MV V2 VTI: 54.2 cm Electronically signed by: Alexander Cisneros on Reading Physician:12/05/2023 11:48 AM
== END ==
PROVIDERS: Family Provider Nurse Practitioner; PCP Family Medicine; Referring Provider Nurse Practitioner; Visit Provider Nurse Practitioner
DX: I35.1 Nonrheumatic aortic (valve) insufficiency (principal); I77.89 Other specified disorders of arteries and arterioles
CPT/HCPCS: 93306

== ENCOUNTER → 2023-12-06 09:35 | Outpatient (CLI) | payer MEDICARE, SELFPAY ==
--- NOTE | 2023-12-06 09:39 | DI.RAD.S_ITS ---
PROCEDURE: XR CHEST 2V INDICATIONS: Heart disease, unspecified TECHNIQUE: 2 views of the chest were acquired. COMPARISON: [facility], CR, XR CHEST 1V, 06/13/2023, 15:05. [facility], CR, XR CHEST 2V, 10/22/2021, 14:28. FINDINGS: Surgical changes and devices: None. Lungs and pleura: Lungs are clear. No pleural effusions or pneumothorax. Mediastinum: Mediastinal contours are normal. Heart size is normal. Bones and chest wall: No suspicious bony abnormalities. Soft tissues appear unremarkable. IMPRESSION: No acute cardiopulmonary abnormality is seen. Dictated by: Rito Houser M.D. on 12/06/2023 at 10:57 Approved by: Rito Houser M.D. on 12/06/2023 at 10:57
== END ==
LOC: RAD 09:38
PROVIDERS: Family Provider Nurse Practitioner; PCP Family Medicine; Referring Provider Physician Assistant; Visit Provider Physician Assistant
DX: I51.9 Heart disease, unspecified (principal)
CPT/HCPCS: 71046

== ENCOUNTER 2023-12-22 11:56 | Day surgery (SDC) | payer MEDICARE, SELFPAY ==
[2023-12-20 12:38] VITALS: BMI 30.8
[2023-12-22 12:36] VITALS: BP 105/61; PULSE 70; RESP 18; TEMP 36.6; O2SAT 97
[2023-12-22 12:38] VITALS: BMI 30.8
[2023-12-22] MEDS: ACETAMINOPHEN 325 MG TABLET 975 MG PO (12:51)
[2023-12-22] MEDS: LACTATED RINGERS 1,000 ML 42 ML IV (12:52)
[2023-12-22] MEDS: ALBUTEROL 2.5 MG/3 ML NEB (ADULT) INH (13:00)
--- NOTE | 2023-12-22 13:08 | PM.PREOP ---
Pre-operative Note Interval Note History & Physical reviewed/Exam performed by Physician: Yes Changes to H&P: No
[2023-12-22] MEDS: CEFAZOLIN 2 GM/100 ML PREMIX 100 ML IV (13:27)
--- NOTE | 2023-12-22 13:54 | SUR.OPER ---
Beach chair with Saturnino/Delmi shoulder positioner. Lower body on padded OR bed. Head in foam padded head cradle, secured with straps. Non-operative arm secured <90 degrees abduction. Pillow under knees. Safety belt at thigh. Cloth tape over blanket over lower legs.
[2023-12-22] MEDS: BUPIVACAINE 0.5% W/ EPI (PF) 30 ML VIAL 10 ML INJ (13:58)
--- NOTE | 2023-12-22 14:38 | PM.OP.1 ---
Operative Date/Time/Diagnoses Date of procedure: 12/22/23 Time of procedure: 13:45 Pre-op diagnosis: Left shoulder partial rotator cuff tear with signs of impingement. Post-op diagnosis: same Procedure & Clinicians Procedure: Left shoulder extensive debridement as well as debridement of the rotator cuff and a subacromial decompression. Same procedure as scheduled: Yes Indications: Left shoulder pain with signs of rotator cuff pathology unresponsive to conservative treatment. Surgeon: Parth Mckinney Safety Admin Assistant: Dimitri Chavez Anesthesia Type: General and Peripheral nerve block Operative Notes Findings: Mild partial tearing to both the articular and bursal aspect of the rotator cuff. No sign of any high-grade partial tears or full-thickness tears. Degenerative changes throughout the labrum. Arthritic changes to the glenohumeral joint but no sign of any full-thickness loss. Synovitis in the glenohumeral joint as well as significant synovitis and bursitis in the subacromial and subdeltoid space. Impingement lesion in the acromial arch. Closure Type: primary Estimated Blood Loss (mL): 5 Procedure in detail: On date of service, Patient was met in the holding area. The operative site was signed and witnessed by the OR staff. The surgeries once again discussed with the patient and any remaining questions they had were answered fully. Patient was taken back to the operating theater and placed on the operating table in a supine position. Great care was taken to ensure that all bony prominences were properly padded. Patient was then placed into the beach chair position. The head and neck were properly positioned and secured. A timeout was performed verifying patient's name, procedure, and the operative site. The left upper extremity was then prepped and draped in the normal sterile fashion. Previously, the bony anatomy and portal sites were marked out as well as injected with Marcaine with epinephrine. An 11 blade was used to make an incision in the posterior aspect of the shoulder. The camera was placed, and a diagnostic shoulder scope was performed. Findings listed above. Next under direct visualization, a anterior portal was made. Shaver was placed into the anterior portal and a extensive debridement of the glenohumeral joint was performed. Shaver was used to debride the degenerative changes throughout the labrum as well as a type 1 slap tear. Also used to debride the partial tearing to the articular surface of the rotator cuff. We debrided down to more healthy rotator cuff tissue. Shaver was used to debride the arthritic changes in the glenohumeral joint as well as the synovitis in the glenohumeral joint. Next the camera was placed into the subacromial space. A lateral portal was obtained under direct visualization. A combination of the shaver and vapor wand, a debridement of the inflamed tissue as well as inflamed bursa was performed. The lateral gutter was also cleaned out. This gave us good visualization of the bursal aspect of the rotator cuff as well as the acromial arch. There was an obvious impingement lesion in the acromial arch. Next we turned our attention to the subacromial decompression. Next, a joseph was then used to do a subacromial decompression. This allowed us to convert the acromion to a type I acromial. This also allowed us to shave down the bony lesion in the acromial space. The rasp was placed into the lateral portal as well as the anterior portal in order to do a complete subacromial decompression. We then turned our attention to the rotator cuff tear. Shaver was used to debride once again any fraying or partial tearing to the superior portion of the rotator cuff. Also used to remove any remaining synovitis and inflamed bursal tissue. The shoulder was then taken through range of motion and there was no sign of any additional impingement. Patient's shoulder was then cleaned dried and dressed and patient was taken to the PACU in stable condition. The assistance of a skilled surgical scrub technologist was necessary during this procedure for the positioning of the operative limb as well as management of the cannulas as well as engaging in abduction external and internal rotation of the operative limb so we could fully evaluate the rotator cuff. The case would have been much longer and more difficult had an automotive parts counter assistant not been available. The services of the surgical scrub technologist were necessary for this case. Complications: none Post-operative Condition: stable Disposition: PACU Plan for aftercare: Patient will follow our postoperative protocol for a subacromial decompression.
[2023-12-22 14:46] VITALS: BP 135/73; PULSE 70; RESP 16; TEMP 36.2; O2SAT 98
[2023-12-22 14:48] VITALS: BP 133/63; PULSE 70; RESP 16; O2SAT 95
[2023-12-22] MEDS: OXYCODONE IR 5 MG TABLET PO (14:54)
[2023-12-22 14:55] VITALS: BP 133/63; PULSE 70; RESP 16; TEMP 36.2; O2SAT 98
[2023-12-22 15:01] VITALS: BP 134/75; PULSE 95; RESP 16; TEMP 36.2; O2SAT 98
== END 2023-12-22 15:32 | disposition home or self-care (01) ==
PROVIDERS: Family Provider Nurse Practitioner; PCP Family Medicine; Referring Provider Orthopaedic Surgery; Visit Provider Orthopaedic Surgery
PROC: (CPT 29827; principal; 2023-12-22 13:45)
DX: M65.912 Unspecified synovitis and tenosynovitis, left shoulder (principal); M75.42 Impingement syndrome of left shoulder; M71.9 Bursopathy, unspecified; M75.112 Incomplete rotator cuff tear or rupture of left shoulder, not specified as traumatic; S43.432A Superior glenoid labrum lesion of left shoulder, initial encounter; G89.18 Other acute postprocedural pain
CPT/HCPCS: 29823; 29826; 64450; J0690; J1100; J1171; J2250; J2405; J2704; J7613

== ENCOUNTER → 2024-03-03 10:12 | Outpatient (CLI) | payer MEDICARE, SELFPAY ==
--- NOTE | 2024-03-03 10:13 | DI.MG.S_ITS ---
BILATERAL DIGITAL SCREENING MAMMOGRAM 3D/2D WITH CAD: 03/03/2024 CLINICAL: Routine screening. Comparison is made to exams dated: 01/29/2023 mammogram, 01/15/2022 mammogram, and 02/08/2020 mammogram - [facility]. The breasts are heterogeneously dense, which may obscure small masses (category c / 51-75% glandular tissue). Current study was also evaluated with a Computer Aided Detection (CAD) system. No significant masses, calcifications, or other findings are seen in either breast. There has been no significant interval change. IMPRESSION: NEGATIVE There is no mammographic evidence of malignancy. A 1 year screening mammogram is recommended. Based on the Tyrer Cuzick model (a risk assessment model) the patient's lifetime risk is 7.6% and her 10 year risk is 4.8%. According to the ACR, ACS, and NCCN guidelines, an annual breast MRI exam along with mammogram is recommended if the patient's lifetime risk is 20% or greater. This exam was interpreted at Station ID: [id number]. NOTE: For mammograms, a report in lay terms will be sent to the patient. Approximately 15% of breast malignancies will not be visualized mammographically. In the management of a palpable breast mass, a negative mammogram must not discourage biopsy of a clinically suspicious lesion. Electronically Signed By: Ankita [email or web address]/[email or web address]:03/05/2024 08:42:19 letter sent: Normal Exam ACR BI-RADS Category 1: Negative
== END ==
LOC: MAMMO 10:12
PROVIDERS: Family Provider Nurse Practitioner; PCP Family Medicine; Referring Provider Family Medicine; Visit Provider Family Medicine
DX: Z12.31 Encounter for screening mammogram for malignant neoplasm of breast (principal); R92.333 Mammographic heterogeneous density, bilateral breasts
CPT/HCPCS: 77063; 77067

== ENCOUNTER → 2024-03-03 10:13 | Outpatient (CLI) | payer MEDICARE, SELFPAY ==
--- NOTE | 2024-03-03 10:14 | DI.MRI.S_ITS ---
PROCEDURE: MR SHOULDER RT WO CON INDICATIONS: ROTATOR CUFF TEAR/RUPT RT SHOULDER TECHNIQUE: Noncontrast oblique coronal T2 fast spin echo with fat saturation, oblique sagittal T1 spin echo and T2 fast spin echo with fat saturation, axial T1 spin echo and T2 fast spin echo with fat saturation through the shoulder. COMPARISON: [facility], MR, MR SHOULDER LT WO CON, 10/21/2023, 12:05. FINDINGS: Image quality: Diagnostic Rotator cuff: Bulk: Mild scattered atrophy of the supraspinatus, infraspinatus, and teres minor Teres minor: Tendon appears intact Supraspinatus: Moderate tendinopathy and high-grade nearly full-thickness tear at the footplate extending from the articular surface. Partial-thickness interstitial tears also seen Infraspinatus: Moderate tendinopathy and multifocal partial-thickness articular and interstitial tears. Subscapularis: Moderate tendinopathy. Bones and bursae: GH joint: Moderate arthrosis with small joint effusion AC joint: Moderate arthrosis Humeral head: Likely reactive edema at the greater tuberosity Scapula and acromion: No acute fracture Bursa: Mild bursitis Capsule: Labrum: Superior labral tear and circumferential degeneration Long head biceps tendon: Small split tear and tendinopathy near the glenoid anchor IGHL: Intact Rotator interval: Partially effaced with edema Soft tissues: No axillary adenopathy. Lungs are not well seen. IMPRESSION: Moderate degenerative changes of the glenohumeral and acromioclavicular joints. Small glenohumeral joint effusion. High-grade nearly full-thickness tear of the supraspinatus footplate, extending from the articular surface. Scattered tendinopathy and multifocal interstitial tears also seen elsewhere in the rotator cuff. Mild muscle belly atrophy of the supraspinatus infraspinatus and teres minor. Superior labral tear extending to the glenoid anchor of the long head biceps tendon. Circumferential attenuation likely from chronic degeneration. Edema of the rotator interval likely capsulitis. Dictated by: Delta Roque M.D. on 03/06/2024 at 9:31 Approved by: Delta Roque M.D. on 03/06/2024 at 9:36
== END ==
LOC: MRI 10:13
PROVIDERS: Family Provider Nurse Practitioner; PCP Family Medicine; Referring Provider Orthopaedic Surgery; Visit Provider Orthopaedic Surgery
DX: M75.111 Incomplete rotator cuff tear or rupture of right shoulder, not specified as traumatic (principal); S43.431A Superior glenoid labrum lesion of right shoulder, initial encounter; S46.111A Strain of muscle, fascia and tendon of long head of biceps, right arm, initial encounter; M19.011 Primary osteoarthritis, right shoulder; M25.411 Effusion, right shoulder
CPT/HCPCS: 73221

== ENCOUNTER → 2024-03-09 10:40 | Outpatient (CLI) | payer MEDICARE, SELFPAY ==
--- NOTE | 2024-03-09 10:40 | DI.RAD.S_ITS ---
PROCEDURE: XR DEXA AXIAL SKELETON INDICATIONS: Other specified disorders of bone density and structure, mul COMPARISON: None. FINDINGS: Lumbar Spine: Bone mineral density 0.839 g/cm2, T score -1.9. Left Hip: Bone mineral density 0.860 g/cm2, T score -0.7. Left Femoral Neck: Bone mineral density 0.677 g/cm2, T score -1.6. Fracture Risk Calculation (when applicable): 10-year fracture risk of a major osteoporotic fracture 15 percent and of a hip fracture 2.2 percent. (T score greater or equal to -1.0 to: NORMAL) (T score from -1.1 to -2.4: OSTEOPENIA) (T score less than or equal to -2.5: OSTEOPOROSIS) IMPRESSION: Low bone mineral density (osteopenia) by WHO classification. Follow-up guidelines as follows: Osteoporosis: Consider a repeat DEXA and Vertebral Fracture Assessment (VFA) exam in 2 years or sooner if medically necessary, to reassess this patient's status. Osteopenia: Consider a repeat DEXA in 2-3 years to reassess this patient's status, or if there is a new clinical indication. Normal: Consider a repeat DEXA in 5 years or sooner, or if there is a new clinical indication. All treatment decisions require clinical judgment and consideration of individual patient factors, including patient preferences, comorbidities, previous drug use, risk factors not captured in the FRAX model (e.g., frailty, falls, vitamin D deficiency, increased bone turnover, interval significant decline in bone density ) and possible under- or over-estimation of fracture risk by FRAX. In addition, the NOF Guide recommends that FDA-approved medical therapies be considered in postmenopausal women and men age >= 50 years with a: * Hip or vertebral (clinical or morphometric) fracture * T-score of <=-2.5 at the spine or hip * Ten-year fracture probability by FRAX of >= 3% for hip fracture or >=20% for major osteoporotic fracture. People with diagnosed cases of osteoporosis or at high risk for fracture should have regular bone mineral density tests. For patients eligible for Medicare, routine testing is allowed once every 2 years. The testing frequency can be increased to one year for patients who have rapidly progressing disease, those who are receiving or discontinuing medical therapy to restore bone mass, or have additional risk factors. Dictated by: Victorino Calles M.D. on 03/09/2024 at 12:51 Approved by: Victorino Calles M.D. on 03/09/2024 at 12:53
== END ==
PROVIDERS: Family Provider Nurse Practitioner; PCP Family Medicine; Referring Provider Family Medicine; Visit Provider Family Medicine
DX: M85.89 Other specified disorders of bone density and structure, multiple sites (principal)
CPT/HCPCS: 77080

== ENCOUNTER → 2024-03-19 09:55 | Outpatient (CLI) | payer MEDICARE, SELFPAY ==
[2024-03-19 10:11] LABS: Hematocrit 38.5 % (36-46)
[2024-03-19 10:34] LABS: BUN Creatinine Ratio 14.4 (6-22); Blood Urea Nitrogen 16 mg/dL (7-17); Calcium 9.2 mg/dL (8.4-10.2); Carbon Dioxide 34 mmol/L (22-32); Chloride 99 mmol/L (98-107); Estimated Glomerular Filt Rate 53 mL/min (>60); Glucose 99 mg/dL (80-110); HEMOLYSIS < 15 (0-50); Potassium 4.2 mmol/L (3.4-5.1); Sodium 137 mmol/L (137-145)
[2024-03-19 11:19] LABS: Creatinine Urine Random 41.35 mg/dL; Protein (Total) Urine Random 13 mg/dL (0-12); Protein Creatinine Ratio Urine 0.31 GRAM/24H
[2024-03-21 08:36] LABS: Parathyroid Hormone Int 31 pg/mL (15-65)
== END ==
PROVIDERS: Family Provider Nurse Practitioner; PCP Family Medicine; Referring Provider Student in an Organized Health Care Education/Training Program; Visit Provider Student in an Organized Health Care Education/Training Program
DX: N05.9 Unspecified nephritic syndrome with unspecified morphologic changes (principal); D70.9 Neutropenia, unspecified; D63.1 Anemia in chronic kidney disease; N25.81 Secondary hyperparathyroidism of renal origin; R80.9 Proteinuria, unspecified
CPT/HCPCS: 36415; 80048; 82570; 83970; 84156; 85014; 85018

== ENCOUNTER → 2024-04-14 08:26 | Outpatient (CLI) | payer MEDICARE, SELFPAY ==
--- NOTE | 2024-04-14 08:31 | DI.RAD.S_ITS ---
PROCEDURE: XR HIP W PEL IF DONE RT 2V INDICATIONS: right hip pain TECHNIQUE: AP pelvis with lateral view(s) of the right hip(s). COMPARISON: None. FINDINGS: Bones: No fractures or dislocations. Mild symmetric femoroacetabular joint space loss with flattening of the acetabular roof. Pelvic ring appears intact. No suspicious bony lesions. Soft tissues: The visualized bowel gas pattern is normal. No suspicious soft tissue calcifications. Staple line of a bowel anastomosis in the left pelvis. IMPRESSION: No acute bony abnormality. Symmetric and mild arthritic changes both hips. Dictated by: Ankita Ramos M.D. on 04/15/2024 at 13:42 Approved by: Ankita Ramos M.D. on 04/15/2024 at 13:45
[2024-04-14 09:06] LABS: Hematocrit 36.2 % (36-46); Hemoglobin 12.1 g/dL (12.0-16.0)
[2024-04-14 09:36] LABS: Alanine Aminotransferase 23 IU/L (<35); Albumin 4.1 g/dL (3.5-5.0); Albumin Globulin Ratio 1.9 (1.0-2.8); Alkaline Phosphatase 51 U/L (38-126); Aspartate Aminotransferase 26 IU/L (14-36); BUN Creatinine Ratio 20.4 (6-22); Bilirubin Total 0.6 mg/dL (0.2-1.3); Blood Urea Nitrogen 21 mg/dL (7-17); Carbon Dioxide 28 mmol/L (22-32); Chloride 103 mmol/L (98-107); Estimated Glomerular Filt Rate 58 mL/min (>60); Globulin 2.2 g/dL (1.7-4.1); Glucose 110 mg/dL (80-110); HEMOLYSIS < 15 (0-50); Potassium 4.1 mmol/L (3.4-5.1); Sodium 139 mmol/L (137-145); Total Protein 6.3 g/dL (6.3-8.2)
[2024-04-14 17:00] LABS: Creatinine Urine Random 214.42 mg/dL; Protein (Total) Urine Random 25 mg/dL (0-12); Protein Creatinine Ratio Urine 0.11 GRAM/24H
[2024-04-15 08:36] LABS: Parathyroid Hormone Int 43 pg/mL (15-65)
== END ==
PROVIDERS: Family Provider Nurse Practitioner; PCP Family Medicine; Referring Provider Family Medicine; Visit Provider Family Medicine
DX: I10 Essential (primary) hypertension (principal); N05.9 Unspecified nephritic syndrome with unspecified morphologic changes; D70.9 Neutropenia, unspecified; D63.1 Anemia in chronic kidney disease; N25.81 Secondary hyperparathyroidism of renal origin; R80.9 Proteinuria, unspecified; M24.852 Other specific joint derangements of left hip, not elsewhere classified; M24.851 Other specific joint derangements of right hip, not elsewhere classified
CPT/HCPCS: 36415; 73502; 80053; 82570; 83970; 84156; 85014; 85018

== ENCOUNTER → 2024-06-11 13:03 | Outpatient (CLI) | payer MEDICARE, SELFPAY ==
[2024-06-11 14:38] LABS: Alanine Aminotransferase 16 IU/L (<35); Albumin 4.3 g/dL (3.5-5.0); Albumin Globulin Ratio 1.8 (1.0-2.8); Alkaline Phosphatase 56 U/L (38-126); Aspartate Aminotransferase 24 IU/L (14-36); Bilirubin Total 0.8 mg/dL (0.2-1.3); Blood Urea Nitrogen 17 mg/dL (7-17); Calcium 9.3 mg/dL (8.4-10.2); Carbon Dioxide 30 mmol/L (22-32); Chloride 102 mmol/L (98-107); Estimated Glomerular Filt Rate 57 mL/min (>60); Globulin 2.4 g/dL (1.7-4.1); Glucose 105 mg/dL (80-110); HEMOLYSIS < 15 (0-50); Potassium 4.4 mmol/L (3.4-5.1); Sodium 139 mmol/L (137-145); Total Protein 6.7 g/dL (6.3-8.2)
== END ==
PROVIDERS: PCP Family Medicine; Referring Provider Internal Medicine Cardiovascular Disease; Visit Provider Internal Medicine Cardiovascular Disease
DX: I10 Essential (primary) hypertension (principal)
CPT/HCPCS: 36415; 80053

== ENCOUNTER → 2024-07-10 12:36 | Outpatient (CLI) | payer MEDICARE, SELFPAY ==
[2024-07-10 13:36] LABS: BUN Creatinine Ratio 22.3 (6-22); Blood Urea Nitrogen 21 mg/dL (7-17); Calcium 8.8 mg/dL (8.4-10.2); Carbon Dioxide 30 mmol/L (22-32); Chloride 103 mmol/L (98-107); Estimated Glomerular Filt Rate > 60 mL/min (>60); Glucose 87 mg/dL (70-99); HEMOLYSIS < 15 (0-50); Potassium 4.2 mmol/L (3.4-5.1); Sodium 139 mmol/L (137-145)
[2024-07-10 15:06] LABS: Creatinine Urine Random 114.42 mg/dL; Protein (Total) Urine Random 12 mg/dL (0-12)
== END ==
PROVIDERS: PCP Family Medicine; Referring Provider Student in an Organized Health Care Education/Training Program; Visit Provider Student in an Organized Health Care Education/Training Program
DX: N05.9 Unspecified nephritic syndrome with unspecified morphologic changes (principal); R80.9 Proteinuria, unspecified
CPT/HCPCS: 36415; 80048; 82570; 84156

== ENCOUNTER → 2024-08-16 09:24 | Outpatient (CLI) | payer MEDICARE, MEDICAID, SELFPAY ==
--- NOTE | 2024-08-16 09:26 | DI.MG.S_ITS ---
MM diagnostic mammo unilat LT: 08/16/2024. BI-RADS: 1 CLINICAL: 69-year old female for left diagnostic mammogram. Tyrer-Cuzick lifetime risk of 2.2%. No personal or first-degree family history of breast cancer. The patient reports pain (3 months) in the left breast. PRIOR EXAMS 03/03/2024, 01/29/2023, 01/15/2022, 05/22/2020, MAMMOGRAPHY TECHNIQUE: 2D and 3D (tomosynthesis) digital mammographic views obtained, with additional images as needed for full coverage. Current study was also evaluated with a Computer Aided Detection (CAD) system. DENSITY Left: C. The breasts are heterogeneously dense, which may obscure small masses. MAMMOGRAPHY FINDINGS Left: No correlate for diffuse pain. No suspicious mass, asymmetry, microcalcification, or other abnormality seen. IMPRESSION: Left * No evidence of malignancy. RECOMMENDATIONS * Recommend clinical follow up for persistent or worsening symptoms with instructions to return sooner if there is development of any clinically suspicious findings in the interim. Bilateral * Annual screening mammography. OVERALL ASSESSMENT CATEGORY BI-RADS-1: Negative. The [employer] recommends annual screening mammography beginning at age 40 for women with average risk of breast cancer. ELECTRONICALLY SIGNED: Delta Roque M.D. on 08/16/2024 at 10:35:58 AM PT Interpreting Station ID: [id number]
== END ==
PROVIDERS: PCP Family Medicine; Referring Provider Physician Assistant; Visit Provider Physician Assistant
DX: N64.4 Mastodynia (principal); M79.629 Pain in unspecified upper arm; R92.332 Mammographic heterogeneous density, left breast
CPT/HCPCS: 77065; G0279

== ENCOUNTER → 2024-08-23 11:01 | Outpatient (CLI) | payer MEDICARE, MEDICAID, SELFPAY | PROVIDERS: PCP Family Medicine; Referring Provider Internal Medicine Critical Care Medicine; Visit Provider Internal Medicine Critical Care Medicine | DX: R06.02 Shortness of breath (principal); Z87.891 Personal history of nicotine dependence | CPT/HCPCS: 94060; 94726; 94729 ==

== ENCOUNTER 2024-09-22 13:43 | Emergency (ER) | payer MEDICARE, MEDICAID, SELFPAY ==
[2024-09-22] VITALS (13 sets, daily range): BP systolic 140–173; BP diastolic 69–74; PULSE 55–70; RESP 14–18; TEMP 37; O2SAT 90–97; BMI 31.1
--- NOTE | 2024-09-22 14:06 | EKG_ITS ---
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
--- NOTE | 2024-09-22 14:28 | ED.GENADULT ---
HPI - General Adult General Chief complaint: Abdominal Pain Stated complaint: Sharp pains on right side of ribs Time Seen by Provider: 09/22/24 14:05 Source: patient Mode of arrival: Ambulatory Related Data Home Medications ?Medication ?Instructions ?Recorded ?Confirmed lisinopril 40 mg tablet 40 mg PO DAILY 05/03/22 08/23/24 carvedilol 25 mg tablet 25 mg PO BID 12/20/23 08/23/24 atorvastatin 40 mg tablet 40 mg PO DAILY 06/18/24 08/23/24 diltiazem HCl 240 mg 240 mg PO ONCE 08/23/24 capsule,extended release 24 hr ketoconazole 2 % topical cream 1 applic topical BID PRN 08/23/24 Previous Rx's ?Medication ?Instructions ?Recorded Nebulizer #1 ea 09/22/21 mucus clearing device (Aerobika #1 ea 06/15/22 Oscillating PEP System device) hydralazine 25 mg tablet 25 mg PO BID #180 tabs 12/03/22 latanoprost 0.005 % eye drops 1 drp EYE-RIGHT ONCE PM #7.5 mL 01/04/24 pantoprazole 40 mg tablet,delayed 40 mg PO BID #180 tabs 04/16/24 release promethazine 25 mg tablet 25 mg PO Q6H PRN for 04/16/24 nausea/vomiting #120 tabs trazodone 100 mg tablet 150 - 200 mg (1.5 - 2 x 100 mg) PO 04/16/24 ONCE PM #180 tabs oxycodone-acetaminophen 5 mg-325 2 tab PO Q4-6H PRN pain #60 tabs 04/25/24 mg tablet (Percocet) fluticasone propionate 50 1 spray intranasal BID #16 grams 05/18/24 mcg/actuation nasal spray,suspension (Allergy Relief (fluticasone)) lidocaine 5 % topical patch 3 patch topical DAILY #90 ea 06/04/24 duloxetine 20 mg capsule,delayed 40 mg (2 x 20 mg) PO BID #360 caps 06/15/24 release loratadine 10 mg tablet (Claritin) 10 mg PO DAILY #90 tabs 07/24/24 tramadol 50 mg tablet See Rx Instructions .Route 08/01/24 .COMPLEX #90 tabs clonazepam 1 mg tablet 1 mg PO Q8H PRN muscle spasms #90 08/04/24 tabs sucralfate 1 gram tablet 1 g PO BID #60 tabs 08/22/24 albuterol sulfate 2.5 mg/3 mL 2.5 mg (3 mL) inhalation Q4-6H PRN 09/04/24 (0.083 %) solution for nebulization SOB, cough, wheezing #180 mL albuterol sulfate 90 mcg/actuation See Rx Instructions inhalation 09/04/24 aerosol inhaler ONCE #8.5 grams Allergies Allergy/AdvReac Type Severity Reaction Status Date / Time azithromycin (From Zithromax) Allergy Mild Verified 09/22/24 13:55 ceftriaxone Allergy Mild Verified 09/22/24 13:55 clarithromycin (From Biaxin) Allergy Mild Verified 09/22/24 13:55 gemfibrozil Allergy Mild Verified 09/22/24 13:55 hydrocodone (From Vicodin) Allergy Mild Verified 09/22/24 13:55 nitrofurantoin Allergy Mild Hives on Verified 09/22/24 13:55 chest/ shoulders isosorbide AdvReac Intermediate Verified 09/22/24 13:55 aspirin AdvReac Mild Dizziness Verified 09/22/24 13:55 buprenorphine (From Suboxone) AdvReac Mild Agitated Verified 09/22/24 13:55 buspirone (From BuSpar) AdvReac Mild dysphoria Verified 09/22/24 13:55 memantine (From Namenda) AdvReac Mild confusion Verified 09/22/24 13:55 naloxone (From Suboxone) AdvReac Mild Agitated Verified 09/22/24 13:55 pregabalin (From Lyrica) AdvReac Mild Dizziness Verified 09/22/24 13:55 gabapentin AdvReac loopy in Verified 09/22/24 13:55 the head Patient History Medical History Tinea corporis Sebaceous cyst Gastritis Right hip pain Depression (~1988) Dizziness Compression fracture of T12 vertebra Major depression, recurrent Osteoarthritis of hands, 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 Immunodeficiency due to conditions classified elsewhere Post menopausal syndrome Lumbar pain with radiation down left leg Dependence on nocturnal oxygen therapy CKD (chronic kidney disease) Medial epicondylitis of both elbows Ascending aortic aneurysm Facet arthropathy, cervical Cervical stenosis of spinal canal Impingement syndrome of both shoulders Ocular migraine GERD (gastroesophageal reflux disease) Hepatic steatosis Wound of left foot Paresthesia of right lower extremity Neoplasm of uncertain behavior Intermittent left-sided chest pain Mass of right thigh Cat bite Allergic rash present on examination Chronic pain of both shoulders Hyperlipidemia LDL goal <100 Cannabis dependence, daily use Nausea & vomiting Vaginitis Abnormal chest x-ray (~2011) Mumps Measles Ruptured tympanic membrane (~1974) Abnormal Pap smear of cervix (~1974) Kidney stones (~2018) Hemorrhoid (~1979) Colon polyps (~2002) Change in bowel habit History of chronic constipation Fatigue Weight loss, non-intentional Right renal mass Pancreatic mass Epigastric pain determined by examination Abdominal pain Granuloma annulare (~2014) Osteoarthritis (~2012) Sleep apnea (~2015) COPD (chronic obstructive pulmonary disease) (~2011) Migraines (~1982) Shoulder pain (~1985) Scoliosis (~1963) Osteoporosis (~2012) Degenerative joint disease (DJD) of lumbar spine (~1963) Fractures Foot pain (~2017) Fibromyalgia (~1983) Anemia (~2016) Glaucoma (~2018) Partial blindness Painful menstrual periods Fecal incontinence (~2017) Liver disease (~1972) GI bleeding (~2018) Skin cancer (~2014) Surgical History Status post left shoulder hemiarthroplasty History of repair of left rotator cuff Anesthesia Carpal tunnel syndrome (~1987) Cataracts, bilateral (~2013) History of hysterectomy (~1981) Family History Father History of heart disease Hypertension Hyperlipidemia Mother Cancer Hypertension Grandfather No problems noted. Grandmother History of heart disease Hyperlipidemia Hypertension Grandfather Cancer Grandmother Stroke Social History marital status: unmarried,living together household members: friend(s) occupational status: previously employed alcohol intake: never substance use type: marijuana alcohol intake frequency: holidays/special occasions only Exam Initial Vital Signs Initial Vital Signs: Vital Signs Temperature 98.6 F 09/22/24 13:54 Pulse Rate 66 09/22/24 13:54 Respiratory Rate 16 09/22/24 13:54 Blood Pressure 146/72 H 09/22/24 13:54 Pulse Oximetry 95 09/22/24 13:54 Oxygen Delivery Method Room Air 09/22/24 13:54 Course Orders Ordered: ED Orders 09/22/24 13:59 EKG-12 Lead Stat 09/22/24 14:25 Complete Blood Count AUTO DIFF Stat Comprehensive Metabolic Panel Stat Lipase Stat 09/22/24 14:29 CT abdomen pelvis w con Stat XR chest 1V Stat Hydromorphone HCl (Hydromorphone Hcl 0.5 Mg/0.5 Ml Syringe) 0.5 mg IV Q15MIN PRN PRN Reason: Pain, Ondansetron HCl (Ondansetron 4 Mg/2 Ml Inj) 4 mg IV NOW PRN PRN Reason: Nausea And Vomiting Ondansetron HCl (Ondansetron 4 Mg Odt) 4 mg PO NOW PRN PRN Reason: Nausea And Vomiting Discontinued Medications Sodium Chloride (Normal Saline 0.9%) 1,000 mls @ 1,000 mls/hr IV BOLUS ONE Stop: 09/22/24 15:28 Last Infusion: 09/22/24 15:47 Dose: Infused Documented By: Admin: 09/22/24 15:11 Dose: 1,000 mls/hr Documented By: DIMITRI Ondansetron HCl (Ondansetron 4 Mg/2 Ml Inj) 4 mg IV NOW ONE Stop: 09/22/24 14:30 Last Admin: 09/22/24 15:11 Dose: 4 mg Documented By: DIMITRI Vital Signs Vital signs: Vital Signs - 8 hr 09/22/24 13:54 09/22/24 14:08 09/22/24 14:30 Temperature 98.6 F Pulse Rate 66 55 L 69 Respiratory Rate 16 Blood Pressure 146/72 H Pulse Oximetry 95 90 L 95 Oxygen Delivery Method Room Air 09/22/24 14:31 09/22/24 14:31 Temperature Pulse Rate 56 L Respiratory Rate Blood Pressure 148/69 H Pulse Oximetry 95 Oxygen Delivery Method Room Air Medical Decision Making Lab Data 09/22/24 14:25 09/22/24 14:25 Labs: Lab Results 09/22/24 Range/Units 14:25 WBC 6.7 (4.5-11.0) X10^3/uL RBC 3.94 L (4.0-5.2) X10^6/uL Hgb 12.3 (12.0-16.0) g/dL Hct 36.1 (36-46) % MCV 91.6 (80-100) fL MCH 31.1 (26-34) PG MCHC 34.0 (30-36) % RDW 14.1 (11.6-14.8) % Plt Count 263 (150-400) X10^3/uL Neut % (Auto) 54.8 (50-75) % Lymph % (Auto) 35.1 (25-40) % [place] % (Auto) 7.7 (3-14) % Eos % (Auto) 1.8 L (2-4) % Baso % (Auto) 0.6 (0-2) % Neut # (Auto) 3600 (1869-9262) /uL Lymph # (Auto) 2300 (4374-6594) /uL [place] # (Auto) 500 (0-900) /uL Eos # (Auto) 100 (0-450) /uL Baso # (Auto) 0 (0-100) /uL Sodium 138 (137-145) mmol/L Potassium 4.2 (3.4-5.1) mmol/L Chloride 102 (98-107) mmol/L Carbon Dioxide 32 (22-32) mmol/L BUN 20 H (7-17) mg/dL Creatinine 0.97 (0.52-1.04) mg/dL Estimated GFR > 60 (>60) mL/min BUN/Creatinine Ratio 20.6 (6-22) Glucose 78 (70-99) mg/dL Calcium 8.4 (8.4-10.2) mg/dL Total Bilirubin 0.4 (0.2-1.3) mg/dL AST 25 (14-36) IU/L ALT 17 (<35) IU/L Alkaline Phosphatase 58 (38-126) U/L Total Protein 6.5 (6.3-8.2) g/dL Albumin 3.7 (3.5-5.0) g/dL Globulin 2.8 (1.7-4.1) g/dL Albumin/Globulin Ratio 1.3 (1.0-2.8) Lipase 396 H (23-300) U/L Urine Dip Bedside Urine Glucose Negative Bedside Urine Bilirubin - Negative Bedside Urine Ketone - Negative Urine Specific [place] 1.005 Bedside Urine Occult Blood - Negative Bedside Urine pH 7.0 Bedside Urine Protein - Negative Bedside Urine Urobilinogen - Negative Bedside Urine Nitrite - Negative Bedside Urine Leukocytes - Negative Esterase Point of care testing: Urine Dip Bedside Urine Glucose Negative Bedside Urine Bilirubin - Negative Bedside Urine Ketone - Negative Urine Specific [place] 1.005 Bedside Urine Occult Blood - Negative Bedside Urine pH 7.0 Bedside Urine Protein - Negative Bedside Urine Urobilinogen - Negative Bedside Urine Nitrite - Negative Bedside Urine Leukocytes - Negative Esterase Imaging Data CT scan - abdomen/pelvis: Radiologist's Impression: PROCEDURE: CT ABDOMEN PELVIS W CON INDICATIONS: Diffuse abdominal pain starting abruptly this morning TECHNIQUE: After the administration of intravenous contrast, axial sections acquired from the lung bases to the pubic symphysis. Coronal and sagittal reformats were performed. For radiation dose reduction, the following was used: automated exposure control, adjustment of mA and/or kV according to patient size. COMPARISON: [facility], CT, CT ABDOMEN PELVIS W CON, 12/05/2018, 8:25. FINDINGS: Image quality: Diagnostic. Lower Chest: No significant findings. ABDOMEN: Liver: No solid mass. Gallbladder: No radiopaque gallstones or wall thickening. Biliary ducts: No biliary dilation. Pancreas: No ductal dilation. Spleen: Size is within normal limits. Adrenal Glands: No adrenal nodules. Kidneys and Ureters: No hydronephrosis. No solid mass. No complex renal cystic lesion which requires follow up. Bilateral simple renal cysts measure up to 2.8 cm on the left Stomach and Bowel: Normal colonic caliber, without significant wall thickening. Moderate fecal debris throughout the colon. Prior sigmoidectomy. No bowel obstruction. Peritoneum: No abnormal intraperitoneal fluid. No free air. Ventral Wall: No significant ventral hernia. Abdominal Nodes: No retroperitoneal or mesenteric adenopathy by size criteria. Vessels: Aorta and inferior vena cava are normal in size. PELVIS: Pelvic Organs: Unremarkable. Bladder: No bladder wall thickening, accounting for underdistention. Pelvic Nodes: No enlarged lymph nodes. Miscellaneous: No inguinal hernias are seen. Bones: No aggressive osseous abnormality. IMPRESSION: Moderate fecal debris throughout the colon without obstruction. Approved by: Chris Campos M.D. on 09/22/2024 at 14:50 Discharge Plan Departure Patient Disposition: Home Clinical Impression: Abdominal pain Qualifiers: Abdominal location: generalized Qualified Code(s): R10.84 - Generalized abdominal pain Instructions: DI for Abdominal Pain-Adult, DI for Constipation Activity Restrictions/Additional Instructions: Thank you for coming in today Your blood work was very reassuring. There was no sign of bladder infection, kidney infection, kidney abnormalities that are significant or would need hospitalization, no liver enzyme problems. Your chest x-ray is unremarkable. The CT scan of your abdomen does not show any significant pathology that would require hospitalization or surgical intervention. Your CT scan does show quite a bit of stool throughout your colon and I suspect that this is what is causing your pain. I am going to suggest that you use MiraLax this evening, 1 dose which is 17 g which is 1 cap full of the powder and a large glass of water every half an hour until your bowels begin to move and then stop. If you need to do some manual disimpaction to get the bowels started that is okay as well If you find that you are getting worse or develop any new symptoms, please feel free to return to the emergency department for further evaluation. Prescriptions: No Action (DME) Nebulizer See Rx Instructions .Route .MEDSUPPLY Qty: 1 0RF Rx Instructions: for use with albuterol bullets for COPD exacerbation (DME) Aerobika Oscillating PEP Systm Device See Rx Instructions .Route Qty: 1 0RF Rx Instructions: Use 2-3 times as directed to clear respiratory secretions hydralazine 25 mg tablet 25 mg PO BID Qty: 180 0RF latanoprost 0.005 % drops 1 drp EYE-RIGHT ONCE PM Qty: 7.5 3RF pantoprazole 40 mg tablet,delayed release (DR/EC) 40 mg PO BID Qty: 180 3RF promethazine 25 mg tablet 25 mg PO Q6H PRN (Reason: for nausea/vomiting) Qty: 120 3RF trazodone 100 mg tablet 150 - 200 mg PO ONCE PM Qty: 180 3RF oxycodone-acetaminophen [Percocet] 5-325 mg tablet 2 tab PO Q4-6H PRN (Reason: pain) Qty: 60 0RF fluticasone propionate [Allergy Relief (fluticasone)] 50 mcg/actuation spray,suspension 1 spray intranasal BID Qty: 16 1RF Rx Instructions: administer into each nostril lidocaine 5 % adhesive patch,medicated 3 patch topical DAILY Qty: 90 11RF Rx Instructions: leave on most painful area(s) for up to 12 hrs in any 24-hour period duloxetine 20 mg capsule,delayed release(DR/EC) 40 mg PO BID Qty: 360 3RF loratadine [Claritin] 10 mg tablet 10 mg PO DAILY Qty: 90 3RF tramadol 50 mg tablet See Rx Instructions .ROUTE .COMPLEX Qty: 90 3RF Rx Instructions: Take 1 tab by mouth every 8 hours as needed for pain.; clonazepam 1 mg tablet 1 mg PO Q8H PRN (Reason: muscle spasms) Qty: 90 1RF sucralfate 1 gram tablet 1 g PO BID Qty: 60 1RF albuterol sulfate 90 mcg/actuation HFA aerosol inhaler See Rx Instructions inhalation ONCE Qty: 8.5 3RF Rx Instructions: 1-2 puff inhalation once daily as needed albuterol sulfate 2.5 mg /3 mL (0.083 %) solution for nebulization 2.5 mg inhalation Q4-6H PRN (Reason: SOB, cough, wheezing) Qty: 180 3RF atorvastatin 40 mg tablet 40 mg PO DAILY diltiazem HCl 240 mg capsule,extended release 24hr 240 mg PO ONCE ketoconazole 2 % cream 1 applic topical BID PRN Rx Instructions: Apply topically to affected area twice per day. carvedilol 25 mg tablet 25 mg PO BID lisinopril 40 mg tablet 40 mg PO DAILY Referrals: Heri Maynard DO [Primary Care Provider, Family Practice] Stand Alone Forms: Patient Portal/API
--- NOTE | 2024-09-22 14:29 | DI.RAD.S_ITS ---
PROCEDURE: XR CHEST 1V INDICATIONS: Right lower lung pain TECHNIQUE: One view of the chest was acquired. COMPARISON: [facility], CR, XR CHEST 2V, 12/06/2023, 9:37. FINDINGS: Surgical changes and devices: None. Lungs and pleura: Lungs are clear. No pleural effusions or pneumothorax. Mediastinum: Mediastinal contours appear normal. Heart size is normal. Bones and chest wall: No suspicious bony lesions. Overlying soft tissues appear unremarkable. IMPRESSION: No acute cardiopulmonary abnormality is seen. Approved by: Chris Campos M.D. on 09/22/2024 at 14:13
[2024-09-22 14:30] LABS: Add Manual Diff / Slide Review NO; Hematocrit 36.1 % (36-46); Hemoglobin 12.3 g/dL (12.0-16.0); Lymphocytes Absolute Auto 2300 /uL (1100-4500); Mean Corpuscular HGB Conc 34.0 % (30-36); Mean Corpuscular Hemoglobin 31.1 PG (26-34); Mean Corpuscular Volume 91.6 fL (80-100); Platelet Count 263 X10^3/uL (150-400)
[2024-09-22 14:41] LABS: Alanine Aminotransferase 17 IU/L (<35); Albumin 3.7 g/dL (3.5-5.0); Albumin Globulin Ratio 1.3 (1.0-2.8); Alkaline Phosphatase 58 U/L (38-126); Blood Urea Nitrogen 20 mg/dL (7-17); Calcium 8.4 mg/dL (8.4-10.2); Carbon Dioxide 32 mmol/L (22-32); Chloride 102 mmol/L (98-107); Estimated Glomerular Filt Rate > 60 mL/min (>60); Globulin 2.8 g/dL (1.7-4.1); Glucose 78 mg/dL (70-99); HEMOLYSIS < 15 (0-50); Lipase 396 U/L (23-300); Potassium 4.2 mmol/L (3.4-5.1); Sodium 138 mmol/L (137-145); Total Protein 6.5 g/dL (6.3-8.2)
[2024-09-22] MEDS: SODIUM CHLORIDE 0.9% 1,000 ML 1000 ML IV (15:11)
[2024-09-22] MEDS: ONDANSETRON 4 MG/2 ML INJ IV (15:11)
--- NOTE | 2024-09-22 16:24 | PC.NURSE ---
Pt reports having pain to right side. Refused pain medication at this time.
--- NOTE | 2024-09-22 16:53 | PC.NURSE ---
Pt up to BR independently with cane. Steady gate noted. Discussed plan with pt, understands.
== END 2024-09-22 18:39 | disposition home or self-care (01) ==
PROVIDERS: Emergency Provider Emergency Medicine; PCP Family Medicine
DX: R10.84 Generalized abdominal pain (principal); I10 Essential (primary) hypertension
CPT/HCPCS: 36415; 71045; 74177; 80053; 81003; 83690; 85025; 93005; 96361; 96374; 99284; J2405; Q9967

== ENCOUNTER → 2024-09-28 09:59 | Outpatient (CLI) | payer MEDICARE, MEDICAID, SELFPAY ==
[2024-09-28 10:51] LABS: Protein (Total) Urine Random 11 mg/dL (0-12); Protein Creatinine Ratio Urine 0.09 GRAM/24H
[2024-09-28 10:52] LABS: Blood Urea Nitrogen 20 mg/dL (7-17); Calcium 9.2 mg/dL (8.4-10.2); Carbon Dioxide 30 mmol/L (22-32); Chloride 101 mmol/L (98-107); Estimated Glomerular Filt Rate 54 mL/min (>60); Glucose 107 mg/dL (70-99); HEMOLYSIS < 15 (0-50); Potassium 4.7 mmol/L (3.4-5.1); Sodium 138 mmol/L (137-145)
== END ==
PROVIDERS: PCP Family Medicine; Referring Provider Student in an Organized Health Care Education/Training Program; Visit Provider Student in an Organized Health Care Education/Training Program
DX: N05.9 Unspecified nephritic syndrome with unspecified morphologic changes (principal); R80.9 Proteinuria, unspecified
CPT/HCPCS: 36415; 80048; 82570; 84156

== ENCOUNTER → 2024-12-29 09:11 | Outpatient (CLI) | payer MEDICARE, MEDICAID, SELFPAY ==
[2024-12-29 09:55] LABS: Add Manual Diff / Slide Review NO; Hematocrit 37.1 % (36-46); Hemoglobin 12.5 g/dL (12.0-16.0); Lymphocytes Absolute Auto 2500 /uL (1100-4500); Mean Corpuscular HGB Conc 33.8 % (30-36); Mean Corpuscular Hemoglobin 30.7 PG (26-34); Mean Corpuscular Volume 91.0 fL (80-100); Platelet Count 242 X10^3/uL (150-400)
[2024-12-29 10:27] LABS: Alanine Aminotransferase 17 IU/L (<35); Albumin 3.8 g/dL (3.5-5.0); Albumin Globulin Ratio 1.6 (1.0-2.8); Alkaline Phosphatase 66 U/L (38-126); Blood Urea Nitrogen 19 mg/dL (7-17); Calcium 8.8 mg/dL (8.4-10.2); Carbon Dioxide 28 mmol/L (22-32); Chloride 102 mmol/L (98-107); Estimated Glomerular Filt Rate > 60 mL/min (>60); Globulin 2.4 g/dL (1.7-4.1); Glucose 103 mg/dL (70-99); HEMOLYSIS < 15 (0-50); Potassium 4.3 mmol/L (3.4-5.1); Sodium 138 mmol/L (137-145); Total Protein 6.2 g/dL (6.3-8.2)
== END ==
PROVIDERS: PCP Student in an Organized Health Care Education/Training Program; Referring Provider Student in an Organized Health Care Education/Training Program; Visit Provider Student in an Organized Health Care Education/Training Program
DX: N19 Unspecified kidney failure (principal); R19.8 Other specified symptoms and signs involving the digestive system and abdomen; R53.1 Weakness
CPT/HCPCS: 36415; 80053; 85025; 85651; 86140

== ENCOUNTER → 2025-02-19 10:16 | Outpatient (CLI) | payer MEDICARE, MEDICAID, SELFPAY | PROVIDERS: PCP Student in an Organized Health Care Education/Training Program; Referring Provider Student in an Organized Health Care Education/Training Program; Visit Provider Student in an Organized Health Care Education/Training Program | DX: N19 Unspecified kidney failure (principal); R19.8 Other specified symptoms and signs involving the digestive system and abdomen; R53.1 Weakness | CPT/HCPCS: 82270 ==

== ENCOUNTER 2025-02-19 10:36 | Emergency (ER) | payer MEDICARE, MEDICAID, SELFPAY ==
[2025-02-19] VITALS (18 sets, daily range): BP systolic 114–180; BP diastolic 65–125; PULSE 52–77; RESP 9–24; TEMP 36.7; O2SAT 93–96
--- OUTSIDE RECORDS SUMMARY | 2025-02-19 10:43 | XMS_ITS | Encounter Summary ---
Author Organization [facility] Address [address] [place] [address] Care Team Providers Care General Laborer Name Role Phone Nellie Gary MD Primary Care Provider [phone] Encounter Details Date Type Department Care Team (Late st Contact Info) Description 04/15/2022 Orders Only [facility] Cardiology [place], [place] [address] Lourdes Tee MD [address] [place] [id number] Ascending aorta enlargement ([facility]) Social History Tobacco Use Types Packs/Day Years Used Date Smoking Tobacco: Former Cigarettes 1 50 0 08/28/1972 - 01/21/2020 Passive Smoke Exposure: Past Smokeless Tobacco: Never Comments:I slipped up 2 samantha hs ago. I'm working on quitting now Passive Exposure Comments:18 yrs Alcohol Use Standard Drinks/Week Comments Not Currently 0 (1 standard drink = 0.6 oz pur e alcohol) AUDIT-C Answer Date Recorded Q1: How often do you have a drink containing alc ohol? Never 01/09/2020 Average Number of Drinks Not on file 020 Frequency of Binge Drinking Not on file 12/29 Comments No Sex and Gender Information Value Date Recorded Sex Assigned at Female 03/24/2021 4:34 PM PST Legal Sex Female 7:21 PM PDT Gender Identity Female 03/24/2021 4:34 PM PST Sexual Orientation Straight 03/24/2021 4: 34 PM PST documented as of this encounter Plan of Treatment Upcoming Encounters Date Type Department Care Team (Late st Contact Info) Description 03/15/2025 11:00 AM PST Office Visit [facility] Cardiology [place] [address] [facility], [place] [phone] Lourdes Tee MD [facility] [place] [address] 05/21/2025 10:00 AM PDT Telemedicine [facility] Gastroenterology [address] [address] Kailey Jarvis PA-C [address] [address] documented as of this encounter Procedures Procedure Name Priority Date/Time Associated Diagnosis Comments ECHOCARDIOGRAM COMPLETE Routine 04/14/2022 Ascending aorta enlargement ([facility]) documented in this encounter Results * ECHOCARDIOGRAM COMPLETE (04/14/2022) Anatomical Region Laterality Modality N/A Ultrasound us Lourdes Tee MD [facility] ECHO PROCEDURES Lynette l Result documented in this encounter Visit Diagnoses Diagnosis Ascending aorta enlargement documented in this encounter Care Teams General Laborer Relationship Specialty Start Date End Date Nellie Gary MD [address] [place], [place] [id number] PCP - General Family Medicine 12/20/24 documented as of this encounter
--- NOTE | 2025-02-19 10:50 | DI.RAD.S_ITS ---
PROCEDURE: XR CHEST 1V INDICATIONS: chest pain, hurts to bend over TECHNIQUE: One view of the chest was acquired. COMPARISON: [facility], CR, XR CHEST 1V, 09/22/2024, 14:24. FINDINGS: Surgical changes and devices: None. Lungs and pleura: Lungs are clear. No pleural effusions or pneumothorax. Mediastinum: Mediastinal contours appear normal. Heart size is normal. Bones and chest wall: No suspicious bony lesions. Overlying soft tissues appear unremarkable. IMPRESSION: Stable radiographic evaluation of the chest without acute cardiopulmonary abnormalities or focal consolidation. Dictated by: Henry Roberts M.D. on 02/19/2025 at 11:13 Approved by: Henry Roberts M.D. on 02/19/2025 at 11:13
--- NOTE | 2025-02-19 10:50 | EKG_ITS ---
[id number], [place] [address] Test Date: 2025-02-19 Pat Name: Vane Olsen Department: Room: Gender: Female Mobile Marketing Manager: : 1955 Requested By: Order Number: [id number] Reading MD: Meek Moore MD Measurements Intervals [place] Rate: 64 P: 61 [place]: 176 QRS: 0 QRSD: 86 T: 4 QT: 424 QTc: 437 Interpretive Statements Normal sinus rhythm Electronically Signed On 02-19-2025 17:14:49 PST by Meek Moore MD
--- NOTE | 2025-02-19 10:50 | DI.CT.S_ITS ---
PROCEDURE: CT ANGIO CHEST ABDOMEN PELVIS INDICATIONS: chest pain, hurts to bend over, hx abdominal aortic aneurysm TECHNIQUE: Precontrast 5 mm thick sections acquired from the lung apices to the iliac crests. After the administration of intravenous contrast, 2.5 mm thick sections again acquired from the lung apices to the iliac crests. Maximum intensity projection (MIP) oblique sagittal and coronal reformats were then acquired. For radiation dose reduction, the following was used: automated exposure control. COMPARISON: [facility], CT, CT ABDOMEN PELVIS W CON, 09/22/2024, 14:46. FINDINGS: Image quality: Diagnostic. AORTA: No aortic aneurysm. No acute aortic syndrome. Redemonstration of mild ectasia of the ascending thoracic aorta measuring up to 3.9 cm in maximum dimension. No evidence for descending thoracic or abdominal aortic aneurysm. CHEST: Lower Neck: No enlarged lymph nodes. Thyroid: No thyroid nodules which require sonographic follow up, per consensus guidelines. Axillae: No enlarged lymph nodes. Chest Wall: Unremarkable. Lungs and Pleura: No pneumothorax or pleural effusions. No consolidation or suspicious nodules. Mild bibasilar atelectasis. No new suspicious or enlarging pulmonary nodules. Heart: Heart size is normal. No pericardial effusion. Thoracic Vessels: Pulmonary arteries demonstrate borderline enlargement of the main pulmonary artery measuring up to 2.8 cm in diameter. Mediastinum and [place]: No enlarged lymph nodes. Esophagus: No wall thickening. No hiatal hernia. ABDOMEN: Liver: No solid mass. Gallbladder: No radiopaque gallstones or wall thickening. Biliary ducts: No biliary dilation. Pancreas: No ductal dilation. Spleen: Size is within normal limits. Adrenal Glands: No adrenal nodules. Kidneys and Ureters: No hydronephrosis. No solid mass. No complex renal cystic lesion which requires follow up. Multiple bilateral renal cysts are not significantly changed. Stomach and Bowel: Normal colonic caliber, without significant wall thickening. Stable postsurgical changes of prior distal partial colectomy. No evidence for small bowel obstruction or associated inflammatory changes. Peritoneum: No abnormal intraperitoneal fluid. No free air. Ventral Wall: No hernia. Abdominal Nodes: No retroperitoneal or mesenteric adenopathy by size criteria. Vessels: Inferior vena cava is normal in size. PELVIS: Pelvic Organs: Uterus is not visualized and likely surgically absent. Bladder: Unremarkable. Pelvic Nodes: No enlarged lymph nodes. Miscellaneous: No inguinal hernias are seen. Bones: Unremarkable. No acute vertebral body compression fractures. Multilevel spondylitic changes throughout the imaged spine. No suspicious osseous lesions. IMPRESSION: CT angiogram of the chest, abdomen, and pelvis without acute abnormalities. Specifically, no evidence for aneurysmal dilatation of the thoracic or abdominal aorta. Stable size of ectatic ascending thoracic aorta measuring up to 3.9 cm in diameter. No evidence for acute aortic syndrome. Other chronic/non-acute findings as above. Dictated by: Henry Roberts M.D. on 02/19/2025 at 11:59 Approved by: Henry Roberts M.D. on 02/19/2025 at 12:12
--- NOTE | 2025-02-19 10:52 | ED.CHESTPAIN ---
HPI - Chest Pain General Chief Complaint: Chest Pain Stated Complaint: legs swelling, sob, heart condition/copd Time Seen by Provider: 02/19/25 10:39 Source: patient Mode of arrival: Ambulatory Limitations: no limitations Limitations: no limitations History of Present Illness HPI narrative: 69-year-old female history of ascending aortic aneurysm, known aortic regurgitation, COPD on O2 at night, CKD stage 3, hypertension, CHF with complaint of chest discomfort she describes particularly worse when she bends over. Increasing shortness of breath with exertion, orthopnea and increasing swelling of her lower extremities. She states has been going on for about a week or so. She noticed his chest discomfort for the past 3 days. Patient states she has not had any new medication changes recently but did have her hydralazine increased from b.i.d. to t.i.d. couple of months ago she initially held off as her blood pressures were that bad but she has started this a couple of weeks 0. She takes 5 different medications for hypertension, statin, tramadol and cyclobenzaprine, states no daily anticoagulants. No other daily medications reported. She states remote history of tobacco, rare alcohol, uses marijuana no other recreational drugs. Dr. Guillen insert primary care physician. Dr. Tee is her sample processor. Related Data Home Medications ?Medication ?Instructions ?Recorded ?Confirmed lisinopril 40 mg tablet 40 mg PO DAILY 05/03/22 01/08/25 carvedilol 25 mg tablet 25 mg PO BID 12/20/23 01/08/25 atorvastatin 40 mg tablet 40 mg PO DAILY 06/18/24 01/08/25 ketoconazole 2 % topical cream 1 applic topical BID PRN 08/23/24 01/08/25 Previous Rx's ?Medication ?Instructions ?Recorded mucus clearing device (Aerobika #1 ea 06/15/22 Oscillating PEP System device) hydralazine 25 mg tablet 25 mg PO BID #180 tabs 12/03/22 pantoprazole 40 mg tablet,delayed 40 mg PO BID #180 tabs 04/16/24 release trazodone 100 mg tablet 150 - 200 mg (1.5 - 2 x 100 mg) PO 04/16/24 ONCE PM #180 tabs lidocaine 5 % topical patch 3 patch topical DAILY #90 ea 06/04/24 loratadine 10 mg tablet (Claritin) 10 mg PO DAILY #90 tabs 05/27/25 albuterol sulfate 90 mcg/actuation See Rx Instructions inhalation 09/04/24 aerosol inhaler ONCE #8.5 grams clonazepam 1 mg tablet 1 mg PO Q8H PRN muscle spasms #90 10/18/24 tabs hydralazine 50 mg tablet 50 mg PO BID #30 tabs 10/18/24 tramadol 50 mg tablet See Rx Instructions .Route 10/18/24 .COMPLEX #90 tabs diltiazem HCl 240 mg 240 mg PO ONCE #90 caps 11/15/24 capsule,extended release 24 hr latanoprost 0.005 % eye drops 1 drp EYE-RIGHT DAILY #7.5 mL 12/07/24 food supplemt, lactose-reduced 1 ea PO .twice daily #5,688 mL 12/18/24 0.05 gram-1.5 kcal/mL oral liquid (Ensure Plus) fluticasone propionate 50 1 spray intranasal BID #16 grams 01/21/25 mcg/actuation nasal spray,suspension promethazine 25 mg tablet 25 mg PO Q6H PRN for 01/21/25 nausea/vomiting #120 tabs oxycodone 5 mg tablet 5 mg PO Q6H PRN pain #10 tabs 02/19/25 Allergies Allergy/AdvReac Type Severity Reaction Status Date / Time azithromycin (From Zithromax) Allergy Mild Verified 02/19/25 10:45 ceftriaxone Allergy Mild Verified 02/19/25 10:45 clarithromycin (From Biaxin) Allergy Mild Verified 02/19/25 10:45 gemfibrozil Allergy Mild Verified 02/19/25 10:45 hydrocodone (From Vicodin) Allergy Mild Verified 02/19/25 10:45 nitrofurantoin Allergy Mild Hives on Verified 02/19/25 10:45 chest/ shoulders sucralfate AdvReac Severe Bloat Verified 02/19/25 10:45 isosorbide AdvReac Intermediate Verified 02/19/25 10:45 aspirin AdvReac Mild Dizziness Verified 02/19/25 10:45 buprenorphine (From Suboxone) AdvReac Mild Agitated Verified 02/19/25 10:45 buspirone (From BuSpar) AdvReac Mild dysphoria Verified 02/19/25 10:45 memantine (From Namenda) AdvReac Mild confusion Verified 02/19/25 10:45 naloxone (From Suboxone) AdvReac Mild Agitated Verified 02/19/25 10:45 pregabalin (From Lyrica) AdvReac Mild Dizziness Verified 02/19/25 10:45 gabapentin AdvReac loopy in Verified 02/19/25 10:45 the head Review of Systems Review of Systems ROS Unobtainable: All systems reviewed & are unremarkable except as noted in HPI and below Patient History Medical History Primary osteoarthritis of both knees History of chronic constipation Ascending aortic aneurysm Tinea corporis Sebaceous cyst Gastritis Right hip pain Depression (~1988) Dizziness Compression fracture of T12 vertebra Major depression, recurrent Osteoarthritis of hands, 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 Immunodeficiency due to conditions classified elsewhere Post menopausal syndrome Lumbar pain with radiation down left leg Dependence on nocturnal oxygen therapy CKD (chronic kidney disease) Medial epicondylitis of both elbows Facet arthropathy, cervical Cervical stenosis of spinal canal Impingement syndrome of both shoulders Ocular migraine GERD (gastroesophageal reflux disease) Hepatic steatosis Wound of left foot Paresthesia of right lower extremity Neoplasm of uncertain behavior Intermittent left-sided chest pain Mass of right thigh Cat bite Allergic rash present on examination Chronic pain of both shoulders Hyperlipidemia LDL goal <100 Cannabis dependence, daily use Nausea & vomiting Vaginitis Abnormal chest x-ray (~2011) Mumps Measles Ruptured tympanic membrane (~1974) Abnormal Pap smear of cervix (~1974) Kidney stones (~2018) Hemorrhoid (~1979) Colon polyps (~2002) Change in bowel habit Fatigue Weight loss, non-intentional Right renal mass Pancreatic mass Epigastric pain determined by examination Abdominal pain Granuloma annulare (~2014) Osteoarthritis (~2012) Sleep apnea (~2015) COPD (chronic obstructive pulmonary disease) (~2011) Migraines (~1982) Shoulder pain (~1985) Scoliosis (~1963) Osteoporosis (~2012) Degenerative joint disease (DJD) of lumbar spine (~1963) Fractures Foot pain (~2017) Fibromyalgia (~1983) Anemia (~2016) Glaucoma (~2018) Partial blindness Painful menstrual periods Fecal incontinence (~2017) Liver disease (~1972) GI bleeding (~2018) Skin cancer (~2014) Surgical History Status post left shoulder hemiarthroplasty History of repair of left rotator cuff Anesthesia Carpal tunnel syndrome (~1987) Cataracts, bilateral (~2013) History of hysterectomy (~1981) Family History Father History of heart disease Hypertension Hyperlipidemia Mother Cancer Hypertension Grandfather No problems noted. Grandmother History of heart disease Hyperlipidemia Hypertension Grandfather Cancer Grandmother Stroke Social History marital status: unmarried,living together household members: friend(s) occupational status: previously employed Smoking Status: Former smoker alcohol intake: never substance use type: marijuana Smoking Status: Former smoker alcohol intake frequency: holidays/special occasions only Exam Narrative Exam Narrative: GENERAL: Alert and oriented x three, female in mild distress HEENT: Head normocephalic, atraumatic, EOMI, pupils reactive, face symmetric, moist mucous membranes NECK: Supple, full range of motion CARDIOVASCULAR: Regular rate and rhythm without murmurs, rubs or gallops. No JVD, patient has a mild edema bilateral lower extremities. RESPIRATORY: Breath sounds equal bilaterally, no wheezes rales or rhonchi. No tachypnea accessory muscle use ABDOMEN: Soft, Normoactive bowel sounds all 4 quadrants. No guarding or rebound, rigidity, no mass, no pulsatile mass or bruit patient does have some epigastric tenderness. : No CVA tenderness EXTREMITIES: Normal range of motion. Neurovascularly intact NEUROLOGICAL: Cranial nerves II through XII grossly intact. Moving all extremities, patient ambulates into the room without issue. SKIN: Warm, dry, no petechiae, no rashes or lesions. Initial Vital Signs Initial Vital Signs: Vital Signs Temperature 98.0 F 02/19/25 10:37 Pulse Rate 77 02/19/25 10:37 Respiratory Rate 20 02/19/25 10:37 Blood Pressure 164/84 H 02/19/25 10:37 Pulse Oximetry 93 02/19/25 10:37 Oxygen Delivery Method Room Air 02/19/25 10:37 Scores HEART Score Heart Score history: Slightly Suspicious Heart Score EKG: Normal Heart Score Age: > or = 65 years old Heart Score risk factors: 1-2 risk factors Heart Score troponin: < or = to normal limit Heart Score Total: 3 Course Orders Ordered: Discontinued Medications Morphine Sulfate (Morphine 2 Mg/Ml Inj) 4 mg 0.05 mg/kg (4 mg) IV NOW ONE Stop: 02/19/25 14:41 Last Admin: 02/19/25 14:53 Dose: 4 mg Documented By: CHUCHO Vital Signs Vital signs: Vital Signs - 8 hr 02/19/25 10:37 02/19/25 10:42 02/19/25 10:43 Temperature 98.0 F Pulse Rate 77 Respiratory Rate 20 Blood Pressure 164/84 H 164/88 H Pulse Oximetry 93 94 Oxygen Delivery Method Room Air 02/19/25 10:43 02/19/25 11:00 02/19/25 11:01 Temperature Pulse Rate 74 67 Respiratory Rate 24 18 Blood Pressure 114/65 Pulse Oximetry 94 94 Oxygen Delivery Method 02/19/25 11:01 02/19/25 11:25 02/19/25 11:25 Temperature Pulse Rate 66 67 Respiratory Rate 9 L Blood Pressure 153/83 H Pulse Oximetry 94 93 Oxygen Delivery Method 02/19/25 11:30 02/19/25 11:31 02/19/25 11:31 Temperature Pulse Rate 68 68 Respiratory Rate 12 13 Blood Pressure 156/71 H Pulse Oximetry 93 94 Oxygen Delivery Method 02/19/25 12:00 02/19/25 12:00 02/19/25 12:36 Temperature Pulse Rate 70 52 L Respiratory Rate 20 Blood Pressure 180/125 H Pulse Oximetry 93 95 Oxygen Delivery Method 02/19/25 12:38 02/19/25 12:38 02/19/25 13:00 Temperature Pulse Rate 72 70 Respiratory Rate 16 20 Blood Pressure 160/94 H Pulse Oximetry 94 93 Oxygen Delivery Method 02/19/25 13:00 Temperature Pulse Rate Respiratory Rate Blood Pressure 157/79 H Pulse Oximetry Oxygen Delivery Method MDM - Chest Pain Lab Data 02/19/25 10:44 02/19/25 10:44 Labs: Lab Results 02/19/25 02/19/25 Range/Units 10:44 12:40 WBC 9.1 (4.5-11.0) X10^3/uL RBC 4.18 (4.0-5.2) X10^6/uL Hgb 12.9 (12.0-16.0) g/dL Hct 38.2 (36-46) % MCV 91.4 (80-100) fL MCH 30.8 (26-34) PG MCHC 33.7 (30-36) % RDW 14.3 (11.6-14.8) % Plt Count 290 (150-400) X10^3/uL Neut % (Auto) 69.6 (50-75) % Lymph % (Auto) 22.4 L (25-40) % [place] % (Auto) 6.6 (3-14) % Eos % (Auto) 1.2 L (2-4) % Baso % (Auto) 0.2 (0-2) % Neut # (Auto) 6300 (4358-5293) /uL Lymph # (Auto) 2000 (3651-8026) /uL [place] # (Auto) 600 (0-900) /uL Eos # (Auto) 100 (0-450) /uL Baso # (Auto) 0 (0-100) /uL Sodium 140 (137-145) mmol/L Potassium 4.2 (3.4-5.1) mmol/L Chloride 104 (98-107) mmol/L Carbon Dioxide 28 (22-32) mmol/L BUN 12 (7-17) mg/dL Creatinine 1.08 H (0.52-1.04) mg/dL Estimated GFR 55 L (>60) mL/min BUN/Creatinine Ratio 11.1 (6-22) Glucose 129 H (70-99) mg/dL Calcium 8.8 (8.4-10.2) mg/dL Magnesium 2.0 (1.6-2.3) mg/dL Total Bilirubin 0.7 (0.2-1.3) mg/dL AST 27 (14-36) IU/L ALT 18 (<35) IU/L Alkaline Phosphatase 70 (38-126) U/L Troponin I < 0.012 < 0.012 (0.01-0.034) ng/mL NT-Pro-B Natriuret Pep 125 H (<125) pg/mL Total Protein 7.0 (6.3-8.2) g/dL Albumin 4.2 (3.5-5.0) g/dL Globulin 2.8 (1.7-4.1) g/dL Albumin/Globulin Ratio 1.5 (1.0-2.8) Lipase 59 (23-300) U/L [facility] Narrative Medical decision making narrative: EKG, sinus rhythm, no acute ST-elevation, no new dynamic changes T-waves inverted in lead 3. Patient has prior from 09/22/2024 appears similar. Sinus rhythm rate of 67 HI 190 QRS 86 QTC of 456, no acute ST-elevation no dynamic EKG changes. EKG 3. Sinus rhythm rate of 69 HI 164 QRS 86 QTC 458. Chest x-ray shows no acute cardiopulmonary abnormalities or focal consolidation. Labs, white count of 9 hemoglobin of 12 platelets are 209 all the electrolytes are appropriate creatinine is 1.08 congestion with prior glucose 129 troponins less than 0.012 with a repeat of less than 0.012 and a BNP of 125. CT angio chest abdomen and pelvis without acute abnormalities stable size of ectatic ascending thoracic aorta measuring 3.9 cm, no evidence of acute aortic syndrome. No pericardial effusion. Pulmonary arteries demonstrated borderline enlargement main pulmonary areas measuring up to 0.8 cm. Patient has a appropriate vitals plan for follow up short term. Patient is ambulatory pulse ox she does not become hypoxic heart rates in the 80s. Patient initially deferred anything for pain has now agreeable. She notes an intermittent stabbing discomfort in her chest. Discussed findings with the patient. Discussed with cardiology Dr. Jackson if patient is agreeable to keep for stress testing he is reviewing schedule appears that there are slots available tomorrow. If she prefers to return home can follow up with Dr. Tee for outpatient. Spoke with patient, discussed keeping her for chest pain observation evaluate for cardiac source she elects to discharge home and not stay. We did discuss my concerns. She prefers to follow up outpatient. We will give a short course of pain medication. Discharge Plan Departure Patient Disposition: Home Clinical Impression: Atypical chest pain Instructions: DI for Atypical Chest Pain Activity Restrictions/Additional Instructions: Follow up with the cardiology team. I do think you benefit from a repeat ECHO of your heart. Please call to set up follow up. You can take pain medication as prescribed, take 1-2 tablets every 6 hours as needed. Take this instead of your tramadol do not take them both together. Prescription printed. Please return if you have new or worsening symptoms, new chest pain or increasing shortness of breath, new new swelling of your extremities, fevers, productive cough or other new or concerning changes. Prescriptions: New oxycodone 5 mg tablet 5 mg PO Q6H PRN (Reason: pain) Qty: 10 0RF No Action tramadol 50 mg tablet See Rx Instructions .ROUTE .COMPLEX Qty: 90 5RF Rx Instructions: Take 1 tab by mouth every 8 hours as needed for pain.; clonazepam 1 mg tablet 1 mg PO Q8H PRN (Reason: muscle spasms) Qty: 90 5RF hydralazine 50 mg tablet 50 mg PO BID Qty: 30 3RF (DME) Aerobika Oscillating PEP Systm Device See Rx Instructions .Route Qty: 1 0RF Rx Instructions: Use 2-3 times as directed to clear respiratory secretions hydralazine 25 mg tablet 25 mg PO BID Qty: 180 0RF pantoprazole 40 mg tablet,delayed release (DR/EC) 40 mg PO BID Qty: 180 3RF trazodone 100 mg tablet 150 - 200 mg PO ONCE PM Qty: 180 3RF lidocaine 5 % adhesive patch,medicated 3 patch topical DAILY Qty: 90 11RF Rx Instructions: leave on most painful area(s) for up to 12 hrs in any 24-hour period loratadine [Claritin] 10 mg tablet 10 mg PO DAILY Qty: 90 3RF albuterol sulfate 90 mcg/actuation HFA aerosol inhaler See Rx Instructions inhalation ONCE Qty: 8.5 3RF Rx Instructions: 1-2 puff inhalation once daily as needed diltiazem HCl 240 mg capsule,extended release 24hr 240 mg PO ONCE Qty: 90 3RF latanoprost 0.005 % drops 1 drp EYE-RIGHT DAILY Qty: 7.5 3RF Ensure Plus 0.05 gram- 1.5 kcal/mL liquid 1 ea PO .twice daily Qty: 5688 11RF Rx Instructions: one bottle of ensure twice daily promethazine 25 mg tablet 25 mg PO Q6H PRN (Reason: for nausea/vomiting) Qty: 120 11RF fluticasone propionate 50 mcg/actuation spray,suspension 1 spray intranasal BID Qty: 16 11RF atorvastatin 40 mg tablet 40 mg PO DAILY ketoconazole 2 % cream 1 applic topical BID PRN Rx Instructions: Apply topically to affected area twice per day. carvedilol 25 mg tablet 25 mg PO BID lisinopril 40 mg tablet 40 mg PO DAILY Referrals: Lourdes Tee MD [Physician, Cardiology] Nellie Guillen MD [Primary Care Provider, Family Practice] Stand Alone Forms: Patient Portal/API
[2025-02-19 11:06] LABS: Alanine Aminotransferase 18 IU/L (<35); Albumin 4.2 g/dL (3.5-5.0); Albumin Globulin Ratio 1.5 (1.0-2.8); Alkaline Phosphatase 70 U/L (38-126); Blood Urea Nitrogen 12 mg/dL (7-17); Calcium 8.8 mg/dL (8.4-10.2); Carbon Dioxide 28 mmol/L (22-32); Chloride 104 mmol/L (98-107); Estimated Glomerular Filt Rate 55 mL/min (>60); Globulin 2.8 g/dL (1.7-4.1); Glucose 129 mg/dL (70-99); HEMOLYSIS < 15 (0-50); Lipase 59 U/L (23-300); Magnesium 2.0 mg/dL (1.6-2.3); Potassium 4.2 mmol/L (3.4-5.1); Sodium 140 mmol/L (137-145); Total Protein 7.0 g/dL (6.3-8.2)
[2025-02-19 11:17] LABS: Add Manual Diff / Slide Review NO; Hematocrit 38.2 % (36-46); Hemoglobin 12.9 g/dL (12.0-16.0); Lymphocytes Absolute Auto 2000 /uL (1100-4500); Mean Corpuscular HGB Conc 33.7 % (30-36); Mean Corpuscular Hemoglobin 30.8 PG (26-34); Mean Corpuscular Volume 91.4 fL (80-100); Platelet Count 290 X10^3/uL (150-400)
[2025-02-19 11:18] LABS: NT-proBNP (BNP-Adult 18+) 125 pg/mL (<125); Troponin I < 0.012 ng/mL (0.01-0.034)
[2025-02-19 13:14] LABS: Troponin I < 0.012 ng/mL (0.01-0.034)
--- NOTE | 2025-02-19 13:14 | EKG_ITS ---
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
--- NOTE | 2025-02-19 14:18 | EKG_ITS ---
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
[2025-02-19] MEDS: MORPHINE 2 MG/ML INJ 4 MG IV (14:53)
== END 2025-02-19 15:39 | disposition home or self-care (01) ==
PROVIDERS: Emergency Provider Emergency Medicine; PCP Student in an Organized Health Care Education/Training Program
DX: R07.89 Other chest pain (principal); R06.02 Shortness of breath; M79.89 Other specified soft tissue disorders; I13.0 Hypertensive heart and chronic kidney disease with heart failure and stage 1 through stage 4 chronic kidney disease, or unspecified chronic kidney disease; N18.30 Chronic kidney disease, stage 3 unspecified; I50.9 Heart failure, unspecified; R06.01 Orthopnea; R19.8 Other specified symptoms and signs involving the digestive system and abdomen; R53.1 Weakness
CPT/HCPCS: 36415; 71045; 71275; 74174; 80053; 82270; 83690; 83735; 83880; 84484; 85025; 93005; 93010; 96374; 99284; J2270; Q9967